=== PATIENT | male | born 1955 | race Caucasian/White ===

== ENCOUNTER 2018-05-17 20:39 | Emergency (ER) | payer BC ==
--- OUTSIDE RECORDS SUMMARY | 2018-05-17 20:46 | XMS REPORT | Continuity of Care Document ---
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 [facility] Rheumatoid Active Diagnosis 05/08/2018 [facility] arthritis of [facility] multiple sites without rheumatoid factor Cigarette Active Problem 05/08/2018 [facility] nicotine [facility] dependence, uncomplicated Other chronic Active Diagnosis 05/08/2018 [facility] pain [facility] Chronic Active Diagnosis 09/12/2016 [facility] prescription [facility] opiate use Long-term use of Active Problem 01/02/2016 [facility] other medications [facility] - High Risk Long-term use of Active Problem 01/02/2016 [facility] steroids [facility] Rheumatoid Active Problem 01/02/2015 [facility] arthritis [facility] Hypertension Active Problem 01/02/2016 [facility] Osteoarthrosis, Active Problem 01/02/2016 [facility] multiple sites [facility] Lumbago Active Problem 01/02/2016 [facility] Rheumatoid Active Problem 01/02/2016 [facility] arthritis of [facility] multiple sites without organ or system involvement with positive rheumatoid factor Need for Active Diagnosis 06/10/2014 [facility] prophylactic [facility] vaccination and inoculation, Influenza Encounter for Active Diagnosis 09/21/2015 [facility] long-term use of [facility] other high-risk medications Medications Medication Details Route Status Patient Ordering Order Source Instructions Provider Date Hydrocodone-Hal 1 tab Orally Active 10-325 MG Cain 08/04/ [facility] taminophen Orally BID to 2018 [facility] QID as needed Xeljanz XR 1 tablet Orally Active 11 MG Orally Cain 11/04/ Jourdan Once a day 2018 [facility] Hydrocodone-Hal 1 tab Orally Active 10-325 MG Cain 09/05/ [facility] taminophen Orally BID to 2017 [facility] QID as needed Hydrocodone-Hal 1 tab Orally Active 10-325 MG Fak[place] 05/09/ [facility] taminophen Orally twice a 2017 [facility] day as needed Medrol Dose Dominic as Orally Active 4mg Orally once Cain 05/07/ [facility] directed a day 2016 [facility] Folic Acid 1 tablet Orally Active 1 MG Orally Cain 09/09/ Jourdan once a day Once a day 2016 [facility] orally 90 days Hydrocodone-Hal 1 tablet Orally Active 10-325 MG Cain 04/10/ [facility] taminophen as needed Orally every 6 2015 [facility] hrs Xeljanz XR 1 tablet Orally Active 11 MG Orally Cain 03/27/ Jourdan Once a day 2016 [facility] Folic Acid 1 tablet Orally Active 1 MG Orally Cain 03/24/ Jourdan once a day Once a day 2015 [facility] orally 90 days Xeljanz XR 1 tablet Orally Active 11 MG Orally Cain 03/11/ Jourdan Once a day 2015 [facility] Actemra SQ 1 subcutaneous No 162mg/0.9 mL [place] 12/31/ [facility] injection Longer subcutaneous 2015 [facility] Active once a week Folic Acid 1 tablet Orally Active 1 MG Orally [place] 12/31/ [facility] Once a day 2015 [facility] Hydrocodone-Hal 1 tablet Orally Active 10-325 MG Cain 10/25/ [facility] taminophen as needed Orally every 6 2015 [facility] hrs Folic Acid take 1 Orally Active 1 Orally Once a [place] 10/01/ [facility] tablet by day 2015 [facility] mouth once daily Voltaren as Transdermal Active 1 % Transdermal Cain 10/01/ [facility] directed PRN 2015 [facility] Actemra SQ 1 subcutaneous Active 162mg/0.9 mL [place] 07/05/ [facility] injection subcutaneous 2016 [facility] once a week ORENCIA SQ 125mg SUBCUTANEOUSLY No 125MG Cain 06/20/ [facility] Longer SUBCUTANEOUSLY 2015 [facility] Active ONCE A WEEK Hydrocodone-Hal 1 tablet Orally Active 10-325 MG Cain 05/05/ [facility] taminophen as needed Orally every 6 2014 [facility] hrs ORENCIA SQ 125mg SUBCUTANEOUSLY Active 125MG [facility] 01/02/ [facility] SUBCUTANEOUSLY 2014 [facility] ONCE A WEEK ORENCIA SQ 125mg SUBCUTANEOUSLY Active 125MG [facility] 07/02/ [facility] SUBCUTANEOUSLY 2014 [facility] ONCE A WEEK Hydrocodone-Hal 1 tablet Orally Active 10-325 MG [facility] 06/14/ [facility] taminophen as needed Orally every 6 2014 [facility] hrs Hydrocodone-Hal 1 tablet Orally Active 10-325 MG [facility] 05/12/ [facility] taminophen as needed Orally every 6 2013 [facility] hrs Folic Acid 1 tablet Orally Active 1 MG Orally Cain 01/02/ [facility] Once a day 2013 [facility] Voltaren as Transdermal Active 1 % Transdermal Cain 01/02/ [facility] directed Three times a 2013 day ORENCIA SQ 125MG SUBCUTANEOUSLY Active 125MG Cain 01/02/ [facility] SUBCUTANEOUSLY 2013 [facility] ONCE A WEEK Hydrocodone-Hal 1 tablet Orally Active 10-325 MG Cain 08/23/ [facility] taminophen as needed Orally every 6 2013 [facility] hrs PredniSONE 1 tablet Orally Active 5 MG Orally Cain 08/23/ [facility] Once a day 2013 [facility] Voltaren as Transdermal Active 1 % Transdermal Cain [facility] directed PRN [facility] Nuvigil 1 tablet Orally Active 250 MG Orally Cain [facility] in the Once a day [facility] morning Inderal LA 1 capsule Orally Active 160 MG Orally Cain [facility]dan Once a day [facility] Calcium 1 tablet Orally Active otc Orally once Cain [facility] with meals a day [facility] Folic Acid 1 tablet Orally Active 1 MG Orally Cain [facility]dan Once a day [facility] Propranolol HCl 1 tablet Orally Active 10 MG Orally Cain [facility]dan Once a day [facility] Multivitamins 1 tablet Orally Active Orally once a Cain [facility]dan day [facility] Tricor 1 tablet Orally Active 145 MG Orally Cain [facility] Once a day [facility] Trazodone HCl 1 tablet Orally Active 150 MG Orally Cain [facility] at night [facility] Hydrocodone-Hal 1 tablet Orally Active 10-325 MG Cain [facility] taminophen as needed Orally every 6 [facility] hrs Xeljanz XR 1 tablet Orally Active 11 MG Orally Cain [facility] Once a day [facility] Xeljanz XR TAKE 1 NA Active 11 MG Cain [facility] TABLET BY [facility] MOUTH EVERY DAY Inderal LA 1 capsule Orally Active 160 MG Orally Cain [facility]dan Once a day [facility] Propranolol HCl 1 tablet Orally Active 10 MG Orally Cain [facility] Once a day [facility] Multivitamins 1 tablet Orally Active Orally once a Cain Jourdan day [facility] Voltaren as Transdermal Active 1 % Transdermal Cain [facility] directed PRN [facility] Tricor 1 tablet Orally Active 145 MG Orally Cain [facility] Once a day [facility] Trazodone HCl 1 tablet Orally Active 150 MG Orally Cain [facility] at night [facility] Nuvigil 1 tablet Orally Active 250 MG Orally Cain [facility] in the Once a day [facility] morning Calcium 1 tablet Orally Active otc Orally once Cain [facility] with meals a day [facility] Hydrocodone-Hal 1 tab Orally Active 10-325 MG Cain [facility] taminophen Orally BID to [facility] QID as needed Folic Acid TAKE 1 BY NA Active 1 MG Cain [facility] MOUTH [facility] DAILY Nexium 1 capsule Orally Active 40 MG Orally Cain [facility] prn [facility] Methotrexate 1 ml Injection Active 25 MG/ML Cain [facility] Sodium Injection Once [facility] a week ORENCIA SQ 125mg SUBCUTANEOUSLY Active 125MG Cain [facility] SUBCUTANEOUSLY [facility] ONCE A WEEK Methotrexate 1 ml SQ injection Active 25 MG/ML SQ Cain [facility] Sodium injection Once [facility] a week Xeljanz XR TAKE 1 NA Active 11 MG Cain [facility] TABLET BY [facility] MOUTH EVERY DAY Aricept 1 tablet Orally Active 23 MG Orally Cain [facility] at bedtime Once a day [facility] PredniSONE 1 tablet Orally Active 5 MG Orally Cain [facility] Once a day [facility] Voltaren as Transdermal Active 1 % Transdermal Cain [facility] directed PRN [facility] Hydrocodone-Hal 1 tablet Orally Active 10-325 MG Cain [facility] taminophen as needed Orally every 6 [facility] hrs Allergies, Adverse Reactions, Alerts Substance Category Reaction Severity Reaction Status Date Comments Source type Reported Lyrica Adverse Info Not Adverse Active [facility] Reaction Available Reaction 8 [facility] [place]rencia Adverse Info Not Adverse Active [facility] Reaction Available Reaction 8 [facility] Humira Adverse Info Not Adverse Active [facility] Reaction Available Reaction 8 [facility] Enbrel Adverse Info Not Adverse Active [facility] Reaction Available Reaction 8 [facility] Immunizations Immunization Date Given Site Status Last Updated Comments Source Actemra 07/05/2015 completed [facility] Depomedrol 06/06/2014 completed [facility] Flu Vaccine 03/15/2014 completed [facility] Depomedrol 10/04/2013 completed [facility] Toradol 10/04/2013 completed [facility] Results Order Results Value Reference Date Interpretation Comments Source Name Range Vital Signs Vital Sign Value Date Comments Source Weight 217.5 05/06/2018 [facility] Height 73 05/06/2018 [facility] Temperature Oral (F) 97.0 F 05/06/2018 [facility] Heart Rate 68 05/06/2018 [facility] Diastolic (mm Hg) 98 05/06/2018 [facility] Systolic (mm Hg) 158 05/06/2018 [facility] Weight 218.8 02/04/2018 [facility] Height 73 02/04/2018 [facility] Temperature Oral (F) 97.6 F 02/04/2018 [facility] Heart Rate 80 02/04/2018 [facility] Diastolic (mm Hg) 88 02/04/2018 [facility] Systolic (mm Hg) 140 02/04/2018 [facility] Weight 222.1 11/05/2017 [facility] Height 73 11/05/2017 [facility] Temperature Oral (F) 96.7 F 11/05/2017 [facility] Heart Rate 78 11/05/2017 [facility] Diastolic (mm Hg) 98 11/05/2017 [facility] Systolic (mm Hg) 144 11/05/2017 [facility] Weight 215.1 08/06/2017 [facility] Height 73 08/06/2017 [facility] Temperature Oral (F) 95.9 F 08/06/2017 [facility] Heart Rate 68 08/06/2017 [facility] Diastolic (mm Hg) 98 08/06/2017 [facility] Systolic (mm Hg) 140 08/06/2017 [facility] Weight 212.5 05/07/2017 [facility] Height 73 05/07/2017 [facility] Temperature Oral (F) 96.6 F 05/07/2017 [facility] Heart Rate 64 05/07/2017 [facility] Diastolic (mm Hg) 88 05/07/2017 [facility] Systolic (mm Hg) 124 05/07/2017 [facility] Weight 208 04/09/2017 [facility] Height 72 04/09/2017 [facility] Temperature Oral (F) 96.3 F 04/09/2017 [facility] Heart Rate 68 04/09/2017 [facility] Diastolic (mm Hg) 84 04/09/2017 [facility] Systolic (mm Hg) 142 04/09/2017 [facility] Weight 209.3 12/09/2016 [facility] Height 73.5 12/09/2016 [facility] Temperature Oral (F) 97.5 F 12/09/2016 [facility] Heart Rate 72 12/09/2016 [facility] Diastolic (mm Hg) 76 12/09/2016 [facility] Systolic (mm Hg) 142 12/09/2016 [facility] Weight 209 09/09/2016 [facility] Height 72.5 09/09/2016 [facility] Temperature Oral (F) 97.4 F 09/09/2016 [facility] Heart Rate 72 09/09/2016 [facility] Diastolic (mm Hg) 90 09/09/2016 [facility] Systolic (mm Hg) 140 09/09/2016 [facility] Weight 204.3 06/11/2016 [facility] Height 73 06/11/2016 [facility] Temperature Oral (F) 97.4 F 06/11/2016 [facility] Heart Rate 64 06/11/2016 [facility] Diastolic (mm Hg) 90 06/11/2016 [facility] Systolic (mm Hg) 142 06/11/2016 [facility] Weight 201 03/11/2016 [facility] Height 73 03/11/2016 [facility] Temperature Oral (F) 97.0 F 03/11/2016 [facility] Heart Rate 68 03/11/2016 [facility] Diastolic (mm Hg) 80 03/11/2016 [facility] Systolic (mm Hg) 128 03/11/2016 [facility] Weight 203 12/20/2015 [facility] Height 73 12/20/2015 [facility] Temperature Oral (F) 97.0 F 12/20/2015 [facility] Heart Rate 72 12/20/2015 [facility] Weight 206 09/26/2015 [facility] Height 73 09/26/2015 [facility] Temperature Oral (F) 97.0 F 09/26/2015 [facility] Heart Rate 70 09/26/2015 [facility] Diastolic (mm Hg) 96 09/26/2015 [facility] Systolic (mm Hg) 150 09/26/2015 [facility] Weight 206 07/05/2015 [facility] Height 72 07/05/2015 [facility] Temperature Oral (F) 97.5 F 07/05/2015 [facility] Heart Rate 64 07/05/2015 [facility] Diastolic (mm Hg) 90 07/05/2015 [facility] Systolic (mm Hg) 130 07/05/2015 [facility] Weight 202 04/05/2015 [facility] Height 72 04/05/2015 [facility] Temperature Oral (F) 96.7 F 04/05/2015 [facility] Heart Rate 64 04/05/2015 [facility] Diastolic (mm Hg) 90 04/05/2015 [facility] Systolic (mm Hg) 130 04/05/2015 [facility] Weight 200 08/15/2014 [facility] Height 74 08/15/2014 [facility] Temperature Oral (F) 97.4 F 08/15/2014 [facility] Heart Rate 72 08/15/2014 [facility] Diastolic (mm Hg) 74 08/15/2014 [facility] Systolic (mm Hg) 126 08/15/2014 [facility] Weight 204 06/06/2014 [facility] Height 72 06/06/2014 [facility] Temperature Oral (F) 97.6 F 06/06/2014 [facility] Heart Rate 72 06/06/2014 [facility] Diastolic (mm Hg) 70 06/06/2014 [facility] Systolic (mm Hg) 136 06/06/2014 [facility] Weight 203 03/15/2014 [facility] Height 72 03/15/2014 [facility] Temperature Oral (F) 97.0 F 03/15/2014 [facility] Heart Rate 76 03/15/2014 [facility] Diastolic (mm Hg) 84 03/15/2014 [facility] Systolic (mm Hg) 146 03/15/2014 [facility] Weight 204 12/21/2013 [facility] Height 72 12/21/2013 [facility] Temperature Oral (F) 97.0 F 12/21/2013 [facility] Heart Rate 80 12/21/2013 [facility] Diastolic (mm Hg) 88 12/21/2013 [facility] Systolic (mm Hg) 140 12/21/2013 [facility] Weight 210 10/04/2013 [facility] Height 72 10/04/2013 [facility] Temperature Oral (F) 96.9 F 10/04/2013 [facility] Heart Rate 80 10/04/2013 [facility] Diastolic (mm Hg) 80 10/04/2013 [facility] Systolic (mm Hg) 132 10/04/2013 [facility] Encounters Location Location Encounter Encounter Reason Attending ADM DC Status Source Details Type Number For Provider Date Date Visit Earl Mckenna. Unknown [id number] 10/04 10/04 [facility] MD [id number] /2013 [place] [id number] Earl A. Unknown [id number] 10/04 10/04 [facility] MD [id number] /2013 [place] [id number] Earl A. Unknown [id number] 10/04 10/04 [facility] MD [id number] /2013 [place] [id number] Earl A. Unknown [id number] 10/04 10/04 [facility] MD [id number] /2013 [place] [id number] Earl A. Unknown [id number] 10/04 10/04 [facility] MD [id number] /2013 [place] [id number] Earl A. Unknown [id number] 10/04 10/04 [facility] MD [id number] /2013 [place] [id number] Earl A. Unknown [id number] 10/04 10/04 [facility] MD [id number] /2013 [place] [id number] Earl A. Unknown [id number] 10/04 10/04 [facility] MD [id number] /2013 [place] [id number] Earl A. Unknown [id number] 10/04 10/04 [facility] MD [id number] /2013 [place] [id number] Earl A. Unknown [id number] 10/04 10/04 [facility] MD [id number] /2013 [place] [id number] Earl A. Unknown [id number] 10/04 10/04 [facility] MD [id number] /2013 [place] [id number] Earl A. Unknown [id number] 10/04 10/04 [facility] MD [id number] /2013 [place] [id number] Earl A. Unknown [id number] 10/04 10/04 [facility] MD [id number] /2013 [place] [id number] Earl A. Unknown [id number] 10/04 10/04 [facility] MD [id number]-[id number] /2013 [place] [id number] Earl A. Unknown [id number] 10/04 10/04 [facility] MD [id number]- /2013 [place] [id number] Earl A. Unknown [id number] 10/04 10/04 [facility] MD [id number]-[id number] /2013 [place] [id number]-[id number] [id number] Earl A. Unknown [id number] 10/04 10/04 Jourdan [facility] MD 716-435e- [place] [id number] Earl A. Unknown [id number] 10/04 10/04 Jourdan [facility] MD 5db-4dd2- [place] [id number] Earl A. Unknown [id number] 10/04 10/04 Jourdan [facility] MD 48c-42e8- [place] [id number]-[id number] Earl A. Unknown [id number] 10/04 10/04 [facility] MD [id number]-4818-[id number] /2013 [place] [id number] [id number] Earl A. Unknown [id number] 10/04 10/04 [facility]dan [facility] MD [id number]-[id number] /2013 [place] [id number] [id number] Earl A. Unknown [id number] 10/04 10/04 Jourdan Espinla MD [id number] /2013 [place] [id number] Earl A. Unknown [id number] 10/04 10/04 [facility] MD [id number] /2013 [place] [id number] Earl A. Unknown [id number] 10/04 10/04 [facility] MD [id number] /2013 [place] 4bd-32aa08 [id number] Earl A. Unknown [id number] 10/04 10/04 [facility] MD [id number]-a /2013 [place] bfb-[id number] Earl A. Unknown [id number] 10/04 10/04 [facility] MD a4d-42y3-w /2013 [place] [id number] Earl A. Unknown [id number] 10/04 10/04 [facility] MD [id number]-[id number] /2013 [place] [id number] [id number] Earl A. Unknown [id number] 10/04 10/04 [facility] MD fd9-4766-[id number] /2013 [place] [id number] Earl A. Unknown [id number] 10/04 10/04 [facility] MD 5ca-4dcc-9 /2013 [place] [id number] [id number] Ealr A. Unknown [id number] 10/04 10/04 [facility] MD cdb-46f7-8 /2013 [place] [id number]-[id number] Earl A. Refill- [id number] 10/27 10/27 MD Wendy Ba e86-7216-5 /2013 [place] [id number] [id number] Earl A. Refill- [id number] 10/27 10/27 MD Wendy Ba z1y-8p7v-l /2013 [place] [id number] Earl MckennaCristian Refill- [id number] 10/27 10/27 MD Wendy Ba j43-2112-w /2013 [facility] [id number] [id number] Earl MckennaCristian Refill- [id number] 10/27 10/27 MD Wendy Ba e24-304t-d /2013 [facility] [id number] [id number] Earl ACristian Refill- [id number]-r 10/27 10/27 MD Wendy Ba 1cd-44dc-8 /2013 [place] [id number] Earl MarcosCristian Refill- [id number] 10/27 10/27 MD Wendy Ba 5h9-5756-6 /2013 [facility] 3u0-wlgw9s [id number] Earl ACristian Refill- [id number] 10/27 10/27 MD Wendy Ba n23-11g2-m /2013 [facility] [id number]-[id number] [id number] Earl MarcosCristian Refill- [id number] 10/27 10/27 MD Wendy Ba b5z-453m-r /2013 [facility] 99e-48ce53 [id number] Earl MarcosCristian Refill- [id number] 10/27 10/27 MD Wendy Ba 59d-4783-b /2013 [place] 15d-4f3ca6 [id number] Earl MarcosCristian Refill- [id number] 10/27 10/27 MD Wendy Ba o97-3z2b-d /2013 [facility] [id number]-232e7c [id number] Earl Marrero Refill- [id number] 10/27 10/27 MD Wnedy Ba ac1-405e-9 /2013 [place] 99c-9b7feb [id number] Earl Marrero Refill- [id number] 10/27 10/27 MD Wendy Ba 7w2-7qz7-4 /2013 [place] [id number] [id number] Earl ACristian Refill- [id number] 10/27 10/27 MD Wendy Ba 361-4ed4- /2013 [place] [id number] Earl MckennaCristian Refill- [id number] 10/27 10/27 MD Wendy Ba 545-4d9f-9 /2013 [place] ebe-6219c7 b55fef Earl Marrero Refill- [id number] 10/27 10/27 MD Wendy Ba 7e5-34hg-h /2013 [place] a60-44fx2j [id number] Earl MarcosCristian Refill- [id number] 10/27 10/27 MD Wendy Ba a54-7hv3-5 /2013 [place] 839-d7ac4f [id number] Earl ACristian Refill- [id number] 10/27 10/27 MD Wendy Ba 6ff-460f-a /2013 [place] 21d-890e8d db9e5d Earl MarcosCristian Refill- [id number] 10/27 10/27 MD Wendy Ba 5de-40e6- /2013 [place] 06c-c75b3d [id number] Earl MarcosCristian Refill- [id number] 10/27 10/27 MD Wedny Ba 4ef-4066-a /2013 [place] 0a2-8y62y5 [id number] Earl Marrero Refill- [id number] 10/27 10/27 MD Wendy Ba c74-1k08-2 /2013 [place] 558-a4c0b5 [id number] Earl Marrero Refill- [id number]-7 10/27 10/27 MD Wendy Ba l20-8i37-5 /2013 [place] 294-8d1dbe [id number] Earl Marrero Refill- [id number]-[id number] 10/27 10/27 MD Wendy Ba 42f-4024-b /2013 [place] 373-74b61f f78b0c Earl Marrero Refill- 986m35kh-5 10/27 10/27 MD Wendy Ba a80-5684-8 /2013 [place] 19c-40817r [id number] Earl Marrero Refill- [id number] 10/27 10/27 MD Wendy Ba i85-7363-4 /2013 [place] 77a-8c0af2 [id number] Earl Marrero Refill- [id number]-s 10/27 10/27 MD Wendy Ba t21-4962-f /2013 [place] be6-8ou515 [id number] Earl MckennaCristian Refill- [id number]-9 10/27 10/27 MD Wendy Ba 08f-47de-8 /2013 [place] x49-35p44u [id number] Earl Marrero Refill- [id number] 10/27 10/27 MD Wendy Ba 17c-4ad0- [place] 817-0df98e [id number] Earl Marrero Refill- [id number] 10/27 10/27 MD Wendy Ba i8x-52b6-c /2013 [place] 9v5-481rx3 [id number] Earl ACristian Refill- p7i99e4h-4 10/27 10/27 MD Wendy Ba 164-4cfa- /2013 [place] m9m-i94j7h [id number] Earl ACristian Refill- [id number]-m 10/27 10/27 MD Wendy Ba af6-461a- [place] 87a-5j767j [id number] Earl MarcosCristian Refill-Sandyi 86za99ic-9 11/22 11/22 MD marcos Ba ef6-4f89- [place] [id number]-[id number] fd5d7a Earl Mckenna. Refill-Orenci 34vr188e-[id number] 11/22 11/22 MD marcos Ba 6o3-82n9-j /2013 [place] 289-4da19f [id number] Earl A. Refill-[place]ci [id number] 11/22 11/22 MD marcos Ba j9z-840f-a /2013 [place] 3e1-096hn2 [id number] Earl A. Refill-[place] [id number] 11/22 11/22 MD marcos Ba 745-444d-9 /2013 [place] 176-a0dfa9 [id number] Earl A. Refill-[place] [id number] 11/22 11/22 MD marcos Ba 86b-4583-a /2013 [place] 2bb-a4eaf6 [id number] Earl A. Refill-[place] [id number] 11/22 11/22 MD marcos Ba 77c-4134-a /2013 [place] ed2-ff3b55 [id number] Earl A. Refill-[place] 8xhl5dcq-5 11/22 11/22 MD marcos Ba 254-4857-9 /2013 [place] 3a2-1y9086 [id number] Earl A. Refill-[place] [id number] 11/22 11/22 MD marcos Ba m2q-67sq-r /2013 [place] [id number]-[id number] [id number] Earl A. Refill-[place] [id number] 11/22 11/22 MD marcos Ba 5k4-2338-6 /2013 [place] 3b5-q6a994 [id number] Earl A. Refill-[place] [id number] 11/22 11/22 MD marcos Ba w8q-0328-s /2013 [place] 353-ae73a3 [id number] Earl A. Refill-[place] [id number] 11/22 11/22 MD marcos Ba 223-44e7-9 /2013 [facility] j04-3q2x2o [id number] Earl A. Refill-[place] 5dxe06k5-0 11/22 11/22 MD marcos Ba 612-4de7-9 /2013 [place] k66-33p947 cbecb3 Earl A. Refill-[place] [id number] 11/22 11/22 MD marcos Ba e3q-7964-u /2013 [place] 42e-d3c38c [id number] Earl A. Refill-[place] [id number] 11/22 11/22 MD marcos Ba 795-466d-9 /2013 [place] [id number] Earl A. Refill-[place] [id number] 11/22 11/22 MD marcos Ba 06a-4ec4-b /2013 [place] 845-b2dddc [id number] Earl A. Refill-[place] [id number] 11/22 11/22 MD marcos Ba n8v-28a3-9 /2013 [place] 82c-9p8800 [id number] Earl A. Refill-[place] [id number] 11/22 11/22 MD marcos Ba j2z-6k8m-3 /2013 [place] karoline-45975r tk443q Earl A. Refill-[place] [id number] 11/22 11/22 MD marcos Ba 727-491d-a /2013 [place] fba-i61738 [id number] Earl A. Refill-[place] [id number] 11/22 11/22 MD marcos Ba 197-42ca-b /2013 [place] bfc-b1eaea [id number] Earl A. Refill-[place] [id number] 11/22 11/22 MD marcos Ba s35-032g-5 /2013 [place] add-d122dc [id number] Earl Mckenna. Refill-[place] [id number] 11/22 11/22 MD marcos Ba 486-4df0-a /2013 [place] [id number] 8101dd Earl Mckenna. Refill-[place] [id number] 11/22 11/22 MD marcos Ba ae1-41ac-9 /2013 [place] 11e-2525d5 [id number] Earl A. Refill-[place] [id number] 11/22 11/22 MD marcos Ba 957-44c5-b /2013 [place] 1bb-51aae8 [id number] Earl Mckenna. Refill-[place] [id number] 11/22 11/22 MD marcos Ba k44-89f5-v /2013 [place] 8i5-09106h [id number] Earl A. Refill-[place] [id number] 11/22 11/22 MD marcos Ba p3k-34l5-6 /2013 [place] v4w-g6n88t [id number] Earl A. Refill-[place] [id number] 11/22 11/22 MD marcos Ba eba-4ffb-8 /2013 [place] 873-s2o242 a8ff7e Earl A. Refill-[place] [id number] 11/22 11/22 MD marcos Ba g3b-9g9w-8 /2013 [place] w1x-fbe67c [id number] Earl A. Refill-[place] [id number] 11/22 11/22 MD marcos Ba [id number] /2013 [place] 568-w1p657 [id number] Earl A. Unknown [id number] 12/21 12/21 Jourdan [facility] MD 5q5-7yo0-i /2013 [place] [id number]-e790r1 [id number] Earl A. Unknown [id number] 12/21 12/21 Jourdan [facility] MD 676-49ef-[id number] /2013 [place] 6n9-y5l20h [id number] Earl A. Unknown [id number] 12/21 12/21 Jourdan Espinal MD ca4-42cc-b /2013 Kylie [id number] Earl A. Unknown [id number] 12/21 12/21 Jourdan Espinal MD 7ac-[id number] /2013 Kylie [id number] Earl A. Unknown [id number] 12/21 12/21 Jourdan Espinal MD 85d-418e-b /2013 Kylie [id number] [id number] Earl A. Unknown [id number] 12/21 12/21 Jourdan Espinal MD 164-4059-[id number] /2013 Kylie [id number] Earl A. Unknown [id number] 12/21 12/21 Jourdan Espinal MD 88b-47f4-9 /2013 Kylie [id number] [id number] Earl A. Unknown [id number] 12/21 12/21 Jourdan Espinal MD da3-45ae-b /2013 Kylie [id number] Earl A. Unknown [id number] 12/21 12/21 Jourdan Espinal MD [id number]-a /2013 Kylie [id number]-[id number] [id number] Earl A. Unknown [id number] 12/21 12/21 Jourdan Espinal MD 87c-4db8-8 /2013 Kylie 8g7-[id number] [id number] Earl A. Unknown [id number] 12/21 12/21 Jourdan Espinal MD i26-1j3x-f /2013 Kylie [id number]-[id number] [id number] Earl A. Unknown [id number] 12/21 12/21 Jourdan Espinal MD da5-45aa-b /2013 Kylie [id number]-z332mt [id number] Earl A. Unknown [id number] 12/21 12/21 Jourdan Espinal MD 531-497a-9 /2013 Kylie f8h-3m50wj [id number] Earl A. Unknown [id number] 12/21 12/21 Jourdan Espinal MD 28d-41cc-a /2013 Kylie 87d-5b25b3 [id number] Earl A. Unknown [id number] 12/21 12/21 Jourdan Espinal MD 4u8-6n53-2 /2013 Kylie [id number] Earl A. Unknown [id number] 12/21 12/21 Jourdan Espinal MD 8u2-0503-e /2013 Kylie [id number]-[id number] [id number] Earl A. Unknown [id number] 12/21 12/21 Jourdan Espinal MD 532-4eca-[id number] /2013 Kylie 1q7-5lqg00 [id number] Earl A. Unknown [id number] 12/21 12/21 Jourdan Espnial MD [id number]-m /2013 Kylie [id number] [id number] Earl A. Unknown [id number] 12/21 12/21 Jourdan Espinal MD de4-4942-b /2013 Kylie 2m7-p9f258 23j521 Earl A. Unknown 6251h48w-2 12/21 12/21 Jourdan Espinal MD z83-022p-6 /2013 [place] bc6-79f8c1 fd9cc1 Earl A. Unknown 5505nh97-7 12/21 12/21 Jourdan Espinal MD 8fb-48fe-a /2013 [place] 370-p5103u ae81c6 Earl A. Unknown [id number]-h 12/21 12/21 Jourdan Espinal MD m80-80v0-5 /2013 [place] 040-xy4007 203c7c Earl A. Unknown x0633jch-2 12/21 12/21 Jourdan Espinal MD t34-9670-x /2013 [place] o84-5p9090 24866h Earl A. Unknown 83so7474-7 12/21 12/21 Jourdan Espinal MD h18-303l-2 /2013 [place] m0j-91d928 cfdba9 Earl A. Unknown 97lu7iaf-9 12/21 12/21 Jourdan Espinal MD s55-97bc-g /2013 [place] cfd-ffaf3c 13cd0d Ealr A. Unknown w331b5y7-3 12/21 12/21 Jourdan Espinal MD 697-490d-b /2013 [place] v0q-zq3621 55cb35 Earl A. lab order 586u321n-6 12/22 12/22 Jourdan Espinal MD eb8-4f60-a /2013 [place] 108-x8101m 9114cb Earl A. lab order 5270z0d0-0 12/22 12/22 Jourdan Espinal MD l4s-8e93-8 /2013 [place] 493-42a4cf 36113j Earl A. lab order [id number] 12/22 12/22 Jourdan Espinal MD 3n0-26e0-9 /2013 [place] n7s-4h2re8 dbfac3 Earl A. lab order [id number]-2 12/22 12/22 Jourdan Espinal MD 72b-487a-a /2013 [place] fa0-9be8a3 50427t Earl A. lab order udg11nj3-5 12/22 12/22 Jourdan Espinal MD fe0-4f25-9 /2013 [place] t1t-7y2575 24486t Earl A. lab order mfi1i9j6-0 12/22 12/22 Jourdan Espinal MD 4c9-308t-2 /2013 [place] cbe-z0n039 093ef2 Earl A. lab order [id number] 12/22 12/22 Jourdan Espinal MD 99a-4a45-8 /2013 [place] 1db-c89955 csa526 Earl A. lab order 26w50g8h-7 12/22 12/22 Jourdan Espinal MD 363-4b58-a /2013 [place] w0s-0g1m57 1a6268 Earl A. lab order [id number] 12/22 12/22 Jourdan Espinal MD 7l0-6va3-f /2013 [place] w70-005714 e1h572 Earl A. lab order [id number]-u 12/22 12/22 Jourdan Espinal MD z5z-0w1p-q /2013 [place] cf5-4e83c4 54e1d0 Earl A. lab order 65or20j0-z 12/22 12/22 Jourdan Espinal MD 574-483a-a /2013 [place] 81d-c19ffb 902ad0 Earl A. lab order [id number]-c 12/22 12/22 Jourdan Espinal MD 134-4ed9-b /2013 [place] o81-66h611 6babf9 Earl A. lab order [id number] 12/22 12/22 Jourdan Espinal MD 828-4765-a /2013 [place] 9fe-9tv316 8e5bde Earl A. lab order 82r64v53-4 12/22 12/22 Jourdan Espinal MD b29-8x82-0 /2013 [place] 1e3-y524l9 fa9b6d Earl A. lab order 70699n0z-l 12/22 12/22 Jourdan Espinal MD edc-4614-9 /2013 [place] 0r6-vs6t17 866f6b Earl A. lab order 182j058z-8 12/22 12/22 Jourdan Espinal MD 0l1-6432-0 /2013 [place] ffe-a9bc67 350d7b Earl A. lab order [id number] 12/22 12/22 Jourdan Espinal MD 28d-427d-8 /2013 [place] 1cd-0w875m be5ee5 Earl Marrero lab order 16v73o8g-n 12/22 12/22 Jourdan Espinal MD p63-8449-q /2013 [place] 5bc-8h0141 8k4768 Earl Marrero lab order [id number]-[id number] 12/22 12/22 Jourdan Espinal MD 0ef-41c7-9 /2013 [place] o00-j75w8v jp9148 Earl A. lab order [id number] 12/22 12/22 Jourdan Espinal MD w1q-9kw1-5 /2013 [place] f99-o1om1h fef5b6 Earl A. lab order 505l0og4-1 12/22 12/22 Jourdan Espinal MD 43c-4cba- /2013 [place] k12-1k7okz fabc7d Earl A. lab order xlpg261b-5 12/22 12/22 Jourdan Espinal MD 952-4620-b /2013 [place] e91-1f9j8o 501f79 Earl A. lab order [id number]-b 12/22 12/22 Jourdan Espinal MD n72-9700-6 /2013 [place] 7ef-88b33a cebbc2 Earl A. lab order fty7bd5h-4 12/22 12/22 Jourdan Espinal MD 54d-4a54- /2013 [place] 819-238a05 fd86d7 Earl A. lab order f33g5543-6 12/22 12/22 Jourdan Espinal MD 7da-4d06- /2013 [place] bf0-224fca 8v400r Earl A. lab order rt3r963i-5 12/22 12/22 Jourdan Espinal MD 1df-41eb-a /2013 [place] f07-0l21t6 4bc43a Earl A. lab order 1801s1z0-5 12/22 12/22 Jourdan Espinal MD y07-19e0-a /2013 [place] 232-f0ef32 e641a8 Earl A. F/U wj9bz7j8-8 03/15 03/15 Jourdan Espinal MD l18-0668-l /2013 [place] 640-3995cb aa00b3 Earl A. F/U 7nx636r2-7 03/15 03/15 Jourdan Espinal MD 28c-4e4d- /2013 [place] 660-835229 99eb00 Earl A. F/U 4t52161r-2 03/15 03/15 Jourdan Espinal MD 5ed-44ee-a /2013 [place] 016-0v631j 31cbe9 Earl A. F/U 900zkc8p-7 03/15 03/15 Jourdan Espinal MD 572-47b5-b /2013 [place] f42-2d4836 36bc9d Earl A. F/U 39yq9h2v-f 03/15 03/15 Jourdan Espinal MD fba-46f9-9 /2013 [place] p48-076339 0e36fe Earl A. F/U 8a29z183-7 03/15 03/15 Jourdan Espinal MD 237-4f79-b /2013 [place] f80-b426a7 5550d9 Earl A. F/U 6w71d87q-6 03/15 03/15 Jourdan Espinal MD 294-4510-8 /2013 [place] n0o-kv0053 s0u218 Earl A. F/U 3du6754a-3 03/15 03/15 Jourdan Espinal MD 11d-45f9-b /2013 [place] 5dc-c08f23 6777b1 Earl A. F/U 36dj9430-0 03/15 03/15 Jourdan Espinal MD 166-452c-a /2013 [place] e7p-07x82x b7bd63 Earl A. F/U t9377u57-h 03/15 03/15 Jourdan Espinal MD 53b-45e9-a /2013 [place] i40-15n9ag 98z718 Earl A. F/U qh96el39-1 03/15 03/15 Jourdan Espinal MD i39-0ahl-v /2013 [place] dca-91e7f6 3c0b9a Earl A. F/U 8gk9154p-7 03/15 03/15 Jourdan Espinal MD r81-30y1-9 /2013 [place] 831-3bdc02 388205 Earl A. F/U 208o51f6-2 03/15 03/15 Jourdan Espinal MD 289-4bff-8 /2013 [place] ce1-hz3799 32877b Earl A. F/U 9d08439z-3 03/15 03/15 Jourdan Espinal MD df0-4207-9 /2013 [place] fd2-938916 80edab Earl A. F/U ht84ay6z-6 03/15 03/15 Jourdan Espinal MD k50-7109-s /2013 [place] 329-ff6f23 e3e3c2 Earl A. F/U v63ihs01-3 03/15 03/15 Jourdan Espinal MD 168-455f-b /2013 [place] 4f2-aro4tc d44c4b Earl A. F/U k3970153-6 03/15 03/15 Jourdan Espinal MD 2q7-45n8-n /2013 [place] 9a1-3yi8y1 0qm589 Earl A. F/U 789q903m-0 03/15 03/15 Jourdan Espinal MD 42a-452c-b /2013 [place] c70-4e2707 a61d99 Earl A. F/U 7s046v1l-9 03/15 03/15 Jourdan Espinal MD 5fb-4812-b /2013 [place] 813-3a00d3 010802 Earl A. F/U 57jc3ewk-6 03/15 03/15 Jourdan Espinal MD ea7-4856-b /2013 [place] 7af-3d34a7 964be2 Earl A. F/U 91m3d666-2 03/15 03/15 Jourdan Espinal MD cc7-44de-a /2013 [place] e7f-100t84 dd4ab9 Earl A. F/U 0c985928-5 03/15 03/15 Jourdan Espinal MD bd5-4949-8 /2013 [place] 58b-546c78 2946e9 Earl A. RX Request-- [id number] 04/03 04/03 Jourdan Espinal MD Orencia 867-4fc3-8 /2013 [place]-e62334 654e68 Earl Mckenna. RX Request-- [id number]-d 04/03 04/03 MD Wendy Ba l4r-1373-z /2013 [place] 2ac-40h848 232f03 Earl Mckenna. RX Request-- [id number] 04/03 04/03 MD Wendy Ba 67b-47ec- /2013 [place] 699-a1d8d4 22a24f Earl A. RX Request-- [id number] 04/03 04/03 MD Wendy Ba k71-8s98-u /2013 [place] ea8-decd3f 4gi722 Earl Mckenna. RX Request-- 02p10zp9-2 04/03 04/03 MD Wendy Ba y1p-0vt5-q /2013 [place] 2s2-50314k eeddf2 Earl A. RX Request-- 1pwd4ap1-1 04/03 04/03 MD Wendy Ba 958-4a4f-b /2013 [place] 480-7defb5 x8937j Earl Mckenna. RX Request-- iw75bdl1-0 04/03 04/03 MD Wendy Ba 905-4502- [place] ef1-905d63 bc0d0f Earl A. RX Request-- [id number]-3 04/03 04/03 MD Wendy Ba 464-49b0- /2013 [place] 27c-5f7bb1 1ec9b9 Earl A. RX Request-- [id number] 04/03 04/03 MD Wendy aB ea5-45ef-a /2013 [place] b60-m58lv1 t0639v Earl A. RX Request-- y184zed3-k 04/03 04/03 MD Wendy Ba ec0-45a9-9 /2013 [place] 6df-30s986 37cda3 Earl A. RX Request-- r26tu3f4-b 04/03 04/03 MD Wendy Ba 06a-44f5- /2013 [place] 84b-279d26 1363d1 Earl A. RX Request-- [id number] 04/03 04/03 MD Wendy Ba 7e8-68u3-y /2013 [place] 570-119bba b72ff1 Earl A. RX Request-- 525r0ip8-3 04/03 04/03 MD Wendy Ba 64c-4fb5- /2013 [place] e66-t50m9p p43786 Earl A. RX Request-- [id number] 04/03 04/03 MD Wendy Ba 1w1-1p5f-m /2013 [place] ef6-g99979 f8b4e2 Earl A. RX Request-- 25x76n59-4 04/03 04/03 MD Wendy Ba 375-4921- /2013 [place] x1p-y2762g l99600 Earl A. RX Request-- o737f35s-5 04/03 04/03 MD Wendy Ba 924-4d49- /2013 [place] 1g6-61265l 2j6248 Earl A. RX Request-- p1296ioa-6 04/03 04/03 MD Wendy Ba 3h4-0255-d /2013 [place] 8x8-q9685l fbcf01 Earl A. RX Request-- aqw98he7-e 04/03 04/03 MD Wendy Ba 249-40c6-b /2013 [place] 767-9k5064 c7966j Earl A. RX Request-- dlx6x6br-9 04/03 04/03 MD Wendy Ba h9j-4r21-l /2013 [place] v41-50o2v4 fc92e2 Earl A. RX Request-- 2s7r1v39-u 04/03 04/03 MD Wnedy Ba 178-4a80-b /2013 [place] u43-j96w26 25624i Earl Mckenna. RX Request-- [id number]-e 04/03 04/03 MD Wendy Ba cdc-4756-9 /2013 Espinal 465-6de46c d33fb1 Earl Mckenna. RX Request-- [id number]-3 04/03 04/03 MD Wendy Ba e1s-1399-w /2013 Espinal z8z-0iui73 475396 Earl Mckenna. RX Request-- [id number] 04/03 04/03 MD Wendy Ba 796-40ea- /2013 Espinal d1s-6ew742 4cx690 Earl A. RX Request-- [id number]-6 04/03 04/03 MD Wendy Ba cb5-4f5a-b /2013 Espinal 587-88cf35 f583b5 Earl Mckenna. RX Request-- 6073j6t0-n 04/03 04/03 MD Wendy Ba r3v-5237-3 Espinal 836-138da5 323b28 Earl A. Refill z9288498-q 04/12 04/12 Jourdan Espinal MD hydrocodone 4s9-7rp1-1 Espinal 04/15 ca3-860fe3 8c01bf Earl A. Refill z1m204k6-5 04/12 04/12 Jourdan Espinal MD hydrocodone cf2-4c78-a /2013 [place] 04/15 4o4-4c1l9f a450fc Earl A. Refill a3801usb-5 04/12 04/12 Jourdan Espinal MD hydrocodone k56-34l5-4 Espinal 04/15 be3-ab9caa 5pj470 Earl A. Refill 7k105fs0-1 04/12 04/12 Jourdan Espinal MD hydrocodone 329-4af9- Espinal 04/15 o9m-oh0bn8 08146v Earl A. Refill 54147d93-2 04/12 04/12 Jourdan Espinal MD hydrocodone 28e-4654-9 /2013 [place] 04/15 x1l-6wnf15 sk748u Earl A. Refill 0sk95dy8-5 04/12 04/12 Jourdan Espinal MD hydrocodone b87-51cb-a /2013 [place] 04/15 652-2by602 58da7f Earl A. Refill 8072abdd-c 04/12 04/12 Jourdan Espinal MD hydrocodone 52d-4075-9 /2013 [place] 04/15 271-3t6909 76a6f5 Earl A. Refill 12r99837-c 04/12 04/12 Jourdan Espinal MD hydrocodone cfe-43a5-a /2013 [place] 04/15 x98-b4v215 a71d79 Earl A. Refill sh7c654c-i 04/12 04/12 Jourdan Espinal MD hydrocodone ac8-4ae9- /2013 [place] 04/15 2dc-36509a 080827 Earl A. Refill 15282ql5-7 04/12 04/12 Jourdan Espinal MD hydrocodone 606-494e-8 /2013 [place] 04/15 6dd-7f72c0 09a0ba Earl A. Refill 995j98r2-j 04/12 04/12 Jourdan Espinal MD hydrocodone i2w-80vk-0 [place] 04/15 j4g-540a21 9v794y Earl A. Refill b94862aj-e 04/12 04/12 Jourdan Espinal MD hydrocodone 66b-4f26- /2013 [place] 04/15 802-3t940m 40dc66 Earl A. Refill 7nfd5d35-9 04/12 04/12 Jourdan Espinal MD hydrocodone abf-49c7-b /2013 Espinal 04/15 4b2-a74h8r dd05c7 Earl A. Refill jc329352-7 04/12 04/12 Jourdan Espinal MD hydrocodone e8s-727o-9 Espinal 04/15 657-b3b5b6 ee9d64 Earl A. Refill um4rsg79-9 04/12 04/12 Jourdan Espinal MD hydrocodone 271-4006-a /2013 [place] 04/15 2cc-f6a3ef 373827 Earl A. Refill 95qp9b6v-7 04/12 04/12 Jourdan Espinal MD hydrocodone 825-4aea-a /2013 [place] 04/15 9h9-8t718l 116aba Earl A. Refill yw870171-m 04/12 04/12 Jourdan Espinal MD hydrocodone 51a-4266-b /2013 [place] 04/15 9k4-7d1787 2fd1e7 Earl A. Refill 72867f98-k 04/12 04/12 Jourdan Espinal MD hydrocodone 693-406b-9 /2013 [place] 04/15 697-adebe8 7c89d0 Earl A. Refill 77c2n012-1 04/12 04/12 Jourdan Espinal MD hydrocodone i97-9ej8-5 /2013 [place] 04/15 818-778caf c7ffa1 Earl A. Refill 4n67d55k-2 04/12 04/12 Jourdan Espinal MD hydrocodone 806-484d-b /2013 [place] 04/15 j06-38e273 100ce3 Earl A. Refill me8h9664-9 04/12 04/12 Jourdan Espinal MD hydrocodone fc9-476a-8 /2013 [place] 04/15 98a-79d1ad ff61de Earl A. Refill 7p478p88-x 04/12 04/12 Jourdan Espinal MD hydrocodone k6y-8794-4 /2013 [place] 04/15 p26-wh3702 7fc21d Earl A. Refill jsiz391v-2 04/12 04/12 Jourdan Espinal MD hydrocodone u3i-1o28-f /2013 [place] 04/15 08f-0bcd89 22a7ea Earl A. Refill vh410xq9-y 04/12 04/12 Jourdan Espinal MD hydrocodone x66-0512-v /2013 Espinal 04/15 849-58170s f2d3e4 Earl A. Refill 009z18qm-o 05/12 05/12 Jourdan Espinal MD 509-476e-b /2013 [place] r1q-740scc 3g2658 Earl A. Refill drfg943t-3 05/12 05/12 Jourdan Espinal MD 54f-4ff7-b /2013 [place] 2k4-7901h8 235713 Earl A. Refill t5dlo2lt-9 05/12 05/12 Jourdan Espinal MD 9c3-9e18-1 /2013 [place] 86d-056db6 a9d27f Earl A. Refill mb320q15-f 05/12 05/12 Jourdan Espinal MD z79-2350-r /2013 [place] 625-cd31fd 56u815 Earl A. Refill 4k7162q9-a 05/12 05/12 Jourdan Espinal MD 537-4b8a-8 /2013 [place] u5b-9142r4 254cce Earl A. Refill z5u7606x-i 05/12 05/12 Jourdan Espinal MD 17b-4a85-a /2013 [place] 93f-d5d43b 0bb8c9 Earl A. Refill 5h19c9gi-b 05/12 05/12 Jourdan Espinal MD dc2-4841-b /2013 [place] ff9-adbfb8 5e9189 Earl A. Refill e5hjffd7-h 05/12 05/12 Jourdan Espinal MD 79a-430c-9 /2013 [place] 1b4-z245u3 12adcc Earl A. Refill 4198uhi5-s 05/12 05/12 Jourdan Espinal MD de3-4e53-a /2013 [place] e72-64988u 9535cc Earl A. Refill 485u0826-1 05/12 05/12 Jourdan Espinal MD u38-7213-l /2013 [place] 382-88ae71 Earl A. Refill mf00h8zc-6 05/12 05/12 Jourdan Espinal MD 7f5-0526-e /2013 [place] 118-8z173m d20196 Earl A. Refill 021979hy-3 05/12 05/12 Jourdan Espinal MD 4u9-18j5-6 /2013 [place] 1i5-3g4030 zm407f Earl A. Refill 519375gg-n 05/12 05/12 Jourdan Espinal MD 47e-40b6-a /2013 [place] 784-c6b40c 6a0bff Earl A. Refill 140x578z-u 05/12 05/12 Jourdan Espinal MD 950-43cf-b /2013 [place] f45-wxjr6k 47t311 Earl A. Refill 7jrn5211-3 05/12 05/12 Jourdan Espinal MD ad3-4351-8 /2013 [place] 94f-2a89c3 8t3185 Earl A. Refill 72o88y01-2 05/12 05/12 Jourdan Espinal MD 346-4a91-8 /2013 [place] 5ca-8d56a0 36t695 Earl A. Refill 395d3r07-h 05/12 05/12 Jourdan Espinal MD de1-4693-b /2013 [place] f2i-459679 f29cbc Earl A. Refill mdn06xp6-r 05/12 05/12 Jourdan Espinal MD 7n1-523d-v /2013 [place] d16-2022dm bbdb68 Earl A. Refill g5p7vx9m-0 05/12 05/12 Jourdan Espinal MD af4-42fe-8 /2013 [place] dbd-1m7311 cg3698 Earl A. Refill 85u45738-3 05/12 05/12 Jourdan Espinal MD t22-5140-w /2013 [place] c33-755cse e581c2 Earl A. Refill 0r5x5683-8 05/12 05/12 Jourdan Espinal MD df2-460a-8 /2013 [place] e25-y4ol3g b5b704 Earl Marrero Refill 2946eu05-4 05/12 05/12 Jourdan Espinal MD 90e-42c5-8 /2013 [place] 57c-493930 db1f60 Earl Mckenna. Refill 60783347-0 05/12 05/12 Jourdan Espinal MD 961-455b-a /2013 [place] 3df-28b0c5 6vg431 Earl A. 3m f/u v426nku7-l 06/06 06/06 Jourdan Espinal MD 100-4a20-9 /2014 [place] 1a7-3x1517 935a1f Earl A. 3m f/u 26185u8u-h 06/06 06/06 Jourdan Espinal MD 233-4609-8 /2014 [place] 27c-8l3505 25o636 Earl A. 3m f/u 341jguj6-9 06/06 06/06 Jourdan Espinal MD 083-46fa-9 /2014 [place] 0d3-a02122 d5z419 Earl A. 3m f/u 7o20o5vf-8 06/06 06/06 Jourdan Espinal MD 4r9-643p-6 /2014 [place] 67b-59242y 4kj183 Earl A. 3m f/u dlr445e8-9 06/06 06/06 Jourdan Espinal MD 0u9-9i6g-l /2014 [place] 702-r93461 8d7fca Earl A. 3m f/u 895953u8-5 06/06 06/06 Jourdan Espinal MD 16a-41d4-a /2014 [place] 029-19483i f442b3 Earl A. 3m f/u me6t7198-4 06/06 06/06 Jourdan Espinal MD j8h-4226-2 /2014 [place] 8ee-1y3200 7d3b81 Earl A. 3m f/u 16a378b4-5 06/06 06/06 Jourdan Espinal MD b1z-7596-s /2014 [place] af4-f63a5c e74e86 Earl A. 3m f/u f9g51h09-u 06/06 06/06 Jourdan Espinal MD 914-44e2-a /2014 [place] de5-54y902 e40da6 Earl A. 3m f/u u9363w72-u 06/06 06/06 Jourdan Espinal MD 420-496a-b /2014 [place] 0bc-452655 553f82 Earl A. 3m f/u 890dbcfe-b 06/06 06/06 Joudran Espinal MD q18-35c4-7 /2014 [place] 1o1-816dfo 6h750h Earl A. 3m f/u e938c07j-r 06/06 06/06 Jourdan Espinal MD q0w-0gy2-1 /2014 [place] r34-c0zp63 e7f2de Earl A. 3m f/u 2v4gg456-n 06/06 06/06 Jourdan Espinal MD 9r9-7v3a-s /2014 [place] 29c-aa94e6 855bda Earl A. 3m f/u 100y8174-m 06/06 06/06 Jourdan Espinal MD 0i7-6623-h /2014 [place] cf8-e4e8a1 ga1129 Earl A. 3m f/u 2616jbw8-3 06/06 06/06 Jourdan Espinal MD d1t-9m8s-8 /2014 [place] l35-5a7kbt 5c15c8 Earl A. 3m f/u q12vr784-9 06/06 06/06 Jourdan Espinal MD q48-009n-t /2014 [place] r26-6exna1 5n5880 Earl A. 3m f/u db885319-e 06/06 06/06 Jourdan Espinal MD bd3-4992-9 /2014 [place] p41-njs4wp 999bba Earl A. 3m f/u 77v5353v-f 06/06 06/06 Jourdan Espinal MD 25b-4f80-b /2014 [place] 4ba-178228 d36e87 Earl A. 3m f/u 863t3854-7 06/06 06/06 Jourdan Espinal MD 5c5-596r-1 /2014 Espinal 7h3-245827 f16f61 Earl A. MRI Bi Hands 8j5c8700-6 06/09 06/09 Jourdan Espinla MD 632-479e-a /2014 Espinal s0s-n2t570 45a13a Earl A. [employer] Hands x0e2r228-4 06/09 06/09 Jourdan Espinal MD 099-4d1e-9 /2014 [place] b3p-992113 ee5f19 Earl A. MRI [employer] Hands 28303e8e-g 06/09 06/09 Jourdan Espinal MD 5z4-478h-0 /2014 Espinal 40d-sa1445 7309b5 Earl A. [employer] Hands 89s96345-x 06/09 06/09 Jourdan Espinal MD u5h-3413-o /2014 Espinal 383-8122c4 98u248 Earl A. [employer] Hands 5m556646-2 06/09 06/09 Jourdan Espinal MD 007-4cf7-9 /2014 Espinal 32b-7b3274 b555f0 Earl A. MRI [employer] Hands 9hm3k71f-2 06/09 06/09 Jourdan Espinal MD c87-34t8-8 /2014 Espinal i7e-95d7s1 e1808b Earl A. MRI [employer] Hands 414mxim5-4 06/09 06/09 Jourdan Espinal MD 948-492c- /2014 Espinal 723-ng1069 e0cfe9 Earl A. [employer] Hands 4957062p-6 06/09 06/09 Jourdan Espinal MD 551-4023-9 /2014 Espinal baf-1660d0 9f64b1 Earl A. [employer] 3vtc3q2z-q 06/09 06/09 Jourdan Espinal MD 1k6-9at2-y /2014 [place] 72d-e5bb07 9a3bfd Earl A. MRI [employer] Hands e7784291-5 06/09 06/09 Jourdan Espinal MD de9-4ef9-a /2014 Esp[place] ea6-ace31b 0yi991 Earl A. [employer] m66m27ag-0 06/09 06/09 Jourdan Espinal MD 843-4376-9 /2014 Espinal f15-n69561 a587b6 Earl A. [employer] q0950887-o 06/09 06/09 Jourdan Espinal MD 993-4b96-8 /2014 Espinal eb2-1a6f00 6dd90d Earl A. MRI Bi Hands 604010f3-j 06/09 06/09 Jourdan Espinal MD 4ce-4eb6-b /2014 Espinal 037-301937 69f5e9 Earl A. MRI [employer] Hands 6686r49b-0 06/09 06/09 Jourdan Espinal MD 3e3-8mnk-9 /2014 Esp[place] caa-u8473e dc3b4f Earl A. MRI [employer] Hands 0c5ct2bu-m 06/09 06/09 Jourdan Espinal MD y34-906o-d /2014 Espinal 482-1e91ef 5bddf8 Earl A. MRI [employer] Hands 421y2322-6 06/09 06/09 Jourdan Espinal MD i36-60h5-e /2014 Espinal 277-5e7c16 205d92 Earl A. MRI [employer] Hands k3r3j1s6-0 06/09 06/09 Jourdan Espinal MD ecc-4315-9 /2014 [place] 2l0-l73059 55135q Earl A. MRI [employer] Hands kgx746w6-6 06/09 06/09 Jourdan Espinal MD 9cf-4697-b /2014 Espinal b9m-4070wy rz408w Earl A. MRI Bi Hands 75147h8q-j 06/09 06/09 Jourdan Espinal MD cbd-45e6-9 /2014 Espinal 7t5-k404m8 32dbdf Earl A. MRI Bi Hands 4e0166db-8 06/09 06/09 Jourdan Espinal MD 530-4a41-8 /2014 Espinal 26d-ac90fe 206150 Earl A. MRI Bi Hands 67z5r2w3-r 06/09 06/09 Jourdan Espinal MD 8l0-75nt-0 /2014 [place] c43-30r579 1cd3c9 Earl Ackermanncia 59y5w2ad-8 06/23 06/23 Jourdan Espinal MD Refill 782-4d3b-b /2014 Kylie 7s1-83g587 chk381 Earl Ackermanncia 8505edef-6 06/23 06/23 Jourdan Espinal MD Refill 270-450f-b /2014 Kylie 012-d2c3dc f9af57 Earl Mckenna. Orencia 428f20nv-0 06/23 06/23 Jourdan Espinal MD Refill 8w0-6639-t /2014 Kylie ca5-6ab8bf 203797 Earl A. Orencia 0zk83qjy-2 06/23 06/23 Jourdan Espinal MD Refill 903-4e90-9 /2014 Kylie 0ca-5f26aa 075e9f Earl Mckenna. Orencia 7q8391af-9 06/23 06/23 Jourdan Espinal MD Refill 4y1-2qqq-0 /2014 Kylie d8r-3kd65v dfe7b4 Earl Mckenna. Sandyia 8ag13600-5 06/23 06/23 Jourdan Espinal MD Refill 7t6-7c4g-g /2014 Kylie 4a5-1kn047 768f2f Earl Mckenna. Orencia y6r47239-5 06/23 06/23 Jourdan Espinal MD Refill 382-4866-8 /2014 Kylie 5b4-7s1qq9 6a27c9 Earl A. Orencia z3pv836d-2 06/23 06/23 Jourdan Espinal MD Refill 9t6-1fh7-i /2014 Kylie 21d-qg3087 965006 Earl Mckenna. Orencia 0l1593p2-5 06/23 06/23 Jourdan Espinal MD Refill 50f-4a56-8 /2014 Kylie q21-c7n3g2 a13ffd Earl [place] 08zw7z75-4 06/23 06/23 Jourdan Espinal MD Refill n0a-6g2i-5 /2014 Kylie 1k2-qjzv26 uc4962 Earl [place] t3t8e0ie-1 06/23 06/23 Jourdan Espinal MD Refill h87-32s0-9 /2014 Kylie j16-2vc99f d923c8 Earl Gates[place] 4791887u-7 06/23 06/23 Jourdan Espinal MD Refill w23-5964-7 /2014 Kylie fd7-41fde1 431a9c Earl Ackermanncia 401326i1-j 06/23 06/23 Jourdan Espinal MD Refill 85e-489e-9 /2014 Kylie 8h9-k9w5p4 a827a1 Earl Ackermanncia ooe2vrse-y 06/23 06/23 Jourdan Espinal MD Refill b1x-1lk0-h /2014 Kylie 662-0c8d70 540770 Earl Ackermanncia tn9l536u-6 06/23 06/23 Jourdan Espinal MD Refill 309-4c6f-b /2014 Kylie 6r3-dx1n99 546569 Earl Gates[place] u136a4qp-0 06/23 06/23 Jourdan Espinal MD Refill 3ba-47c7-b /2014 Kylie 441-6f2cb5 f1f50a Earl Ackermanncia 0y63v285-9 06/23 06/23 Jourdan Espinal MD Refill p5o-2205-3 /2014 Kylie o6g-5e2dvf dcaa3a Earl Ackermanncia 8do11z27-2 06/23 06/23 Jourdan Espinal MD Refill 42b-400e-b /2014 Kylie q3q-6hk1n4 37cc15 Earl Marrero Orencia 67t66093-0 06/23 06/23 Jourdan Espinal MD Refill 996-4063-a /2014 Kylie 625-115167 002c0d Earl Marrero Orencia 18jro543-2 06/23 06/23 Jourdan Espinal MD Refleonides 253-43d9-b /2014 Kylie b23-998466 z64407 Earl Marrero Refill- 728y0h3k-2 06/27 06/27 MD Wendy Ba 1f9-7j90-x /2014 Kylie 40c-1aa6e2 b1ed41 Earl Marrero Refill- 1w06uhh9-8 06/27 06/27 MD Wendy Ba 5de-4607-8 /2014 Kylie 198-2b3f7a 6ebadf Earl Marrero Refill- ff81725u-3 06/27 06/27 MD Wendy Ba 7u1-20c2-h /2014 Kylie q2q-8jt8zw 3fd1a7 Earl MckennaCristian Refill- 3a5092g2-2 06/27 06/27 MD Wendy Ba d10-8581-3 /2014 Kylie q73-2jcy6v 173482 Earl A. Refill- rqs29165-7 06/27 06/27 MD Wendy Ba 267-4fc8-a /2014 Kylie 1m7-25zbym bcb3cb Earl Mckenna. Refill- 0l8g46ei-3 06/27 06/27 MD Wendy Ba 147-45fc-9 /2014 Kylie 7n6-ufagx8 lf008n Earl MarcosCristian Refill- 8a73n73j-n 06/27 06/27 MD Wendy Ba 8w1-26pi-v /2014 Kylie 507-d131fb 93b3eb Earl MarcosCristian Refill- 69lb6o54-5 06/27 06/27 MD Wendy Ba 21b-4ccc-a /2014 Kylie b10-b22v0s 777d9e Earl Marrero Refill- xn272t1c-6 06/27 06/27 MD Wendy Ba 73e-4d2d-8 /2014 Kylie ad9-407b79 cf7e31 Earl Marrero Refill- 094001fk-u 06/27 06/27 MD Wendy Ba 9u0-9x85-q /2014 Kylie z39-8ts080 d63f3d Earl Marrero Refill- 8g7056ns-8 06/27 06/27 MD Wendy Ba 5p2-6256-u /2014 Kylie 1d5-e8755l f22ef9 Earl Marrero Refill- ou04lp52-d 06/27 06/27 MD Wendy Ba bad-4cc0-b /2014 Kylie m48-73401l d30eb8 Earl Marrero Refill- 03243v82-g 06/27 06/27 MD Wendy Ba 7d6-8606-l /2014 Kylie ec0-94b288 e337ba Earl MckennaCristian Refill- c71ki04c-y 06/27 06/27 MD Wendy Ba 276-47db- /2014 Kylie 62b-a4c2f1 350597 Earl MckennaCristian Refill- x60y78m3-8 06/27 06/27 MD Wendy Ba s4l-16tn-8 /2014 Kylie r5p-wr7w81 d15e32 Earl Mckenna. Refill- lz1g9y74-8 06/27 06/27 MD Wenyd Ba b1h-82xk-x /2014 Kylie m3d-bf3pf2 92edcc Earl Mckenna. Refill- 6p5m4ou9-1 06/27 06/27 MD Wendy Ba 541-40c9-b /2014 Kylie 2x3-8z6445 51cb4f Earl Marcos. Refill- 67ac96g8-7 06/27 06/27 MD Wendy Ba ee8-451d- Kylie 181-3r7011 52a14a Earl MarcosCristian Refill- 6t00vj1e-c 06/27 06/27 MD Wendy Ba 74a-41cc-8 /2014 Kylie 412-g5638t 893b11 Earl A. Refill- 48s567l0-q 06/27 06/27 MD Wendy Ba 700-48f4-9 /2014 Kylie 9l2-86zm39 94n214 Earl A. rx refill 65i09711-4 07/18 07/18 Jourdan Espinal MD 23d-4896-b /2014 Kylie 556-bm618m dff6a5 Earl A. rx refill 38jyl656-6 07/18 07/18 Jourdan Espinal MD 11c-4318-9 /2014 Kylie 8m7-ma0183 a17bb6 Earl A. rx refill 05m1o042-m 07/18 07/18 Jourdan Espinal MD 138-4af3-b /2014 Kylie 2ec-4555f5 09dadd Earl A. rx refill 14884998-x 07/18 07/18 Jourdan Espinal MD k65-7aow-7 /2014 Kylie fa1-d1eddf f6dee9 Earl A. rx refill 1v563n3b-m 07/18 07/18 Jourdan Espinal MD p3m-5m97-4 /2014 Kylie 5df-d41c3a 8f12f1 Earl A. rx refill d0md3227-7 07/18 07/18 Jourdan Espinal MD 02b-4445- /2014 Kylie o2h-3c1oak 37116h Aerl A. rx refill 9q104iar-j 07/18 07/18 Jourdan Espinal MD 72b-422d-a /2014 Kylie c01-ma0b6v m2k628 Earl A. rx refill 5498s29p-8 07/18 07/18 Jourdan Espinal MD d36-81w4-e /2014 Kylie 5q2-f7ki12 d22d80 Earl A. rx refill 7qc91yw3-8 07/18 07/18 Jourdan Espinal MD 9v1-1462-e /2014 Kylie r71-6276x8 495527 Earl A. rx refill 23q04i01-0 07/18 07/18 Jourdan Espinal MD y28-38iu-o /2014 Kylie 67a-f99fb1 9222ef Earl A. rx refill l48t8826-r 07/18 07/18 Jourdan Espinal MD ff7-4b57-b /2014 Espinal b42-902567 32r502 Earl A. rx refill 17i7o67a-2 07/18 07/18 Jourdan Espinal MD fa6-4257-b /2014 Kylie 760-13238f 76353k Earl A. rx refill 70620910-0 07/18 07/18 Jourdan Espinal MD ed2-4209-a /2014 Kylie 8l1-4732l4 693645 Earl A. rx refill 18l61s01-w 07/18 07/18 Jourdan Espinal MD 4s9-7598-3 /2014 Kylie 151-7z159o 5cc6a6 Earl A. rx refill 91s136y7-3 07/18 07/18 Jourdan Espinal MD 9a8-8c8u-d /2014 Kylie p6i-68l0oe bq3589 Earl A. rx refill 2uvo3g6n-2 07/18 07/18 Jourdan Espinal MD k4k-91x7-w /2014 Espinal n7y-w4b149 61ed37 Earl A. rx refill 397206n4-6 07/18 07/18 Jourdan Espinal MD t6y-6qh8-3 /2014 Kylie de0-e320d1 57w477 Earl A. 3 mo f/u lb2b38yq-1 08/15 08/15 Jourdan Espinal MD 2cb-4542-a /2014 Kylie 25c-551526 950489 Earl A. 3 mo f/u 2r510307-b 08/15 08/15 Jourdan Espinal MD bc0-41b2-8 /2014 Kylie a79-lj6hj2 b0ee67 Earl A. 3 mo f/u s0s51909-2 08/15 08/15 Jourdan Espinal MD 475-4dea-b /2014 Kylie 334-75r024 f15b1f Earl A. 3 mo f/u 1388n4kv-b 08/15 08/15 Jourdan Espinal MD af4-4a97-9 /2014 Kylie j55-79cp60 89ee97 Earl A. 3 mo f/u 04m482he-2 08/15 08/15 Jourdan Espinal MD 938-467a-a /2014 Kylie 86a-8c4e86 663079 Earl A. 3 mo f/u 8f981a53-z 08/15 08/15 Jourdan Espinal MD ce6-4025-b /2014 Kylie 036-5y655y da2cdd Earl A. 3 mo f/u c07388je-5 08/15 08/15 Jourdan Espinal MD e6w-70yk-v /2014 Kylie 8s8-683042 f97e16 Earl A. 3 mo f/u r2iratw7-f 08/15 08/15 Jourdan Espinal MD cb1-4dd2-a /2014 Kylie 408-113fdc 3p990q Earl A. 3 mo f/u 29s8r24x-5 08/15 08/15 Jourdan Espinal MD y84-2p8h-r /2014 Kylie 32f-g75390 c61a88 Earl A. 3 mo f/u 2q047x72-4 08/15 08/15 Jourdan Espinal MD daa-485f-9 /2014 Kylie 5ac-851d8f s02994 Earl A. 3 mo f/u 0f3758y6-4 08/15 08/15 Jouradn Espinal MD s88-08o4-7 /2014 Kylie baa-1h7857 384a54 Earl A. 3 mo f/u f62138k0-4 08/15 08/15 Jourdan Espinal MD 81d-4f45-b /2014 Kylie 0eb-p10346 3cef11 Earl A. 3 mo f/u 985698q4-r 08/15 08/15 Jourdan Espinal MD 28a-4a5d-a /2014 Kylie r39-q875c5 x0683m Earl A. 3 mo f/u 85t03r86-3 08/15 08/15 Jourdan Espinal MD c25-4le9-3 /2014 Kylie ccd-f040a3 f61aa1 Earl A. 3 mo f/u 421vzc5m-n 08/15 08/15 Jourdan Espinal MD 502-4a80-a /2014 Kylie d5r-sa58ve 66cff9 Earl A. 3 mo f/u 590scvx0-7 08/15 08/15 Jourdan Espinal MD 772-41f5-8 /2014 Kylie 14c-oo3801 791dcf Earl A. 3 mo f/u 0x9j4401-9 08/15 08/15 Jourdan Espinal MD 253-4990-8 /2014 Kylie 5dd-44d6a8 95ad5e Earl A. 3 mo f/u 3b3qy06n-7 08/15 08/15 Jourdan sEpinal MD 39d-42b6-a /2014 Kylie a11-k1q227 ee41b3 Earl A. MRI Bi Hands hp87m53z-y 08/30 08/30 Jourdan Espinal MD 22d-4afd-a /2014 Kylie ba1-48p040 6cd4f0 Earl A. MRI Bi Hands lj550b29-v 08/30 08/30 Jourdan Espinal MD 79e-482f-b /2014 Kylie 0fb-9bf6da c99ab5 Earl A. MRI Bi Hands 0818009g-u 08/30 08/30 Jourdan Espinal MD ca1-4993-b /2014 Kylie v82-5d7w82 553aca Earl A. MRI Bi Hands 04622151-5 08/30 08/30 Jourdan Espinal MD o6e-8d3j-s /2014 Kylie ff6-361118 c9df4d Earl A. MRI Bi Hands 0g493sg6-9 08/30 08/30 Jourdan Espinal MD be4-4c58-8 /2014 [place] 76d-68afee 0t073w Earl A. MRI Bi Hands q3lq647o-0 08/30 08/30 Jourdan Espinal MD bb1-4cc9-9 /2014 Espinal b7j-es7re4 80898m Earl A. MRI Bi Hands 26ndt6n5-u 08/30 08/30 Jourdan Espinal MD t2b-1t12-6 /2014 Espinal 824-mr1711 ea80c0 Earl A. MRI Bi Hands 4rn7t251-b 08/30 08/30 Jourdan Espinal MD z71-27mr-9 /2014 Espinal 871-813822 8542a8 Earl A. MRI Bi Hands 83263co4-t 08/30 08/30 Jourdan Espinal MD 51b-4d45-9 /2014 [place] 5p0-3661n9 185159 Earl A. MRI Bi Hands 8p5y96v8-5 08/30 08/30 Jourdan Espinal MD 41e-4b32-b /2014 [place] afe-c898fe 2478ba Earl A. MRI Bi Hands hc324q8j-7 08/30 08/30 Jourdan Espinal MD 208-479c-8 /2014 [place] 912-27909l p15851 Earl A. MRI [facility] Hands y47u9e6i-5 08/30 08/30 Jourdan Espinal MD 113-4d4a-b /2014 [place] 3z8-242507 0h9109 Earl A. MRI Bi Hands 5852699x-g 08/30 08/30 Jourdan Espinal MD z4p-9454-z /2014 [place] 183-5846d9 bx6514 Earl A. MRI Bi Hands 941ze43z-h 08/30 08/30 Jourdan Espinal MD 518-4b54-a /2014 Espinal r86-o44o5e d1df26 Earl A. MRI Bi Hands 55300s72-m 08/30 08/30 Jourdan Espinal MD 787-4586-a /2014 Kylie ccf-bcb26e ee83c1 Earl A. MRI Bi Hands 3d82gyw8-6 08/30 08/30 Jourdan Espinal MD 150-4894-9 /2014 Kylie 1ec-27a8cb iu7353 Earl A. MRI Bi Hands 69xt686s-2 08/30 08/30 Jourdan Espinal MD 2a3-1558-2 /2014 Kylie 21f-bddc65 u59941 Earl A. 1 mo f/u 657709rk-1 09/12 09/12 Jourdan Espinal MD cfd-4c06-9 /2014 Kylie 2w8-bk37b6 9e3ea0 Earl A. 1 mo f/u jyzt1506-c 09/12 09/12 Jourdan Espinal MD 3ca-4cd1-b /2014 Kylie r22-t58896 04v777 Earl A. 1 mo f/u 63u06059-x 09/12 09/12 Jourdan Espinal MD 570-4ddf-a /2014 Kylie i9m-3r8v3z fb7c3c Earl A. 1 mo f/u 0m6n7a34-5 09/12 09/12 Jourdan Espinal MD 41b-4c46- /2014 Kylie 41f-73fe27 v93837 Earl A. 1 mo f/u 77u9y786-9 09/12 09/12 Jourdan Espinal MD 1cc-45f2- /2014 Kylie 2o9-v5sqb7 87409r Earl A. 1 mo f/u 84mvlo16-o 09/12 09/12 Jourdan Espinal MD ad9-43be-9 /2014 Kylie 4be-991a0e 44e11d Earl A. 1 mo f/u 0d6f0950-o 09/12 09/12 Jourdan Espinal MD b14-3e03-7 /2014 Kylie 405-c670c9 17ffaf Earl A. 1 mo f/u 518h0q1u-o 09/12 09/12 Jourdan Espinal MD 5bc-47da-a /2014 Kylie aaa-zw3432 8636b2 Earl A. 1 mo f/u 31ic71a0-w 09/12 09/12 Jourdan Espinal MD 1db-411d-a /2014 Kylie 04c-9af6b9 dcc9ab Earl A. 1 mo f/u sa3oc717-3 09/12 09/12 Jourdan Espinal MD 534-44b7-9 /2014 Kylie 727-0a77e8 c6eace Earl A. 1 mo f/u 0114qt1t-1 09/12 09/12 Jourdan Espinal MD 399-4f73- /2014 Kylie 99a-1c1de8 7c6f76 Earl A. 1 mo f/u 39240z65-k 09/12 09/12 Jourdan Espinal MD 6d2-3869-4 /2014 Kylie 270-344695 6z6413 Earl A. 1 mo f/u mv248599-9 09/12 09/12 Jourdan Espinal MD j93-1hna-w /2014 Kylie 2c2-56qg53 37f950 Earl A. 1 mo f/u je9v8c30-4 09/12 09/12 Jourdan Espinal MD 47a-491e-9 /2014 yKlie cb9-faecfc 2a08fd Earl A. 1 mo f/u 1o90py50-p 09/12 09/12 Jourdan Espinal MD 411-46c3-b /2014 Kylie ca3-cja386 d3e2a5 Earl A. 1 mo f/u 878629b3-2 09/12 09/12 Jourdan Espinal MD 675-431b-a /2014 Kylie 99b-3ce63e 6294b7 Earl A. 1 mo f/u 17xf67b5-k 09/12 09/12 Jourdan Espinal MD 55f-4f25- /2014 Kylie ea7-ec01dd 77f66a Earl A. Refill- qbs9316o-q 09/12 09/12 Jourdan Espinal MD Oren[place] 817-429b-9 /2014 Kylie dcd-8c75fc b7b7c1 Earl MckennaCristian Refill- y169iqjk-9 09/12 09/12 MD Wendy Ba 749-4896-8 /2014 Kylie fbb-uon261 aff99a Earl Mckenna. Refill- m203y316-e 09/12 09/12 MD Wendy Ba e3z-08zl-9 /2014 Kylie 2q7-l48192 6d7e5d Earl MarcosCristian Refill- 4pbd7017-f 09/12 09/12 MD Wendy Ba r2w-0dy8-k /2014 Kylie b1h-3o9a98 tu779b Earl MarcosCristian Refill- 308j4d74-7 09/12 09/12 MD Wendy Ba 5db-42cf-a /2014 Kylie fca-9pr282 y5517n Earl MarcosCristian Refill- oejfv4v3-2 09/12 09/12 MD Wendy Ba 83f-46a8- /2014 Kylie c0t-34l536 1e9d09 Earl MarcosCristian Refill- j5852d5y-4 09/12 09/12 MD Wendy Ba afa-43f4-b /2014 Kylie e2u-8ax773 8bba9b Earl Marrero Refill- 7mtezq4n-o 09/12 09/12 MD Wendy Ba s65-54un-8 /2014 Kylie bd1-4056cb fc1d3a Earl Marrero Refill- z016r83o-7 09/12 09/12 MD Wendy Ba 2m8-9z24-7 /2014 Kylie 07d-62861v 238afa Earl ACristian Refill- 6a549h43-7 09/12 09/12 MD Wendy Ba cf7-4521- /2014 Kylie l5d-cmt347 e7dde2 Earl Marrero Refill- 2578a682-9 09/12 09/12 MD Wendy Ba i3v-231c-r /2014 Kylie d1u-9mr06p 40bc74 Earl ACristian Refill- 2u48o730-t 09/12 09/12 MD Wendy Ba fff-4c77- Kylie wai-4570e8 e83a5a Earl ACristian Refill- 8649r36c-6 09/12 09/12 MD Wendy Ba 6a3-479t-7 Espinal 93f-f651f6 4e0134 Earl MarcosCristian Refill- 7f96b182-v 09/12 09/12 MD Wendy Ba w97-9cim-7 Kylie b6r-d02ri8 8361b8 Earl MarcosCristian Refill- nxy3h31b-c 09/12 09/12 MD Wendy Ba 77d-463e- Kylie 0be-ef1ef8 29s835 Earl ACristian Refill- 857bv1g0-m 09/12 09/12 MD Wendy Ba 772-4b39- Espinal 5p2-9276ji 372384 Earl MarcosCristian Refill- 88j6135t-s 09/12 09/12 MD Wendy Ba n3y-7ao6-n /2014 Espinal 38d-6450da 4tq821 Earl MarcosCristian RX Request-- 42v1602a-g 09/14 09/14 MD Wendy Ba 4u9-0n0q-2 Kylie 02b-a040ea jm2205 Earl Marcos. RX Request-- ck5528dl-1 09/14 09/14 MD Wendy Ba 479-450b- Kylie 79e-4434ec bc64a1 Earl MarcosCristian RX Request-- 51vf4645-8 09/14 09/14 MD Wendy Ba 602-4ec0- Kylie 0bf-8177de 82960w Earl A. RX Request-- e3z1m9k2-9 09/14 09/14 MD Wendy Ba 191-4e01-b /2014 Kylie 752-47g662 5bc1b6 Earl A. RX Request-- d14c5576-r 09/14 09/14 MD Wendy Ba v86-63q4-6 /2014 Espinal 5ed-5cw072 2020ce Earl Marcos. RX Request-- tsk4g04a-8 09/14 09/14 MD Wendy Ba 560-430b-a /2014 Kylie 08a-o0923y dded25 Earl A. RX Request-- z39pn050-c 09/14 09/14 MD Wendy Ba 961-4d18-a /2014 Kylie 59f-b57a7f p6526g Earl A. RX Request-- 3k2qyvp2-2 09/14 09/14 MD Wendy Ba 9b0-930k-m /2014 Kylie 4ec-283029 1cee56 Earl A. RX Request-- y3jyqf96-0 09/14 09/14 MD Wendy Ba 452-4503- /2014 Kylie 5j0-0jyu6j 8319e4 Earl A. RX Request-- 4v47f949-7 09/14 09/14 MD Wendy Ba edf-4828-b /2014 Kylie ba4-b69f34 a6bcfb Earl A. RX Request-- dx61e406-9 09/14 09/14 MD Wendy Ba 301-42ab- /2014 Kylie 023-8be7a1 96j449 Earl A. RX Request-- 63j3r2s6-2 09/14 09/14 MD Wendy Ba 3d1-3566-0 Kylie 72d-rt2123 2e92ba Earl A. RX Request-- 0ncqk7u8-c 09/14 09/14 MD Wendy Ba 394-487e- Espinal a70-3a3t9y 643a64 Earl A. RX Request-- 9ud956cc-1 09/14 09/14 MD Wendy Ba 37c-4b86- Kylie 8cd-dbde18 a2f83c Earl A. RX Request-- 75c7ntj6-k 09/14 09/14 MD Wendy Ba x53-07r2-e /2014 Kylie l99-48cf03 sc2557 Earl A. RX Request-- 0c9l2i3o-p 09/14 09/14 MD Wendy Ba 9bd-4817- Kylie z1g-dqj432 1g9573 Earl A. RX Request-- 735b4ikg-5 09/14 09/14 MD Wendy Ba 71d-4379- Kylie baa-b50b4e 72fffa Earl A. RX Request-- 7x82202t-g 10/04 10/04 MD Wendy Ba 7e3-905e-1 Kylie 259-c589a8 f61a7e Earl A. RX Request-- d733gn48-7 10/04 10/04 MD Wendy Ba 567-4bf0- Espinal 4p3-4260p9 114da7 Earl A. RX Request-- jx8289iy-0 10/04 10/04 MD Wendy Ba t92-72f8-o /2014 Kylie u0f-38r4tb b4560e Earl A. RX Request-- 9b973uj1-m 10/04 10/04 MD Wendy Ba w80-0gfw-h /2014 Kylie 933-bc9246 737407 Earl A. RX Request-- 6jwaos5x-0 10/04 10/04 MD Wendy Ba w09-7yyi-f /2014 Kylie 155-60ee51 79t597 Earl A. RX Request-- k009q28m-t 10/04 10/04 MD Wendy Ba ed8-43d2-a /2014 Espinal 874-27ae43 f907ff Earl A. RX Request-- 489192e2-s 10/04 10/04 MD Wendy Ba 850-4d88-a /2014 Espinal 9aa-50fb95 2f2bcd Earl A. RX Request-- 2rw4rxi3-5 10/04 10/04 MD Wendy Ba 914-4648- /2014 Espinal p08-62283d c1996d Earl A. RX Request-- w42y60dy-7 10/04 10/04 MD Wendy Ba n7j-1017-o /2014 Espinal 8b3-2v506e 2ebcff Earl A. RX Request-- 2o29sx1o-4 10/04 10/04 MD Wendy Ba 723-4530-b /2014 Espinal 4ee-a5e0b2 274016 Earl A. RX Request-- 530421a0-8 10/04 10/04 MD Wendy Ba ed2-463a- Espinal 4m7-8553b1 b20a5d Earl A. RX Request-- 8fyower5-l 10/04 10/04 MD Wendy Ba 83a-4b1b- Espinal 033-u4310z 0fe48e Earl A. RX Request-- j3s3af12-2 10/04 10/04 MD Wnedy Ba 4s7-8539-1 Espinal 46d-6623c2 8jm660 Earl A. RX Request-- 9nzt9368-n 10/04 10/04 MD Wendy Ba t2m-16il-1 Espinal 608-34869d 133955 Earl A. RX Request-- 0631944q-6 10/04 10/04 MD Wendy Ba n4k-4151-4 Kylie dfd-0cd9b8 3w3090 Earl A. RX Request-- 635ceceb-d 10/04 10/04 MD Wendy Ba m39-77yp-u /2014 Kylie q07-vq4e85 8fef0b Earl A. RX Request-- nm6512g1-3 10/04 10/04 MD Wendy Ba 890-46ec-8 /2014 Kylie x97-4e9m38 c25e8c Earl A. 1 mo f/u or942ej9-0 10/10 10/10 Jourdan Espinal MD a2e-10f0-k /2014 Kylie q36-3zn3xx cca0e7 Earl A. 1 mo f/u 73p1oh48-4 10/10 10/10 Jourdan Espinal MD l92-0304-r /2014 Kylie g4h-962g3d 568c2a Earl A. 1 mo f/u 97r0x1r3-0 10/10 10/10 Jourdan Espinal MD 509-484b-b /2014 Kylie 3bb-p5006w db76d4 Earl A. 1 mo f/u 6m22510q-6 10/10 10/10 Jourdan Espinal MD 667-4c0e-8 /2014 Kylie q07-62gz3a c95b5f Earl A. 1 mo f/u 634r5ns4-e 10/10 10/10 Jourdan Espinal MD e33-9671-1 /2014 Kylie 576-02686r 66bcb6 Earl A. 1 mo f/u 7nw943k0-6 10/10 10/10 Jourdan Espinal MD fa1-418e-b /2014 Kyl[place] e15-567300 79c079 Earl A. 1 mo f/u 43nqc93w-a 10/10 10/10 Jourdan Espinal MD daf-4550-8 /2014 Kylie o76-0q7269 16fb46 Earl A. 1 mo f/u i998t089-a 10/10 10/10 Jourdan Espinal MD 794-4f90-8 /2014 [place] 008-cc0f50 fb91d1 Earl A. 1 mo f/u 81ahj62w-8 10/10 10/10 Jourdan Espinal MD 096-4b69-b /2014 Kylie 210-d79da2 bea5db Earl A. 1 mo f/u v1zg7lj9-7 10/10 10/10 Jourdan Espinal MD 259-4967-8 /2014 Kylie 062-77m418 3dm622 Earl A. 1 mo f/u 0888h27u-1 10/10 10/10 Jourdan Espinal MD y36-0pin-3 /2014 Kylie acb-865cb2 10a053 Earl A. 1 mo f/u a77c76go-b 10/10 10/10 Jourdan Espinal MD 07f-4cd2-a /2014 Kylie 521-7ec1c6 25b5af Earl A. 1 mo f/u ap2aru9s-f 10/10 10/10 Jourdan Espinal MD 040-45a3-9 /2014 Kylie 176-54j550 70ff04 Earl A. 1 mo f/u 34ys90ch-8 10/10 10/10 Jourdan Espinal MD 27d-4ac6-8 /2014 Kylie 7ba-6ed98b a9g806 Earl A. 1 mo f/u pq950002-y 10/10 10/10 Jourdan Espinal MD p02-6252-1 /2014 Kylie 0z0-v865l2 4b45c4 Earl A. 1 mo f/u 73101p6y-o 10/10 10/10 Jourdan Espinal MD 09f-4361-b /2014 Kylie 07f-85b0b7 0fc0d4 Earl A. 1 mo f/u 99y666k1-v 10/10 10/10 Jourdan Espinal MD v1a-4s16-e /2014 Kylie 403-79205o 7f3a98 Earl A. MRI h7l63q6z-i 10/12 10/12 Jourdan Espinal MD 8s8-2kn3-3 /2014 Kylie 3a5-6qhn49 a2b1df Earl A. MRI v173n798-9 10/12 10/12 Jourdan Espinal MD 210-484d- /2014 Kylie 81c-17d0f2 bad6a3 Earl A. MRI fl3t2q1k-1 10/12 10/12 Jourdan Espinal MD z3c-8660-7 /2014 Kylie cfe-825e56 4u6672 Earl A. MRI s6085xr1-p 10/12 10/12 Jourdan Espinal MD 577-4a7f- Kylie 421-ccb48f 0f5593 Earl A. MRI 84dx8636-7 10/12 10/12 Jourdan Espinal MD 779-4db3- /2014 Kylie 2bc-c4c0c2 38bca2 Earl A. MRI 48mj5593-5 10/12 10/12 Jourdan Espinal MD 701-4031- /2014 Kylie m0k-m74c27 50900c Earl A. MRI p4d2xtz9-y 10/12 10/12 Jourdan Espinal MD 5v0-1vd6-2 /2014 Kylie 60b-27596n 35f2e6 Earl A. MRI ep424w91-5 10/12 10/12 Jourdan Espinal MD k04-9w0g-4 Kylie 102-c7db4a c778ed Earl A. MRI 57u1r6cb-i 10/12 10/12 Jourdan Espinal MD ea4-499b- /2014 Kylie 4db-96650b 28f353 Earl A. MRI 4b707og2-g 10/12 10/12 Jourdan Espinal MD 768-4ea3- /2014 Kylie ce7-e7555p 3a1b24 Earl A. MRI 8rc8n585-7 10/12 10/12 Jourdan Espinal MD 6b8-3ll9-e /2014 Kylie 00a-0780fc a96e09 Earl A. MRI ct130lu9-9 10/12 10/12 Jourdan Espinal MD cfc-4425-b /2014 Kylie leobardo-h58079 262156 Earl A. MRI p4ww6hzb-5 10/12 10/12 Jourdan Espinal MD 039-4797-a /2014 Kylie j31-00x182 5ecadb Earl A. MRI mk65e0g5-q 10/12 10/12 Jourdan Espinal MD 11f-4470-b /2014 Kylie 289-m6e718 33o026 Earl A. MRI 16234u13-8 10/12 10/12 Jourdan Espinal MD ccc-47e9-b /2014 Kylie f2m-4192e9 c48df6 Earl A. MRI 3880w8a8-r 10/12 10/12 Jourdan Espinal MD 721-4e29-b /2014 Kylie i95-0f1g71 836f03 Earl A. 1 mo f/u 09v54284-1 11/03 11/03 Jourdan Espinal MD i5e-4pko-3 /2014 Kylie 940-544ed6 ddadd9 Earl A. 1 mo f/u 6s586126-3 11/03 11/03 Jourdan Espinal MD u07-94n7-e /2014 Kylie 97d-bdba4c 5f8d73 Earl A. 1 mo f/u keu8snz2-4 11/03 11/03 Jourdan Espinal MD 57e-47d0-8 /2014 Kylie b9z-y6x1z8 w2515h Earl A. 1 mo f/u t788j0d4-8 11/03 11/03 Jourdan Espinal MD 9m3-94c0-k /2014 Kylie u65-3u41d4 852e7c Earl A. 1 mo f/u rn9j24kb-1 11/03 11/03 Jourdan Espinal MD bd8-4da1-a /2014 Kylie 665-7cl498 tn042y Earl A. 1 mo f/u jq9g9596-k 11/03 11/03 Jourdan Espinal MD 29d-479b-a /2014 Kylie s2x-8f951s 1785fe Earl A. 1 mo f/u caaaeafc-2 11/03 11/03 Jourdan Espinal MD 1bd-4938-9 /2014 Kylie 80f-e224bc 57df70 Earl A. 1 mo f/u 8rq17e1z-0 11/03 11/03 Jourdan Espinal MD 340-4657-9 /2014 Kylie 8z6-7buj9x b35db3 Earl A. 1 mo f/u 043320o8-s 11/03 11/03 Jourdan Espinal MD 8fb-417d-a /2014 Kylie 43e-0128ee d6cf93 Earl A. 1 mo f/u a240u02k-5 11/03 11/03 Jourdan Espinal MD j21-6v52-6 /2014 Kylie 52c-347140 425cd5 Earl A. 1 mo f/u 8i0h6865-0 11/03 11/03 Jourdan Espinal MD 964-4d45-a /2014 Kylie 05d-e2be10 3j947o Earl A. 1 mo f/u dy706ot3-z 11/03 11/03 Jourdan Espinal MD 549-4844-b /2014 Kylie 6f5-8u0186 77863y Earl A. 1 mo f/u ri1l1471-d 11/03 11/03 Jourdan Espinal MD 334-4faf-a /2014 Kylie y55-i03o67 65z268 Earl A. 1 mo f/u 602rx069-8 12/05 12/05 Jourdan Espinal MD j54-6925-f /2014 Kylie 6ee-7bc9b3 045596 Earl A. 1 mo f/u 47807174-2 12/05 12/05 Jourdan Espinal MD 54e-4b04-8 /2014 Kylie g92-1dht49 1d65a3 Earl A. 1 mo f/u o09fbl91-6 12/05 12/05 Jourdan Espinal MD x6h-88t0-9 /2014 Kylie 632-0h909d decb6d Earl A. 1 mo f/u 53029836-2 12/05 12/05 Jourdan Espinal MD 2q3-9190-e /2014 Kylie 398-4c60e6 d7c90d Earl A. 1 mo f/u 993llr69-5 12/05 12/05 Jourdan Espinal MD 551-433a-a /2014 Kylie y77-7u277h 1af5cf Earl A. 1 mo f/u 049o1342-o 12/05 12/05 Jourdan Espinal MD 31c-4824-b /2014 Kylie t8a-6806a5 73h320 Earl A. 1 mo f/u 16571o80-0 12/05 12/05 Jourdan Espinal MD 133-4df7-a /2014 Kylie be4-4d6fd7 3l222m Earl A. 1 mo f/u om50911b-p 12/05 12/05 Jourdan Espinal MD 5w5-2v04-l /2014 Kylie p17-378i14 5w2207 Earl A. 1 mo f/u gv5b525j-7 12/05 12/05 Jourdan Espinal MD 548-4ae7-8 /2014 Kylie r4f-5895n4 259430 Earl A. 1 mo f/u ov1707j3-j 12/05 12/05 Jourdan Espinal MD u46-07v8-5 /2014 Kylie 5cb-f92aab 34931z Earl A. 1 mo f/u 9445r25d-0 12/05 12/05 Jourdan Espinal MD d63-0347-e /2014 Kylie 1n6-8u2714 5581f0 Earl A. 1 mo f/u 9n8zo779-z 12/05 12/05 Jourdan Espinal MD da3-4ae3-8 /2014 Kylie 9w8-7ye6za c90f99 Earl A. 1 mo f/u 148h444f-q 12/05 12/05 Jourdan Espinal MD y28-53o8-f /2014 Kylie 2ae-830a25 234b07 Earl MckennaCristian Refill- 7510437f-4 12/20 12/20 MD Wendy Ba 405-485f-a /2014 Kylie ac2-9355e0 dj9204 Earl Mckenna. Refill- bh1qovyo-8 12/20 12/20 MD Wendy Ba 812-40dc-9 /2014 Kylie y94-j6j9l7 1cdc7b Earl MarcosCristian Refill- yz2uq3ds-0 12/20 12/20 MD Wendy Ba 5eb-45af-9 /2014 Kylie 153-ef0b93 e0d1d0 Earl MarcosCristian Refill- nqs47907-3 12/20 12/20 MD Wendy Ba 76f-4df1-9 /2014 Kylie 8h7-204r13 af44d6 Earl Marrero Refill- 2qg360w7-9 12/20 12/20 MD Wendy Ba 149-46ee-9 /2014 Kylie ce2-ae5e92 4bcefb Earl Marrero Refill- 6161z7is-f 12/20 12/20 MD Wendy Ba ec0-468a-a /2014 Kylie 02c-s30618 3be41c Earl Marrero Refill- e863916k-2 12/20 12/20 MD Wendy Ba bfc-488f-a /2014 Kylie 4h5-671538 f8ea3c Earl Mckenna. Refill- 173n9wf6-8 12/20 12/20 MD Wendy Ba 193-42ff-b /2014 Kylie 7c7-lpn36i h8r962 Earl Mckenna. Refill- 04sd4760-8 12/20 12/20 MD Wendy Ba 018-475d-a /2014 Kylie 40a-7zl845 762eb9 Earl Marrero Refill- 5t6482sc-k 12/20 12/20 MD Wendy Ba g76-4ytd-6 /2014 Kylie ec2-1cf93f 97ce05 Earl Mckenna. Refill- qih49853-9 12/20 12/20 MD Wendy Ba bfb-4497-a /2014 Kylie h91-0k1502 92da5f Earl Mckenna. Refill- 4m9d5268-6 12/20 12/20 MD Wendy Ba 989-433e-b /2014 Kylie 9l1-ghw7ys 71y534 Earl A. Refill- 3rh29k73-8 12/20 12/20 MD Wendy Ba 453-4449-b /2014 Kylie ba2-8d729d 85d59b Earl A. Refill- k106kp9l-i 12/20 12/20 MD Wendy Ba v1u-10e2-z /2014 Kylie 00e-75f33c ffd0fe Earl A. Refill- 99u57s6w-g 12/20 12/20 MD Wendy Ba 26e-410f-8 /2014 Kylie f5h- 7447c7 Earl A. Refill- 78j46br9-1 12/20 12/20 MD Wendy Ba q1d-5w1r-u /2014 Kylie 563-8cb5a5 dfl370 Earl A. refill 49j5hh1s-8 01/01 01/01 Jourdan Espinal MD 46a-4f0f-a /2014 Kylie 6a0-e3n2l0 d3f06c Earl A. refill 5n97828z-9 01/01 01/01 Jourdan Espinal MD 0df-4c19-9 /2014 Kylie 4g3-19y352 c31df4 Earl A. refill 15de6935-6 01/01 01/01 Jourdan Espinal MD q66-845k-k /2014 Kylie 5ca-ce78f0 1r9125 Earl A. refill hay2lt80-3 01/01 01/01 Jourdan Espinal MD 798-4de3-8 /2014 Espinal 364-fb20f3 d5ea86 Earl A. refill 8t8233b4-0 01/01 01/01 Jourdan Espinal MD 1g9-0t7n-0 /2014 Espinal fda-9db1ee 36816d Earl A. refill 43d9dkw5-7 01/01 01/01 Jourdan Espinal MD e47-5uek-0 /2014 Espinal 9b0-430al4 137caf Earl A. refill 3z7kwq4v-5 01/01 01/01 Jourdan Espinal MD 26e-4638-9 /2014 Espinal 0fe-5x938o a64ad7 Earl A. refill 2a567466-7 01/01 01/01 Jourdan Espinal MD 4z2-19s1-k /2014 Espinal 367-182795 a00d66 Earl A. refill 84nqy531-p 01/01 01/01 Jourdan Espinal MD 49c-4d52-b /2014 Espinal 11f-a614ef f2b2c6 Earl A. Refill 21u386xh-0 01/01 01/01 Jourdan Espinal MD 6ef-4f06-a /2014 Espinal 00b-a30ca3 d1d4bf Earl A. Refill 800a0xq5-s 01/01 01/01 Jourdan Espinal MD 437-4e93-b /2014 Espinal 7ac-e261fe a66606 Earl A. Refill wf28382x-t 01/01 01/01 Jourdan Espinal MD e36-4960-l /2014 Espinal 500-493e1b k0434w Earl A. Refill 018244o7-9 01/01 01/01 Jourdan Espinal MD 374-47d9-9 /2014 Espinal 058-30abd3 bebe9a Earl A. Refill 64c257w2-e 01/01 01/01 Jourdan Espinal MD 6k4-5812-p /2014 Espinal 69a-386a55 799438 Earl A. Refill 81564s0m-m 01/01 01/01 Jourdan Espinal MD 69e-4e81-a /2014 Kylie bf0-910aec 4f6ba4 Earl A. Refill vu9m2v75-7 01/01 01/01 Jourdan Espinal MD y4t-50ja-2 /2014 Kylie g79-7148yk 3cba8a Earl A. Refill 9f0l46hl-0 01/01 01/01 Jourdan Espinal MD 611-42ff-8 /2014 Kylie t2m-2g73h8 a22c37 Earl A. Refill f2908q88-9 01/01 01/01 Jourdan Espinal MD 5l9-45y1-q /2014 Kylie 4bf-733184 tz729r Earl A. refill 2b85e073-t 01/01 01/01 Jourdan Espinal MD p04-3t44-j /2014 Kylie fdb-b72a1e dd8c6c Earl A. refill 55zhe00k-3 01/01 01/01 Jourdan Espinal MD 105-4b48-b /2014 Espinal fd6-1g0680 b4f71f Earl A. refill q7bba4x8-3 01/01 01/01 Jourdan Espinal MD 054-4867-9 /2014 Kylie y00-klm94l 8ej247 Earl A. refill 077m42l8-3 01/01 01/01 Jourdan Espinal MD w10-5s15-a /2014 Espinal 920-741af0 4b6ed5 Earl A. refill 5c9clx97-a 01/01 01/01 Jourdan Espinal MD j09-0441-u /2014 Kylie ca8-5376a1 72ac33 Earl A. refill 982s7qz6-9 01/01 01/01 Jourdan Espinal MD dbe-4cc8-a /2014 Kylie 13f-m1402g 3230ea Earl A. Refill 7k3kc5xo-5 01/01 01/01 Jourdan Espinal MD bd3-4f69-b /2014 Kylie 58b-87cc4b 990bb7 Earl A. Refill 89id445r-4 01/01 01/01 Jourdan Espinal MD 6ac-4b40-a /2014 Kylie 4w6-a47mhe ow4479 Earl A. Refill xgyiv38k-t 01/01 01/01 Jourdan Espinal MD v3y-5ijk-b /2014 Kylie 106-d8b1c6 0ceed6 Earl A. Refill x00230i5-2 01/01 01/01 Jourdan Espinal MD 4df-4f09-a /2014 Kylie 1eb-19372l 1b8ce7 Earl A. Refill cbz2p77d-w 01/01 01/01 Jourdan Espinal MD 408-42ac-b /2014 Kylie 7dc-r78425 4c2f5c Earl A. Refill w1b64v76-a 01/01 01/01 Jourdan Espinal MD 66f-4cbc-8 /2014 Kylie 893-1951f2 701e57 Earl A. Unknown 0a8o5a84-0 01/04 01/04 Jourdan Espinal MD 065-41e4-9 /2014 Kylie 938-a339a0 774609 Earl A. Unknown 5671y5u5-w 01/04 01/04 Jourdan Espinal MD bb7-416f-9 /2014 Kylie edf-820fd5 5950fa Earl A. Unknown yee33kh0-0 01/04 01/04 Jourdan Espinal MD 1de-4ca7-b /2014 Kylie 6fc-bk5865 6b3da7 Earl A. Unknown dh801803-e 01/04 01/04 Jourdan Espinal MD b95-0607-5 /2014 Kylie 5n9-0cxkx9 1c07e8 Earl A. Unknown 69931151-s 01/04 01/04 Jourdan Espinal MD fc9-4e35-b /2014 Kylie 3af-a44fb1 914382 Earl A. Unknown c89v188l-e 01/04 01/04 Jourdan Espinal MD 711-4822-a /2014 Kylie 47f-c3e381 bdb13a Earl A. Unknown e6205570-q 01/04 01/04 Jourdan Espinal MD 9cd-4858-9 /2014 Kylie 796-a63a06 136e04 Earl A. Unknown 03063q34-9 01/04 01/04 Jourdan Espinal MD db3-4a86-a /2014 Kylie 4s4-9vt0v4 n2619k Earl A. Unknown 68d7o76h-k 01/04 01/04 Jourdan Espinal MD 15a-4e19-a /2014 Kylie t26-2f91j8 9974a7 Earl A. Unknown x0p8162e-h 01/04 01/04 Jourdan Espinal MD d9e-67b9-v /2014 Kylie ce9-c0b81a a38bae Earl A. Unknown h0zo877q-1 01/04 01/04 Jourdan Espinal MD 903-4f23-a /2014 Kylie 2cc-34e67d w31395 Earl A. Unknown c62234pe-q 01/04 01/04 Jourdan Espinal MD q2e-7429-1 /2014 Kylie fb0-61ef50 67f5c7 Earl A. Unknown 7x0zfi9g-8 01/04 01/04 Jourdan Espinal MD i6q-0218-5 /2014 Kylie bb3-cl2388 bafb42 Earl A. Unknown 7m9if66y-8 04/05 04/05 Jourdan Espinal MD ea7-43a0-8 /2014 Kylie t14-l7859z 558b12 Earl A. Unknown 5b7z5863-5 04/05 04/05 Jourdan Espinal MD 4y4-113z-6 Kylie w0b-a5l84j bdf8fb Earl A. Unknown 4q783986-p 04/05 04/05 Jourdan Espinal MD 5u8-8653-5 /2014 Kylie 4u9-q5486w ad9c58 Earl A. Unknown 1e842n11-3 04/05 04/05 Jourdan Espinal MD 5c6-77b1-m /2014 Kylie 3y3-72a3h2 0bfebd Earl A. Unknown 62g8wie1-4 04/05 04/05 Jourdan Espinal MD 012-44ef-b /2014 Kylie ab9-6r4994 45ab06 Earl A. Unknown i3e7wcbo-3 04/05 04/05 Jourdan Espinal MD 780-4529-8 /2014 Kylie 89e-00fcdb 28y313 Earl A. Unknown 76n94n97-a 04/05 04/05 Jourdan Espinal MD 6b5-0842-3 /2014 Kylie 6da-775b7f e905bc Earl A. Unknown r196il3o-4 04/05 04/05 Jourdan Espinal MD 322-4236-b /2014 Kylie 824-9tu179 857242 Earl A. Unknown ut2ka278-6 04/05 04/05 Jourdan Espinal MD 81a-4439-b /2014 Kylie 567-824a8c 1zz901 Earl A. Unknown 254348c3-y 04/05 04/05 Jourdan Espinal MD i47-7143-0 /2014 Kylie u9u-16897p 74b9ec Earl A. Unknown 83o05f23-g 04/05 04/05 Jourdan Espinal MD c63-71p7-f /2014 Kylie 83b-5257e6 f0e46e Earl A. Unknown 674b64sm-o 04/05 04/05 Jourdan Espinal MD a25-36g4-k /2014 Kylie z5p-43495v 819972 Earl A. Unknown 43o07685-w 04/05 04/05 Jourdan Espinal MD 603-4b68-8 /2014 Kylie 5n6-9ok7ni q30890 Earl A. orebhanuia 28659xm2-o 06/20 06/20 Jourdan Espinal MD refill 50c-4a48-9 /2015 Kylie 728-0f34ad 7a3c44 Earl Mckenna. sandyia 3px1p29r-5 06/20 06/20 Jourdan Espinal MD refill 0g8-37a2-3 /2015 Kylie 27f-2faab8 a20feb Earl Mckenna. sandyia 38290c6e-2 06/20 06/20 Jourdan Espinal MD refill db7-4bf9-a /2015 Kylie ef2-45a81a f8e61c Earl Mckenna. faustinoncia 5sy799rw-t 06/20 06/20 Jourdan Espinal MD refill 931-4de6-8 /2015 Kylie 890-9bbcc5 cc3e2b Earl Mckenna. faustinoncia ah09494b-2 06/20 06/20 Jourdan Espinal MD refill 38b-46a0-b /2015 Kylie 5t7-899i90 kw257y Earl Mkcenna. faustinoncia 9433562j-1 06/20 06/20 Jourdan Espinal MD refill 993-4e3e-8 /2015 Kylie 786-e6b6d1 8e3d26 Earl Mckenna. faustinoncia 9x365yv8-6 06/20 06/20 Jourdan Espinal MD refill 7a6-9309-2 /2015 Kylie 3y2-3mf196 1be13b Earl Mckenna. faustinoncia 04132195-y 06/20 06/20 Jourdan Espinal MD refill p8z-37c1-8 /2015 Kylie 690-641fab 5b1c5e Earl Mckenna. faustinoncia 3c8m782r-r 06/20 06/20 Jourdan Espinal MD refill 055-45e4-9 /2015 Kylie 0ba-8y542c f973a0 Earl Mckenna. faustinoncia 9t6h8ff6-9 06/20 06/20 Jourdan Espinal MD refill a92-3met-2 /2015 Kylie 047-wpd049 92914x Earl Mckenna. faustinoncia wam8xq56-8 06/20 06/20 Jourdan Espinal MD refill e6r-068q-1 /2015 Kylie u81-hi6nej 6c56ae Earl A. faustinobhanuia -i 06/20 06/20 Jourdan Espinal MD refill 4dd-42b0-9 /2015 Kylie v3f-o0519o 005f27 Earl A. 3 MTH FU 4726k83m-1 07/05 07/05 Jourdan Espinal MD 6da-4992-a /2015 Kylie 7q8-8l70cl 7qd399 Earl A. 3 MTH FU 06r59k83-z 07/05 07/05 Jourdan Espinal MD n0t-9rtd-7 /2015 Kylie 496-74d2cc 5a68a0 Earl A. 3 MTH FU 617dyy4p-9 07/05 07/05 Jourdan Espinal MD 9fe-4861-9 /2015 Kylie 3g9-5jrut2 ys299k Earl A. 3 MTH FU ong00856-b 07/05 07/05 Jourdan Espinal MD 4u1-6583-8 /2015 Kylie 4j1-295un5 289a6b Earl A. 3 MTH FU dh8cr565-3 07/05 07/05 Jourdan Espinal MD 0ad-49dc-a /2015 Kylie a91-28096s [id number] Earl A. 3 MTH FU e94jpu13-0 07/05 07/05 Jourdan Espinal MD 5ab-477a-9 /2015 Kylie 5fe-9n144p f637ab Earl A. 3 MTH FU 58b97fu3-3 07/05 07/05 Jourdan Espinal MD 95f-4c5e-8 /2015 Kylie u42-86tybt e5460a Earl A. 3 MTH FU 3x53uk5m-2 07/05 07/05 Jourdan Espinal MD 8f0-0mc0-7 /2015 Kylie 8l9-1rp6x0 9533a1 Earl A. 3 MTH FU 4n8d50l0-1 07/05 07/05 Jourdan Espinal MD 799-4b64-b /2015 Kylie 0r2-99n8w6 8b42dd Earl A. 3 MTH FU 2i5369m8-h 07/05 07/05 Jourdan Espinal MD 104-490d-b /2015 Kylie 9u2-4r8m8s 4g075b Earl A. actemra [id number]-b 07/31 07/31 Jourdan Espinal MD bb6-4b13-a /2015 Kylie 98e-6a98fc 7892a0 Earl A. actemra 9h998y67-e 07/31 07/31 Jourdan Espinal MD eec-47bf-b /2015 Kylie w7y-23u148 a7fa0d Earl A. actemra f2595321-9 07/31 07/31 Jourdan Espinal MD eb7-4e64-a /2015 Kylie 4da-566026 91fffa Earl A. actemra c0b78175-5 07/31 07/31 Jourdan Espinal MD 7b1-0hqi-7 /2015 Kylie 409-6c4af4 437d14 Earl A. actemra e5uu34o5-4 07/31 07/31 Jourdan Espinal MD bfe-44fc-b /2015 Kylie 607-9375e7 bbac99 Earl A. actemra l894199r-y 07/31 07/31 Jourdan Espinal MD ea6-4d34-b /2015 Kylie 007-4b0ac0 286e02 Earl A. actemra 252d4zjk-p 07/31 07/31 Jourdan Espinal MD 1dc-4e2d-9 /2015 Kylie 2m8-13xqk2 f5ecb4 Earl A. actemra 0048mda3-k 07/31 07/31 Jourdan Espinal MD 81e-4699-8 /2015 Kylie e3i-31o371 63dc22 Earl A. actemra 2r302h8r-3 07/31 07/31 Jourdan Espinal MD g78-23e9-o /2015 Kylie ce5-1a52ff 29275a Earl A. actemra 91v72463-7 07/31 07/31 Jourdan Espinal MD bed-4d6c-a /2015 Kylie 2fa-fe1c0d 5d1c88 Earl A. actemra 04sx4v6i-o 07/31 07/31 Jourdan Espinal MD 4z5-7z10-9 /2015 Kylie bc4-e203c3 091cde Earl A. MRI/DEXA 523r022w-9 09/19 09/19 Jourdan Espinal MD ed8-4e9e-9 /2015 Kylie x97-691x7z 88875j Earl A. MRI/DEXA 91fkp9k1-1 09/19 09/19 Jourdan Espinal MD 5s0-670r-4 /2015 Kylie r69-s4320o f0c89f Earl A. MRI/DEXA 3621d30v-4 09/19 09/19 Jourdan Espinal MD 186-4eeb-9 /2015 Kylie 05f-2bf3d4 29de2c Earl A. MRI/DEXA 8iio3321-2 09/19 09/19 Jourdan Espinal MD 41d-4184-b /2015 Kylie dd4-8adfa0 f3ff7c Earl A. MRI/DEXA 6ib2t2f0-1 09/19 09/19 Jourdan Espinal MD 118-4cec-9 /2015 Kylie 429-732eff 32c0b5 Earl A. MRI/DEXA a62u31r3-o 09/19 09/19 Jourdan Espinal MD 733-49a2-a /2015 Kylie 61e-1d27c2 uzl435 Earl A. MRI/DEXA 849haj82-y 09/19 09/19 Jourdan Espinal MD g57-20bm-7 /2015 Kylie fc0-c06eca zk751x Earl A. MRI/DEXA t8j16t3l-5 09/19 09/19 Jourdan Espinal MD 611-48c2-8 /2015 Kylie aaa-fa57c2 4z427a Earl A. MRI/DEXA 3bk141y3-o 09/19 09/19 Jourdan Espinal MD i0g-2653-g /2015 Kylie 170-pkb826 971ab3 Earl A. 3 MTH FU t945g855-6 09/25 09/25 Jourdan Espinal MD fed-4d22-9 /2015 Kylie c09-9a6776 5afd07 Earl A. 3 MTH FU z2f6905a-7 09/25 09/25 Jourdan Espinal MD 6cb-4f99-9 /2015 Kylie 414-22e5c8 63bd0c Earl A. 3 MTH FU 6r804bg5-1 09/25 09/25 Jourdan Espinal MD 9e5-62l1-6 /2015 Kylie ee4-441cf0 7f5d5c Earl A. 3 MTH FU 9m7tqzsx-k 09/25 09/25 Jourdan Espinal MD s70-03n0-d /2015 Kylie 840-82f282 kb6655 Earl A. 3 MTH FU 15q3k3c5-1 09/25 09/25 Jourdan Espinal MD s82-26wr-c /2015 Kylie z3b-43na4h 1eafa6 Earl A. 3 MTH FU 03hzc36j-7 09/25 09/25 Jourdan Espinal MD fb7-4c4a-b /2015 Kylie a33-0146j2 52z324 Earl A. 3 MTH FU 9h67q698-6 09/25 09/25 Jourdan Espinla MD 30c-46d4-9 /2015 Kylie 743-0mk596 bdb2b6 Earl A. 3 MTH FU [id number] 09/25 09/25 Jourdan Espinal MD 397-4dc3-a /2015 Kylie t96-8rrp80 bca1ca Earl A. 3 MTH FU r33h79p6-2 12/19 12/19 Jourdan Espinal MD q00-2518-u /2015 Kylie 968-l27299 da2dfa Earl A. 3 MTH FU 074r6m2z-1 12/19 12/19 Jourdan Espinal MD 41e-45f8-8 /2015 Kylie [id number] 164809 Earl Marcos. 3 MTH FU 6sa37o84-n 12/19 12/19 Jourdan Espinal MD 70f-4097- Kylie 7cc-b6b5ec 91v996 Earl Marcos. Actemra rx 8880baab-e 12/31 12/31 Jourdan Espinal MD 21c-4bcb- /2015 Kylie [id number] 8afcb8 Earl Marcos. Actemra rx [id number]-w 12/31 12/31 Jourdan Espinal MD 68d-43be- /2015 Kylie 6b6-5ek35f 2d60de Earl Marcos. Actemra rx [id number] 12/31 12/31 Jourdan Espinal MD 965-499b- /2015 Kylie w9d-43872n o7h859 Earl Marcos. Actemra rx [id number] 12/31 12/31 Jourdan Espinal MD 06b-4b70-9 /2015 Kylie i2g-5b0134 e89a0f Earl Marcos. Actemra rx [id number] 12/31 12/31 Jourdan Espinal MD 05d-4377-b /2015 Kylie g4v-63yo57 3835a2 Earl Marcos. Actemra rx g9150v5z-u 12/31 12/31 Jourdan Espinal MD 4e6-33w2-q /2015 Kylie d38-570w0x 2957c3 Earl Marcos. Actemra rx nt7bv4yq-3 12/31 12/31 Jourdan Espinal MD db4-4c01-9 /2015 Kylie 92d-69b7c6 h23739 Earl Marcos. DEXA 8781467z-4 03/03 03/03 Jourdan Espinal MD 0fd-41a6- /2015 Kylie 263-4a23e9 l8t436 Earl Marrero DEXA 385y6ib3-g 03/03 03/03 Jourdan Espinal MD 11a-403e-b /2015 Kylie 129-5t737p b3f1f2 Earl A. DEXA 92563o8s-4 03/03 03/03 Jourdan Espinal MD 3r0-0gjg-7 /2015 Kylie fed-3e2be3 55f9e4 Earl A. DEXA [id number]-7 03/03 03/03 Jourdan Espinal MD 93a-4221-a /2015 Kylie 110-xln661 33361d Earl A. DEXA 8zt45y09-2 03/03 03/03 Jourdan Espinal MD da2-4203-9 /2015 Kylie h51-q8q886 696b7b Earl A. DEXA d130b2r4-m 03/03 03/03 Jourdan Espinal MD 6i3-0376-8 /2015 Kylie 6ec-3740a5 0b2ce2 Earl A. 3 [facility] FU t703h4sl-2 03/11 03/11 Jourdan Espinal MD 8ae-4cbc-9 /2015 Kylie 5q6-4g0o96 96m846 Earl A. 3 MTH FU [id number]-s 03/11 03/11 Jourdan Espinal MD 48a-4858-b /2015 Kylie bfe-190e00 dcafec Earl A. 3 [facility] FU 95r07o9m-8 03/11 03/11 Jourdan Espinal MD 4de-45d6-b /2015 Kylie [id number]-ad798d 40ce00 Earl A. 3 [facility] FU [id number] 03/11 03/11 Jourdan Espinal MD f7b-0b56-3 /2015 Kylie dec-6d07ca ha396x Earl A. 3 [facility] FU 705gksw6-9 03/11 03/11 Jourdan Espinal MD df6-402c-b /2015 Kylie 578-en2428 93v665 Earl A. xelomerz rx yj99tvz3-8 03/27 03/27 Jourdan Espinal MD [id number]-a /2015 Kylie [id number] el334a Earl A. xelomerz rx [id number] 03/27 03/27 Jourdan Espinal MD ac2-445b- Kylie 547-9c7f7b d5fe42 Earl Elida melba rx [id number] 03/27 03/27 Jourdan Espinal MD ac2-4b08- Kylie 3bc-4778fe 097ce2 Earl MarcosCristian reilly rx [id number]-7 03/27 03/27 Jourdan Espinal MD 4v6-7n34-4 Kylie eb3-o80872 6668eb Earl Mckenna. 3 [facility] FU i3ui669p-9 06/11 06/11 Jourdan Espinal MD bef-424e- Klyie k61-ghveh6 23ce01 Earl Mckenna. 3 [facility] FU [id number] 06/11 06/11 Jourdan Espinal MD 944-4be2- Kylie 72b-0u313x 4c8dfa Procedures Procedure Code Date Perfomer Comments Source
--- OUTSIDE RECORDS SUMMARY | 2018-05-17 20:47 | XMS REPORT ---
:1955 Author Organization [employer] Care Team Providers Name Role Phone Earl Espinal Provider Role Unavailable Allergies No Known Allergies Problems Problem Type Condition Code Onset Dates Condition Status Problem Pain of right hand M79.641 Active Problem Pain of left hand M79.642 Active Problem Osteopenia M85.80 Active Problem Other senior care (current) drug Z79.899 Active therapy Problem Rheumatoid arthritis of multiple M06.09 Active sites without rheumatoid factor Problem Cigarette nicotine dependence, F17.210 Active uncomplicated Medications No Known Medications Results No Known Results Summary Purpose [employer]ClinicalWorks Submission
--- OUTSIDE RECORDS SUMMARY | 2018-05-17 20:47 | XMS REPORT ---
:1955 Author Organization [employer] Care Team Providers Name Role Phone Yamini Cain Provider Role Unavailable Allergies No Known Allergies Problems Problem Type Condition Code Onset Dates Condition Status Assessment Rheumatoid arthritis of multiple M06.09 Active sites without rheumatoid factor Problem Osteopenia M85.80 Active Problem Pain of right hand M79.641 Active Problem Other chronic pain G89.29 Active Problem Cigarette nicotine dependence, F17.210 Active uncomplicated Problem Other jail (current) drug Z79.899 Active therapy Problem Pain of left hand M79.642 Active Problem Rheumatoid arthritis of multiple M06.09 Active sites without rheumatoid factor Medications Medication Code System Code Instructions Start Date End Date Status Dosage Xeljanz XR [facility] 58329061395 11 MG Orally Once Active 1 tablet a day Results No Known Results Summary Purpose eClinicalWorks Submission
--- OUTSIDE RECORDS SUMMARY | 2018-05-17 20:47 | XMS REPORT ---
:1955 Author Organization [employer] Care Team Providers Name Role Phone Yamini Cain Provider Role Unavailable Allergies, Adverse Reactions, Alerts Substance Reaction Event Type Lyrica Info Not Available Drug Allergy Orencia Info Not Available Non Drug Allergy Humira Info Not Available Non Drug Allergy Enbrel Info Not Available Non Drug Allergy Problems Problem Type Condition Code Onset Dates Condition Status Assessment Cigarette nicotine dependence, F17.210 Active uncomplicated Assessment Rheumatoid arthritis of multiple M06.09 Active sites without rheumatoid factor Assessment Other exterminator (current) drug Z79.899 Active therapy Assessment Other chronic pain G89.29 Active Problem Osteopenia M85.80 Active Problem Pain of right hand M79.641 Active Problem Other chronic pain G89.29 Active Problem Cigarette nicotine dependence, F17.210 Active uncomplicated Problem Other exterminator (current) drug Z79.899 Active therapy Problem Pain of left hand M79.642 Active Problem Rheumatoid arthritis of multiple M06.09 Active sites without rheumatoid factor Medications Medication Code Code Instructions Start End Status Dosage System Date Tricor [facility] 32972119185 145 MG Orally Active 1 tablet Once a day Nuvigil [facility] 51169210471 250 MG Orally Active 1 tablet in Once a day the morning Medrol Dose Dominic [facility] 54574264834 4mg Orally once May 07, Active as directed a day 2016 Hydrocodone-Acet [facility] 03824685644 10-325 MG Active 1 tab aminophen Orally twice a day as needed Inderal [place] ND 93624858164 160 MG Orally Active 1 capsule Once a day Folic Acid ND 90116201155 1 MG Active TAKE 1 BY MOUTH DAILY Multivitamins ND 91640379912 Orally once a Active 1 tablet day Xeljanz XR [facility] 65766198938 11 MG Orally Active 1 tablet Once a day Voltaren [facility] 82674747557 1 % Transdermal Active as directed PRN Propranolol HCl ND 09700990641 10 MG Orally Active 1 tablet Once a day Calcium ND 86969979850 otc Orally once Active 1 tablet a day with meals Trazodone HCl [facility] 89374006682 150 MG Orally Active 1 tablet at night Vital Signs Date/Time: May 07, 2017 BMI 28.03 Index Weight 212.5 lbs Height 73 in Temperature 96.6 F Cardiac Monitoring Heart Rate 64 /min Blood Pressure Diastolic 88 mm Hg Blood Pressure Systolic 124 mm Hg Results No Known Results Summary Purpose eClinicalWorks Submission
--- OUTSIDE RECORDS SUMMARY | 2018-05-17 20:47 | XMS REPORT ---
:1955 Author Organization [employer] Care Team Providers Name Role Phone CainYamini Provider Role Unavailable Allergies, Adverse Reactions, Alerts Substance Reaction Event Type Lyrica Info Not Available Drug Allergy Orencia Info Not Available Non Drug Allergy Humira Info Not Available Non Drug Allergy Enbrel Info Not Available Non Drug Allergy Problems Problem Type Condition Code Onset Dates Condition Status Assessment Rheumatoid arthritis of multiple M06.09 Active sites without rheumatoid factor Assessment Other skilled nursing (current) drug Z79.899 Active therapy Problem Osteopenia M85.80 Active Problem Pain of right hand M79.641 Active Problem Other chronic pain G89.29 Active Problem Cigarette nicotine dependence, F17.210 Active uncomplicated Problem Other skilled nursing (current) drug Z79.899 Active therapy Problem Pain of left hand M79.642 Active Problem Rheumatoid arthritis of multiple M06.09 Active sites without rheumatoid factor Medications Medication Code Code Instructions Start End Date Status Dosage System Date Inderal LA [facility] 79375052036 160 MG Orally Active 1 capsule Once a day Propranolol HCl ND 09774735350 10 MG Orally Active 1 tablet Once a day Multivitamins ND 12728355183 Orally once a Active 1 tablet day Voltaren [facility] 28165517334 1 % Transdermal Active as PRN directed Medrol Dose Dominic [facility] 53807138082 4mg Orally once May 07, Active as a day 2017 directed Xeljanz XR [facility] 96545814588 11 MG Orally November 04, Active 1 tablet Once a day 2018 Tricor ND 58178664394 145 MG Orally Active 1 tablet Once a day Trazodone HCl [facility] 35104489338 150 MG Orally Active 1 tablet at night Nuvigil [facility] 83133253961 250 MG Orally Active 1 tablet Once a day in the morning Calcium ND 42380226558 otc Orally once Active 1 tablet a day with meals Hydrocodone-Acet ND 98890502076 10-325 MG August Active 1 tab aminophen Orally BID to 2017 QID as needed Vital Signs Date/Time: August 06, 2017 BMI 28.38 Index Weight 215.1 lbs Height 73 in Temperature 95.9 F Cardiac Monitoring Heart Rate 68 /min Blood Pressure Diastolic 98 mm Hg Blood Pressure Systolic 140 mm Hg Results No Known Results Summary Purpose eClinicalWorks Submission
--- OUTSIDE RECORDS SUMMARY | 2018-05-17 20:47 | XMS REPORT ---
[...] Condition Code Onset Dates Condition Status Assessment Other skilled nursing (current) drug Z79.899 Active therapy Assessment Chronic prescription opiate use Z79.891 Active Problem Pain of right hand M79.641 Active Problem Pain of left hand M79.642 Active Problem Osteopenia M85.80 Active Problem Other skilled nursing (current) drug Z79.899 Active therapy Assessment Rheumatoid arthritis of multiple M06.09 Active sites without rheumatoid factor Problem Rheumatoid arthritis of multiple M06.09 Active sites without rheumatoid factor Problem Cigarette nicotine dependence, F17.210 Active uncomplicated Medications Medication Code Code Instructions Start End Status [place] [address]-35 otc Orally once Active 1 tablet 034 a day with meals Voltaren [facility] 48045-26 1 % Transdermal Active as directed 27-01 PRN Tricor [facility] 36989-84 145 MG Orally Active 1 tablet 23-90 [place] [address]-03 250 MG Orally Active 1 tablet in 94-30 Once [place] [address]-51 150 MG Orally at Active 1 tablet 73-01 [place] [address]-72 10-325 MG Orally Active 1 tablet as minophen 16-30 every 6 [place] [address]-63 11 MG Orally Active 1 tablet 01-30 [place] [address]-09 40 MG Orally prn Active 1 capsule 40-31 Methotrexate [facility] 84827-19 25 MG/ML Active 1 ml Sodium 50-10 [place] [address]-79 Orally once a Active 1 tablet 46-10 [place] [address]-72 10 MG Orally Active 1 tablet 82-01 Once a day Inderal [place] [facility] 01836-26 160 MG Orally Active 1 capsule 79-81 Once a day Folic Acid [facility] 65940-58 1 MG Orally Once Active 1 tablet 07-19 a day Vital Signs Date/Time: September 09, 2016 BMI 27.95 Index Weight 209 lbs Height 72.5 in Temperature 97.4 F Cardiac Monitoring Heart Rate 72 /min Blood Pressure Diastolic 90 mm Hg Blood Pressure Systolic 140 mm Hg Results No Known Results Summary Purpose eClinicalWorks Submission
--- OUTSIDE RECORDS SUMMARY | 2018-05-17 20:47 | XMS REPORT ---
:1955 Author Organization [employer]Works Care Team Providers Name Role Phone Marcelino Busch Provider Role Unavailable Allergies, Adverse Reactions, Alerts [...] Active sites without rheumatoid factor Assessment Other rat exterminator (current) drug Z79.899 Active therapy Assessment Other chronic pain G89.29 Active Problem Osteopenia M85.80 Active Problem Pain of right hand M79.641 Active Problem Other chronic pain G89.29 Active Problem Cigarette nicotine dependence, F17.210 Active uncomplicated Problem Other rat exterminator (current) drug Z79.899 Active therapy Problem Pain of left hand M79.642 Active Problem Rheumatoid arthritis of multiple M06.09 Active sites without rheumatoid factor Medications Medication Code Code Instructions Start End Status Dosage System Date Tricor [facility] 68679579659 145 MG Orally Active 1 tablet Once a day Xeljanz XR [facility] 03644292358 11 MG Orally Active 1 tablet Once a day Multivitamins ND 48595733557 Orally once a Active 1 tablet day Calcium [facility] 31441702693 otc Orally once Active 1 tablet a day with meals Hydrocodone-Acet [facility] 37378292528 10-325 MG May 09, Active 1 tab aminophen Orally twice a 2016 day as needed Nuvigil [facility] 05374895795 250 MG Orally Active 1 tablet in Once a day the morning Inderal LA [facility] 71742320475 160 MG Orally Active 1 capsule Once a day Folic Acid ND 68298528398 1 MG Active TAKE 1 BY MOUTH DAILY Trazodone HCl ND 77664835786 150 MG Orally Active 1 tablet at night Propranolol HCl ND 86576272363 10 MG Orally Active 1 tablet Once a day Voltaren [facility] 67506754475 1 % Transdermal Active as directed PRN Vital Signs Date/Time: Apr 09, 2017 BMI 28.21 Index Weight 208 lbs Height 72 in Temperature 96.3 F Cardiac Monitoring Heart Rate 68 /min Blood Pressure Diastolic 84 mm Hg Blood Pressure Systolic 142 mm Hg Results Name Result Date Reference Range Unit Abnormality Flag COMPREHENSIVE METABOLIC PANEL W/EGFR ----CALCIUM 9.5 61411513 8.6-10.3 mg/dL N ----CARBON DIOXIDE 26 73680076 20-31 mmol/L N ----ALT 14 65353689 9-46 U/L N ----CREATININE 1.00 76234885 0.70-1.25 mg/dL N ----AST 23 78986238 10-35 U/L N ----eGFR NON-AFR. 81 79714074 > OR=60 mL/min/1. N BELGIAN 73m2 ----ALKALINE 43 75263569 40-115 U/L N PHOSPHATASE ----eGFR 94 41847771 > OR=60 mL/min/1. N BELGIAN 73m2 ----BILIRUBIN, TOTAL 0.3 83090758 0.2-1.2 mg/dL N ----BUN/CREATININE NOT APPLICABLE 85850174 6-22 (calc) RATIO ----ALBUMIN/GLOBULIN 1.4 26992407 1.0-2.5 (calc) N RATIO ----SODIUM 141 13716006 135-146 mmol/L N ----GLOBULIN 3.1 60350705 1.9-3.7 g/dL N (calc) ----POTASSIUM 4.8 23434024 3.5-5.3 mmol/L N ----GLUCOSE 105 28254695 65-99 mg/dL H ----CHLORIDE 106 88578421 98-110 mmol/L N ----ALBUMIN 4.3 56651370 3.6-5.1 g/dL N ----UREA NITROGEN 21 90853502 7-25 mg/dL N (BUN) ----PROTEIN, TOTAL 7.4 91348573 6.1-8.1 g/dL N SED RATE BY MODIFIED WESTERGREN ----SED RATE BY 2 39995262 < OR=20 mm/h N MODIFIED WESTERGREN C-REACTIVE PROTEIN ----C-REACTIVE 5.2 49954605 <8.0 mg/L N PROTEIN CBC (INCLUDES DIFF/PLT) ----MCHC 33.2 85091578 32.0-36.0 g/dL N ----MCH 29.4 16813700 27.0-33.0 pg N ----PLATELET COUNT 229 94019010 140-400 Thousand/ N uL ----RDW 13.6 20751503 11.0-15.0 % N ----BASOPHILS 0.5 50132251 % N ----ABSOLUTE 4102 88313279 1161-0041 cells/uL N NEUTROPHILS ----ABSOLUTE 1554 23656568 850-3900 cells/uL N LYMPHOCYTES ----MPV 10.9 96778846 7.5-12.5 fL N ----ABSOLUTE 33 36697479 0-200 cells/uL N BASOPHILS ----HEMATOCRIT 42.2 81609648 38.5-50.0 % N ----NEUTROPHILS 63.1 32471211 % N ----MCV 88.5 85703765 80.0-100.0 fL N ----RED BLOOD CELL 4.77 80570169 4.20-5.80 Million/u N COUNT L ----ABSOLUTE 689 59090841 200-950 cells/uL N MONOCYTES ----ABSOLUTE 124 30771048 15-500 cells/uL N EOSINOPHILS ----HEMOGLOBIN 14.0 80825536 13.2-17.1 g/dL N ----EOSINOPHILS 1.9 61811032 % N ----WHITE BLOOD CELL 6.5 05318097 3.8-10.8 Thousand/ N COUNT uL ----LYMPHOCYTES 23.9 84565785 % N ----MONOCYTES 10.6 71845263 % N PAIN MGMT, TRAMADOL, QN,W/medMATCH,U ----medMATCH CONSISTENT 20170409 Desmethyltram ----Tramadol NEGATIVE 14478992 <100 ng/mL ----Prescribed Drug 1 Hydrocodone 20170409 ----Desmethyltramadol NEGATIVE 54564151 <100 ng/mL ----medMATCH Tramadol CONSISTENT 74869284 PAIN MGMT,TRICYCLIC ANTI DEPRESS,QN,W/medMATCH ,U ----medMATCH CONSISTENT 20170409 Nortriptyline ----Nortriptyline NEGATIVE 67229445 <100 ng/mL ----medMATCH CONSISTENT 20170409 Amitriptyline ----Amitriptyline NEGATIVE 24717832 <100 ng/mL ----Prescribed Drug 1 Hydrocodone 20170409 PAIN MANAGEMENT PROFILE 1 W/CONF, W/DL, URINE ----medMATCH Opiates INCONSISTENT 20170409 ----Oxycodone NEGATIVE 57476165 <100 ng/mL ----medMATCH Cocaine CONSISTENT 60854318 Metab ----Methadone NEGATIVE 83740487 <100 ng/mL Metabolite ----medMATCH CONSISTENT 20170409 Methadone Metab ----Opiates NEGATIVE 88818093 <100 ng/mL ----Prescribed Drug 1 Hydrocodone 20170409 ----Creatinine 68.0 93939115 > or=20.0 mg/dL ----pH 6.19 55173168 4.5 - 9.0 ----Oxidant NEGATIVE 28174834 <200 mcg/mL ----medMATCH CONSISTENT 20170409 Phencyclidine ----Amphetamines NEGATIVE 13447186 <500 ng/mL ----Cocaine NEGATIVE 29032814 <150 ng/mL Metabolite ----Phencyclidine NEGATIVE 71775503 <25 ng/mL ----medMATCH CONSISTENT 20170409 Amphetamines ----medMATCH CONSISTENT 20170409 Marijuana Metab ----Barbiturates NEGATIVE 24110763 <300 ng/mL ----Marijuana NEGATIVE 25558566 <20 ng/mL Metabolite ----medMATCH CONSISTENT 20170409 Barbiturates ----medMATCH CONSISTENT 20170409 Benzodiazepines ----Benzodiazepines NEGATIVE 00154821 <100 ng/mL ----medMATCH CONSISTENT 20170409 Oxycodone PAIN MGMT, GABAPENTIN, QN,W/medMATCH,U ----Prescribed Drug 1 Hydrocodone 20170409 ----Gabapentin NEGATIVE 47722550 <1000 ng/mL ----medMATCH CONSISTENT 20170409 Gabapentin ZOLPIDEM, QUANTITATIVE, URINE ----ZOLPIDEM NEGATIVE 23192904 <5 ng/mL ----ZOLPIDEM NEGATIVE 06230572 <5 ng/mL METABOLITE PAIN MGMT, FENTANYL, QN,W/medMATCH,U ----medMATCH CONSISTENT 20170409 Norfentanyl ----Norfentanyl NEGATIVE 58620539 <0.5 ng/mL ----medMATCH Fentanyl CONSISTENT 20170409 ----Fentanyl NEGATIVE 05610878 <0.5 ng/mL ----Prescribed Drug 1 Hydrocodone 20170409 PAIN MGMT, PREGABALIN, QN,W/medMATCH,U ----medMATCH CONSISTENT 20170409 Pregabalin ----Pregabalin NEGATIVE 13802624 <1000 ng/mL ----Prescribed Drug 1 Hydrocodone 20170409 PAIN MGMT, CARISOPRODOL METAB,QN,W/medMATCH,U ----medMATCH CONSISTENT 20170409 Meprobamate ----Meprobamate NEGATIVE 87804867 <1000 ng/mL ----Prescribed Drug 1 Hydrocodone 20170409 Summary Purpose eClinicalWorks Submission
--- OUTSIDE RECORDS SUMMARY | 2018-05-17 20:47 | XMS REPORT ---
[...] Code Onset Dates Condition Status Assessment Other moth exterminator (current) drug Z79.899 Active therapy Assessment Osteopenia M85.80 Active Problem Pain of right hand M79.641 Active Problem Pain of left hand M79.642 Active Problem Osteopenia M85.80 Active Problem Other moth exterminator (current) drug Z79.899 Active therapy Assessment Rheumatoid arthritis of multiple M06.09 Active sites without rheumatoid factor Problem Rheumatoid arthritis of multiple M06.09 Active sites without rheumatoid factor Problem Cigarette nicotine dependence, F17.210 Active uncomplicated Medications Medication Code Code Instructions Start End Status Dosage System Date Date Voltaren [facility] 80909-73 1 % Transdermal Active as directed - PRN Nuvigil [facility] 49018-63 250 MG Orally Active 1 tablet in 94-30 Once a day the morning Inderal LA [facility] 67965-84 160 MG Orally Active 1 capsule 79-81 Once a day Calcium [facility] 12296-33 otc Orally once Active 1 tablet 034 a day with meals Folic Acid [facility] 99297-72 1 MG Orally Once Active 1 tablet 07-19 a day Propranolol HCl [facility] 25302-34 10 MG Orally Active 1 tablet 82-01 [place] [address]-46 Orally once a Active 1 tablet 46-10 [place] [address]-04 145 MG Orally Active 1 tablet 23-90 Once a day Trazodone HCl [facility] 85976-56 150 MG Orally at Active 1 tablet 73-01 [place] [address]-83 10-325 MG Orally Active 1 tablet as minophen 16-30 every 6 hrs needed Xeljanz XR [facility] 14617-23 11 MG Orally Active 1 tablet 01-30 Once a day Vital Signs Date/Time: December 09, 2016 BMI 27.24 Index Weight 209.3 lbs Height 73.5 in Temperature 97.5 F Cardiac Monitoring Heart Rate 72 /min Blood Pressure Diastolic 76 mm Hg Blood Pressure Systolic 142 mm Hg Results No Known Results Summary Purpose eClinicalWorks Submission
--- OUTSIDE RECORDS SUMMARY | 2018-05-17 20:47 | XMS REPORT ---
:1955 Author Organization eClinicalWorks Care Team Providers Name Role Phone Earl Espinal Provider Role Unavailable Allergies No Known Allergies Problems Problem Type Condition Code Onset Dates Condition Status Problem Pain of right hand M79.641 Active Problem Pain of left hand M79.642 Active Problem Osteopenia M85.80 Active Problem Other long term care pharmacist (current) drug Z79.899 Active therapy Problem Rheumatoid arthritis of multiple M06.09 Active sites without rheumatoid factor Problem Cigarette nicotine dependence, F17.210 Active uncomplicated Medications No Known Medications Results No Known Results Summary Purpose eClinicalWorks Submission
--- OUTSIDE RECORDS SUMMARY | 2018-05-17 20:48 | XMS REPORT ---
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) drug Z79.899 Active therapy Problem Osteopenia M85.80 Active Problem Pain of right hand M79.641 Active Problem Other chronic pain G89.29 Active Problem Cigarette nicotine dependence, F17.210 Active uncomplicated Problem Other prison (current) drug Z79.899 Active therapy Problem Pain of left hand M79.642 Active Problem Rheumatoid arthritis of multiple M06.09 Active sites without rheumatoid factor Medications Medication Code Code Instructions Start End Status Dosage System Date Date Calcium [facility] 25789418616 otc Orally once Active 1 tablet a day with meals Medrol Dose Dominic [facility] 53995199439 4mg Orally once May 07, Active as directed a day 2016 Trazodone HCl [facility] 11417473001 150 MG Orally Active 1 tablet at night Multivitamins ND 50472104197 Orally once a Active 1 tablet day Inderal LA [facility] 19997935896 160 MG Orally Active 1 capsule Once a day Voltaren [facility] 30796392293 1 % Transdermal Active as directed PRN Nuvigil [facility] 82590198145 250 MG Orally Active 1 tablet in Once a day the morning Tricor ND 59443835122 145 MG Orally Active 1 tablet Once a day Xeljanz XR [facility] 76801601326 11 MG Active TAKE 1 TABLET BY MOUTH EVERY DAY Hydrocodone-Acet ND 58742612726 10-325 MG Active 1 tab aminophen Orally BID to QID as needed Propranolol HCl ND 42090506237 10 MG Orally Active 1 tablet Once a day Vital Signs Date/Time: Feb 04, 2018 BMI 28.86 Index Weight 218.8 lbs Height 73 in Temperature 97.6 F Cardiac Monitoring Heart Rate 80 /min Blood Pressure Diastolic 88 mm Hg Blood Pressure Systolic 140 mm Hg Results Name Result Date Reference Range Unit Abnormality Flag 9179 COMPREHENSIVE METABOLIC PANEL ----CALCIUM 9.5 61965033 8.5-10.5 MG/DL ----CARBON DIOXIDE 26 [id number] 19-31 MEQ/L ----ALT 8 17290204 5-50 U/L ----CREATININE 1.06 45381395 0.80-1.40 MG/DL ----AST 12 79841972 9-50 U/L ---- eGFR 87 06873147 >60 ML/MIN/1.73 AMER. ----ALKALINE 33 20180204 40-123 U/L L PHOSPHATASE ---- eGFR 75 59214653 >60 ML/MIN/1.73 NON- AMER. ----BILIRUBIN, 0.2 20180204 <=1.2 MG/DL TOTAL ----CALC BUN/CREAT 21 41422273 6-28 RATIO ----CALC A/G RATIO 1.4 62463180 1.0-2.6 RATIO ----SODIUM 140 17495084 133-146 MEQ/L ----CALC GLOBULIN 2.9 48601026 1.9-3.7 G/DL ----POTASSIUM 4.9 23670396 3.5-5.4 MEQ/L ----GLUCOSE 109 99499660 70-99 MG/DL H ----CHLORIDE 103 09843752 95-107 MEQ/L ----ALBUMIN 4.0 06812757 3.5-5.2 G/DL ----BUN 22 20180204 8-23 MG/DL ----PROTEIN, TOTAL 6.9 66602060 6.1-8.3 G/DL 4530 COCCIDIOIDES IMMITIS AB BY ID ----COCCIDIOIDES None Detected [id number] None Detected IMMITIS AB BY ID [id number] QUANTIFERON TB GOLD ---- NAYELI-NIL >10.00 08795014 >=0.5 IU/ML ----QUANTIFERON TB NEGATIVE [id number] NEGATIVE GOLD ----INTERFERON [id number] GAMMA RESULTS -------- ---- NIL 0.12 60338837 <=8.0 IU/ML ---- TB-NIL 0.11 41852764 <0.35 IU/ML 4568 HISTOPLASMA SPP. AB BY ID ----HISTOPLASMA None Detected [id number] None Detected SPP. AB BY ID [id number] ACUTE HEPATITIS PROFILE ----INTERPRETATION (NOTE) [id number] HEPATITIS B: ----INTERPRETATION (NOTE) [id number] HEPATITIS A: ----HEPATITIS C NON-REACTIVE [id number] NON-REACTIVE ANTIBODY ----HEPATITIS B NON-REACTIVE [id number] NON-REACTIVE SURF AG ----INTERPRETATION (NOTE) [id number] HEPATITIS C: ----HEPATITIS B NON-REACTIVE [id number] NON-REACTIVE CORE IgM ----HEPATITIS A IgM NON-REACTIVE [id number] NON-REACTIVE 1000 CBC W/AUTO DIFF ----WBC 6.2 22568299 4.0-11.0 K/UL ----RBC 4.56 19308636 4.10-5.70 M/UL ----HEMOGLOBIN 13.5 30629426 13.0-17.0 G/DL ----RDW 13.3 46970563 11.0-15.0 % ----NEUTROPHILS 60.2 29203342 40.0-74.0 % ----HEMATOCRIT 39.7 16272657 37.0-49.0 % ----MCV 87.1 95919495 80.0-100.0 fL ----MCH 29.6 96740344 27.0-34.0 PG ----MCHC 34.0 97964021 32.0-35.5 G/DL ----LYMPHOCYTES 27.9 60357868 19.0-48.0 % ----MONOCYTES 9.5 67624629 4.0-13.0 % ----EOSINOPHILS 1.8 14500710 0.0-7.0 % ----BASOPHILS 0.6 43786247 0.0-2.0 % ----PLATELET COUNT 233 94718963 130-400 K/UL 5083 HIGH SENSITIVITY CRP ----HIGH 50.5 40798547 SEE BELOW MG/L H SENSITIVITY CRP 1055 SEDIMENTATION RATE ----SEDIMENTATION 15 [id number] 0-15 MM/HOUR RATE Summary Purpose eClinicalWorks Submission
--- OUTSIDE RECORDS SUMMARY | 2018-05-17 20:48 | XMS REPORT ---
:1955 Author Organization eClinicalWorks Care Team Providers Name Role Phone Earl Espinal Provider Role Unavailable Encounters Encounter Location Date lab order Earl Espinal MD December 22, 2013 Unknown Earl Espinal MD December 21, 2013 RX Request-- Wendy Espinal MD Apr 03, 2014 Refill hydrocodone 04/15 Earl Espinal MD Apr 12, 2014 Unknown Earl Espinal MD October 04, 2013 Refill- Wendy Espinal MD October 27, 2013 Refill-Wendy Espinal MD November 22, 2013 Problems Problem Type Condition ICD-9 Code Onset Dates Condition Status Problem Long-term (current) use of other V58.69 Active medications - High Risk Problem Long-term (current) use of V58.65 Active steroids Problem Rheumatoid arthritis 714.0 Active Problem Hypertension 997.91 Active Assessment Rheumatoid arthritis 714.0 Active Medications Medication Code System Code Instructions Start End Date Status Dosage Date Hydrocodone-Hal [facility] 57829-52 10-325 MG Orally May 12, Active 1 tablet taminophen 16-30 every 6 hrs 2013 as needed Social History Social History Element Qualifiers Date Reported Illicit Drugs . none Mar 15, 2014 Tobacco Use: . Are you a:: current smoker Mar 15, 2014 Caffeine: yes. 1-5 Mar 15, 2014 Exercise: yes. walk Mar 15, 2014 Alcohol: no. Mar 15, 2014 Summary Purpose eClinicalWorks Submission
--- OUTSIDE RECORDS SUMMARY | 2018-05-17 20:48 | XMS REPORT ---
:1955 Author Organization [facility] Care Team Providers Name Role Phone Earl [...] 2013 Refill-Wendy Espinal MD November 22, 2013 MRI Bi Hands Earl Espinal MD Jun 09, 2014 1 mo f/u Earl Espinal MD October 10, 2014 RX Request-- Wendy Espinal MD October 04, 2014 Refill Earl Espinal MD May 12, 2014 F/U Earl Espinal MD Mar 15, 2014 rx refill Earl Espinal MD Jul 18, 2014 MRI Bi Hands Earl Espinal MD August 30, 2014 Refleonides- Wendy Espinal MD September 12, 2014 1 mo f/u Earl Espinal MD September 12, 2014 MRI Earl Espinal MD October 12, 2014 3m f/u Earl Espinal MD Jun 06, 2014 Refill- Wendy Espinal MD December 20, 2014 3 mo f/u Earl Espinal MD August 15, 2014 Wendy Espinal MD Jun 23, 2014 Refill- Wendy Espinal MD Jun 27, 2014 RX Request-- Wendy Espinal MD September 14, 2014 Problems Problem Type Condition ICD-9 Code Onset Dates Condition Status Problem Osteoarthrosis, multiple 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 none December 05, 2014 Alcohol Screening: . Points: 0 December 05, 2014 Tobacco Use: . Are you a:: current smoker , How often do December 05, 2014 you smoke cigarettes?: every day, How many cigarettes a day do you smoke?: 11-20, How soon after you wake up do you smoke your first cigarette?: 6-30 min, Are you interested in quitting?: Not ready to quit Caffeine: yes. 1-5 December 05, 2014 Exercise: yes. walk December 05, 2014 Alcohol: no. December 05, 2014 Summary Purpose eClinicalWorks Submission
--- OUTSIDE RECORDS SUMMARY | 2018-05-17 20:48 | XMS REPORT ---
:1955 Author Organization eClinicalWorks Care Team Providers Name Role Phone Dionna Cainnna Provider Role Unavailable Allergies, Adverse Reactions, Alerts Substance Reaction Event Type Lyrica Info Not Available Drug Allergy Humira Info Not Available Non Drug Allergy Enbrel Info Not Available Non Drug Allergy Encounters Encounter Location Date lab order Earl Espinal MD December 22, 2013 Unknown Earl Espinal MD December 21, 2013 Unknown Earl Espinal MD October 04, 2013 Refill- Wendy Espinal MD October 27, 2013 Refill-Wendy Espinal MD November 22, 2013 Problems Problem Type Condition ICD-9 Code Onset Dates Condition Status Problem Long-term (current) use of other V58.69 Active medications - High Risk Problem Long-term (current) use of V58.65 Active steroids Problem Rheumatoid arthritis 714.0 Active Assessment Long-term (current) use of other V58.69 Active medications - High Risk Assessment Long-term (current) use of V58.65 Active steroids Problem Hypertension 997.91 Active Assessment Rheumatoid arthritis 714.0 Active Medications Medication Code System Code Instructions Start End Status Dosage Date Date ORENCIA SQ Unknown 0 125MG Active 125MG SUBCUTANEOUSLY ONCE A WEEK Nexium [facility] 88561-4 40 MG Orally once Active 1 capsule 040-31 a day PredniSONE [facility] 24118-3 5 MG Orally Once July Active 1 tablet 390-21 a day 2013 Multivitamins [facility] 61479-9 Orally once a Active 1 tablet 046-10 day Voltaren [facility] 22342-3 1 % Transdermal Jan 02, Active as directed 215-05 Three times a day 2013 Calcium [facility] 32146-1 otc Orally once a Active 1 tablet 5034 day with meals Trazodone HCl [facility] 62951-6 150 MG Orally at Active 1 tablet 473-01 night Methotrexate [facility] 44087-2 25 MG/ML SQ Active 1 ml Sodium 173-00 injection Once a week Tricor [facility] 42869-3 145 MG Orally Active 1 tablet 123-90 Once a day Hydrocodone-Aceta [facility] 37192-9 10-325 MG Orally July Active 1 tablet as minophen 367-01 every 6 hrs 2013 needed Inderal LA [facility] 32146-2 160 MG Orally Active 1 capsule 479-81 Once a day Aricept [facility] 84625-0 23 MG Orally Once Active 1 tablet at 247-30 a day bedtime Folic Acid [facility] 60534-6 1 MG Orally Once Active 1 tablet 507-19 a day Social History Social History Element Qualifiers Date Reported Illicit Drugs . none December 21, 2013 Tobacco Use: . Are you a:: current smoker December 21, 2013 Caffeine: yes. 1-5 December 21, 2013 Exercise: yes. walk December 21, 2013 Alcohol: no. December 21, 2013 Vital Signs Date/Time: December 21, 2013 Weight 204 lbs Height 72 in Temperature 97.0 F Cardiac Monitoring Heart Rate 80 /min Blood Pressure Diastolic 88 mm Hg Blood Pressure Systolic 140 mm Hg Summary Purpose eClinicalWorks Submission
--- OUTSIDE RECORDS SUMMARY | 2018-05-17 20:48 | XMS REPORT ---
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) drug Z79.899 Active therapy Assessment Rheumatoid arthritis of multiple M06.09 Active sites without rheumatoid factor Assessment Other chronic pain G89.29 Active Problem Osteopenia M85.80 Active Problem Pain of right hand M79.641 Active Problem Other chronic pain G89.29 Active Problem Cigarette nicotine dependence, F17.210 Active uncomplicated Problem Other senior living (current) drug Z79.899 Active therapy Problem Pain of left hand M79.642 Active Problem Rheumatoid arthritis of multiple M06.09 Active sites without rheumatoid factor Medications Medication Code Code Instructions Start End Date Status Dosage System Date Medrol Dose Dominic [facility] 59584531080 4mg Orally once May 07, Active as a day 2016 directed Propranolol HCl [facility] 13774108273 10 MG Orally Active 1 tablet Once a day Multivitamins ND 78698142555 Orally once a Active 1 tablet day Trazodone HCl [facility] 96706671610 150 MG Orally Active 1 tablet at night Voltaren [facility] 46264360696 1 % Transdermal Active as PRN directed Nuvigil [facility] 92006767413 250 MG Orally Active 1 tablet Once a day in the morning Tricor ND 33776274667 145 MG Orally Active 1 tablet Once a day Xeljanz XR [facility] 24846032083 11 MG Active TAKE 1 TABLET BY MOUTH EVERY DAY Hydrocodone-Acet ND 09162954908 10-325 MG July Active 1 tab aminophen Orally BID to 2018 QID as needed Calcium ND 67913965996 otc Orally once Active 1 tablet a day with meals Inderal LA ND 62138321111 160 MG Orally Active 1 capsule Once a day Vital Signs Date/Time: May 06, 2018 BMI 28.69 Index Weight 217.5 lbs Height 73 in Temperature 97.0 F Cardiac Monitoring Heart Rate 68 /min Blood Pressure Diastolic 98 mm Hg Blood Pressure Systolic 158 mm Hg Results No Known Results Summary Purpose eClinicalWorks Submission
--- OUTSIDE RECORDS SUMMARY | 2018-05-17 20:48 | XMS REPORT ---
:1955 Author Organization eClinicalWorks Care Team Providers Name Role Phone Dionna Cainnna Provider Role Unavailable Allergies, Adverse Reactions, Alerts Substance Reaction Event Type Lyrica Info Not Available Drug Allergy Humira Info Not Available Non Drug Allergy Enbrel Info Not Available Non Drug Allergy Encounters Encounter Location Date Unknown Earl Espinal MD October 04, 2013 Refill- O[place] Earl Espinal MD October 27, 2013 Problems Problem Type Condition ICD-9 Code [...] Instructions Start End Status Dosage Date Date Methotrexate [facility] 56507-2 25 MG/ML SQ Active 1 ml Sodium 173-00 injection Once a week Multivitamins [facility] 59405-3 Orally once a Active 1 tablet 046-10 day Hydrocodone-Aceta [facility] 09052-2 10-325 MG Orally JulyJan 02, Active 1 tablet as minophen 367-01 every 6 hrs 2013 needed Folic Acid [facility] 88398-9 1 MG Orally Once Jan 02, Active 1 tablet 507-19 a day 2013 Tricor [facility] 38618-7 145 MG Orally Active 1 tablet 123-90 Once a day Trazodone HCl [facility] 46628-1 150 MG Orally at Active 1 tablet 473-01 night Calcium [facility] 66739-3 otc Orally once a Active 1 tablet 5034 day with meals PredniSONE [facility] 07707-2 5 MG Orally Once JulyJan 02, Active 1 tablet 390-21 a day 2013 Voltaren [facility] 40748-8 1 % Transdermal Jan 02, Active as directed 215-05 Three times a day 2013 ORENCIA SQ Unknown 0 125MG Jan 02, Active 125MG SUBCUTANEOUSLY 2013 ONCE A WEEK Nexium [facility] 91283-5 40 MG Orally once Active 1 capsule 040-31 a day Inderal LA [facility] 23689-3 160 MG Orally Active 1 capsule 339-81 Once a day Social History Social History Element Qualifiers Date Reported Illicit Drugs . none October 04, 2013 Tobacco Use: . Are you a:: current smoker October 04, 2013 Caffeine: yes. 1-5 October 04, 2013 Exercise: yes. walk October 04, 2013 Alcohol: no. October 04, 2013 Vital Signs Date/Time: October 04, 2013 Weight 210 lbs Height 72 in Temperature 96.9 F Cardiac Monitoring Heart Rate 80 /min Blood Pressure Diastolic 80 mm Hg Blood Pressure Systolic 132 mm Hg Immunizations Vaccine Administration Date Depomedrol October 04, 2013 Toradol October 04, 2013 Summary Purpose eClinicalWorks Submission
--- OUTSIDE RECORDS SUMMARY | 2018-05-17 20:48 | XMS REPORT ---
[...] Active sites without rheumatoid factor Assessment Other [facility] (current) drug Z79.899 Active therapy Problem Osteopenia M85.80 Active Problem Pain of right hand M79.641 Active Problem Other chronic pain G89.29 Active Problem Cigarette nicotine dependence, F17.210 Active uncomplicated Problem Other intermediate designer (current) drug Z79.899 Active therapy Problem Pain of left hand M79.642 Active Problem Rheumatoid arthritis of multiple M06.09 Active sites without rheumatoid factor Medications Medication Code Code Instructions Start End Status Dosage System Date Date Multivitamins ND 39590332757 Orally once a Active 1 tablet day Tricor ND 57184404486 145 MG Orally Active 1 tablet Once a day Inderal LA ND 66155150568 160 MG Orally Active 1 capsule Once a day Calcium ND 94679055266 otc Orally once Active 1 tablet a day with meals Nuvigil [facility] 82331603545 250 MG Orally Active 1 tablet in Once a day the morning Voltaren [facility] 46562621828 1 % Transdermal Active as directed PRN Xeljanz XR ND 38811220159 11 MG Orally Active 1 tablet Once a day Hydrocodone-Acet ND 93965761812 10-325 MG Active 1 tab aminophen Orally BID to QID as needed Medrol Dose Dominic ND 69246215034 4mg Orally once May 07, Active as directed a day 2016 Trazodone HCl ND 66146784831 150 MG Orally Active 1 tablet at night Propranolol HCl ND 98199311324 10 MG Orally Active 1 tablet Once a day Vital Signs Date/Time: November 05, 2017 BMI 29.30 Index Weight 222.1 lbs Height 73 in Temperature 96.7 F Cardiac Monitoring Heart Rate 78 /min Blood Pressure Diastolic 98 mm Hg Blood Pressure Systolic 144 mm Hg Results Name Result Date Reference Range Unit Abnormality Flag COMPREHENSIVE METABOLIC PANEL W/EGFR ----CALCIUM 9.4 20171105 8.6-10.3 mg/dL N ----CARBON DIOXIDE 28 20171105 20-31 mmol/L N ----ALT 11 20171105 9-46 U/L N ----CREATININE 1.08 20171105 0.70-1.25 mg/dL N ----AST 16 20171105 10-35 U/L N ----eGFR NON-AFR. 74 78112250 > OR=60 mL/min/1.7 N KOSOVAN 3m2 ----ALKALINE 31 20171105 40-115 U/L L PHOSPHATASE ----eGFR 85 14277505 > OR=60 mL/min/1.7 N KOSOVAN 3m2 ----BILIRUBIN, 0.4 20171105 0.2-1.2 mg/dL N TOTAL ----BUN/CREATININE NOT APPLICABLE 20171105 6-22 (calc) RATIO ----ALBUMIN/GLOBULI 1.5 01243467 1.0-2.5 (calc) N N RATIO ----SODIUM 140 20171105 135-146 mmol/L N ----GLOBULIN 2.7 57911882 1.9-3.7 g/dL N (calc) ----POTASSIUM 4.7 72843823 3.5-5.3 mmol/L N ----GLUCOSE 112 20171105 65-139 mg/dL N ----CHLORIDE 107 20171105 98-110 mmol/L N ----ALBUMIN 4.0 40350325 3.6-5.1 g/dL N ----UREA NITROGEN 23 20171105 7-25 mg/dL N (BUN) ----PROTEIN, TOTAL 6.7 60314196 6.1-8.1 g/dL N SED RATE BY MODIFIED WESTERGREN ----SED RATE BY 1 [id number] < OR=20 mm/h N MODIFIED WESTERGREN C-REACTIVE PROTEIN ----C-REACTIVE 1.5 20171105 <8.0 mg/L N PROTEIN CBC (INCLUDES DIFF/PLT) ----MCHC 34.1 27564046 32.0-36.0 g/dL N ----MCH 30.0 39821406 27.0-33.0 pg N ----PLATELET COUNT 184 77092747 140-400 Thousand/u N L ----RDW 13.7 60699060 11.0-15.0 % N ----BASOPHILS 0.5 18173969 % N ----ABSOLUTE 3371 44169076 2662-1639 cells/uL N NEUTROPHILS ----ABSOLUTE 1529 39557895 850-3900 cells/uL N LYMPHOCYTES ----MPV 11.6 83289664 7.5-12.5 fL N ----ABSOLUTE 28 70316741 0-200 cells/uL N BASOPHILS ----HEMATOCRIT 41.0 96646576 38.5-50.0 % N ----NEUTROPHILS 60.2 10210883 % N ----MCV 87.8 07956478 80.0-100.0 fL N ----RED BLOOD CELL 4.67 08705280 4.20-5.80 Million/uL N COUNT ----ABSOLUTE 521 96709892 200-950 cells/uL N MONOCYTES ----ABSOLUTE 151 27536346 15-500 cells/uL N EOSINOPHILS ----HEMOGLOBIN 14.0 71249682 13.2-17.1 g/dL N ----EOSINOPHILS 2.7 00328418 % N ----WHITE BLOOD 5.6 92945032 3.8-10.8 Thousand/u N CELL COUNT L ----LYMPHOCYTES 27.3 13861528 % N ----MONOCYTES 9.3 67830230 % N Summary Purpose eClinicalWorks Submission
--- OUTSIDE RECORDS SUMMARY | 2018-05-17 20:48 | XMS REPORT ---
:1955 Author Organization eClinicalWorks Care Team Providers Name Role Phone CainDionna finknna Provider Role Unavailable Encounters Encounter Location Date Unknown Earl Espinal MD October 04, 2013 Refill- Tyronncia Earl Espinal MD October 27, 2013 Problems [...] Dosage ORENCIA SQ Unknown 0 125MG SUBCUTANEOUSLY Active 125MG ONCE A WEEK Social History Social History Element Qualifiers Date Reported Illicit Drugs . none October 04, 2013 Tobacco Use: . Are you a:: current smoker October 04, 2013 Caffeine: yes. 1-5 October 04, 2013 Exercise: yes. walk October 04, 2013 Alcohol: no. October 04, 2013 Summary Purpose eClinicalWorks Submission
--- OUTSIDE RECORDS SUMMARY | 2018-05-17 20:48 | XMS REPORT ---
:1955 Author Organization eClinicalWorks Care Team Providers Name Role Phone Earl Espinal Provider Role Unavailable Encounters Encounter Location Date lab order Earl Espinal MD December 22, 2013 Unknown Earl Espinal MD October 04, [...] 997.91 Active Assessment Rheumatoid arthritis 714.0 Active Social History Social History Element Qualifiers Date Reported Illicit Drugs . none December 21, 2013 Tobacco Use: . Are you a:: current smoker December 21, 2013 Caffeine: yes. 1-5 December 21, 2013 Exercise: yes. walk December 21, 2013 Alcohol: no. December 21, 2013 Summary Purpose eClinicalWorks Submission
--- OUTSIDE RECORDS SUMMARY | 2018-05-17 20:48 | XMS REPORT ---
:1955 Author Organization eClinicalWorks Care Team Providers Name Role Phone Earl Espinal Provider Role Unavailable Encounters Encounter Location Date Unknown Earl Espinal MD October 04, 2013 Refill- Tyronncia Earl Espinal MD October 27, 2013 Refill-Tyronncia Earl Espinal MD November 22, 2013 Problems Problem [...]
--- OUTSIDE RECORDS SUMMARY | 2018-05-17 20:48 | XMS REPORT ---
:1955 Author Organization [facility] Team Providers Name Role Phone Earl Espinal Provider Role Unavailable Encounters Encounter Location Date MRI Bi Hands Earl Espinal MD Jun 09, 2014 rx refill Earl Espinal MD Jul 18, 2014 MRI Bi Hands Earl Espinal MD August 30, 2014 Refill- Wendy Espinal MD September 12, 2014 1 mo f/u Earl Espinal MD September 12, 2014 3m f/u Earl sEpinal MD Jun 06, 2014 3 mo f/u Earl Espinal MD August 15, 2014 Orencanshul Espinal MD Jun 23, 2014 Refill- Wendy Espinal MD Jun 27, 2014 RX Request-- Wendy Espinal MD September 14, 2014 lab order Earl Espinal MD December 22, 2013 Unknown Earl Espinal MD December 21, 2013 RX Request-- Wendy Espinal MD Apr 03, 2014 Refill hydrocodone 04/15 Earl Espinal MD Apr 12, 2014 Unknown Earl Espinal MD October 04, 2013 Refill- Wendy Espinal MD October 27, 2013 AndrewillElba Espinal MD November 22, 2013 1 mo f/u Earl Espinal MD October 10, 2014 RX Request-- Wendy Espinal MD October 04, 2014 Refill Earl Espinal MD May 12, 2014 F/U Earl Espinal MD Mar 15, 2014 MRI Earl Espinal MD October 12, 2014 RefillChristine Espinal MD December 20, 2014 refill Earl Espinal MD Jan 01, 2015 Refill Earl Espinal MD Jan 01, 2015 Problems Problem Type Condition ICD-9 Code Onset [...]
--- OUTSIDE RECORDS SUMMARY | 2018-05-17 20:48 | XMS REPORT ---
:1955 [facility] Team Providers Name Role Phone Earl Espinal Provider Role Unavailable Encounters Encounter Location Date MRI Bi Hands Earl Espinal MD Jun 09, 2014 rx refill Earl Espinal MD Jul 18, 2014 MRI Bi Hands Earl Espinal MD August 30, 2014 Refill- Wendy Espinal MD September 12, 2014 1 mo f/u Earl Espinal MD September 12, 2014 3m f/u Earl Espinal MD Jun 06, 2014 3 mo f/u [...] Long-term (current) use of V58.65 Active steroids Social History Social History Element Qualifiers Date [...]
--- OUTSIDE RECORDS SUMMARY | 2018-05-17 20:48 | XMS REPORT ---
:1955 [facility] Providers Name Role Phone Earl Espinal Provider Role Unavailable Encounters Encounter Location Date MRI Bi Hands Earl Espinal MD Jun 09, 2014 eli Espinal MD Jun 20, 2015 rx refill Earl Espinal MD Jul 18, 2014 MRI Bi Hands Earl Espinal MD August 30, 2014 Refill- Eli Espinal MD September 12, 2014 1 mo f/u Earl Espinal MD September 12, 2014 3m f/u Earl Espinal MD Jun 06, 2014 3 mo f/u Earl Espinal MD August 15, 2014 Eli Espinal MD Jun 23, 2014 Refill- Eli Espinal MD Jun 27, 2014 RX Request-- Eli Espinal MD September 14, 2014 lab order Earl Espinal MD December 22, 2013 Unknown Earl Espinal MD December 21, 2013 RX Request-- Eli Espinal MD Apr 03, 2014 Refill hydrocodone 04/15 Earl Espinal MD Apr 12, 2014 Unknown Earl Espinal MD October 04, 2013 Refill- Eli Espinal MD October 27, 2013 Refill-Eli Espinal MD November 22, 2013 1 mo f/u Earl Espinal MD October 10, 2014 RX Request-- Eli Espinal MD October 04, 2014 Andrewill Earl Espinal MD May 12, 2014 F/Deven Espinal MD Mar 15, 2014 Unknown Earl Espinal MD Jan 04, 2015 1 mo f/u Earl Espinal MD December 05, 2014 1 mo f/u Earl Espinal MD November 03, 2014 Unknown Earl Espinal MD Apr 05, 2015 MRI Earl Espinal MD October 12, 2014 Refill- Orencia Earl Espinal MD December 20, 2014 refill Earl Espinal MD Jan 01, 2015 Refill Earl Espinal MD Jan 01, 2015 Problems Problem Type Condition ICD-9 Code Onset Dates Condition Status Problem Rheumatoid arthritis of multiple 714.0 Active sites without organ or system involvement with positive rheumatoid factor Problem 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 none Jul 05, 2015 Alcohol Screening: . Points: 0 Jul 05, 2015 Tobacco Use: . Are you a:: current smoker , How often do Jul 05, 2015 you smoke cigarettes?: every day, How many cigarettes a day do you smoke?: 11-20, How soon after you wake up do you smoke your first cigarette?: 6-30 min, Are you interested in quitting?: Not ready to quit Caffeine: yes. 1-5 Jul 05, 2015 Exercise: yes. walk Jul 05, 2015 Alcohol: no. Jul 05, 2015 Summary Purpose eClinicalWorks Submission
--- OUTSIDE RECORDS SUMMARY | 2018-05-17 20:49 | XMS REPORT ---
:1955 [facility] Providers Name Role Phone Yamini [...] Hands Earl Espinal MD Jun 09, 2014 Refill Earl Espinal MD May 12, 2014 F/U Earl Espinal MD Mar 15, 2014 3m f/u Earl Espinal MD Jun 06, 2014 Wendy Espinal MD Jun 23, 2014 Refill- Wendy Espinal MD Jun 27, 2014 Problems Problem Type Condition ICD-9 Code [...] Instructions Start End Status Dosage Date Date Trazodone HCl MEDISPAN 89284-3 150 MG Orally at Active 1 tablet 473-01 night Calcium MEDISPAN 69998-9 otc Orally once a Active 1 tablet 5034 day with meals PredniSONE MEDISPAN 21791-7 5 MG Orally Once Active 1 tablet 390-21 a day Nexium MEDISPAN 76261-4 40 MG Orally once Active 1 capsule 040-31 a day Folic Acid MEDISPAN 09088-3 1 MG Orally Once Active 1 tablet 507-19 a day Voltaren MEDISPAN 11001-4 1 % Transdermal Active as directed 215-05 Three times a day Inderal LA MEDISPAN 57119-4 160 MG Orally Active 1 capsule 479-81 Once a day Tricor MEDISPAN 25433-3 145 MG Orally Active 1 tablet 123-90 Once a day Methotrexate MEDISPAN 88246-5 25 MG/ML SQ Active 1 ml Sodium 173-00 injection Once a week Multivitamins MEDISPAN 97764-4 Orally once a Active 1 tablet 046-10 day ORENCIA SQ Unknown 0 125MG Active 125mg SUBCUTANEOUSLY ONCE A WEEK Hydrocodone-Aceta MEDISPAN 41413-6 10-325 MG Orally Active 1 tablet as minophen 367-01 every 6 hrs needed Social History Social History Element Qualifiers Date Reported Illicit Drugs . none Jun 06, 2014 Tobacco Use: . Are you a:: current smoker Jun 06, 2014 Caffeine: yes. 1-5 Jun 06, 2014 Exercise: yes. walk Jun 06, 2014 Alcohol: no. Jun 06, 2014 Vital Signs Date/Time: Jun 06, 2014 Weight 204 lbs Height 72 in Temperature 97.6 F Cardiac Monitoring Heart Rate 72 /min Blood Pressure Diastolic 70 mm Hg Blood Pressure Systolic 136 mm Hg Immunizations Vaccine Administration Date Depomedrol Jun 06, 2014 Summary Purpose eClinicalWorks Submission
--- OUTSIDE RECORDS SUMMARY | 2018-05-17 20:49 | XMS REPORT ---
:1955 [facility] Providers Name Role Phone CainDionna finknna Provider Role Unavailable Allergies, Adverse Reactions, Alerts Substance Reaction Event Type Lyrica Info Not Available Drug Allergy Humira Info Not Available Non Drug Allergy Enbrel Info Not Available Non Drug Allergy Encounters Encounter Location Date MRI Bi Hands Earl Espinal MD Jun 09, 2014 rx refill Earl Espinal MD Jul 18, 2014 MRI Bi Hands Earl Espinal MD August 30, 2014 Refill- Wendy Espinal MD September 12, 2014 1 mo f/u Earl Espinal MD September 12, 2014 3m f/u Earl Espinal MD Jun 06, 2014 3 mo f/u Earl Espinal MD August 15, 2014 Tyronncanshul Espinal MD Jun 23, 2014 Refill- Wendy [...] 2013 Refill-Wendy Espinal MD November 22, 2013 1 mo f/u Earl Espinal MD October 10, 2014 RX Request-- Wendy Espinal MD October 04, 2014 Refill Earl Espinal MD May 12, 2014 F/U Earl Espinal MD Mar 15, 2014 Unknown Earl [...] Condition ICD-9 Code Onset Dates Condition Status Assessment Rheumatoid arthritis of multiple M06.09 Active sites without rheumatoid factor Assessment 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 Problem Lumbago 724.2 Active Problem Osteoarthrosis, multiple sites 715.09 Active Problem 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 Problem Hypertension 997.91 Active Problem Rheumatoid arthritis of multiple 714.0 Active sites without organ or system involvement with positive rheumatoid factor Problem Long-term (current) use of other V58.69 Active medications - High Risk Problem Long-term (current) use of V58.65 Active steroids Medications Medication Code System Code Instructions Start End Status Dosage Date Date Folic Acid [facility] 47385156443 1 Orally Once May Active take 1 a day 03, tablet by 2016 mouth once daily Methotrexate [facility] [address]-38 25 MG/ML SQ Active 1 ml Sodium injection Once a week Trazodone HCl [facility] [address]-46 150 MG Orally Active 1 tablet at night Calcium [facility] [address]65 otc Orally Active 1 tablet once a day with meals [facility] [address]-75 10-325 MG Dec Active 1 tablet aminophen Orally every 6 05, as needed hrs 2014 Nuvigil [facility] [address]-13 250 MG Orally Active 1 tablet Once a day in the morning Multivitamins [facility] [address]-51 Orally once a Active 1 tablet day Nexium [facility] [address]-77 40 MG Orally Active 1 capsule prn Inderal LA [facility] [address]-73 160 MG Orally Active 1 capsule Once a day Tricor [facility] [address]-51 145 MG Orally Active 1 tablet Once a day Voltaren [facility] [address]-89 1 % May Active as Transdermal 03, directed PRN 2016 Social History Social History Element Qualifiers Date Reported Illicit Drugs . none Apr 09, 2015 Alcohol Screening: . Points: 0 Apr 09, 2015 Tobacco Use: . Are you a:: current smoker , How often do Apr 09, 2015 you smoke cigarettes?: every day, How many cigarettes a day do you smoke?: 11-20, How soon after you wake up do you smoke your first cigarette?: 6-30 min, Are you interested in quitting?: Not ready to quit Caffeine: yes. 1-5 Apr 09, 2015 Exercise: yes. walk Apr 09, 2015 Alcohol: no. Apr 09, 2015 Vital Signs Date/Time: Apr 05, 2015 Weight 202 lbs Height 72 in Temperature 96.7 F Cardiac Monitoring Heart Rate 64 /min Blood Pressure Diastolic 90 mm Hg Blood Pressure Systolic 130 mm Hg Results CBC (INCLUDES DIFF/PLT) ABSOLUTE NEUTROPHILS(-8930-7254 cells/uL) 5457 MPV(-7.5-11.5 fL) 9.7 EOSINOPHILS(- %) 1.2 HEMOGLOBIN(-13.2-17.1 g/dL) 13.8 MONOCYTES(- %) 7.1 HEMATOCRIT(-38.5-50.0 %) 42.0 LYMPHOCYTES(- %) 19.4 MCV(-80.0-100.0 fL) 96.2 NEUTROPHILS(- %) 71.8 MCH(-27.0-33.0 pg) 31.7 ABSOLUTE BASOPHILS(-0-200 cells/uL) 38 MCHC(-32.0-36.0 g/dL) 32.9 BASOPHILS(- %) 0.5 ABSOLUTE EOSINOPHILS(-15-500 cells/uL) 91 RDW(-11.0-15.0 %) 14.7 WHITE BLOOD CELL COUNT(-3.8-10.8 Thousand/uL) 7.6 PLATELET COUNT(-140-400 Thousand/uL) 198 ABSOLUTE MONOCYTES(-200-950 cells/uL) 540 RED BLOOD CELL COUNT(-4.20-5.80 Million/uL) 4.36 ABSOLUTE LYMPHOCYTES(-850-3900 cells/uL) 1474 COMPREHENSIVE METABOLIC PANEL W/EGFR GLOBULIN(-1.9-3.7 g/dL (calc)) 2.7 eGFR (-> OR=60 mL/min/1.73m2) 84 eGFR NON-AFR. BRUNEIAN(-> OR=60 mL/min/1.73m2) 72 ALBUMIN(-3.6-5.1 g/dL) 4.1 SODIUM(-135-146 mmol/L) 138 PROTEIN, TOTAL(-6.1-8.1 g/dL) 6.8 BUN/CREATININE RATIO(-6-22 (calc)) NOT APPLICABLE CALCIUM(-8.6-10.3 mg/dL) 9.6 AST(-10-35 U/L) 17 GLUCOSE(-65-99 mg/dL) 114 ALKALINE PHOSPHATASE(-40-115 U/L) 36 BILIRUBIN, TOTAL(-0.2-1.2 mg/dL) 0.4 CREATININE(-0.70-1.33 mg/dL) 1.11 ALBUMIN/GLOBULIN RATIO(-1.0-2.5 (calc)) 1.5 UREA NITROGEN (BUN)(-7-25 mg/dL) 20 CARBON DIOXIDE(-19-30 mmol/L) 27 ALT(-9-46 U/L) 13 POTASSIUM(-3.5-5.3 mmol/L) 4.7 CHLORIDE(-98-110 mmol/L) 106 C-REACTIVE PROTEIN C-REACTIVE PROTEIN(-<0.80 mg/dL) 0.15 RHEUMATOID FACTOR RHEUMATOID FACTOR(-<14 IU/mL) 34 SED RATE BY MODIFIED WESTERGREN SED RATE BY MODIFIED WESTERGREN(-< OR=20 mm/h) 2 Summary Purpose eClinicalWorks Submission
--- OUTSIDE RECORDS SUMMARY | 2018-05-17 20:49 | XMS REPORT ---
[...] 2013 Refill-Wendy Espinal MD November 22, 2013 Refill Earl Espinal MD May 12, 2014 F/U Earl Espinal MD Mar 15, 2014 Problems Problem Type Condition ICD-9 Code Onset Dates Condition Status Assessment Long-term (current) use of other V58.69 Active medications - High Risk Assessment Long-term (current) use of V58.65 Active steroids Assessment Rheumatoid arthritis 714.0 Active Assessment Need for prophylactic V04.81 Active vaccination and inoculation, Influenza Social History Social History Element Qualifiers Date Reported Illicit Drugs . none Jun 06, 2014 Tobacco Use: . Are you a:: current smoker Jun 06, 2014 Caffeine: yes. 1-5 Jun 06, 2014 Exercise: yes. walk Jun 06, 2014 Alcohol: no. Jun 06, 2014 Vital Signs Date/Time: Mar 15, 2014 Weight 203 lbs Height 72 in Temperature 97.0 F Cardiac Monitoring Heart Rate 76 /min Blood Pressure Diastolic 84 mm Hg Blood Pressure Systolic 146 mm Hg Immunizations Vaccine Administration Date Flu Vaccine Mar 15, 2014 Summary Purpose eClinicalWorks Submission
--- OUTSIDE RECORDS SUMMARY | 2018-05-17 20:49 | XMS REPORT ---
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) drug Z79.899 Active therapy Problem Lumbago 724.2 Active Problem Cigarette nicotine dependence, F17.210 Active uncomplicated Problem Long-term (current) use of V58.65 Active steroids Problem Hypertension 997.91 Active Problem Osteoarthrosis, multiple sites 715.09 Active Problem Long-term (current) use of other V58.69 Active medications - High Risk Medications Medication Code System Code Instructions Start End Status Dosage Date Date Actemra SQ MEDISPAN 0782815844 162mg/0.9 mL Jul 05, Active 1 injection subcutaneous 2016 every other week Social History Social History Element Qualifiers Date [...]
--- OUTSIDE RECORDS SUMMARY | 2018-05-17 20:49 | XMS REPORT ---
[...] arthritis 714.0 Active Problem Hypertension 997.91 Active Social History Social History Element Qualifiers Date Reported Illicit Drugs . none Jun 06, 2014 Tobacco Use: . Are you a:: current smoker Jun 06, 2014 Caffeine: yes. 1-5 Jun 06, 2014 Exercise: yes. walk Jun 06, 2014 Alcohol: no. Jun 06, 2014 Summary Purpose eClinicalWorks Submission
--- OUTSIDE RECORDS SUMMARY | 2018-05-17 20:49 | XMS REPORT ---
[...] Unknown Earl Espinal MD October 04, 2013 Orencia Andrewill Earl Espinal MD Jun 23, 2014 Refill- Wendy Espinal MD October 27, 2013 Refill- Wendy Espinal MD Jun 27, 2014 Refill-Wendy Espinal MD November 22, 2013 MRI [...] ORENCIA SQ Unknown 0 125MG SUBCUTANEOUSLY Active 125mg ONCE A WEEK Social History Social History Element Qualifiers Date Reported Illicit Drugs . none Jun 06, 2014 Tobacco Use: . Are you a:: current smoker Jun 06, 2014 Caffeine: yes. 1-5 Jun 06, 2014 Exercise: yes. walk Jun 06, 2014 Alcohol: no. Jun 06, 2014 Summary Purpose eClinicalWorks Submission
--- OUTSIDE RECORDS SUMMARY | 2018-05-17 20:49 | XMS REPORT ---
:1955 Author Organization eClinicalWorks Care Team Providers Name Role Phone Earl Espinal Provider Role Unavailable Encounters Encounter Location Date lab order Earl Espinal MD December 22, 2013 Unknown Earl Espinal MD December 21, 2013 RX Request-- Wendy Espinal MD Apr 03, 2014 Unknown Earl Espinal MD October 04, [...] Dosage ORENCIA SQ Unknown 0 125MG SUBCUTANEOUSLY Jul 02, Active 125mg ONCE A WEEK 2014 Social History Social History Element Qualifiers Date Reported Illicit Drugs . none Mar 15, 2014 Tobacco Use: . Are you a:: current smoker Mar 15, 2014 Caffeine: yes. 1-5 Mar 15, 2014 Exercise: yes. walk Mar 15, 2014 Alcohol: no. Mar 15, 2014 Summary Purpose eClinicalWorks Submission
--- OUTSIDE RECORDS SUMMARY | 2018-05-17 20:49 | XMS REPORT ---
:[address] Team Providers Name Role Phone Yamini Cain Provider Role Unavailable Allergies, Adverse Reactions, Alerts Substance Reaction Event Type Lyrica Info Not Available Drug Allergy Humira Info Not Available Non Drug Allergy Enbrel Info Not Available Non Drug Allergy Encounters Encounter Location Date MRI Bi Hands Earl Espinal MD Jun 09, 2014 3 MTH FU Earl Espinal MD Jul 05, 2015 actemra Earl Espinal MD August 01, 2015 eli Espinal MD Jun 20, 2015 rx [...] Request-- Eli Espinal MD October 04, 2014 Refill Earl [...] ICD-9 Code Onset Dates Condition Status Assessment Cigarette nicotine dependence, F17.210 Active uncomplicated Problem Rheumatoid arthritis of multiple 714.0 Active sites without organ or system involvement with positive rheumatoid factor Assessment Rheumatoid arthritis of multiple M06.09 Active sites without rheumatoid factor Assessment Encounter for long-term Z79.899 Active (current) use of other high-risk medications Problem 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 Problem Lumbago 724.2 Active Problem Cigarette nicotine dependence, F17.210 Active uncomplicated Problem Long-term (current) use of V58.65 Active steroids Problem Hypertension 997.91 Active Problem Osteoarthrosis, multiple sites 715.09 Active Problem Long-term (current) use of other V58.69 Active medications - High Risk Medications Medication Code Code Instructions Start End Status Dosage System Date Date Inderal LA [facility] [address]-6 160 MG Orally Active 1 capsule 1 Once a day Voltaren [facility] [address]-9 1 % Transdermal September Active as 1 PRN 03, directed 2015 Nuvigil [facility] [address]-4 250 MG Orally Active 1 tablet 0 Once a day in the morning ORENCIA SQ Unknown 0 125MG Jun 20Jul Inactive 125mg SUBCUTANEOUSLY 2015 04, ONCE A WEEK 2015 Calcium [facility] 48[address] otc Orally once Active 1 tablet a day with meals Hydrocodone-Hal [facility] [address]-1 10-325 MG Orally Active 1 tablet taminophen 0 every 6 hrs as needed Methotrexate [facility] [address]-5 25 MG/ML SQ Active 1 ml Sodium 0 injection Once a week Tricor [facility] [address]-9 145 MG Orally Active 1 tablet 0 Once a day Nexium [facility] [address]-4 40 MG Orally prn Active 1 capsule 1 Trazodone HCl [facility] [address]-1 150 MG Orally at Active 1 tablet 1 night Folic Acid [facility] [address]-2 1 MG Orally Once Aug Active 1 tablet 9 a day 2015 Actemra SQ [facility] 2869758219 162mg/0.9 mL Jul 05 1 subcutaneous 2016 injection every other week Multivitamins [facility] [address]-9 Orally once a Active 1 tablet 0 day Social History Social History Element Qualifiers [...] 05, 2015 Alcohol: no. Jul 05, 2015 Vital Signs Date/Time: Jul 05, 2015 Weight 206 lbs Height 72 in Temperature 97.5 F Cardiac Monitoring Heart Rate 64 /min Blood Pressure Diastolic 90 mm Hg Blood Pressure Systolic 130 mm Hg Immunizations Vaccine Administration Date ActemJul 05, 2015 Summary Purpose eClinicalWorks Submission
--- OUTSIDE RECORDS SUMMARY | 2018-05-17 20:49 | XMS REPORT ---
:1955 [facility] Team Providers Name Role Phone [...] f/u Earl Espinal MD August 15, 2014 Kodyia Jeremías Espinal MD Jun 23, 2014 Refill- Wendy Espinal MD Jun 27, 2014 RX Request-- Wendy Espinal MD September 14, 2014 Problems Problem Type Condition ICD-9 Code Onset Dates Condition Status Problem Rheumatoid arthritis 714.0 Active Problem Long-term (current) use of other V58.69 Active medications - High Risk Problem Osteoarthrosis, multiple sites 715.09 Active Problem Long-term (current) use of V58.65 Active steroids Problem Hypertension 997.91 Active Medications Medication Code System Code Instructions Start Date End Date Status Dosage ORENCIA SQ Unknown 0 125MG SUBCUTANEOUSLY Jan 02, Active 125mg ONCE A WEEK 2014 Social History Social History Element Qualifiers Date Reported Illicit Drugs . none September 12, 2014 Alcohol Screening: . Points: 0 September 12, 2014 Tobacco Use: . Are you a:: current smoker , How often do September 12, 2014 you smoke cigarettes?: every day, How many cigarettes a day do you smoke?: 11-20, How soon after you wake up do you smoke your first cigarette?: 6-30 min, Are you interested in quitting?: Not ready to quit Caffeine: yes. 1-5 September 12, 2014 Exercise: yes. walk September 12, 2014 Alcohol: no. September 12, 2014 Summary Purpose eClinicalWorks Submission
--- OUTSIDE RECORDS SUMMARY | 2018-05-17 20:49 | XMS REPORT ---
:1955 [facility] Providers Name Role Phone Yamini [...] Espinal MD Mar 15, 2014 3m f/u Eral Espinal MD Jun 06, 2014 3 mo f/u Earl Espinal MD August 15, 2014 Orebhanuia Jeremías Espinal MD Jun 23, 2014 Refill- Wendy Espinal MD Jun 27, 2014 Problems Problem Type Condition ICD-9 Code Onset Dates Condition Status Assessment Long-term (current) use of other V58.69 Active medications - High Risk Problem Rheumatoid arthritis 714.0 Active Problem Long-term (current) use of other V58.69 Active medications - High Risk Problem Osteoarthrosis, multiple sites 715.09 Active Assessment Rheumatoid arthritis 714.0 Active Assessment Osteoarthrosis, multiple sites 715.09 Active Problem Long-term (current) use of V58.65 Active steroids Problem Hypertension 997.91 Active Medications Medication Code System Code Instructions Start End Status Dosage Date Date Folic Acid MEDISPAN 54078-4 1 MG Orally Once Active 1 tablet 507-19 a day Trazodone HCl MEDISPAN 78988-9 150 MG Orally at Active 1 tablet 473-01 night Tricor MEDISPAN 14189-2 145 MG Orally Active 1 tablet 123-90 Once a day Multivitamins MEDISPAN 08659-2 Orally once a Active 1 tablet 046-10 day Hydrocodone-Aceta MEDISPAN 11408-1 10-325 MG Orally Active 1 tablet as minophen 116-30 every 6 hrs needed Inderal LA MEDISPAN 21995-4 160 MG Orally Active 1 capsule 479-81 Once a day Calcium MEDISPAN 07883-4 otc Orally once a Active 1 tablet 5034 day with meals Nexium MEDISPAN 69072-3 40 MG Orally once Active 1 capsule 040-31 a day Methotrexate MEDISPAN 89479-0 25 MG/ML SQ Active 1 ml Sodium 173-00 injection Once a week PredniSONE MEDISPAN 31252-6 5 MG Orally Once Active 1 tablet 390-21 a day ORENCIA SQ Unknown 0 125MG Active 125mg SUBCUTANEOUSLY ONCE A WEEK Voltaren MEDISPAN 51903-7 1 % Transdermal Active as directed 215-05 PRN Social History Social History Element Qualifiers Date Reported Illicit Drugs . none August 15, 2014 Alcohol Screening: . Points: 0 August 15, 2014 Tobacco Use: . Are you a:: current smoker , How often do August 15, 2014 you smoke cigarettes?: every day, How many cigarettes a day do you smoke?: 11-20, How soon after you wake up do you smoke your first cigarette?: 6-30 min, Are you interested in quitting?: Not ready to quit Caffeine: yes. 1-5 August 15, 2014 Exercise: yes. walk August 15, 2014 Alcohol: no. August 15, 2014 Vital Signs Date/Time: August 15, 2014 Weight 200 lbs Height 74 in Temperature 97.4 F Cardiac Monitoring Heart Rate 72 /min Blood Pressure Diastolic 74 mm Hg Blood Pressure Systolic 126 mm Hg Summary Purpose eClinicalWorks Submission
--- OUTSIDE RECORDS SUMMARY | 2018-05-17 20:49 | XMS REPORT ---
[...] Refill Earl Espinal MD May 12, 2014 Problems Problem Type Condition ICD-9 Code Onset Dates Condition Status Problem Long-term (current) use of other V58.69 Active medications - High Risk Problem Long-term (current) use of V58.65 Active steroids Problem Rheumatoid arthritis 714.0 Active Problem Hypertension 997.91 Active Assessment Rheumatoid arthritis 714.0 Active Medications Medication Code System Code Instructions Start End Date Status Dosage Date Hydrocodone-Hal [facility] 33269-67 10-325 MG Orally Jun 14, Active 1 tablet taminophen 67-01 every 6 hrs 2014 as needed Social History Social History Element Qualifiers Date Reported Illicit Drugs . none Mar 15, 2014 Tobacco Use: . Are you a:: current smoker Mar 15, 2014 Caffeine: yes. 1-5 Mar 15, 2014 Exercise: yes. walk Mar 15, 2014 Alcohol: no. Mar 15, 2014 Summary Purpose [facility]
--- OUTSIDE RECORDS SUMMARY | 2018-05-17 20:50 | XMS REPORT ---
:1955 Author [facility] Team Providers Name Role Phone Yamini Cain Provider Role Unavailable Allergies, Adverse Reactions, Alerts Substance Reaction Event Type Lyrica Info Not Available Drug Allergy Orencia Info Not Available Non Drug Allergy Humira Info Not Available Non Drug Allergy Enbrel Info Not Available Non Drug Allergy Encounters Encounter Location Date MRI Bi Hands Earl Espinal MD Jun 09, 2014 3 MTH CECELIA Espinal MD Jul 05, 2015 actalfredo Espinal MD August 01, 2015 eli Espinal MD Jun 20, 2015 Actemra rx Earl Espinal MD Jan 01, 2016 rx refill Earl Espinal MD Jul 18, 2014 DEXA Earl Espinal MD Mar 03, 2016 MRI Bi Hands Earl Espinal MD August 30, 2014 MRI/DEXA Earl Espinal MD September 20, 2015 Refill- Eli Espinal MD September 12, 2014 3 MTH CECELIA Espinal MD September 26, 2015 1 mo f/u Earl Espinal MD September 12, 2014 3m f/u Earl Espinal MD Jun 06, 2014 3 mo f/u Earl Espinal MD August 15, 2014 3 MTH CECELIA Espinal MD Mar 11, 2016 Eli Espinal MD Jun 23, 2014 Refill- [...] Earl Espinal MD October 12, 2014 Refill- Eli Espinal MD December 20, 2014 refill Earl Espinal MD Jan 01, 2015 Refill Earl Espinal MD Jan 01, 2015 Problems Problem Type Condition ICD-9 Code Onset Dates Condition Status Problem Pain of left hand M79.642 Active Problem Rheumatoid arthritis of multiple M06.09 Active sites without rheumatoid factor Problem Pain of right hand M79.641 Active Assessment Rheumatoid arthritis of multiple M06.09 Active sites without rheumatoid factor Assessment Other retirement (current) drug Z79.899 Active therapy Problem Cigarette nicotine dependence, F17.210 Active uncomplicated Problem Other block and case maker (current) drug Z79.899 Active therapy Medications Medication Code Code Instructions Start End Status Dosage System Date Date Actemra SQ [facility] 3824720369 162mg/0.9 mL Dec 31Mar Inactive 1 injection subcutaneous 2016 04, once a week 2015 Nuvigil [facility] [address]-3 250 MG Orally Active 1 tablet in 0 Once a day the morning Calcium [facility] 88[address]32 otc Orally Active 1 tablet once a day with meals Voltaren [facility] [address]-4 1 % Active as directed 1 Transdermal PRN Propranolol HCl [facility] [address]-0 10 MG Orally Active 1 tablet 1 Once a day Nexium [facility] [address]-2 40 MG Orally Active 1 capsule 1 prn Tricor [facility] [address]-0 145 MG Orally Active 1 tablet 0 Once a day Xeljanz XR [facility] [address]-9 11 MG Orally Mar 11, Active 1 tablet 0 Once a day 2015 Methotrexate [facility] [address]-9 25 MG/ML Active 1 ml Sodium 0 Injection Once a week Trazodone HCl [facility] [address]-8 150 MG Orally Active 1 tablet 1 at night Multivitamins [facility] [address]-0 Orally once a Active 1 tablet 0 day Folic Acid [facility] [address]-3 1 MG Orally Active 1 tablet 9 Once a day once a day orally 90 days Hydrocodone-Acet [facility] [address]-6 10-325 MG Nov Active 1 tablet as aminophen 0 Orally every 6 10, needed hrs 2015 Inderal [place] [facility] [address]-2 160 MG Orally Active 1 capsule 1 Once a day Social History Social History Element Qualifiers Date Reported Illicit Drugs . none Mar 11, 2016 Alcohol Screening: . Points: 0 Mar 11, 2016 Tobacco Use: . Are you a:: current smoker , How often do Mar 11, 2016 you smoke cigarettes?: every day, How many cigarettes a day do you smoke?: 11-20, How soon after you wake up do you smoke your first cigarette?: 6-30 min, Are you interested in quitting?: Not ready to quit Caffeine: yes. 1-5 Mar 11, 2016 Exercise: yes. walk Mar 11, 2016 Alcohol: no. Mar 11, 2016 Vital Signs Date/Time: Mar 11, 2016 Weight 201 lbs Height 73 in Temperature 97.0 F Cardiac Monitoring Heart Rate 68 /min Blood Pressure Diastolic 80 mm Hg Blood Pressure Systolic 128 mm Hg Results CBC (INCLUDES DIFF/PLT) ABSOLUTE BASOPHILS(-0-200 cells/uL) 35 ABSOLUTE EOSINOPHILS(-15-500 cells/uL) 168 LYMPHOCYTES(- %) 27.9 NEUTROPHILS(- %) 63.6 PLATELET COUNT(-140-400 Thousand/uL) 156 EOSINOPHILS(- %) 2.9 RDW(-11.0-15.0 %) 14.7 MONOCYTES(- %) 5.0 MCHC(-32.0-36.0 g/dL) 33.5 MCH(-27.0-33.0 pg) 32.0 MCV(-80.0-100.0 fL) 95.8 ABSOLUTE NEUTROPHILS(-3810-5571 cells/uL) 3689 MPV(-7.5-11.5 fL) 9.1 ABSOLUTE MONOCYTES(-200-950 cells/uL) 290 ABSOLUTE LYMPHOCYTES(-850-3900 cells/uL) 1618 BASOPHILS(- %) 0.6 WHITE BLOOD CELL COUNT(-3.8-10.8 Thousand/uL) 5.8 RED BLOOD CELL COUNT(-4.20-5.80 Million/uL) 4.30 HEMOGLOBIN(-13.2-17.1 g/dL) 13.8 HEMATOCRIT(-38.5-50.0 %) 41.2 Summary Purpose eClinicalWorks Submission
--- OUTSIDE RECORDS SUMMARY | 2018-05-17 20:50 | XMS REPORT ---
:1955 [facility] Care Team Providers Name Role Phone Earl Espinal Provider Role Unavailable Encounters Encounter Location Date MRI Bi Hands Earl Espinal MD Jun 09, 2014 3 MTH FU Earl Espinal MD Jul 05, 2015 actemra Earl Espinal MD August 01, 2015 orencia henry Espinal MD Jun 20, 2015 Actemra rx Earl Espinal MD Jan 01, 2016 rx refill Earl Espinal MD Jul 18, 2014 DEXA Earl Espinal MD Mar 03, 2016 MRI Bi Hands Earl Espinal MD August 30, 2014 MRI/DEXA Earl Espinal MD September 20, 2015 Refill- Wendy Espinal MD September 12, 2014 3 MTH FU Earl Espinal MD September 26, 2015 1 mo f/u Earl Espinal MD September 12, 2014 3m f/u Earl Espinal MD Jun 06, 2014 3 mo f/u Earl Espinal MD August 15, 2014 3 MTH FU Earl Espinal MD Mar 11, 2016 Orekathy Espinal MD Jun 23, 2014 xeljanz rx Earl Espinal MD Mar 27, 2016 Refill- Wendy Espinal MD Jun 27, 2014 [...] Earl Espinal MD October 12, 2014 Refill- Wendy Espinal MD December 20, 2014 refill Earl Espinal MD Jan 01, 2015 Refill Earl Espinal MD Jan 01, 2015 Problems Problem Type Condition ICD-9 Code Onset Dates Condition Status Problem Pain of left hand M79.642 Active Problem Rheumatoid arthritis of multiple M06.09 Active sites without rheumatoid factor Problem Pain of right hand M79.641 Active Problem Cigarette nicotine dependence, F17.210 Active uncomplicated Problem Other penitentiary (current) drug Z79.899 Active therapy Medications Medication Code System Code Instructions Start Date End Date Status D[facility] [address] 11 MG Orally Once Mar 27, Active 1 tablet -30 a day 2015 Social History Social History Element Qualifiers Date [...] 11, 2016 Alcohol: no. Mar 11, 2016 Summary Purpose eClinicalWorks Submission
--- OUTSIDE RECORDS SUMMARY | 2018-05-17 20:50 | XMS REPORT ---
:1955 [facility] Team Providers Name Role [...] f/u Earl Espinal MD September 12, 2014 3 MTH CECELIA Espinal MD December 20, 2015 3m f/u Earl Espinal MD Jun 06, 2014 3 mo f/u Earl Espinal MD August 15, 2014 3 MTH CECELIA Espinal MD Mar 11, 2016 Eli Espinal MD Jun 23, 2014 xeljanz rx Earl Espinal MD Mar 27, 2016 Refill- Eli Espinal MD Jun 27, 2014 RX Request-- Eli Espinal MD September 14, 2014 lab order Earl Epsinal MD December 22, 2013 Unknown Earl Espinal [...] Refill Earl Espinal MD May 12, 2014 F/Deven [...] ICD-9 Code Onset Dates Condition Status Problem Cigarette nicotine dependence, F17.210 Active uncomplicated Problem Other jail (current) drug Z79.899 Active therapy Problem Rheumatoid arthritis of multiple M06.09 Active sites without rheumatoid factor Assessment Cigarette nicotine dependence, F17.210 Active uncomplicated Assessment Rheumatoid arthritis of multiple M06.09 Active sites without rheumatoid factor Assessment Other jail (current) drug Z79.899 Active therapy Medications Medication Code System Code Instructions Start End Status Dosage Date Date Folic Acid [facility] [address]-66 1 MG Orally Active 1 tablet Once a day once a day orally 90 days Nuvigil [facility] [address]-26 250 MG Orally Active 1 tablet in Once a day the morning Trazodone HCl [facility] [address]-90 150 MG Orally Active 1 tablet at night Calcium [facility] [address] otc Orally Active 1 tablet once a day with meals Nexium [facility] [address]-03 40 MG Orally Active 1 capsule prn Voltaren [facility] [address]-70 1 % Active as directed Transdermal PRN Actemra SQ [facility] 9394709457 162mg/0.9 mL Jul 05Mar Active 1 injection subcutaneous 2015 19, once a week 2015 Multivitamins [facility] [address]-21 Orally once a Active 1 tablet day Hydrocodone-Acet [facility] [address]-14 10-325 MG Active 1 tablet as aminophen Orally every 6 needed hrs Inderal LA [facility] [address]-06 160 MG Orally Active 1 capsule Once a day Tricor [facility] [address]-55 145 MG Orally Active 1 tablet Once a day Methotrexate [facility] [address]-84 25 MG/ML SQ Active 1 ml Sodium injection Once a week Social History Social History Element Qualifiers [...] no. Mar 11, 2016 Vital Signs Date/Time: December 20, 2015 Weight 203 lbs Height 73 in Temperature 97.0 F Cardiac Monitoring Heart Rate 72 /min Summary Purpose eClinicalWorks Submission
--- OUTSIDE RECORDS SUMMARY | 2018-05-17 20:50 | XMS REPORT ---
:1955 [facility] Team Providers Name Role Phone Earl Espinal Provider Role Unavailable Encounters Encounter Location Date MRI Bi Hands Earl Espinal MD Jun 09, 2014 3 MTH FU Earl Espinal MD Jul 05, 2015 actemra Earl Espinal MD August 01, 2015 orencia henry Espinal MD Jun 20, 2015 rx refill [...] involvement with positive rheumatoid factor Problem Other snf (current) drug Z79.899 Active therapy Problem Lumbago 724.2 Active Problem Cigarette nicotine dependence, F17.210 Active uncomplicated Problem Long-term (current) use of V58.65 Active steroids Problem Hypertension 997.91 Active Problem Osteoarthrosis, multiple sites 715.09 Active Problem Long-term (current) use of other V58.69 Active medications - High Risk Social History Social History Element Qualifiers Date [...]
--- OUTSIDE RECORDS SUMMARY | 2018-05-17 20:50 | XMS REPORT ---
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 Z79.899 Active therapy Assessment Chronic prescription opiate use Z79.891 Active Problem Pain of right hand M79.641 Active Problem Pain of left hand M79.642 Active Problem Osteopenia M85.80 Active Problem Other fpc (current) drug Z79.899 Active therapy Assessment Rheumatoid arthritis of multiple M06.09 Active sites without rheumatoid factor Problem Rheumatoid arthritis of multiple M06.09 Active sites without rheumatoid factor Problem Cigarette nicotine dependence, F17.210 Active uncomplicated Medications Medication Code System Code Instructions Start End Date Status Dosage Date Trazodone HCl [facility] 49016-3 150 MG Orally Active 1 tablet 473-01 at night Xeljanz XR [facility] 24894-5 11 MG Orally Mar 27, Active 1 tablet 501-30 Once a day 2015 Methotrexate [facility] 69608-9 25 MG/ML Active 1 ml Sodium 350-10 Injection Once a week Voltaren [facility] 98062-8 1 % Transdermal Active as directed 427-01 PRN Multivitamins [facility] 29797-1 Orally once a Active 1 tablet 046-10 day Tricor [facility] 49640-3 145 MG Orally Active 1 tablet 123-90 Once a day Nexium [facility] 77988-1 40 MG Orally Active 1 capsule 040-31 prn Folic Acid [facility] 64943-5 1 MG Orally Nadiya Active 1 tablet 507-19 Once a day 2016 once a day orally 90 days Propranolol HCl [facility] 59810-8 10 MG Orally Active 1 tablet 182-01 Once a day Hydrocodone-Aceta [facility] 16399-4 10-325 MG Active 1 tablet as minophen 116-30 Orally every 6 needed hrs Nuvigil [facility] 35533-2 250 MG Orally Active 1 tablet in 394-30 Once a day the morning Calcium [facility] 40196-2 otc Orally once Active 1 tablet 5034 a day with meals Inderal [place] [facility] 35954-1 160 MG Orally Active 1 capsule 479-81 Once a day Social History Social History Element Qualifiers Date Reported Illicit Drugs . none Jun 11, 2016 Alcohol Screening: . Points: 0 Jun 11, 2016 Tobacco Use: . Are you a:: current smoker , How often do Jun 11, 2016 you smoke cigarettes?: every day, How many cigarettes a day do you smoke?: 11-20, How soon after you wake up do you smoke your first cigarette?: 6-30 min, Are you interested in quitting?: Not ready to quit Caffeine: yes. 1-5 Jun 11, 2016 Exercise: yes. walk Jun 11, 2016 Alcohol: no. Jun 11, 2016 Vital Signs Date/Time: Jun 11, 2016 Weight 204.3 lbs Height 73 in Temperature 97.4 F Cardiac Monitoring Heart Rate 64 /min Blood Pressure Diastolic 90 mm Hg Blood Pressure Systolic 142 mm Hg Summary Purpose eClinicalWorks Submission
--- OUTSIDE RECORDS SUMMARY | 2018-05-17 20:50 | XMS REPORT ---
:[address] [facility] Team Providers Name Role Phone Cain Yamini Provider Role Unavailable Encounters Encounter Location Date [...] Earl Espinal MD October 12, 2014 Refill- Orekathy Espinal MD December 20, 2014 refill Earl Espinal MD Jan 01, 2015 Refill Earl Espinal MD Jan 01, 2015 Problems Problem Type Condition ICD-9 Code Onset Dates Condition Status Problem Hypertension 997.91 Active Problem Rheumatoid arthritis of multiple 714.0 Active sites without organ or system involvement with positive rheumatoid factor Problem Cigarette nicotine dependence, F17.210 Active uncomplicated Problem Other termite helper (current) drug Z79.899 Active therapy Problem Rheumatoid arthritis of multiple M06.09 Active sites without rheumatoid factor Problem Long-term (current) use of other V58.69 Active medications - High Risk Problem Long-term (current) use of V58.65 Active steroids Problem Lumbago 724.2 Active Problem Osteoarthrosis, multiple sites 715.09 Active Medications Medication Code System Code Instructions Start End Status Dosage Date Date Actemra SQ [facility] 1143739751 162mg/0.9 mL Dec 31, Active 1 injection subcutaneous 2016 once a week Social History Social History Element Qualifiers Date Reported Illicit Drugs . none December 20, 2015 Alcohol Screening: . Points: 0 December 20, 2015 Tobacco Use: . Are you a:: current smoker , How often do December 20, 2015 you smoke cigarettes?: every day, How many cigarettes a day do you smoke?: 11-20, How soon after you wake up do you smoke your first cigarette?: 6-30 min, Are you interested in quitting?: Not ready to quit Caffeine: yes. 1-5 December 20, 2015 Exercise: yes. walk December 20, 2015 Alcohol: no. December 20, 2015 Summary Purpose eClinicalWorks Submission
--- OUTSIDE RECORDS SUMMARY | 2018-05-17 20:50 | XMS REPORT ---
:[address] [facility] [...] f/u Earl Espinal MD August 15, 2014 Eil Espinal MD Jun 23, 2014 Refill- Eli [...] ICD-9 Code Onset Dates Condition Status Assessment Other penitentiary (current) drug Z79.899 Active therapy Problem Rheumatoid arthritis of multiple 714.0 Active sites without organ or system involvement with positive rheumatoid factor Assessment Rheumatoid arthritis of multiple M06.09 Active sites without rheumatoid factor Problem Other manager terminal (current) drug Z79.899 Active therapy Problem Lumbago 724.2 Active Problem Cigarette nicotine dependence, F17.210 Active uncomplicated Problem Long-term (current) use of V58.65 Active steroids Problem Hypertension 997.91 Active Problem Osteoarthrosis, multiple sites 715.09 Active Problem Long-term (current) use of other V58.69 Active medications - High Risk Medications Medication Code System Code Instructions Start End Status Dosage Date Date [facility] [address]-35 10-325 MG September Active 1 tablet as aminophen Orally every 6 27, needed hrs 2015 Methotrexate [facility] [address]-65 25 MG/ML SQ Active 1 ml Sodium injection Once a week [facility]ricor [facility] [address]-02 145 MG Orally Active 1 tablet Once a day [facility] [address]-69 40 MG Orally Active 1 capsule prn Inderal LA [facility] [address]-12 160 MG Orally Active 1 capsule Once a day Folic Acid [facility] [address]-87 1 MG Orally Oct Active 1 tablet Once a day 24, once a day 2015 orally 90 days Multivitamins [facility] [address]-58 Orally once a Active 1 tablet day Nuvigil [facility] [address]-84 250 MG Orally Active 1 tablet in Once a day the morning Voltaren [facility] [address]-99 1 % Active as directed Transdermal PRN Actemra SQ [facility] 0814237839 162mg/0.9 mL Jul 05, Active 1 injection subcutaneous 2015 every other week Calcium [facility] [address] otc Orally Active 1 tablet once a day with meals Trazodone HCl [facility] [address]-14 150 MG Orally Active 1 tablet at night Social History Social History Element Qualifiers Date Reported Illicit Drugs . none September 26, 2015 Alcohol Screening: . Points: 0 September 26, 2015 Tobacco Use: . Are you a:: current smoker , How often do September 26, 2015 you smoke cigarettes?: every day, How many cigarettes a day do you smoke?: 11-20, How soon after you wake up do you smoke your first cigarette?: 6-30 min, Are you interested in quitting?: Not ready to quit Caffeine: yes. 1-5 September 26, 2015 Exercise: yes. walk September 26, 2015 Alcohol: no. September 26, 2015 Vital Signs Date/Time: September 26, 2015 Weight 206 lbs Height 73 in Temperature 97.0 F Cardiac Monitoring Heart Rate 70 /min Blood Pressure Diastolic 96 mm Hg Blood Pressure Systolic 150 mm Hg Summary Purpose eClinicalWorks Submission
--- OUTSIDE RECORDS SUMMARY | 2018-05-17 20:50 | XMS REPORT ---
:1955 Author [facility] Team Providers Name Role Phone Earl Espinal Provider Role Unavailable Encounters Encounter Location Date MRI Bi Hands Earl Espinal MD Jun 09, 2014 3 MTH FU Earl Espinal MD Jul 05, 2015 actemra Earl Espinal MD August 01, 2015 orencanshul Espinal MD Jun 20, 2015 Actemra rx Earl Espinal MD Jan 01, 2016 rx robertill Earl Espinal MD Jul 18, 2014 DEXA Earl Espinal MD Mar 03, 2016 MRI Bi Hands Earl Espinal MD August 30, 2014 MRI/SUSANA Earl Espinal MD September 20, 2015 Refill- [...] nicotine dependence, F17.210 Active uncomplicated Problem Other termination clerk (current) drug Z79.899 Active therapy Problem Rheumatoid arthritis of multiple M06.09 Active sites without rheumatoid factor Social History Social History Element Qualifiers Date [...]
--- OUTSIDE RECORDS SUMMARY | 2018-05-17 20:50 | XMS REPORT ---
:1955 Author [facility] Team Providers Name [...] Refill Earl Espinal MD May 12, 2014 3 MTH FU [...] Status Assessment Osteopenia M85.80 Active Assessment Other termite technician (current) drug Z79.899 Active therapy Assessment Chronic prescription opiate use Z79.891 Active Problem Pain of right hand M79.641 Active Problem Pain of left hand M79.642 Active Problem Osteopenia M85.80 Active Problem Other [facility] (current) drug Z79.899 Active therapy Assessment Rheumatoid arthritis of multiple M06.09 Active sites without rheumatoid factor Problem Rheumatoid arthritis of multiple M06.09 Active sites without rheumatoid factor Problem Cigarette nicotine dependence, F17.210 Active uncomplicated Medications Medication Code System Code Instructions Start End Date Status Dosage Date Trazodone HCl [facility] 15808-2 150 MG Orally Active 1 tablet 473-01 at night Xeljanz XR [facility] 59531-8 11 MG Orally Mar 27, Active 1 tablet 501-30 Once a day 2015 Methotrexate [facility] 65915-9 25 MG/ML Active 1 ml Sodium 350-10 Injection Once a week Voltaren [facility] 95999-0 1 % Transdermal Active as directed 427-01 PRN Multivitamins [facility] 15311-5 Orally once a Active 1 tablet 046-10 day Tricor [facility] 10363-9 145 MG Orally Active 1 tablet 123-90 Once a day Nexium [facility] 42549-9 40 MG Orally Active 1 capsule 040-31 prn Folic Acid [facility] 56322-6 1 MG Orally Nadiya Active 1 tablet 507-19 Once a day 2016 once a day orally 90 days Propranolol HCl [facility] 82822-3 10 MG Orally Active 1 tablet 182-01 Once a day Hydrocodone-Aceta [facility] 33767-4 10-325 MG Active 1 tablet as minophen 116-30 Orally every 6 needed hrs Nuvigil [facility] 41825-7 250 MG Orally Active 1 tablet in 394-30 Once a day the morning Calcium [facility] 99977-9 otc Orally once Active 1 tablet 5034 a day with meals Inderal [place] [facility] 88395-3 160 MG Orally Active 1 capsule 479-81 [...]
[2018-05-17 21:35] LABS: Absolute Lymphocytes (CBC) 1.5 K/uL (0.7-4.9); Absolute Monocytes 0.8 K/uL (0.1-1.3); Basophils % 0.6 % (0-1.3); Eosinophils % 2.4 % (0-4.4); Hematocrit 39.1 % (39.6-49.0); Lymphocytes % 19.6 % (15.3-44.8); MPV 8.8 fL (7.6-11.3); RBC Red Blood Cell Count 4.33 M/uL (4.33-5.43)
[2018-05-17] MEDS ORDERED: MORPHINE 4 MG/ML SYR ONE (21:40)
[2018-05-17] MEDS ORDERED: ONDANSETRON 4 MG/2 ML VIAL ONE (21:40)
[2018-05-17 22:09] LABS: C-Reactive Protein 24.4 mg/L (<3.00); Potassium 3.7 mmol/L (3.5-5.1)
[2018-05-17] MEDS ORDERED: LIDOCAINE 2% MPF 5 ML VIAL ONE (22:14)
[2018-05-17] MEDS ORDERED: HYDROCODONE/APAP 10/325 TAB ONE (23:49)
[2018-05-18 00:09] LABS: Appearance TURBID (CLEAR); Body Fluid Source SYNOVIAL; Body Fluid WBC 4292 /mm^3; Color of fluid Yellow (COLORLESS)
--- NOTE | 2018-05-18 00:29 | ER ---
Nurse's Notes [facility] Name: Antonio Arredondo Age: 63 yrs Sex: Male : 1955 Arrival Date: 05/17/2018 Time: 20:52 Bed 25 Private MD: Clarisa Lao C Diagnosis: Inflammatory arthritis of right knee;Effusion, right knee Presentation: 05/17 20:53 Presenting complaint: Patient states: Pain and swelling to right knee that began lp1 yesterday; hot to touch; states having chills yesterday; unable to bear weight. Transition of care: patient was not received from another setting of care. Onset of symptoms was May 16, 2018. Risk Assessment: Do you want to hurt yourself or someone else? Patient reports no desire to harm self or others. Initial Sepsis Screen: Does the patient meet any 2 criteria? No. Patient's initial sepsis screen is negative. Does the patient have a suspected source of infection? No. Patient's initial sepsis screen is negative. Care prior to arrival: None. 20:53 Method Of Arrival: Wheelchair lp1 20:53 Acuity: EDGARDO 3 lp1 Triage Assessment: 21:19 General: Appears uncomfortable, Behavior is calm, cooperative. Pain: Complains of pain ls4 in right leg Pain currently is 8 out of 10 on a pain scale. Quality of pain is described as burning, aching, Pain began 1 day ago. Neuro: No deficits noted. Cardiovascular: Capillary refill < 3 seconds Patient's skin is warm and dry. Respiratory: Airway is patent Respiratory effort is even, unlabored, Respiratory pattern is regular. GI: Abdomen is non-distended. Musculoskeletal: Swelling present in lateral aspect of right knee, posterior aspect of right knee, medial aspect of right knee and right knee Reports pain in right leg since YESTERDAY . Historical: - Allergies: 20:55 No Known Allergies; lp1 - Home Meds: 20:55 Unable to obtain [Active]; lp1 - PMHx: 20:55 Rheumatoid Arthritis; Hyperlipidemia; lp1 - PSHx: 20:55 knee replacement; neck surgery; carpel tunnel repair; lp1 - Immunization history:: Adult Immunizations up to date. - Social history:: Smoking status: Patient uses tobacco products, smokes one pack cigarettes per day. - Ebola Screening: : No symptoms or risks identified at this time. Screenin:22 Abuse screen: Denies threats or abuse. Denies injuries from another. Nutritional ls4 screening: No deficits noted. Tuberculosis screening: No symptoms or risk factors identified. Fall Risk None identified. Assessment: 21:22 General: SEE TRIAGE ASSESSMENT . ls4 23:46 Pain: Complains of pain in medial aspect of right knee. Neuro: Level of Consciousness la1 is awake, alert, obeys commands, Oriented to person, place, time, situation. Cardiovascular: Capillary refill < 3 seconds Patient's skin is warm and dry. Respiratory: Airway is patent Respiratory effort is even, unlabored, Respiratory pattern is regular, symmetrical, Breath sounds are clear bilaterally. GI: No signs and/or symptoms were reported involving the gastrointestinal system. : No signs and/or symptoms were reported regarding the genitourinary system. Musculoskeletal: Circulation, motion, and sensation intact. Capillary refill < 3 seconds, Swelling present in right knee. Vital Signs: 20:54 BP 144 / 85; Pulse 74; Resp 18; Temp 98.5(O); Pulse Ox 96% on R/A; Weight 99.79 kg; lp1 Height 6 ft. 1 in. (185.42 cm); Pain 8/10; 23:43 BP 129 / 74; Pulse 66; Resp 16; Pulse Ox 100% on R/A; la1 20:54 Body Mass Index 29.03 (99.79 kg, 185.42 cm) lp1 ED Course: 20:52 Patient arrived in ED. ds1 20:53 Clarisa Lao MD is Private Physician. ds1 20:54 Triage completed. lp1 20:55 Arm band placed on right wrist. lp1 20:58 Maddison [facility]C [facility]. kb 20:58 Pascual Ulloa MD is Attending Physician. kb 21:13 Promise Mcdonough, ASHTYN is Primary Nurse. ls4 21:24 No provider procedures requiring assistance completed. ls4 21:29 Inserted saline lock: 20 gauge in left antecubital area, using aseptic technique. Blood jb5 collected. 21:30 Lactate Sent. jb5 21:30 Blood Culture Adult (2) Sent. jb5 21:30 Sed Rate Sent. jb5 21:30 CRP Sent. jb5 21:30 Basic Metabolic Panel Sent. jb5 21:31 CBC with Diff Sent. jb5 22:03 Knee Right 3 View XRAY In Process Unspecified. EDMS 23:46 Call light in reach. la1 05/18 00:41 IV discontinued, intact, bleeding controlled, No redness/swelling at site. Pressure la1 dressing applied. Administered Medications: 05/17 21:36 Drug: Zofran 4 mg Route: IVP; Site: left antecubital; ls4 22:25 Follow up: Response: No adverse reaction la1 23:47 Follow up: Response: No adverse reaction la1 21:37 Drug: morphine 4 mg Route: IVP; Site: left antecubital; ls4 22:24 Follow up: Response: No adverse reaction; Pain is decreased la1 23:47 Follow up: Response: No adverse reaction; Pain is decreased la1 22:24 Drug: Lidocaine (1 %) 1 vials Volume: 5 ml; Route: Infiltration; la1 23:42 Drug: [place] 10 mg-325 mg 1 tabs Route: PO; la1 23:47 Follow up: Response: No adverse reaction; Pain is decreased la1 Outcome: 05/18 00:29 Discharge ordered by . celio 00:41 Discharged to home ambulatory. la1 00:41 Condition: stable 00:41 Discharge instructions given to patient, Instructed on discharge instructions, follow up and referral plans. medication usage, Demonstrated understanding of instructions, follow-up care, medications, Prescriptions given X 2. 00:42 Patient left the ED. la1 Signatures: Dispatcher [employer] EDMI Maddison Roche, SECURITIES COUNSELOR-C SECURITIES COUNSELOR-[place] ds1 Rosa Harper, RN RN lp1 Bryan Gregorio RN RN la1 Loli Aburto jb5 Promise Mcdonough, RN RN ls4
--- NOTE | 2018-05-18 00:29 | EDPHYS ---
Physician Documentation [facility] Name: Antonio Arredondo Age: 63 yrs Sex: Male : 1955 Arrival Date: 05/17/2018 Time: 20:52 Bed 25 Private MD: Clarisa Lao C ED Physician Pascual Ulloa HPI: 05/17 21:53 This 63 yrs old Male presents to ER via Wheelchair with complaints of Knee kb Pain. 21:54 The patient presents with decreased range of motion, pain, swelling. The complaints kb affect the right knee. Context: The problem was sustained at home, resulted from an unknown cause, the patient can partially bear weight, must have assistance. Onset: The symptoms/episode began/occurred yesterday. Modifying factors: The symptoms are alleviated by nothing. the symptoms are aggravated by movement, weight bearing, bending knee. Associated signs and symptoms: Pertinent positives: fever, swelling, Pertinent negatives calf tenderness, nausea, numbness, rash, tingling, vomiting, warmth, weakness. Treatment prior to arrival includes: no previous treatment. Severity of symptoms: At their worst the symptoms were moderate, severe, in the emergency department the symptoms are unchanged. The patient has not experienced similar symptoms in the past. The patient has not recently seen a physician. Pt reports he took a nap yesterday and when he woke up he had knee pain and swelling. Denies injury or trauma. Pt unable to bear full weight, needs assist to ambulate due to pain. No redness noted. . Historical: - Allergies: 20:55 No Known Allergies; lp1 - Home Meds: 20:55 Unable to obtain [Active]; lp1 - PMHx: 20:55 Rheumatoid Arthritis; Hyperlipidemia; lp1 - PSHx: 20:55 knee replacement; neck surgery; carpel tunnel repair; lp1 - Immunization history:: Adult Immunizations up to date. - Social history:: Smoking status: Patient uses tobacco products, smokes one pack cigarettes per day. - Ebola Screening: : No symptoms or risks identified at this time. ROS: 21:53 Cardiovascular: Negative for chest pain, palpitations, and edema, Respiratory: Negative kb for shortness of breath, cough, wheezing, and pleuritic chest pain, Abdomen/GI: Negative for abdominal pain, nausea, vomiting, diarrhea, and constipation, Back: Negative for injury and pain, Skin: Negative for injury, rash, and discoloration, Neuro: Negative for headache, weakness, numbness, tingling, and seizure. 21:53 Constitutional: Positive for chills, Negative for body aches, fatigue, fever, malaise, poor PO intake, weight loss. 21:53 MS/extremity: Positive for decreased range of motion, pain, swelling, of the right knee. Exam: 21:52 Constitutional: This is a well developed, well nourished patient who is awake, alert, kb and in no acute distress. Head/Face: Normocephalic, atraumatic. ENT: Nares patent. No nasal discharge, no septal abnormalities noted. Tympanic membranes are normal and external auditory canals are clear. Oropharynx with no redness, swelling, or masses, exudates, or evidence of obstruction, uvula midline. Mucous membranes moist. Neck: Trachea midline, no thyromegaly or masses palpated, and no cervical lymphadenopathy. Supple, full range of motion without nuchal rigidity, or vertebral point tenderness. No Meningismus. Chest/axilla: Normal chest wall appearance and motion. Nontender with no deformity. No lesions are appreciated. Cardiovascular: Regular rate and rhythm with a normal S1 and S2. No gallops, murmurs, or rubs. Normal PMI, no JVD. No pulse deficits. Respiratory: Lungs have equal breath sounds bilaterally, clear to auscultation and percussion. No rales, rhonchi or wheezes noted. No increased work of breathing, no retractions or nasal flaring. Abdomen/GI: Soft, non-tender, with normal bowel sounds. No distension or tympany. No guarding or rebound. No evidence of tenderness throughout. Skin: Warm, dry with normal turgor. Normal color with no rashes, no lesions, and no evidence of cellulitis. Neuro: Awake and alert, GCS 15, oriented to person, place, time, and situation. Cranial nerves II-XII grossly intact. Motor strength 5/5 in all extremities. Sensory grossly intact. Cerebellar exam normal. Normal gait. 21:52 Musculoskeletal/extremity: Extremities: grossly normal except: noted in the right knee: decreased ROM, pain, swelling, ROM: intact in all extremities, Circulation is intact in all extremities. Sensation intact. Weight bearing: can bear weight with assistance only. Vital Signs: 20:54 BP 144 / 85; Pulse 74; Resp 18; Temp 98.5(O); Pulse Ox 96% on R/A; Weight 99.79 kg; lp1 Height 6 ft. 1 in. (185.42 cm); Pain 8/10; 23:43 BP 129 / 74; Pulse 66; Resp 16; Pulse Ox 100% on R/A; la1 20:54 Body Mass Index 29.03 (99.79 kg, 185.42 cm) lp1 Procedures: 22:24 Joint Treatment: Aspiration of right knee using 22g spinal needle. Removed 83 ml's of rn clear fluid, yellow fluid, Specimen sent to lab. Dressed with band aid, Patient tolerated well. MDM: 20:58 Patient medically screened. kb 21:52 Data reviewed: vital signs, nurses notes. Data interpreted: Pulse oximetry: on room air kb is 96 %. Interpretation: normal. 05/18 00:27 Counseling: I had a detailed discussion with the patient and/or guardian regarding: the kb historical points, exam findings, and any diagnostic results supporting the discharge/admit diagnosis, lab results, radiology results, the need for outpatient follow up, a family practitioner, to return to the emergency department if symptoms worsen or persist or if there are any questions or concerns that arise at home. 05/17 21:06 Order name: CBC with Diff; Complete Time: 22:23 kb 05/17 21:06 Order name: Basic Metabolic Panel; Complete Time: 22:23 kb 05/17 21:06 Order name: CRP; Complete Time: 22:23 kb 05/17 21:06 Order name: Sed Rate; Complete Time: 22:23 kb 05/17 21:06 Order name: Blood Culture Adult (2) kb 05/17 21:06 Order name: Lactate; Complete Time: 21:52 kb 05/17 21:16 Order name: Knee Right 3 View XRAY kb 05/17 22:04 Order name: Fluid Crystals; Complete Time: 23:34 kb 05/17 22:04 Order name: Fluid Cell Count,Body; Complete Time: 00:11 kb 05/17 22:07 Order name: Body Fluid Culture kb 05/17 21:06 Order name: IV Start; Complete Time: 21:30 kb Administered Medications: 05/17 21:36 Drug: Zofran 4 mg Route: IVP; Site: left antecubital; ls4 22:25 Follow up: Response: No adverse reaction la1 23:47 Follow up: Response: No adverse reaction la1 21:37 Drug: morphine 4 mg Route: IVP; Site: left antecubital; ls4 22:24 Follow up: Response: No adverse reaction; Pain is decreased la1 23:47 Follow up: Response: No adverse reaction; Pain is decreased la1 22:24 Drug: Lidocaine (1 %) 1 vials Volume: 5 ml; Route: Infiltration; la1 23:42 Drug: [place] 10 mg-325 mg 1 tabs Route: PO; la1 23:47 Follow up: Response: No adverse reaction; Pain is decreased la1 Disposition: 05/18 01:29 Co-signature as Attending Physician, Pascual Ulloa MD. rn Disposition: 05/18/18 00:29 Discharged to Home. Impression: Inflammatory arthritis of right knee, Effusion, right knee. - Condition is Stable. - Discharge Instructions: Knee Effusion, [id number], Arthritis, [id number]-Hoqd. - Prescriptions for Tylenol- Codeine #3 300-30 mg Oral Tablet - take 1 tablet by ORAL route every 4 hours As needed; 15 tablet. Medrol (Dominic) 4 mg Oral Tablets, Dose Pack - take 1 tablet by ORAL route as directed - follow package instructions; 1 packet. - Medication Reconciliation Form, Thank You Letter, Antibiotic Education, Prescription Opioid Use form. - Follow up: Emergency Department; When: As needed; Reason: Worsening of condition. Follow up: Private Physician; When: 2 - 3 days; Reason: Recheck today's complaints, Continuance of care, Re-evaluation by your physician. Signatures: Dispatcher [employer] Maddison Lyles, BINITROTOLUENE OPERATOR-C BINITROTOLUENE OPERATOR-Ckb Pascual Ulloa MD MD rn Pena, Laura, RN RN lp1 Bryan Gregorio RN RN la1 Promise Mcdonough RN RN ls4 Corrections: (The following items were deleted from the chart) 00:42 00:29 05/18/2018 00:29 Discharged to Home. Impression: Inflammatory arthritis of right la1 knee; Effusion, right knee. Condition is Stable. Forms are Medication Reconciliation Form, Thank You Letter, Antibiotic Education, Prescription Opioid Use. Follow up: Emergency Department; When: As needed; Reason: Worsening of condition. Follow up: Private Physician; When: 2 - 3 days; Reason: Recheck today's complaints, Continuance of care, Re-evaluation by your physician. kb
--- NOTE | 2018-05-18 08:36 | RAD REPORT ---
EXAM DESCRIPTION: RAD - Knee Right 3 View - 05/17/2018 10:03 pm CLINICAL HISTORY: Pain;Swelling Right knee pain and swelling COMPARISON: No comparisons FINDINGS: A small moderate suprapatellar joint effusion is present. Chondrocalcinosis of the menisci is seen. Prominent osteophyte inferior patella. No fracture or dislocation. No aggressive marrow pat tern.
== END 2018-05-18 00:42 | disposition home or self-care (01) ==
LOC: ER 20:39
PROC: 0S9C3ZX Drainage of Right Knee Joint, Percutaneous Approach, Diagnostic (ICD-10-PCS; principal; 2018-05-18)
DX: M13.861 Other specified arthritis, right knee (principal); M25.461 Effusion, right knee; E78.5 Hyperlipidemia, unspecified; F17.210 Nicotine dependence, cigarettes, uncomplicated
CPT/HCPCS: 36415; 80048; 83605; 85025; 85652; 86140; 87040; 87070; 89050; 89060; 96374; 96375; 99284; J2405

== ENCOUNTER 2024-01-20 11:11 | Inpatient (IN) | payer OTHER, MEDICARE ==
[2024-01-20 13:32] VITALS: BMI 27.1
--- NOTE | 2024-01-20 14:32 | RAD REPORT ---
EXAM DESCRIPTION: RAD - Chest Pa And Lat (2 Views) - 01/20/2024 2:20 pm CLINICAL HISTORY: chest pain Chest pain. COMPARISON: Chest Pa And Lat (2 Views) dated 07/29/2018; CHEST PA AND LAT 2 VIEW dated 08/24/2015; JOHNNY ST PA AND LAT 2 VIEW dated 09/06/2014; CHEST PA AND LAT 2 VIEW dated 10/10/2013 FINDINGS: The lungs are clear. The heart is significantly enlarged. No displaced fractures. Cervical hardware plate. IMPRESSION: Prominent cardiomegaly.
[2024-01-20 14:51] LABS: Absolute Monocytes 0.7 K/uL (0.1-1.3); Absolute Neutrophil 5.2 K/uL (1.8-8.0); Basophils % 0.2 % (0-1.3); Eosinophils % 0.5 % (0-4.4); Hematocrit 29.3 % (39.6-49.0); Hemoglobin 9.9 g/dL (13.6-17.9); Lymphocytes % 14.6 % (15.3-44.8); MCHC 33.8 g/dL (32.0-36.0); MCV 91.9 fL (80-100); MPV 7.4 fL (7.6-11.3); Monocytes % 10.2 % (3.3-12.3); Neutrophils % 74.5 % (41.7-73.7); Platelets 264 thou/uL (152-406); RBC Red Blood Cell Count 3.19 M/uL (4.33-5.43); Red Cell Distribution Width 15.2 % (12.1-15.2)
[2024-01-20 15:06] LABS: Albumin/Globulin Ratio 0.8 (1.1-1.8); Anion Gap 11.4 mEq/L (5.0-15.0); Bilirubin Total 0.4 mg/dL (0.2-1.0); Globulin 3.9 g/dL (2.3-3.5); Magnesium 2.2 mg/dL (1.6-2.4); Potassium 4.4 mEq/L (3.5-5.1); Protein, Total 6.9 g/dL (6.4-8.2); Troponin High Sensitivity 45.2 pg/mL (<58.9)
[2024-01-20] MEDS: ENOXAPARIN 100 MG/ML SYR SQ SCH (16:13)
[2024-01-20] MEDS: ASPIRIN EC 81 MG TAB PO ONE ×2 (16:13→16:15)
--- NOTE | 2024-01-20 17:19 | P.CNS ---
Date of Consult: 01/20/24 Chief Complaint: Chest pain, SOB History of Present Illness: Patient with PMH of HTN, Tobacco use presented with worsening SOB for the last month, got worse over last week, with palpitations and chest pain, pressure in nature, mid chest, radiate to the back of his shoulder, denies syncope, also report bilateral lower extremity swelling. Allergies No Known Drug Allergies Allergy (Unverified 12/23/14 08:24) Unknown - Past Medical/Surgical History Diabetic: No -: htn -: renal issues -: arthritis -: bilateral knee replacement -: jaw surgery x 25 -: back surgery -: 3 metal plates in neck -: lung surgery - Social History Smoking Status: Current every day smoker Alcohol use: No CD- Drugs: No Caffeine use: Yes Place of Residence: Home Review of Systems 10-point ROS is otherwise unremarkable Physical Examination Temp Pulse Resp BP Pulse Ox 99 F 120 H 18 129/79 93 01/20/24 16:00 01/20/24 16:00 01/20/24 16:00 01/20/24 16:00 01/20/24 16:00 General: Alert, In no apparent distress HEENT: Atraumatic, PERRLA, Mucous membr. moist/pink, EOMI, Sclerae nonicteric Neck: Supple, 2+ carotid pulse no bruit, No LAD, Without JVD or thyroid abnormality Respiratory: Diminished, Dull, Crackles/rales, Rhonchi/gurgles Cardiovascular: Regular rate/rhythm, Normal S1 S2, Edema Gastrointestinal: Normal bowel sounds, No tenderness Musculoskeletal: No tenderness Integumentary: No rashes Neurological: Normal gait, Normal speech, Normal tone, Normal affect Lymphatics: No axilla or inguinal lymphadenopathy Laboratory Data (last 24 hrs) 01/20/24 01/20/24 14:30 14:30 WBC 6.90 Hgb 9.9 L Hct 29.3 L Plt Count 264 Sodium 135 L Potassium 4.4 BUN 26 H Creatinine 1.41 H Glucose 124 H Magnesium 2.2 Total Bilirubin 0.4 AST 33 ALT 47 Alkaline Phosphatase 55 - Problems (1) Unstable angina Current Visit: Yes Status: Acute Plan: get cardiac enzymes ASA 325 mg po x1 then start ASA 81 mg daily Lipitor 40 mg daily NPO after midnight for coronary angiogram in am get Echo (2) Bilateral lower extremity edema Current Visit: Yes Status: Acute Plan: Lasix 40 mg IV BID Monitor input and output and electrolytes get echo (3) HTN (hypertension) Current Visit: Yes Status: Acute Plan: continue Coreg 25 mg po BID
[2024-01-20] MEDS ORDERED: carvediloL 25 MG TAB PO SCH (19:29)
[2024-01-20] MEDS ORDERED: ALPRAZOLAM 0.25 MG TABLET PO PRN (20:57)
[2024-01-20] MEDS: DIGOXIN 0.25 MG/ML AMP IV SCH (21:00)
[2024-01-20] MEDS: TRAZODONE 150 MG TAB PO SCH (21:00)
[2024-01-20] MEDS: ALBUTEROL 2.5 MG/3 ML NEB SOL NEB SCH (21:00)
[2024-01-20] MEDS ORDERED: AMIODARONE IN DEXTROSE,ISO-OSM 360 MG/200 ML BAG IV ONE (21:26)
[2024-01-20 21:31] LABS: Anion Gap 11.3 mEq/L (5.0-15.0); Magnesium 2.2 mg/dL (1.6-2.4); Potassium 4.3 mEq/L (3.5-5.1); Troponin High Sensitivity 36.3 pg/mL (<58.9)
[2024-01-20] MEDS: AMIODARONE HCL 150 MG in D5W 100 ML IV STA (21:55)
[2024-01-20] MEDS: AMIODARONE IN DEXTROSE,ISO-OSM 360 MG/200 ML BAG IV SCH (22:07)
[2024-01-20] MEDS: ROSUVASTATIN 10 MG TAB PO SCH (22:36)
[2024-01-21] MEDS: AMIODARONE IN DEXTROSE,ISO-OSM 360 MG/200 ML BAG IV SCH (04:27)
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
[2024-01-21 08:34] VITALS: BP 131/65; TEMP 98.1
[2024-01-21] MEDS: FUROSEMIDE 40 MG/4 ML VIAL IV SCH (09:00)
[2024-01-21] MEDS: ASPIRIN EC 81 MG TAB PO SCH (09:00)
[2024-01-21 10:21] LABS: Sqamous Epithelial None Seen /HPF (None Seen); Urine Bacteria None Seen /HPF (<20); Urine Bilirubin NEGATIVE (Negative); Urine Blood Trace (Negative); Urine Clarity Clear (Clear); Urine Color Light-Yellow (Yellow); Urine Culture Reflex Order NOT NEEDED; Urine Glucose NEGATIVE (Negative); Urine Ketones 1+ (Negative); Urine Microscopic Reflex YN ORDER UMIC; Urine Mucus Slight /HPF (None Seen); Urine Nitrite NEGATIVE (Negative); Urine Protein TRACE (Negative); Urine RBC <5 /HPF (None Seen); Urine Urobilinogen Normal (Normal); Urine WBC <5 /HPF (<5); Urine pH 5.5 (5.0-7.0)
[2024-01-21 10:49] LABS: SARS-CoV-2 Antigen CONTROL BLUE LINE VIS/BG OK; SARS-CoV-2 Antigen Rapid Res Negative (Negative)
--- NOTE | 2024-01-21 12:47 | P.PN ---
Subjective Date of Service: 01/21/24 Chief Complaint: Chest pain, SOB Subjective: No new changes (still complain of shortness of breath.) Review of Systems 10-point ROS is otherwise unremarkable Physical Examination - Vital Signs Temperature: 98.1 F Blood Pressure: 131/65 Pulse: 97 Respirations: 19 Pulse Ox (%): 98 - Physical Exam General: Alert, In no apparent distress HEENT: Atraumatic, PERRLA, EOMI Neck: Supple, JVD not distended Respiratory: Diminished, Crackles/rales, Rhonchi/gurgles Cardiovascular: Regular rate/rhythm, Normal S1 S2, Edema (+1 to bilateral lower extremities) Gastrointestinal: Normal bowel sounds, No tenderness Musculoskeletal: No tenderness Integumentary: No rashes Neurological: Normal speech, Normal tone, Normal affect Lymphatics: No axilla or inguinal lymphadenopathy - Studies Laboratory Data (last 24 hrs) 01/21/24 01/20/24 01/20/24 06:43 21:07 14:30 WBC Hgb Hct Plt Count Sodium 137 135 L Potassium 4.3 4.4 BUN 27 H 26 H Creatinine 1.38 H 1.41 H Glucose 130 H 124 H Magnesium 2.2 2.2 Total Bilirubin 0.4 AST 33 ALT 47 Alkaline Phosphatase 55 Triglycerides 61 Cholesterol 72 HDL Cholesterol 37 L Cholesterol/HDL Ratio 1.95 01/20/24 14:30 WBC 6.90 Hgb 9.9 L Hct 29.3 L Plt Count 264 Sodium Potassium BUN Creatinine Glucose Magnesium Total Bilirubin AST ALT Alkaline Phosphatase Triglycerides Cholesterol HDL Cholesterol Cholesterol/HDL Ratio Medications List Reviewed: Yes Assessment And Plan - Current Problems (Diagnosis) (1) Unstable angina Current Visit: Yes Status: Acute Plan: cardiac enzymes are negative x3, plan was for coronary angiogram but patient still can not lay flat, echo shows large pericardial effusion with early signs of tamponade. ASA 325 mg po x1 then start ASA 81 mg daily Lipitor 40 mg daily (2) Bilateral lower extremity edema Current Visit: Yes Status: Acute Plan: Lasix 40 mg IV BID Monitor input and output and electrolytes (3) HTN (hypertension) Current Visit: Yes Status: Acute Plan: medications on hold due to soft BP. (4) Atrial fibrillation Current Visit: Yes Status: Acute Plan: patient went into RVR overnight, responded well to amiodarone bolus and drip, now in sinus rhythm continue drip continue lovenox (5) Cardiac tamponade Current Visit: Yes Status: Acute Plan: Echo shows very large effusion with early signs of tamponade, hemodynaimcally stable but this effusion will need to be drained, we do not have CT surgery back up here so would recommend transfer to medical center where CT surgery back up is available.
[2024-01-21] MEDS: ACETAMINOPHEN 500 MG TAB PO PRN (12:50)
--- NOTE | 2024-01-21 13:46 | ECHO ---
HEIGHT: 6 ft 1 in WEIGHT: 206 lb 0 oz DATE OF STUDY: 01/21/[address]: Akash Lao MD 2-DIMENSIONAL: YES M.MODE: YES DOPPLER: YES COLOR FLOW: YES TDS: PORTABLE: YES DEFINITY: BUBBLE STUDY: DIAGNOSIS: UNSTABLE ANGINA CARDIAC HISTORY: CATHERIZATION: SURGERY: PROSTHETIC VALVE: PACEMAKER: MEASUREMENTS (cm) DIASTOLIC (NORMALS) SYSTOLIC (NORMALS) IVSd 1.2 (0.6-1.2) LA Diam 3.8 (1.9-4.0) LVEF 60-65% LVIDd 3.6 (3.5-5.7) LVIDs 2.7 (2.0-3.5) %FS 25% LVPWd 1.3 (0.6-1.2) Ao Diam 3.9 (2.0-3.7) 2 DIMENSIONAL ASSESSMENT: RIGHT ATRIUM: NORMAL LEFT ATRIUM: NORMAL RIGHT VENTRICLE: NORMAL LEFT VENTRICLE: NORMAL TRICUSPID VALVE: MILD TRICUSPID REGURGITATION MITRAL VALVE: NORMAL PULMONIC VALVE: NORMAL AORTIC VALVE: NORMAL PERICARDIAL EFFUSION: LARGE EFFUSION AORTIC ROOT: NORMAL LEFT VENTRICULAR WALL MOTION: NORMAL DOPPLER/COLOR FLOW: GRADE I DIASTOLIC DYSFUNCTION COMMENTS: 1. LARGE CIRCUMFRENTIAL PERICARDIAL EFFUSION WITH EARLY SIGNS OF TAMPONADE. INFERIOR VENA CAVA DILATED. RESPIRATORY VARIATION CAN BE SEEN THROUGH MITRAL AND TRICUSPID VALVE. 2. NORMAL SYSTOLIC FUNCTION, EJECTION FRACTION 60-65%, NORMAL WALL MOTION 3. GRADE I DIASTOLIC DYSFUNCTION 4. ELEVATED FILLING PRESSURE (RIGHT ATRIAL PRESSURE GREATER THAN 20 mmHg) TECHNOLOGIST: [facility] [[email or web address]]
[2024-01-21 14:12] VITALS: O2SAT 93
[2024-01-21] MEDS: AMIODARONE HCL 900 MG in Dextrose 5%-Water 482 ML IV SCH (14:40)
--- NOTE | 2024-01-22 13:34 | EKG ---
Test Date: 2024-01-20 Test Time: 17:57:48 Special Education Director: LUCY MEASUREMENT RESULTS: Intervals: Rate: 121 MA: QRSD: 96 QT: 304 QTc: 431 [place]: P: MA: QRS: 59 T: -12 INTERPRETIVE STATEMENTS: Atrial fibrillation with rapid ventricular response Incomplete right bundle branch block Nonspecific ST and T wave abnormality, probably digitalis effect Abnormal ECG Compared to ECG 12/08/2022 12:41:29 ST (T wave) deviation now present Sinus bradycardia no longer present Electronically Signed On 01-22-24 13:28:59 CDT by Jb Zavaleta
--- NOTE | 2024-01-22 22:57 | DS ---
Date of Discharge: 01/21/2024 Disposition: The patient was transferred via ground ambulance to [facility] in [facility]. Physical Examination: HEENT: Unremarkable. Lungs: Clear to auscultation. Heart: Sounds normal. Abdomen: Soft. Bowel sounds normal. No guarding, rigidity, tenderness, distention. Extremities: No leg edema. Hospital Course: This is a 68-year-old very pleasant male patient, who came into office with complai nts of shortness of breath and after he was evaluated at office, he was admitted to the hospital. Pl ease see dictated H and P for more information. After the patient was evaluated at office, he was ad mitted to the hospital once all arrangements completed and initial blood work we did was unremarkable except creatinine was 1.4. After the patient was admitted to the hospital on director of religious life, we noted that he went into atrial fibrillation with rapid ventricular rate late yesterday evening and hi s systolic blood pressure was around [address] Zavaleta started him on IV amiodarone dr leo and since the patient was admitted to the hospital with diagnosis of unstable angina, he already h ad received 1 dose of aspirin 81 mg daily upon admission, and we started him on Lovenox 80 mg subcuta neous injection every 12 hours, so far for this hospital stay, he has received 2 doses of Lovenox. T his morning, repeat blood work had shown creatinine 1.3, otherwise chemistry was unremarkable. His t roponin was normal. BNP was around 900 range. Echocardiogram was ordered upon admission, but it was done today and plan was to have the patient go to cardiac confection[facility] laboratory manager, but cardiac cath was not done as Dr. Zavaleta looked at his echocardiogram before cardiac cath soon after it was done today and he info rmed me that the patient has very large pericardial effusion with early signs of cardiac tamponade an d with that, he suggested for us to transfer him to [place] for higher level of care. Immediately, manuela benavidez started to make arrangements for him to go to [place] and I did communicate with hospitalist and [facility] and all the details were discussed. Also informed record pressman about the patient's history of rheumatoid arthritis and recent respiratory illness where [facility] had [facility] with cough, congestion, and shortness of breath type of feeling and took antibi otic about 3 weeks ago or so, so we really do not know the underlying etiology for this pericardial e ffusion, but those 2 important history, we will need to keep that in back of our mind to see whether this is due to some type of connective tissue disease or due to recent infection. After all arrangem ents completed, the patient was transferred via ground ambulance in stable condition. Final Diagnoses: 1.Large pericardial effusion with cardiac tamponade. 2.Hypertension. 3.Hyperlipidemia. Labs reviewed. Total time spent 60 minutes including visiting the patient today at the hospital, communication with our record pressman regarding echocardiogram finding, and further management and communication with [facility] and record pressman as well as hospitalist to make arrangements for transfer process. CANDIE/MODL Voice ID: [id number] Report ID: [id number]
== END 2024-01-21 15:22 | disposition short-term general hospital (02) | DRG 311 ==
LOC: 2ND 12:56
PROVIDERS: ADMIT Internal Medicine; ATTEND Internal Medicine
DX: I20.0 Unstable angina (principal); I31.4 Cardiac tamponade; I31.39 Other pericardial effusion (noninflammatory); I48.91 Unspecified atrial fibrillation; I10 Essential (primary) hypertension; M06.9 Rheumatoid arthritis, unspecified; J30.9 Allergic rhinitis, unspecified; K21.9 Gastro-esophageal reflux disease without esophagitis; N40.0 Benign prostatic hyperplasia without lower urinary tract symptoms; E11.9 Type 2 diabetes mellitus without complications; K57.90 Diverticulosis of intestine, part unspecified, without perforation or abscess without bleeding; F17.200 Nicotine dependence, unspecified, uncomplicated; R60.0 Localized edema; Z11.52 Encounter for screening for COVID-19; Z79.02 Long term (current) use of antithrombotics/antiplatelets; Z79.899 Other long term (current) drug therapy; Z96.653 Presence of artificial knee joint, bilateral
CPT/HCPCS: 36415; 71046; 80048; 80053; 80061; 81001; 83735; 83880; 84484; 85025; 87811; 93005; 93306; 94640; J0282; J1650; J7060; J7613

== ENCOUNTER 2024-10-24 21:04 | Emergency (ER) | payer OTHER, MEDICARE ==
--- OUTSIDE RECORDS SUMMARY | 2024-10-24 21:15 | XMS REPORT | Clinical Summary ---
Author Name Unknown Organization [facility] Address [address] [place] [address] Care Team Providers Care Manager Of Selection And Assessment Name Role Phone Akash Lao MD Unavailable [phone] Clarisa Valle RN Unavailable [phone] Cliff Sullivan MD Dustin Primary Care Provid er Amy Oliva MD Primary Care Provider [phone] Noreen Rubio RN Unavailable [phone] Solo Souza MD Unavailable Jordy Winston DO Unavailable Abe Yost MD Unavailable [phone] Edward Wick MD Unavailable Jose R Flores MD Unavailable [phone] Richie Bedolla MD Unavailable [phone] Ary Koenig APRN Unavailable [phone] Allergies Active Allergy Reactions Criticality Noted Date Comments Abatacept Other (See Comments) 11/05/2021 Patient does not recall having allergy to this drug Adalimumab Other (See Comments) 09/07/2024 Patient does not recall having allergy to this drug Etanercept Other (See Comments) 11/05/2021 Other Reaction(s): Unknown Patient does not recall having allergy to this drug Medications * This document contains information received from the source organization and may not represent a complete record from that organization. ALPRAZolam (XANAX) 0.25 mg tablet Take 1 tablet (0.25 mg) by mouth as needed. Active metoprolol tartrate (LOPRESSOR) 50 mg tablet Take 1 tablet (50 mg) by mouth twice daily. 01/29/20 24 2024 Active rosuvastatin (CRESTOR) 10 mg tablet Take 1 tablet (10 mg) by mouth at bedtime. 01/20/20 Active traZODone (DESYREL) 150 mg tablet Take 1 tablet (150 mg) by mouth at bedtime. 01/20/20 Active mirtazapine (Remeron) 15 mg tabletIndicati ons:Appetite problem Take 1 tablet (15 mg) by mouth at bedtime. 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 The patient will need the disabled parking placard for this length of time: Permanent disability. 1 each 02/29/20 Active Advair HFA 115-21 mcg/actuation inhaler Inhale 2 puffs by mouth twice daily. 03/08/20 Active naloxone (Narcan) 4 mg/actuation nasal sprayIndicatio ns:Neoplasm related pain (acute) (chronic) Use 1 dose into one nostril as needed for opioid overdose. Do not prime or test the inhaler prior to adminstration. Give another dose into the other nostril after 2 to 3 minutes if the patient does not respond or responds and then relapses into respiratory depression. 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 30 g 09/13/19 25 Active HYDROmorphone (Dilaudid) 2 mg tabletIndicati ons:Cancer associated pain Take 1 tablet (2 mg) by mouth every 4 (four) hours as needed for moderate pain or severe pain. 90 tablet 09/24/19 25 Active enoxaparin (LOVENOX) 100 mg/1 mL prefilled syringeIndicat ions:Paroxysma l atrial fibrillation,C erebral infarction due to thrombosis of right middle cerebral artery Inject 0.9 mL (90 mg) under the skin every 12 (twelve) hours. 90 each 5 10:42 AM CDT 10/09/19 25 Active losartan (COZAAR) 50 mg tabletIndicati ons:Hypertensi on Take 1 tablet (50 mg) by mouth daily. 90 tablet 5 10:42 AM CDT 10/09/19 25 Active fentaNYL (DURAGESIC) patch 25 mcg/hrIndicati ons:Cancer associated pain Place 1 patch (25 mcg) on the skin every 72 hours. Remove old patch(es) before replacing new patch(es). 10 patch 10/22/19 25 Active fentaNYL (DURAGESIC) 12 mcg/hr transdermal patchIndicatio ns:Cancer associated pain Place 1 patch (12 mcg) on the skin every 72 hours. Remove old patch(es) before replacing new patch(es). Please use 12mcg and 25mcg patches together to make it up to 37.5mcg 10 patch 10/22/19 25 Active apixaban (ELIQUIS) 5 mg tablet Take 1 tablet (5 mg) by mouth every 12 (twelve) hours. 01/29/20 24 2024 Discontinued(S top Taking at Discharge) aspirin 81 mg EC tablet Take 1 tablet (81 mg) by mouth daily. 2023 Discontinued(T herapy completed) olmesartan (BENICAR) 40 mg tablet Take 1 tablet (40 mg) by mouth daily. 01/20/20 24 2024 Discontinued(D iscontinued by another clinician) Spiriva with HandiHaler 18 mcg inhalation capsule Inhale 1 capsule (18 mcg) by mouth daily. 2023 Discontinued(O ther/Not Applicable) tiotropium (SPIRIVA) 18 mcg inhalation capsule Inhale 1 capsule (18 mcg) by mouth daily. 2023 Discontinued(O ther/Not Applicable) HYDROcodone-ac etaminophen (NORCO) 10 mg-325 mg per tabletIndicati ons:Neoplasm related pain (acute) (chronic) Take 1 tablet by mouth every 6 (six) hours as needed for moderate pain or severe pain. 120 tablet 02/16/20 24 2023 Discontinued(R eorder) HYDROcodone-ac etaminophen (NORCO) 10 mg-325 mg per tabletIndicati ons:Neoplasm related pain (acute) (chronic) Take 1 tablet by mouth every 4 (four) hours as needed for moderate pain or severe pain. 02/26/20 24 2023 Discontinued(R eorder) fentaNYL (DURAGESIC) patch 25 mcg/hrIndicati ons:Neoplasm related pain (acute) (chronic) Place 1 patch (25 mcg) on the skin every 72 hours. Remove old patch(es) before replacing new patch(es). 10 patch 02/26/20 24 2023 Discontinued senna (SENOKOT) 8.6 mg tabletIndicati ons:Constipati on, not otherwise specified Take 1-4 tablets by mouth 2 (two) times a day as needed for constipation (adjust to soft daily bowel movements while on pain medication). 120 tablet 2 02/26/20 24 2024 Discontinued(S top Taking at Discharge) polyethylene glycol (Miralax) 17 g packetIndicati ons:Constipati on, not otherwise specified Take 17 g by mouth 2 (two) times a day as needed (adjust to soft daily bowel movements while on pain medications.). 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 Take for 3 days on Days 2, 3, and 4 of chemotherapy cycle. 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 30 tablet 3 02/29/20 24 2024 Discontinued(S top Taking at Discharge) fentaNYL (DURAGESIC) 12 mcg/hr transdermal patchIndicatio ns:Neoplasm related pain (acute) (chronic) Place 1 patch (12 mcg) on the skin every 72 hours. Remove old patch(es) before replacing new patch(es). 10 patch 03/09/20 24 2023 Discontinued HYDROcodone-ac etaminophen (NORCO) 10 mg-325 mg per tabletIndicati ons:Neoplasm related pain (acute) (chronic) Take 1 tablet by mouth every 4 (four) hours as needed for moderate pain or severe pain. 48 tablet 03/17/202023 Discontinued diclofenac sodium (Voltaren Arthritis Pain) 1 % gelIndications :Generalized pain Apply 2 g topically to affected area(s) 3 (three) times a day as needed (pain). 100 g 03/24/202024 Discontinued fentaNYL (DURAGESIC) patch 25 mcg/hrIndicati ons:Neoplasm related pain (acute) (chronic) Place 1 patch (25 mcg) on the skin every 72 hours. Remove old patch(es) before replacing new patch(es). 10 patch 03/24/202023 Discontinued(R eorder) fentaNYL (DURAGESIC) 12 mcg/hr transdermal patchIndicatio ns:Neoplasm related pain (acute) (chronic) Place 1 patch (12 mcg) on the skin every 72 hours. Remove old patch(es) before replacing new patch(es). 03/24/202023 Discontinued HYDROmorphone (Dilaudid) 2 mg tabletIndicati ons:Neoplasm related pain (acute) (chronic) Take 1 tablet (2 mg) by mouth every 4 (four) hours as needed for moderate pain or severe pain. 90 tablet 03/24/202023 Discontinued(R eorder) fentaNYL (DURAGESIC) 12 mcg/hr transdermal patchIndicatio ns:Neoplasm related pain (acute) (chronic) Place 1 patch (12 mcg) on the skin every 72 hours. Remove old patch(es) before replacing new patch(es). Please use 12mcg and 25mcg patches together to make it up to 37.5mcg 5 patch 03/24/202023 Discontinued(R eorder) HYDROmorphone (Dilaudid) 2 mg tabletIndicati ons:Neoplasm related pain (acute) (chronic) Take 1 tablet (2 mg) by mouth every 4 (four) hours as needed for moderate pain or severe pain. 22 tablet 03/30/20 24 2023 Discontinued(R eorder) HYDROmorphone (Dilaudid) 2 mg tabletIndicati ons:Neoplasm related pain (acute) (chronic) Take 1 tablet (2 mg) by mouth every 4 (four) hours as needed for moderate pain or severe pain. 48 tablet 05/01/20 24 2023 Discontinued(R eorder) fentaNYL (DURAGESIC) 12 mcg/hr transdermal patchIndicatio ns:Neoplasm related pain (acute) (chronic) Place 1 patch (12 mcg) on the skin every 72 hours. Remove old patch(es) before replacing new patch(es). Please use 12mcg and 25mcg patches together to make it up to 37.5mcg 5 patch 05/01/20 24 2024 Discontinued(R eorder) fentaNYL (DURAGESIC) patch 25 mcg/hrIndicati ons:Neoplasm related pain (acute) (chronic) Place 1 patch (25 mcg) on the skin every 72 hours. Remove old patch(es) before replacing new patch(es). 10 patch 05/01/20 24 2024 Discontinued(R eorder) furosemide (LASIX) 20 mg tabletIndicati ons:Edema of lower extremity Take 1 tablet po daily x 2 days, then take 1 tablet po qd prn swelling of lower extremities. 5 tablet 05/02/20 24 2024 Discontinued(R eorder) HYDROmorphone (Dilaudid) 2 mg tabletIndicati ons:Neoplasm related pain (acute) (chronic) Take 1 tablet (2 mg) by mouth every 4 (four) hours as needed for moderate pain or severe pain. 120 tablet 05/16/20 24 2024 Discontinued(R eorder) furosemide (LASIX) 20 mg tabletIndicati ons:Edema of lower extremity Take 1 tablet po daily x 5 days and hold if the BP is lower than 100/60 mmHg for Shortness of breath and swelling of lower extremities. 5 tablet 06/03/19 25 2024 Discontinued(R eorder) furosemide (LASIX) 20 mg tabletIndicati ons:Edema of lower extremity Take 1 tablet po daily x 5 days and hold if the BP is lower than 100/60 mmHg for Shortness of breath and swelling of lower extremities. 5 tablet 06/07/19 25 2024 Discontinued(R eorder) HYDROmorphone (Dilaudid) 2 mg tabletIndicati ons:Neoplasm related pain (acute) (chronic) Take 1 tablet (2 mg) by mouth every 4 (four) hours as needed for moderate pain or severe pain. 120 tablet 06/16/19 25 2024 Discontinued(R eorder) furosemide (LASIX) 20 mg tabletIndicati ons:Edema of lower extremity Take 1 tablet po daily and hold if the BP is lower than 100/60 mmHg for Shortness of breath and swelling of lower extremities. 30 tablet 2 06/16/19 25 2024 Discontinued(R eorder) furosemide (LASIX) 20 mg tabletIndicati ons:Edema of lower extremity Take 1 tablet po daily and hold if the BP is lower than 100/60 mmHg for Shortness of breath and swelling of lower extremities. 30 tablet 2 06/27/19 25 2024 Discontinued(R eorder) clindamycin (Cleocin T) 1% lotionIndicati ons:Acute pustular skin eruption Apply topically to affected area(s) ON affected infected skin areas twice daily. 60 mL 5 10:12 AM TECHNICAL STAFF ENGINEER 06/27/19 25 2024 Discontinued furosemide (LASIX) 20 mg tabletIndicati ons:Edema of lower extremity Take 1 tablet by mouth daily and hold if the Blood Pressure is lower than 100/60 mmHg (for shortness of breath and swelling of lower extremities). 30 tablet 2 5 10:12 AM TECHNICAL STAFF ENGINEER 06/27/19 25 2024 Discontinued HYDROcodone-ac etaminophen (NORCO) 10 mg-325 mg per tablet 1 tab 08/24/19 14 2024 Discontinued(O ther/Not Applicable) predniSONE (DELTASONE) 5 mg tablet Take 1 tablet (5 mg) by mouth as needed. 08/24/19 14 2024 Discontinued(S top Taking at Discharge) fentaNYL (DURAGESIC) 12 mcg/hr transdermal patchIndicatio ns:Neoplasm related pain (acute) (chronic) Place 1 patch (12 mcg) on the skin every 72 hours. Remove old patch(es) before replacing new patch(es). Please use 12mcg and 25mcg patches together to make it up to 37.5mcg 10 patch 07/04/19 25 2024 Discontinued(R eorder) fentaNYL (DURAGESIC) patch 25 mcg/hrIndicati ons:Neoplasm related pain (acute) (chronic) Place 1 patch (25 mcg) on the skin every 72 hours. Remove old patch(es) before replacing new patch(es). 10 patch 07/04/19 25 2024 Discontinued(R eorder) HYDROmorphone (Dilaudid) 2 mg tabletIndicati ons:Neoplasm related pain (acute) (chronic) Take 1 tablet (2 mg) by mouth every 4 (four) hours as needed for moderate pain or severe pain. 120 tablet 07/04/19 25 2024 Discontinued(R eorder) furosemide (LASIX) 20 mg tabletIndicati ons:Edema of lower extremity TAKE 1 TABLET BY MOUTH DAILY AND HOLD IF THE BLOOD PRESSURE IS LOWER THAN 100/60MMHG FOR SHORTNESS OF BREATH AND SWELLING OF LOWER EXTREMITIES 30 tablet 2 07/21/19 25 2024 Discontinued fentaNYL (DURAGESIC) patch 25 mcg/hrIndicati ons:Neoplasm related pain (acute) (chronic) Place 1 patch (25 mcg) on the skin every 72 hours. Remove old patch(es) before replacing new patch(es). 5 patch 08/06/19 25 2024 Discontinued(R eorder) fentaNYL (DURAGESIC) 12 mcg/hr transdermal patchIndicatio ns:Neoplasm related pain (acute) (chronic) Place 1 patch (12 mcg) on the skin every 72 hours. Remove old patch(es) before replacing new patch(es). Please use 12mcg and 25mcg patches together to make it up to 37.5mcg 5 patch 08/06/19 25 2024 Discontinued(T herapy completed) HYDROmorphone (Dilaudid) 2 mg tabletIndicati ons:Neoplasm related pain (acute) (chronic) Take 1 tablet (2 mg) by mouth every 4 (four) hours as needed for moderate pain or severe pain. 30 tablet 08/06/19 25 2024 Discontinued(R eorder) fentaNYL (DURAGESIC) patch 25 mcg/hrIndicati ons:Neoplasm related pain (acute) (chronic) Place 1 patch (25 mcg) on the skin every 72 hours. Remove old patch(es) before replacing new patch(es). 10 patch 08/16/19 25 2024 Discontinued fentaNYL (DURAGESIC) 12 mcg/hr transdermal patchIndicatio ns:Neoplasm related pain (acute) (chronic) Place 1 patch (12 mcg) on the skin every 72 hours. Remove old patch(es) before replacing new patch(es). Please use 12mcg and 25mcg patches together to make it up to 37.5mcg 10 patch 08/16/19 25 2024 Discontinued HYDROmorphone (Dilaudid) 2 mg tabletIndicati ons:Neoplasm related pain (acute) (chronic) Take 1 tablet (2 mg) by mouth every 4 (four) hours as needed for moderate pain or severe pain. 150 tablet 08/16/19 25 2024 Discontinued(R eorder) HYDROmorphone (Dilaudid) 2 mg tabletIndicati ons:Neoplasm related pain (acute) (chronic) Take 1 tablet (2 mg) by mouth every 4 (four) hours as needed for moderate pain or severe pain. 25 tablet 09/17/19 25 2024 Discontinued dexAMETHasone (DECADRON) 4 mg tabletIndicati ons:Secondary malignant neoplasm of brain Take one tablet (4mg) by mouth twice a day for 2 days, take one tablet (4mg) by mouth once a day in the morning for 2 days, take half a tablet (2mg) by mouth once a day in the morning for 2 days, and then stop. 10 tablet 09/22/19 25 2024 Discontinued(S top Taking at Discharge) pantoprazole (Protonix) 40 mg EC tabletIndicati ons:Secondary malignant neoplasm of brain Take 1 tablet (40 mg) by mouth every morning before breakfast. While on steroids 30 tablet 09/22/19 25 2024 Discontinued(S top Taking at Discharge) fentaNYL (DURAGESIC) patch 25 mcg/hrIndicati ons:Cancer associated pain Place 1 patch (25 mcg) on the skin every 72 hours. Remove old patch(es) before replacing new patch(es). 10 patch 09/24/19 25 2024 Discontinued fentaNYL (DURAGESIC) 12 mcg/hr transdermal patchIndicatio ns:Cancer associated pain Place 1 patch (12 mcg) on the skin every 72 hours. Remove old patch(es) before replacing new patch(es). Please use 12mcg and 25mcg patches together to make it up to 37.5mcg 10 patch 09/24/19 25 2024 Discontinued Active Problems Problem Noted Date Diagnosed Date Hypertension 10/11/2024 Malnutrition of moderate degree 10/06/2024 Cerebral infarction due to u nspecified occlusion or stenosis of right middle cerebral artery 10/05/2024 Paroxysmal atrial fibrillation 10/05/2024 Cerebral infarction due to t hrombosis of right middle cerebral artery 10/04/2024 Weakness of left upper limb 10/03/2024 Slurred speech 10/03/2024 Metastatic malignant neoplasm to brain Squamous cell carcinoma of bronchus in right upp er lobe 02/11/2024 Chronic obstructive pulmonary disease 02/11/2024 Atrial fibrillation with rapid ventricular respo nse 01/29/2024 Pericardial effusion 01/21/2024 Spondylolisthesis 03/25/2023 Encounters * This document contains information received from the source organization and may not represent a complete record from that organization. 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) 10/12/2024 Telephone [facility] [address] [facility], 9th [place] [address] Noreen Rubio, RN Nurse Navigation 10/06/2024 Travel 10/05/2024 1:30 PM CDT Telemedicine [facility] - Rheumatology [address] [facility], 6th [place] [address] Solo Souza MD Seropositive rheumatoid arthritis; Other adverse effects, not elsewhere classified, subsequent encounter; Effects of immunotherapy 10/05/2024 Telephone Cardiopulmonary Center [address] [facility], 6th Floor [address] [place] [id number], [place] 10/05/2024 Telephone [facility] - Rheumatology [address] [facility], 6th [place] [address] Elpidio Adam RN 10/04/2024 Orders Only [facility] - Neuro Oncology [address] [place] [address], 7th [place] [address] Adrian Worley MD 10/03/2024 1:00 PM CDT Follow-Up [facility] - Medical Oncology [address] [place] [address], 9th [place] [address] Amy Oliva MD 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) 10/03/2024 12:16 PM CDT - 10/11/2024 11:31 AM CDT Hospital Encounter [facility] [address] [place], [place] [id number] Janneth Elise MD Shie, Jessica, MD Balachandran Pillai, Ashwathy, MD Weakness of left upper limb (Primary Dx); Slurred speech; Paroxysmal atrial fibrillation; Cerebral infarction due to thrombosis of right middle cerebral artery; Hypertension Discharge Disposition: Rehab Facility 10/03/2024 11:35 AM CDT - 10/03/2024 12:15 PM CDT Hospital Encounter [facility] [address] [place] [id number] Amy Oliva MD 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 Discharge Disposition: Home 10/03/2024 Travel 10/03/2024 Orders Only [facility] Oncology [address] [place] [address], 9th Floor [address] [place] [id number] Glory Mayes, PharmD 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) 10/03/2024 Orders Only [facility] - [facility] Main Bldg, 9th [place] [address] Keysha Lou APRN 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) 09/26/2024 Orders Only [facility] - Medical Oncology [address] [facility] Main Bldg, 9th [place] [address] Keysha Lou APRN 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) 09/22/2024 9:30 AM CDT - 09/22/2024 11:59 PM CDT Hospital Encounter [facility] [address] [place], [place] [address]dg, 1st [place] [address] Bela Boss, Adalberto Valle, RN 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; Secondary malignant neoplasm of brain Discharge Disposition: Home 09/22/2024 Documentation [facility] Alka Melendrez Grupo 09/22/2024 Orders Only [facility] [address] [place] [address] Main dg, 1st [place] [address] Kallie Ornelas APRN Secondary malignant neoplasm of brain (Primary Dx) 09/21/2024 2:00 PM CDT Ancillary Procedure [facility] [address] [place] [address] Radiation Oncology Center Take Elevator G to [place] [address] Bela Boss, Anil Macias MD PhD Manuel Peralta MD 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; Secondary malignant neoplasm of brain 09/21/2024 7:38 AM CDT - 09/21/2024 11:59 PM CDT Hospital Encounter [facility] [address] [place] [address] Main dg, 1st [place] [address] Amy Oliva MD 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; Secondary malignant neoplasm of brain Discharge Disposition: Home 09/21/2024 Documentation [facility] [address] [place] [address] Anil Mayes MD PhD 09/21/2024 Refill [facility] [address]ldg, 1st [place] [address] Kallie Ornelas, SNUFF GRINDER AND SCREENER Secondary malignant neoplasm of brain 09/21/2024 Orders Only [facility] [address]ld[address], 1st [place] [address] Kallie Ornelas, SNUFF GRINDER AND SCREENER Secondary malignant neoplasm of brain (Primary Dx) 09/21/2024 Documentation [facility] Main [place] [address] Anil Mayes MD PhD 09/21/2024 Documentation [facility] [address] [place], [place] [address] Main [place]ld[place] [address] Anil Mayes MD PhD 09/21/2024 Documentation [facility] [address] [place] [address] Blvd Main [place] [address] Anil Mayes MD PhD 09/21/2024 Orders Only [facility] Main [facility], 1st [place] [address] Bela Boss, SNUFF GRINDER AND SCREENER 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); Secondary malignant neoplasm of brain 09/21/2024 Travel 09/20/2024 1:15 PM CDT Ancillary Procedure [facility] [address] [place] [address] Bela Boss, SNUFF GRINDER AND SCREENER 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; Metastatic malignant neoplasm to brain 09/20/2024 9:50 AM CDT - 09/20/2024 11:59 PM CDT Hospital Encounter [facility] [address]ld[address], 1st [place] [address] Bela Boss, Shadi Prado, RN 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; Secondary malignant neoplasm of brain Discharge Disposition: Home 09/20/2024 8:56 AM CDT - 09/20/2024 9:49 AM CDT Hospital Encounter [facility] [address] [place] [address] Bela Boss, SNUFF GRINDER AND SCREENER 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; Secondary malignant neoplasm of brain Discharge Disposition: Home 09/20/2024 Telephone [facility] [address]ldg, 1st [place] [address] Bela Boss, SNUFF GRINDER AND SCREENER 09/20/2024 Orders Only [facility] [address]ldg, 1st [place] [address] Bela Boss, SNUFF GRINDER AND SCREENER 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); Secondary malignant neoplasm of brain 09/19/2024 Telephone [facility] [address]ld[address], 1st [place] [address] Bela Boss, SNUFF GRINDER AND SCREENER 09/16/2024 Orders Only [facility] [address]ld[address], 1st [place] [address] Neeta Iglesias 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); Secondary malignant neoplasm of brain; Exam of participant in clinical trial 09/15/2024 Orders Only Neuroradiology [address] [place] [address] Maritza Bobby PA 09/15/2024 Orders Only [facility] [address] Bldg, 1st [place] [address] Neeta Iglesias 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; Metastatic malignant neoplasm to brain 09/12/2024 1:15 PM CDT Office Visit [facility] [address] [place] [address], 1st [place] [address] Keysha Lou, Nini Gamble MD Secondary malignant neoplasm of brain (Primary Dx) 09/12/2024 1:15 PM CDT Office Visit [facility] [address] [place] [address], 1st [place] [address] Keysha Lou, Cristian Dennis MD 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); Metastatic malignant neoplasm to brain; Rash 09/12/2024 8:45 AM CDT Ancillary Procedure Radiology Outpatient Center [address] [place] [address] Ary Koenig, EVANGELISTA 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; Secondary malignant neoplasm of brain 09/12/2024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 [facility] Oxygen FLOW Rate/ FiO2 0 % 10/08/2024 5:05 AM CDT [facility] O2 Therapy Room air 10/08/2024 5:05 AM CDT [facility] Blood Peripheral blood specimen / Unknown Venipuncture / Unknown 10/08/2024 4:57 AM CDT 10/08/2024 5:03 AM CDT us Kandy Coffey MD LAB BLOOD ORDERABLES Final Resul t [facility] Unless otherwise noted, all lab tests performed by: Division of Pathology and Laboratory Medicine [address] [place] [id number] * (ABNORMAL) Basic Metabolic Panel- Calcium Ionized (10/08/2024 12:31 AM CDT) Only the most recent of5 resultswithin the time period is included. eGFR 94 >=60 mL/min/1.7 3 sq. m 10/08/2024 1:37 AM CDT [facility] Comment: The eGFRcr is calculated with the 2020 CKD-EPI creatinine equation using creatinine, patient's age, and sex for adults 18 years of age and older. Other factors, especially muscle mass, may affect accuracy and need to be considered. According to the Kidney Disease: Improving Global Outcomes (KDIGO) CKD Work Group 2012 Clinical Practice Guideline, chronic kidney disease (CKD) is defined as the abnormalities of kidney structure or function, present for more than 3 months, with implications for health. CKD should be classified by cause, GFR category, and albuminuria category. KDIGO guidelines provide the following GFR categories. Stage / Description / GFR mL/min/1.73 m2: G1* / Normal or high / >= 90 G2* / Mildly decreased / 60-89 G3a / Mildly to moderately decreased / 45-59 G3b / Moderately to severely decreased / 30-44 G4 / Severely decreased / 15-29 G5 / Kidney failure / <15 *In the absence of evidence of kidney damage, neither G1 nor G2 fulfill criteria for CKD. Sodium Level 138 136 - 145 mmol/L 10/08/2024 1:37 AM [facility] Potassium Level 4.3 3.4 - 4.5 mmol/L 10/08/2024 1:37 AM [facility] Chloride 107 98 - 107 mmol/L 10/08/2024 1:37 AM [facility] CO2 18(L) 22 - 29 mmol/L 10/08/2024 1:37 AM [facility] Anion Gap 13 4 - 14 mmol/L 10/08/2024 1:37 AM T [facility] Creatinine 0.86 0.67 - 1.17 mg/dL 10/08/2024 1:37 AM [facility] BUN 30(H) 6 - 23 mg/dL 10/08/2024 1:37 AM [facility] Glucose Level 111(H) 70 - 99 mg/dL 10/08/2024 1:37 AM [facility] Comment: Effective 12/26/15, the glucose reference intervals have been updated based on [place] Diabetes Association guidelines (Standards of Medical Care in Diabetes 2016. Diabetes Care 2016; 39: S13-S22). Fasting blood glucose: Normal: 70-99 mg/dL Impaired fasting glucose (increased risk for diabetes or pre-diabetes): 100-125 mg/dL Diabetes mellitus: >/=126 mg/dL Random blood glucose: Normal: 70-199 mg/dL Note: Random glucose >100 mg/dL is associated with increased risk for diabetes. Blood Peripheral blood specimen / Unknown Venipuncture / Unknown 10/08/2024 12:31 AM CDT 10/08/2024 12:39 AM CDT us Kandy Coffey MD LAB BLOOD ORDERABLES Final Resul t [facility] Unless otherwise noted, all lab tests performed by: Division of Pathology and Laboratory Medicine [address] [place] [id number] * (ABNORMAL) .CBC (10/08/2024 12:31 AM CDT) Only the most recent of18 resultswithin the time period is included. White Blood Cell 9.5 4.1 - 10.5 K/uL 10/08/2024 2:06 AM CDT [facility] Red Blood Cell 4.18(L) 4.30 - 6.04 M/uL 10/08/2024 2:06 AM CDT [facility] Hemoglobin 11.0(L) 13.3 - 17.4 g/dL 10/08/2024 2:06 AM CDT [facility] Hematocrit 36.6(L) 39.5 - 51.8 % 10/08/2024 2:06 AM CDT [facility] Mean Cell Volume 88 82 - 99 fL 10/08/2024 2:06 AM CDT [facility] Mean Cell Hemoglobin 26.3(L) 26.6 - 33.2 pg 10/08/2024 2:06 AM CDT [facility] Mean Cell Hemoglobin Concentration 30.1(L) 31.1 - 35.2 g/dL 10/08/2024 2:06 AM CDT [facility] RDW-SD 47.9 37.5 - 49.7 fL 10/08/2024 2:06 AM CDT [facility] Red Cell Diameter Width 15.1 11.6 - 15.5 % 10/08/2024 2:06 AM CDT [facility] Platelet 126(L) 160 - 397 K/uL 10/08/2024 2:06 AM T [facility] Mean Platelet Volume 10.9 9.1 - 12.6 fL 10/08/2024 2:06 AM T [facility] INRBC 0.0 0.0 - 0.1 /100 WBC 10/08/2024 2:06 AM T [facility] Comment: The INRBC (instrument NRBC) value reflects the enumeration of nucleated red blood cells contained in a 200uL sample of whole blood analyzed by the instrument. This value may differ from the NRBC value reported in a manual differential, which is based on a 100 cell differential. Neutrophil % 80.7(H) 43.2 - 72.7 % 10/08/2024 2:06 AM T [facility] Lymphocyte % 9.7(L) 16.8 - 46.2 % 10/08/2024 2:06 AM T [facility] Monocyte % 9.2 5.1 - 12.5 % 10/08/2024 2:06 AM T [facility] Eosinophil % 0.1(L) 0.4 - 6.3 % 10/08/2024 2:06 AM [facility] Basophil % 0.0(L) 0.2 - 1.4 % 10/08/2024 2:06 AM [facility] IGRE % 0.3 0.1 - 1.5 % 10/08/2024 2:06 AM [facility] Comment:The IGRE% includes M etamyelocytes, Myelocytes and Promyelocytes. Neutrophil Abs 7.69(H) 1.95 - 7.25 K/uL 10/08/2024 2:06 AM T [facility] Lymphocyte Abs 0.93(L) 1.01 - 3.24 K/uL 10/08/2024 2:06 AM [facility] Monocyte Abs 0.88(H) 0.24 - 0.85 K/uL 10/08/2024 2:06 AM T [facility] Eosinophil Abs 0.01(L) 0.02 - 0.50 K/uL 10/08/2024 2:06 AM CDT [facility] Basophil Abs 0.00(L) 0.02 - 0.09 K/uL 10/08/2024 2:06 AM CDT [facility] IG Abs 0.03 0.01 - 0.12 K/uL 10/08/2024 2:06 AM CDT [facility] Blood Peripheral blood specimen / Unknown Venipuncture / Unknown 10/08/2024 12:31 AM CDT 10/08/2024 12:39 AM CDT us Kandy Coffey MD LAB BLOOD ORDERABLES Final Resul t Performing Organization Address City/[facility] de Phone Number [facility] Unless otherwise noted, all lab tests performed by: Division of Pathology and Laboratory Medicine [address] [place] [phone] * (ABNORMAL) Phosphorus Level (10/08/2024 12:31 AM CDT) Only the most recent of15 resultswithin the time period is included. Phosphorus Level 2.1(L) 2.5 - 4.5 mg/dL 10/08/2024 1:36 AM CDT [facility] Blood Peripheral blood specimen / Unknown Venipuncture / Unknown 10/08/2024 12:31 AM CDT 10/08/2024 12:39 AM CDT us Kandy Coffey MD LAB BLOOD ORDERABLES Final Resul t Performing Organization Address City/[facility] de Phone Number [facility] Unless otherwise noted, all lab tests performed by: Division of Pathology and Laboratory Medicine [address] [place] [id number] * Magnesium Level (10/08/2024 12:31 AM CDT) Only the most recent of15 resultswithin the time period is included. Magnesium Level 2.1 1.6 - 2.6 mg/dL 10/08/2024 1:36 AM CDT [facility] Blood Peripheral blood specimen / Unknown Venipuncture / Unknown 10/08/2024 12:31 AM CDT 10/08/2024 12:39 AM CDT us Kandy Coffey MD LAB BLOOD ORDERABLES Final Resul t [facility] Unless otherwise noted, all lab tests performed by: Division of Pathology and Laboratory Medicine [facility] [place] [address] * Transesophageal Echocardiogram (VINOD) (10/06/2024 12:36 PM CDT) 10/06/2024 11:1 1 AM CDT Narrative ISCV - 10/06/2024 5:19 PM CDT Transesophageal Echo Report Interpretation Summary A 2D transesophageal echocardiogram with Doppler and color flow Doppler was performed. 3D imaging was performed. Post processing was done on an independent workstation using [employer] and were used to determine the conclusions below. No cardiac source of emboli noted. The patient was sedated for this procedure using intravenous fentanyl and midazolam medication; the doses are documented in the patients chart. The transducer was passed into the esophagus without difficulty. There were no complications noted. The study was technically adequate. Normal left ventricular size and systolic function. LV ejection fraction by qualitative method is estimated at 55-60%. The right ventricle is normal in size and function. There is no pericardial effusion. *No left atrial mass or thrombus visualized. *LA appendage is normal in size with normal peak emptying velocity. No thrombus visualized. *No spontaneous echo contrast. *IVONNE at 0 degree: ostium = 2.2 cm, depth = 2.1 cm *IVONNE at 45 degree: ostium = 1.9 cm, depth = 1.3 cm *IVONNE at 90 degree: ostium = 1.5 cm, depth = 2.1 cm *IVONNE at 135 degre: ostium = 2.5 cm, depth = 2.4 cm *Injection of agitated saline documented with no evidence of an interatrial shunt (rest and abdominal pressure). *Aortic atheroma was noted. It was measured to be mild (<1mm). Left Ventricle: Normal left ventricular size and systolic function. LV ejection fraction by qualitative method is estimated at 55-60%. I WMSI = 1.00 % Normal = 100 Segments Size X - Cannot 2 - 1-2 small Interpret 1 - Normal Hypokinetic 3 - Akinetic 4 - Dyskinetic3- 5 moderate 5 - Aneurysmal 6-14 large 15-16 diffuse Right Ventricle: The right ventricle is normal in size and function. Atria: Injection of agitated saline documented with no evidence of an interatrial shunt. There is no Doppler evidence for an atrial septal defect. The left atrial size is normal. No left atrial mass or thrombus visualized. LA appendage is normal in size with normal peak emptying velocity. Interrogation was done in multiple angles with no thrombus visualized. No spontaneous echo contrast. Right atrial size is normal. Mitral Valve: The mitral valve is normal. There is mild mitral regurgitation. Tricuspid Valve: The tricuspid valve is normal. There is trace tricuspid regurgitation. Aortic Valve: The aortic valve is trileaflet. Mild aortic valve calcification. The aortic valve opens well. No aortic regurgitation is present. Pulmonic Valve: The pulmonic valve leaflets are thin and pliable; valve motion is normal. Mild pulmonic valvular regurgitation. Vessels: The aortic root is normal size. Aortic atheroma was noted. It was measured to be mild (<1mm). Pericardium: There is no pericardial effusion. MMode/2D Measurements Ao root diam: 3.4 cm Prox ascAo Diam_phl: 3.8 cm Procedure Note Veronica Spence MD - 10/06/2024 Transesophageal Echo Report Interpretation Summary A 2D transesophageal echocardiogram with Doppler and color flow Dopplerwas performed. 3D imaging was performed. Post processing was done on anindep[employer]quafadas workstation using [employer] and were used to determine theconclusions below. No cardiac source of emboli noted. The patient wassedated for this procedure using intravenous fentanyl and midazolammedication; the doses are documented in the patients chart. The transducerwas passed into the esophagus without difficulty. There were nocomplications noted. The study was technically adequate. Normal left ventricular size and systolic function. LV ejection fraction by qualitative method is estimated at 55-60%. The right ventricle is normal in size and function. There is no pericardial effusion. *No left atrial mass or thrombus visualized. *LA appendage is normal in size with normal peak emptying velocity. Nothrombus visualized. *No spontaneous echo contrast. *IVONNE at 0 degree: ostium = 2.2 cm, depth = 2.1 cm *IVONNE at 45 degree: ostium = 1.9 cm, depth = 1.3 cm *IVONNE at 90 degree: ostium = 1.5 cm, depth = 2.1 cm *IVONNE at 135 degre: ostium = 2.5 cm, depth = 2.4 cm *Injection of agitated saline documented with no evidence of aninteratrial shunt (rest and abdominal pressure). *Aortic atheroma was noted. It was measured to be mild (<1mm). Left Ventricle: Normal left ventricular size and systolic function. LV ejection fractionby qualitative method is estimated at 55-60%. I WMSI = 1.00 % Normal = 100 Segments Size X - Cannot 2 - 1-2small Interpret 1 - Normal Hypokinetic 3 - Akinetic 4 - Dyskinetic3-5moderate 5 - Aneurysmal6-14 large 15-16 diffuse Right Ventricle: The right ventricle is normal in size and function. Atria: Injection of agitated saline documented with no evidence of an interatrialshunt. There is no Doppler evidence for an atrial septal defect. The leftatrial size is normal. No left atrial mass or thrombus visualized. LAappendage is normal in size with normal peak emptying velocity.Interrogation was done in multiple angles with no thrombus visualized. Nospontaneous echo contrast. Right atrial size is normal. Mitral Valve: The mitral valve is normal. There is mild mitral regurgitation. Tricuspid Valve: The tricuspid valve is normal. There is trace tricuspid regurgitation. Aortic Valve: The aortic valve is trileaflet. Mild aortic valve calcification. Theaortic valve opens well. No aortic regurgitation is present. Pulmonic Valve: The pulmonic valve leaflets are thin and pliable; valve motion is normal.Mild pulmonic valvular regurgitation. Vessels: The aortic root is normal size. Aortic atheroma was noted. It was measuredto be mild (<1mm). Pericardium: There is no pericardial effusion. MMode/2D Measurements Ao root diam: 3.4 cmProx ascAoDiam_phl: 3.8 cm Sarah Dowling PA-C CV ECHO ORDERABLES Final Result ISCV * FL Modified Barium Swallow w Speech (10/05/2024 10:27 AM CDT) Anatomical Region Laterality Modality Neck Radio Fluoroscop y 10/05/2024 10:3 3 AM CDT Impressions 10/05/2024 1:10 PM CDT 1. Silent laryngeal penetration with thin liquids, improved with strategies. No aspiration seen with thin liquids or solids. 2. Mild pharyngeal residue with cracker. Please refer to the separately dictated speech pathology report for the complete assessment of the swallow function and recommendations. I personally reviewed these image(s) along with the resident's/fellow's interpretations, certify that if a procedure was performed I was physically present, and agree with the final report. 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 Recent admission for stroke 10/03/2024. Indication: Evaluation of swallow function; status post swallow therapy; and dysphagia Comparison: No prior modified barium swallow Technique: A modified barium swallow was performed with speech pathology. The patient was given barium mixed with a variety of consistencies including thin liquids, pudding, and cracker to swallow by mouth under videofluoroscopy. Findings: There was no nasopharyngeal reflux. There was silent laryngeal penetration seen with thin liquids which was improved with throat clear. There was mild pharyngeal residue with cracker. Pharyngeal contraction was symmetric. Evidence of cervical hardware and bilateral temporomandibular joint arthroplasties. Procedure Note Dianna Vasquez MD - 10/05/2024 FULL RESULT: Examination: FL MODIFIED BARIUM SWALLOW W SPEECH, 10/05/2024 10:27 AM Clinical History: Squamous cell carcinoma of the lung that metastasized tothe brain treated with systemic therapy and status post gamma knife09/21/2024. Recent admission for stroke 10/03/2024. Indication: Evaluation of swallow function; status post swallow therapy;and dysphagia Comparison: No prior modified barium swallow Technique: A modified barium swallow was performed with speech pathology.The patient was given barium mixed with a variety of consistenciesincluding thin liquids, pudding, and cracker to swallow by mouth undervideofluoroscopy. Findings: There was no nasopharyngeal reflux. There was silent laryngealpenetration seen with thin liquids which was improved with throat clear.There was mild pharyngeal residue with cracker. Pharyngeal contraction wassymmetric. Evidence of cervical hardware and bilateral temporomandibularjoint arthroplasties. IMPRESSION: 1. Silent laryngeal penetration with thin liquids, improved withstrategies. No aspiration seen with thin liquids or solids. 2. Mild pharyngeal residue with cracker. Please refer to the separately dictated speech pathology report for thecomplete assessment of the swallow function and recommendations. I personally reviewed these image(s) along with the resident's/fellow'sinterpretations, certify that if a procedure was performed I wasphysically present, and agree with the final report. us Farzaneh Greenfield MD IMG FLUOROSCOPY ORDERABLES Final Result * MRI Brain with and without Contrast (10/04/2024 5:19 PM CDT) Only the most recent of2 resultswithin the time period is included. Anatomical Region Laterality Modality Head Magnetic Resonan ce 10/04/2024 5:23 PM CDT Impressions 10/04/2024 5:41 PM CDT Focal acute infarct involving the right operculum in a right middle cerebral artery territory distribution. There is no superimposed hemorrhage. No other areas of acute ischemia. Other findings are stable including the known peripheral enhancing left occipital lobe metastasis. RESULT NOTIFICATION: Findings were discussed with and acknowledged by dimensional integration engineer physician taking care of this patient within 10 minutes of identifying the critical finding at 5:40 PM on 10/04/2024. ACTIONABLE ITEMS/RECOMMENDATIONS*: None. *An Actionable Finding is a finding that may be unrelated to the original reason for imaging but potentially actionable, meaning further investigation may be necessary. The Actionable Findings Vigilance Unit (AFVU) assists medical providers with responding to additional radiologic findings that are unexpected and potentially actionable. Narrative 10/04/2024 5:41 PM CDT FULL RESULT: Examination: MRI BRAIN W WO CONTRAST on 10/04/2024 5:19 PM. CLINICAL HISTORY: Lung cancer with history of brain metastasis INDICATION: slurred speech COMPARISON: MRI brain, 09/20/2024 TECHNIQUE: MRI brain without and with IV contrast was performed. FINDINGS: There is an focal area of diffusion restriction involving the right operculum (series 350, image 16 and series 11, image 257) compatible with right MCA territory acute infarct. There is no associated susceptibility to suggest superimposed hemorrhage. No other areas of acute ischemic change. Again noted are scattered T2/FLAIR hyperintensities within the cerebral white matter bilaterally which are likely compliance representative of chronic microangiopathic changes. There is no significant change in the known peripheral enhancing left occipital lobe metastasis. The remainder the findings are not significantly changed since the recent comparison exam. Procedure Note Manuel Corrigan MD - 10/04/2024 FULL RESULT: Examination: MRI BRAIN W WO CONTRAST on 10/04/2024 5:19 PM. CLINICAL HISTORY: Lung cancer with history of brain metastasis INDICATION: slurred speech COMPARISON: MRI brain, 09/20/2024 TECHNIQUE: MRI brain without and with IV contrast was performed. FINDINGS: There is an focal area of diffusion restriction involving the rightoperculum (series 350, image 16 and series 11, image 257) compatible withright MCA territory acute infarct. There is no associated susceptibilityto suggest superimposed hemorrhage. No other areas of acute ischemic change. Again noted are scatteredT2/FLAIR hyperintensities within the cerebral white matter bilaterallywhich are likely compliance representative of chronic microangiopathic changes. There is no significant change in the known peripheral enhancing leftoccipital lobe metastasis. The remainder the findings are notsignificantly changed since the recent comparison exam. IMPRESSION: Focal acute infarct involving the right operculum in a right middlecerebral artery territory distribution. There is no superimposedhemorrhage. No other areas of acute ischemia. Other findings are stable including the known peripheral enhancing leftoccipital lobe metastasis. RESULT NOTIFICATION: Findings were discussed with and acknowledged by dimensional integration engineer physician takingcare of this patient within 10 minutes of identifying the critical findingat 5:40 PM on 10/04/2024. ACTIONABLE ITEMS/RECOMMENDATIONS*: None. *An Actionable Finding is a finding that may be unrelated to the originalreason for imaging but potentially actionable, meaning furtherinvestigation may be necessary. The Actionable Findings Vigilance Unit(AFVU) assists medical providers with responding to additional radiologicfindings that are unexpected and potentially actionable. us Janneth Elise MD [facility] ORDER[place]LES Final Result * Echocardiogram 2D Complete (10/04/2024 9:46 AM CDT) 10/04/2024 9:24 AM CDT Narrative [facility] - 10/04/2024 3:33 PM CDT Echocardiographic Report Interpretation Summary A complete two-dimensional transthoracic echocardiogram was performed (2D, M- mode, Spectral and color Doppler). Micro-Bubbles injection performed because of poor endocardial resolution. Compared to prior study, there is no significant change. Normal left ventricular size and systolic function. LV ejection fraction (LVEF) is in the range of 58% (calculated by method of discs). The right ventricle is normal in size and function. The left atrium is borderline dilated. Injection of agitated saline showed no evidence of an interatrial shunt. Right ventricular systolic pressure is normal. Mild aortic valve calcification. There is no pericardial effusion. Left Ventricle: Normal left ventricular size and systolic function. Relative width thickness measures suggest concentric changes. LV ejection fraction (LVEF) is in the range of 58% (calculated by method of discs). The left ventricular wall motion is normal. I WMSI = 1.00 % Normal = 100 Strain -22.4 Segments Size X - Cannot 2 - 1-2 small Interpret 1 - Normal Hypokinetic 3 - Akinetic 4 - Dyskinetic3- 5 moderate 5 - Aneurysmal 6-14 large 15-16 diffuse Cardiac Mechanics/Speckle Tracking Imaging: Strain Imaging was performed; GLPS avg = -22.4%. Normal global longitudinal peak systolic value. Diastology: Normal diastolic function. Right Ventricle: The right ventricle is normal in size and function. Normal RV systolic function using TAPSE criteria. Atria: The left atrium is borderline dilated. Right atrial size is normal. A prominent eustachian valve is noted. Injection of agitated saline showed no evidence of an interatrial shunt. Mitral Valve: Mild mitral annular calcification. Mild thickening changes are noted. There is mild mitral regurgitation. Tricuspid Valve: The tricuspid valve is not well visualized, but is grossly normal. There is mild tricuspid regurgitation. Right ventricular systolic pressure is normal. Aortic Valve: The aortic valve is trileaflet. Mild aortic valve calcification. Pulmonic Valve: The pulmonic valve is not well visualized. Mild pulmonic valvular regurgitation. Great Vessels: Aortic sinuses of Valsalva are borderline dilated. The inferior vena cava demonstrates normal size and normal respiratory variation. Pericardium/Pleural: There is no pericardial effusion. MMode/2D Measurements IVSd: 1.6 cm LVIDd: 4.6 cm LVIDs: 4.0 cm LVPWd: 1.4 cm FS: 13.2 % Ao root diam: 4.2 cm Ao root area: 13.7 cm2 LA dimension: 4.3 cm LVOT diam: 2.5 cm EDV(MOD-A4C): 173.4 ml ESV(MOD-A4C): 69.3 ml LVOT area: 4.8 cm2 EF(MOD-A4C): 60.1 % EDV(MOD-A2C): 130.4 ml ESV(MOD-A2C): 51.8 ml EDV(MOD-bp): 149.1 ml EF(MOD-A2C): 60.3 % ESV(MOD-bp): 62.3 ml EF(MOD-bp): 58.2 % LAV(MOD-A2C): 66.2 ml LAV(MOD-A4C): 67.0 ml EDV (MOD-bp) Index: 70.7 ml/m2 LAV(MOD-bp): 71.9 ml LAV(MOD-bp) Indexed: 34.0 ml/m2 ESV (MOD-bp) Index: 29.5 ml/m2 RWT: 0.59 cm TAPSE (>1.6): 2.0 cm Doppler Measurements MV E max aneesh: 89.9 cm/sec MV V2 max: 108.7 cm/sec MV A max aneesh: 75.5 cm/sec MV max P.7 mmHg MV E/A: 1.2 MV V2 mean: 62.3 cm/sec MV mean P.8 mmHg MV V2 VTI: 27.2 cm MVA(VTI): 3.0 cm2 Ao V2 max: 213.5 cm/sec LV V1 max P.0 mmHg Ao max P.2 mmHg LV V1 mean P.2 mmHg Ao V2 mean: 140.4 cm/sec LV V1 max: 86.2 cm/sec Ao mean P.0 mmHg LV V1 mean: 51.1 cm/sec Ao V2 VTI: 40.9 cm LV V1 VTI: 16.7 cm GRACY(I,D): 2.0 cm2 GRACY(V,D): 2.0 cm2 SV(LVOT): 80.5 ml Med Peak E' Aneesh: 8.9 cm/sec Lat Peak E' Aneesh: 12.4 cm/sec TR max aneesh: 223.2 cm/sec TR max P.9 mmHg RVSP(TR): 22.9 mmHg RAP systole: 3.0 mmHg RV S Vel_phl: 12.4 cm/sec GRACY Index (I,D): 0.93 GRACY Index (V,D): 0.92 Dimensionless Index: 0.40 E/e' (avg): 8.4 E/e' (lat): 7.3 E/e' (sept): 10.1 Procedure Note Vianca Sotomayor MD - 10/04/2024 Echocardiographic Report Interpretation Summary A complete two-dimensional transthoracic echocardiogram was performed (2D,M- mode, Spectral and color Doppler). Micro-Bubbles injection performedbecause of poor endocardial resolution. Compared to prior study, there isno significant change. Normal left ventricular size and systolic function. LV ejection fraction (LVEF) is in the range of 58% (calculated by methodof discs). The right ventricle is normal in size and function. The left atrium is borderline dilated. Injection of agitated saline showed no evidence of an interatrial shunt. Right ventricular systolic pressure is normal. Mild aortic valve calcification. There is no pericardial effusion. Left Ventricle: Normal left ventricular size and systolic function. Relative widththickness measures suggest concentric changes. LV ejection fraction (LVEF)is in the range of 58% (calculated by method of discs). The leftventricular wall motion is normal. I WMSI = 1.00 % Normal = 100 Strain -22.4 Segments Size X - Cannot 2 - 1-2small Interpret 1 - Normal Hypokinetic 3 - Akinetic 4 - Dyskinetic3-5moderate 5 - Aneurysmal6-14 large 15-16 diffuse Cardiac Mechanics/Speckle Tracking Imaging: Strain Imaging was performed; GLPS avg = -22.4%. Normal globallongitudinal peak systolic value. Diastology: Normal diastolic function. Right Ventricle: The right ventricle is normal in size and function. Normal RV systolicfunction using TAPSE criteria. Atria: The left atrium is borderline dilated. Right atrial size is normal. Aprominent eustachian valve is noted. Injection of agitated saline showedno evidence of an interatrial shunt. Mitral Valve: Mild mitral annular calcification. Mild thickening changes are noted.There is mild mitral regurgitation. Tricuspid Valve: The tricuspid valve is not well visualized, but is grossly normal. Thereis mild tricuspid regurgitation. Right ventricular systolic pressure isnormal. Aortic Valve: The aortic valve is trileaflet. Mild aortic valve calcification. Pulmonic Valve: The pulmonic valve is not well visualized. Mild pulmonic valvularregurgitation. Great Vessels: Aortic sinuses of Valsalva are borderline dilated. The inferior vena cavademonstrates normal size and normal respiratory variation. Pericardium/Pleural: There is no pericardial effusion. MMode/2D Measurements IVSd: 1.6 cmLVIDd: 4.6 cm LVIDs: 4.0 cm LVPWd: 1.4 cm FS: 13.2 %Ao root diam: 4.2 cm Ao root area: 13.7 cm2 LA dimension: 4.3 cm LVOT diam: 2.5 cmEDV(MOD-A4C): 173.4 ml ESV(MOD-A4C): 69.3 ml LVOT area: 4.8 cm2EF(MOD-A4C): 60.1 % EDV(MOD-A2C): 130.4 ml ESV(MOD-A2C): 51.8 mlEDV(MOD-bp): 149.1 ml EF(MOD-A2C): 60.3 %ESV(MOD-bp): 62.3 ml EF(MOD-bp): 58.2 % LAV(MOD-A2C): 66.2 ml LAV(MOD-A4C): 67.0 mlEDV (MOD-bp) Index: 70.7 ml/m2 LAV(MOD-bp): 71.9 ml LAV(MOD-bp) Indexed: 34.0 ml/m2 ESV (MOD-bp) Index: 29.5 ml/m2RWT: 0.59 cm TAPSE (>1.6): 2.0 cm Doppler Measurements MV E max aneesh: 89.9 cm/secMV V2 max: 108.7 cm/sec MV A max aneesh: 75.5 cm/secMV max P.7 mmHg MV E/A: 1.2MV V2 mean: 62.3 cm/sec MV mean P.8 mmHg MV V2 VTI: 27.2 cm MVA(VTI): 3.0 cm2 Ao V2 max: 213.5 cm/secLV V1 max P.0 mmHg Ao max P.2 mmHgLV V1 mean P.2 mmHg Ao V2 mean: 140.4 cm/secLV V1 max: 86.2 cm/sec Ao mean P.0 mmHgLV V1 mean: 51.1 cm/sec Ao V2 VTI: 40.9 cmLV V1 VTI: 16.7 cm GRACY(I,D): 2.0 cm2 GRACY(V,D): 2.0 cm2 SV(LVOT): 80.5 mlMed Peak E' Aneesh: 8.9 cm/sec Lat Peak E' Aneesh: 12.4 cm/secTR max aneesh: 223.2 cm/sec TR max P.9 mmHg RVSP(TR): 22.9 mmHg RAP systole: 3.0 mmHgRV S Vel_phl: 12.4 cm/sec GRACY Index (I,D): 0.93AVA Index (V,D): 0.92 Dimensionless Index: 0.40E/e' (avg): 8.4 E/e' (lat): 7.3E/e' (sept): 10.1 us Janneth Elise MD CV ECHO ORDERABLES Final Result [facility] * CTA Head and Neck with and without Contrast (10/03/2024 1:57 PM CDT) Anatomical Region Laterality Modality Neck, Head, Vascular Computed To mography 10/03/2024 2:27 PM CDT Impressions 10/03/2024 2:46 PM CDT There is extensive atherosclerotic disease present in both near aortic arch in the bilateral carotid bifurcations, also intracranially. However please see the internal carotid arteries carotid bifurcations and intracranial vasculature to be widely patent with no evidence of hemodynamically significant stenosis or occlusion. No evidence of aneurysm disease. Please refer to the previous MR of 09/20/2024 and 09/12/2024 for full discussion of parenchymal brain metastasis. Narrative 10/03/2024 2:46 PM CDT FULL RESULT: Examination: CTA HEAD NECK W WO CONTRAST on 10/03/2024 1:57 PM. CLINICAL HISTORY: Weakness of left upper limb Slurred speech INDICATION: weakness COMPARISON: Noncontrast CT head done earlier the same day. Gamma knife study of 09/20/2024. TECHNIQUE: Noncontrast brain CT was obtained. CT Angiogram of the brain and neck was performed with IV contrast as per standard departmental protocol. Post-processed coronal, sagittal and 3D- reformatted images were also obtained. Metallic artifact related to a spinal fixation and also to extensive metallic reconstruction of the mandible and facial structures causes artifact over multiple other images, obscuring the vessels. FINDINGS: CERVICAL CTA: Aortic arch: There is no significant great vessel origin stenosis. Atherosclerotic plaque is visible at the aortic arch and also at the orifices of the great vessels without obstruction. Carotid arteries: Common carotid and internal carotid arteries are normal in caliber without evidence of dissection or aneurysm. Carotid bifurcations show extensive atherosclerotic calcifications, but there is no evidence of significant stenosis by NASCET criteria. The worst area of involvement within the proximal margin of the right-sided internal carotid artery can be seen on image number 208 of series 2 with residual lumen measures about 7 mm. External carotid arteries are normal. Vertebral arteries: The right-sided vertebral artery is dominant. The left is small. Vertebral arteries have a normal course and caliber in the neck. Neck soft tissues and upper chest: There is extensive malignant lymphadenopathy of the bilateral pulmonary russ and central mediastinum. See image 4 series 2. We also see prevascular lymphadenopathy in image number 26 and lymphadenopathy at the thoracic contents on image number 48. Also on image number 71. There is a right-sided subclavicular lymph node in the anterior scalene position on image number 122. There is a anterior plate and screws fixing the C5 vertebra only down to T1 with an apparently rigid fixation. Immediately superior to the rigid segment, there is a grade 1 anterolisthesis of the C4 on the C5 vertebra as can be seen on sagittal image number 103 of series 602. There is early focal narrowing of the spinal canal at this level due to the anterolisthesis but with CSF reserve still present. Clinical correlation recommended. INTRACRANIAL CTA: Anterior circulation: The bilateral intracranial internal carotid arteries are unremarkable. The bilateral anterior cerebral (CANDIE) and middle cerebral (MCA) arteries are unremarkable. The right-sided A1 is smaller than the left. I appears normal. We do see some evidence of atherosclerotic irregularity of the middle cerebral artery on the right, see for example coronal reformation 54 of series 609, but there is no meaningful stenosis or occlusion of the vessel. Posterior circulation: The intradural portions (V4 segment) of the vertebral arteries are unremarkable. The basilar artery is normal. Bilateral posterior cerebral arteries (PHOTO EQUIPMENT TECHNICIAN) are small or absent. Brain: The visualized brain parenchyma is unremarkable. The known metastatic lesions demonstrated on the previous MRI study are difficult to appreciate on the CTA. Bilateral intraocular lenses are in place. Procedure Note Angel Hartley MD - 10/03/2024 FULL RESULT: Examination: CTA HEAD NECK W WO CONTRAST on 10/03/2024 1:57 PM. CLINICAL HISTORY: Weakness of left upper limb Slurred speech INDICATION: weakness COMPARISON: Noncontrast CT head done earlier the same day. Gamma knifestudy of 09/20/2024. TECHNIQUE: Noncontrast brain CT was obtained. CT Angiogram of the brainand neck was performed with IV contrast as per standard departmentalprotocol. Post-processed coronal, sagittal and 3D- reformatted images werealso obtained. Metallic artifact related to a spinal fixation and also to extensivemetallic reconstruction of the mandible and facial structures causesartifact over multiple other images, obscuring the vessels. FINDINGS: CERVICAL CTA: Aortic arch: There is no significant great vessel origin stenosis. Atheroscleroticplaque is visible at the aortic arch and also at the orifices of the greatvessels without obstruction. Carotid arteries: Common carotid and internal carotid arteries are normal in caliber withoutevidence of dissection or aneurysm. Carotid bifurcations show extensive atherosclerotic calcifications, butthere is no evidence of significant stenosis by NASCET criteria. The worstarea of involvement within the proximal margin of the right-sided internalcarotid artery can be seen on image number 208 of series 2 with residuallumen measures about 7 mm. External carotid arteries are normal. Vertebral arteries: The right-sided vertebral artery is dominant. The left is small. Vertebralarteries have a normal course and caliber in the neck. Neck soft tissues and upper chest: There is extensive malignant lymphadenopathy of the bilateral pulmonaryhila and central mediastinum. See image 4 series 2. We also seeprevascular lymphadenopathy in image number 26 and lymphadenopathy at thethoracic contents on image number 48. Also on image number 71. There is aright-sided subclavicular lymph node in the anterior scalene position onimage number 122. There is a anterior plate and screws fixing the C5 vertebra only down toT1 with an apparently rigid fixation. Immediately superior to the rigidsegment, there is a grade 1 anterolisthesis of the C4 on the C5 vertebraas can be seen on sagittal image number 103 of series 602. There is earlyfocal narrowing of the spinal canal at this level due to theanterolisthesis but with CSF reserve still present. Clinical correlationrecommended. INTRACRANIAL CTA: Anterior circulation: The bilateral intracranial internal carotid arteries are unremarkable. The bilateral anterior cerebral (CANDIE) and middle cerebral (MCA) arteriesare unremarkable. The right-sided A1 is smaller than the left. I appearsnormal. We do see some evidence of atherosclerotic irregularity of themiddle cerebral artery on the right, see for example coronal [id number] of series 609, but there is no meaningful stenosis or occlusion of thevessel. Posterior circulation: The intradural portions (V4 segment) of the vertebral arteries areunremarkable. The basilar artery is normal. Bilateral posterior cerebral arteries (PHOTO EQUIPMENT TECHNICIAN) are small or absent. Brain: The visualized brain parenchyma is unremarkable. The known metastaticlesions demonstrated on the previous MRI study are difficult to appreciateon the CTA. Bilateral intraocular lenses are in place. IMPRESSION: There is extensive atherosclerotic disease present in both near aorticarch in the bilateral carotid bifurcations, also intracranially. Howeverplease see the internal carotid arteries carotid bifurcations andintracranial vasculature to be widely patent with no evidence ofhemodynamically significant stenosis or occlusion. No evidence of aneurysm disease. Please refer to the previous MR of 09/20/2024 and 09/12/2024 for fulldiscussion of parenchymal brain metastasis. us Janneth Elise MD IMG CT ORDERABLES Final Result * CT Head without Contrast (10/03/2024 12:18 PM CDT) Anatomical Region Laterality Modality Head Computed Tomogra phy 10/03/2024 12:1 9 PM CDT Impressions 10/03/2024 12:50 PM CDT There are worsening edematous changes in the left-sided occipital lobe the site of the known metastatic lesion, status post recent chemotherapy. No evidence of hemorrhagic conversion. The left-sided motor strip lesion seen on the previous study of 09/20/2024 is occult on noncontrast CT, we see no evidence of hemorrhagic conversion or edema. If symptoms persist, consideration might be given to an MRI of the brain with contrast. Narrative 10/03/2024 12:50 PM CDT FULL RESULT: Examination: CT HEAD WO CONTRAST on 10/03/2024 12:18 PM. CLINICAL HISTORY: 30 minutes of R sided weakness and slurred speech. INDICATION: Stroke, new onset COMPARISON: 08/28/2024. TECHNIQUE: CT head without IV contrast was performed. FINDINGS: Intracranial: There is focal edematous changes and left-sided occipital lobe seen on image number 27 series 3 which corresponds to the known left-sided occipital metastatic lesion. The amount of edema appears increased compared to the prior study and also seems increased compared to the recent MR of 09/20/2024. The previously noted focus of suspected metastasis in the left-sided motor strip cannot be detected on CT, its approximately location is image 44 series 3. Notably absent is any large amount of edema, mass effect or hemorrhagic conversion. There is no mass effect or midline shift. The ventricles and extra-axial spaces are appropriate for age. Bone: There are no suspicious lytic or sclerotic calvarial and skull base lesions. Extensive metallic artifact is associated with the bilateral mandibular rami consistent with internal fixation and orthopedic hardware replacing the bilateral temporal mandibular joints. This causes metallic spray artifact over portions of the anatomy. Incidental note is made of an unfused anterior as well as posterior arch of the C1 vertebra, see image 10 series 5. Extensive surgical changes to the bilateral maxillary bones can also be seen consistent with previous facial fracture repair. Extracranial: The orbits are unremarkable. Bilateral intraocular lenses are in place. The visualized paranasal sinuses are predominantly clear. The mastoid air cells show left greater than right opacification in the left- sided middle ear cavity is also opacified, no clear evidence of nasopharyngeal mass, clinical correlation advised. Procedure Note Angel Hartley MD - 10/03/2024 FULL RESULT: Examination: CT HEAD WO CONTRAST on 10/03/2024 12:18 PM. CLINICAL HISTORY: 30 minutes of R sided weakness and slurred speech. INDICATION: Stroke, new onset COMPARISON: 08/28/2024. TECHNIQUE: CT head without IV contrast was performed. FINDINGS: Intracranial: There is focal edematous changes and left-sided occipital lobe seen onimage number 27 series 3 which corresponds to the known left-sidedoccipital metastatic lesion. The amount of edema appears increasedcompared to the prior study and also seems increased compared to therecent MR of 09/20/2024. The previously noted focus of suspected metastasis in the left-sided motorstrip cannot be detected on CT, its approximately location is image 44series 3. Notably absent is any large amount of edema, mass effect orhemorrhagic conversion. There is no mass effect or midline shift. The ventricles and extra-axial spaces are appropriate for age. Bone: There are no suspicious lytic or sclerotic calvarial and skull baselesions. Extensive metallic artifact is associated with the bilateralmandibular rami consistent with internal fixation and orthopedic hardwarereplacing the bilateral temporal mandibular joints. This causes metallicspray artifact over portions of the anatomy. Incidental note is made of anunfused anterior as well as posterior arch of the C1 vertebra, see image10 series 5. Extensive surgical changes to the bilateral maxillary bonescan also be seen consistent with previous facial fracture repair. Extracranial: The orbits are unremarkable. Bilateral intraocular lenses are in place. The visualized paranasal sinuses are predominantly clear. The mastoid air cells show left greater than right opacification in theleft- sided middle ear cavity is also opacified, no clear evidence ofnasopharyngeal mass, clinical correlation advised. IMPRESSION: There are worsening edematous changes in the left-sided occipital lobe thesite of the known metastatic lesion, status post recent chemotherapy. Noevidence of hemorrhagic conversion. The left-sided motor strip lesion seen on the previous study of 09/20/2024is occult on noncontrast CT, we see no evidence of hemorrhagic conversionor edema. If symptoms persist, consideration might be given to an MRI ofthe brain with contrast. us Feliberto Marte MD IMG CT ORDERABLES Final Resu lt * (ABNORMAL) POC Glucose Screen - Fingerstick (10/03/2024 12:05 PM CDT) Pathologist [facility] Glucose Screen 112(H) 70 - 99 mg/dL 10/03/2024 12:07 PM CDT [facility] POC Sample Type Capillary 10/03/2024 12:07 PM CDT [facility] Blood 10/03/2024 12:0 5 PM CDT 10/03/2024 12:07 PM CDT Narrative [facility] - 10/03/2024 12:07 PM CDT Capillary blood samples, e.g. obtained by fingerstick, may have inaccurate results in patients with decreased peripheral blood flow. Method description: All results are measured using Electrochemistry test methodology. The glucose in the sample mixes with the reagents on the test strip. The reaction produces an electric current. The amount of current produced is proportional to the glucose concentration in the blood. All POC Glucose screen test results, including critical values, must be interpreted and evaluated in the context of the patients' clinical findings. It is recommended to confirm any questionable test results by core lab methodology. us Poct Unknown Provider POCT ORDERABLES - DEVICE F inal Result [facility] Unless otherwise noted, all lab tests performed by: Division of Pathology and Laboratory Medicine [address] [place] [id number] * Fractionated Bilirubin (10/03/2024 11:39 AM CDT) Pathologist [facility] Bilirubin Direct 10/04/19 12:21 PM CDT [facility] Comment: Direct and indirect bilirubin will not be reported when Total bilirubin result is <0.3 mg/dL Indocyanine Green (ICG) may cause falsely elevated bilirubin results. Total and direct bilirubin must not be measured from samples containing indocyanine green. Bilirubin Indirect 2024 12:21 PM CDT [facility] Comment:Direct and indirect bilirubin will not be reported when Total bilirubin result is <0.3 mg/dL Bilirubin Total <0.3 0.0 - 1.2 mg/dL 10/03/2024 12:21 PM CDT [facility] Comment: Direct and indirect bilirubin will not be reported when Total bilirubin result is <0.3 mg/dL Indocyanine Green (ICG) may cause falsely elevated bilirubin results. Total and direct bilirubin must not be measured from samples containing indocyanine green. False elevation of total bilirubin can be seen in patients with IgG concentrations above 28 g/L. Indocyanine Green (ICG) may cause falsely elevated bilirubin results. Total and direct bilirubin must not be measured from samples containing indocyanine green. False elevation of total bilirubin can be seen in patients with IgG concentrations above 28 g/L. Blood Peripheral blood specimen / Unknown Venipuncture / Unknown 10/03/2024 11:39 AM CDT 10/03/2024 11:43 AM CDT us Amy Oliva MD LAB BLOOD ORDERABLES Final Resul t [facility] Unless otherwise noted, all lab tests performed by: Division of Pathology and Laboratory Medicine [address] [place] [id number] * (ABNORMAL) Comprehensive Metabolic Panel (10/03/2024 11:39 AM CDT) Only the most recent of14 resultswithin the time period is included. Bilirubin Total <0.3 0.0 - 1.2 mg/dL 10/03/2024 12:21 PM CDT [facility] Comment: Direct and indirect bilirubin will not be reported when Total bilirubin result is <0.3 mg/dL Indocyanine Green (ICG) may cause falsely elevated bilirubin results. Total and direct bilirubin must not be measured from samples containing indocyanine green. False elevation of total bilirubin can be seen in patients with IgG concentrations above 28 g/L. eGFR 73 >=60 mL/min/1. 73 sq. m 10/03/2024 12:21 PM CDT [facility] Comment: The eGFRcr is calculated with the 2020 CKD-EPI creatinine equation using creatinine, patient's age, and sex for adults 18 years of age and older. Other factors, especially muscle mass, may affect accuracy and need to be considered. According to the Kidney Disease: Improving Global Outcomes (KDIGO) CKD Work Group 2012 Clinical Practice Guideline, chronic kidney disease (CKD) is defined as the abnormalities of kidney structure or function, present for more than 3 months, with implications for health. CKD should be classified by cause, GFR category, and albuminuria category. KDIGO guidelines provide the following GFR categories. Stage / Description / GFR mL/min/1.73 m2: G1* / Normal or high / >= 90 G2* / Mildly decreased / 60-89 G3a / Mildly to moderately decreased / 45-59 G3b / Moderately to severely decreased / 30-44 G4 / Severely decreased / 15-29 G5 / Kidney failure / <15 *In the absence of evidence of kidney damage, neither G1 nor G2 fulfill criteria for CKD. Tot Protein 7.2 6.4 - 8.3 gm/dL 10/03/2024 12:21 PM CDT [facility] Calcium Level Total 9.6 8.2 - 10.2 mg/dL 10/03/2024 12:21 PM CDT [facility] Alkaline Phosphatase 56 40 - 129 U/L 10/03/2024 12:21 PM CDT [facility] Albumin Level 3.7 3.5 - 5.2 gm/dL 10/03/2024 12:21 PM CDT [facility] AST 18 <=40 U/L 10/03/2024 12:21 PM CDT [facility] ALT 10 <=41 U/L 10/03/2024 12:21 PM CDT [facility] Sodium Level 139 136 - 145 mmol/L 10/03/2024 12:21 PM CDT [facility] Potassium Level 4.4 3.4 - 4.5 mmol/L 10/03/2024 12:21 PM CDT [facility] Chloride 106 98 - 107 mmol/L 10/03/2024 12:21 PM CDT [facility] CO2 24 22 - 29 mmol/L 10/03/2024 12:21 PM CDT [facility] Anion Gap 9 4 - 14 mmol/L 10/03/2024 12:21 PM CDT [facility] Creatinine 1.10 0.67 - 1.17 mg/dL 10/03/2024 12:21 PM CDT [facility] BUN 25(H) 6 - 23 mg/dL 10/03/2024 12:21 PM CDT [facility] Glucose Level 107(H) 70 - 99 mg/dL 10/03/2024 12:21 PM CDT [facility] Comment: Effective 12/26/15, the glucose reference intervals have been updated based on [place] Diabetes Association guidelines (Standards of Medical Care in Diabetes 2016. Diabetes Care 2016; 39: S13-S22). Fasting blood glucose: Normal: 70-99 mg/dL Impaired fasting glucose (increased risk for diabetes or pre-diabetes): 100-125 mg/dL Diabetes mellitus: >/=126 mg/dL Random blood glucose: Normal: 70-199 mg/dL Note: Random glucose >100 mg/dL is associated with increased risk for diabetes. Blood Peripheral blood specimen / Unknown Venipuncture / Unknown 10/03/2024 11:39 AM CDT 10/03/2024 11:43 AM CDT us Amy Oliva MD LAB BLOOD ORDERABLES Final Resul t [facility] Unless otherwise noted, all lab tests performed by: Division of Pathology and Laboratory Medicine [address] [place] [id number] * TSH (10/03/2024 11:39 AM CDT) Only the most recent of8 resultswithin the time period is included. [facility] Thyroid Stimulating Hormone 0.81 0.27 - 4.20 mcIU/mL 10/03/2024 7:27 PM CDT [facility] Blood Peripheral blood specimen / Unknown Venipuncture / Unknown 10/03/2024 11:39 AM CDT 10/03/2024 11:43 AM CDT us Kandy Coffey MD LAB BLOOD ORDERABLES Final Resul t [facility] Unless otherwise noted, all lab tests performed by: Division of Pathology and Laboratory Medicine [address] [place] [id number] * (ABNORMAL) Hemoglobin A1c (10/03/2024 11:39 AM CDT) Hemoglobin A1c 6.1(H) 4.3 - 5.6 % 10/03/2024 5:04 PM CDT [facility] Blood Peripheral blood specimen / Unknown Venipuncture / Unknown 10/03/2024 11:39 AM CDT 10/03/2024 11:43 AM CDT Narrative [facility] - 10/03/2024 5:04 PM CDT HbA1c values >=6.5% are diagnostic of diabetes mellitus. Diagnosis should be confirmed by repeat testing. Therapeutic Action suggested: >8.0% HbA1c; Goal of therapy: <7.0% HbA1c Adrian Ferrara MD LAB BLOOD ORDERABLES F inal Result [facility] Unless otherwise noted, all lab tests performed by: Division of Pathology and Laboratory Medicine [address] [place] [id number] * (ABNORMAL) Lipid Panel (10/03/2024 11:39 AM CDT) Pathologist [facility] Cholesterol Total 144 <200 mg/dL 10/03/2024 4:27 PM CDT [facility] Comment: ATP III Classification of Total Cholesterol - Primary Target of Therapy (in mg/dL): <200 Desirable 200-239 Borderline high >=240 High Triglyceride 179(H) <150 mg/dL 10/03/2024 4:27 PM CDT [facility] Comment: ATP III Classification of Serum Triglycerides Primary Target of Therapy (in mg/dL): <150 Normal 150-199 Borderline high 200-499 High >=500 Very high Non-fasting triglycerides >200 mg/dL may be followed up with a fasting Lipid Panel. Calculated LDL-C may be falsely decreased when non-fasting triglycerides >200 mg/dL. HDL Cholesterol 44 >=40 mg/dL 10/03/2024 4:27 PM CDT [facility] LDL Cholesterol 64 <=100 mg/dL 10/03/2024 4:27 PM CDT [facility] Comment: ATP III Classification of LDL Cholesterol Primary Target of Therapy (in mg/dL): <100 Optimal 100-129 Near optimal/above optimal 130-159 Borderline high 160-189 High >=190 Very high LDL-C is calculated using the Friedewald equation. Very Low Density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 implementation of a standardized nomenclature developed by the Human Genome Variation Society (HGVS, http://www.hgvs.org /varnomen/). A decision-support/[employer] application programming interface ([place] 7.1.2) was used in the annotation of genomic observations in this report. Test performance specifications: The tumor cellularity in the sample submitted is assessed by a combination of direct morphologic assessment and/or immunophenotypic evaluation as part of the pathology workup. For this assay, sensitivity of detection is related in part to depth of coverage, tumor cellularity, and allelic frequency for the mutation. Although the NGS platform is capable of achieving a much higher analytical sensitivity, for clinical purposes, at around 50 ng input DNA and a minimum of 20% tumor cellularity, we determined the effective lower limit of detection (LoD) for SNVs and INDELs of 5% mutation allelic frequency (one mutant allele in the background of nineteen wild type alleles), 5 fusion breakpoint molecules for Fusion detection, and a threshold of 4 copy number for gene amplifications with an overall panel analytical sensitivity for SNVs 99.2%, INDELs 92.3%, CNVs 97.3%, Fusions 89.1% and MSI 100% while maintaining analytical specificity near 100%. Notable limitations of the test: · [employer] requires a normal non-tumor sample for appropriate interpretation of somatic mutations. · Silent mutations (mutations that do not result in an amino acid change) are not reported. · A minimum of 20% tumor cellularity is required in the sample for mutation analysis. Clinical tumor specimens below 20% tumor cellularity are not optimal for MSI and TMB interpretation and thus Not Reportable . · The primary purpose of this panel is to detect somatic mutations in genes involved in oncogenesis of this patient s tumor. The test or the results thereof should not be used to detect germline variants for hereditary cancer syndromes. If a hereditary cancer syndrome is suspected, separate testing of a germline sample should be performed using an appropriate assay. · Variants detected below Limits of Detection (LoD) not deemed to be confirmable by independent, orthogonal methods and/or in significant discordance with the tumor cellularity in the tested sample may be excluded as the clinical significance and reliability of such low-level mutation calls is not clear. · Variant allelic frequency (VAF) is included for reported sequence variants and reflects the percentage of mutant reads compared to all reads present at the variant position. This number reflects a complex mixture of factors including tumor cellularity, potential CNVs and loss of heterozygosity, and potential subclonality. In addition, strand or allelic bias can significantly impact the measurement of specific variants in any sequencing platform. The clinical utility or meaning of this number in general is not considered established. Linearity of measurement should not be assumed. · Copy number assessment by next generation sequencing can be affected by tumor cellularity, amplitude of gene amplification, enrichment of tumor during pre-analytical phase, library preparation methods and analysis algorithms. With 40% tumor content or higher, this test has a specificity of 0.96 and a sensitivity of at least 0.9 for detection of homozygous loss of CDKN2A/CDKN2B and MTAP. False negative results can be obtained in cases with low tumor percentage, low amplicon coverage and/or borderline copy number alterations. The reporting of copy number losses is restricted to CDKN2A/CDKN2B and MTAP. Other genes are not evaluated for copy number loss. This assay cannot reliably identify heterozygous gene losses. Correlation with traditional methods of copy number assessment such as fluorescent in situ hybridization (FISH) is recommended as applicable. · False negative fusion results can occur in cases with low fusion DNA molecules, low tumor cellularity, fusions occurring in highly repetitive intronic sequence contexts or fusions where the genomic breakpoint does not span within targeted introns covered by the panel (See Appendix Table 2). The assay requires a minimum of 20% tumor sample cellularity to reduce the potential for false negative results. Correlation with traditional methods of fusion detection such as fluorescent in situ hybridization (FISH) is recommended as applicable. · Tumor mutational burden (TMB) is determined by measuring the number of somatic mutations occurring in sequenced genes and specified as a rate (mutations per megabase [mut/Mb]). TMB is calculated for all samples and includes the sum of all somatic synonymous and non-synonymous variants present in the sample at a VAF near LoD and above the noise-level of the assay (after filtering). The number of mutations per megabase may be reported as a nominal number rounded to the closest integer. TMB in cases with low sequence quality cannot be established and may be reported as Not Reportable . · The microsatellite instability high (MSI-H) and microsatellite stable (ANGIE) reported by [facility] is based on the analysis of 40+ informative microsatellite loci. The total number of sites evaluated is dependent on coverage metrics over candidate MSI regions in the paired tumor and normal samples. Microsatellite instability is reported as Undetermined if the sample does not meet the required thresholds to make a MSI-H or ANGIE call. The thresholds for designating these calls were established by analytical concordance to comparator assays (PCR, IHC and NGS) using a wide selection of tumor tissue types including colorectal and endometrial cancers. Confirmatory testing of microsatellite instability (MSI-PCR, MLH1 promoter methylation) and DNA mismatch repair gene assessment (MMR deficiency) is recommended as applicable for complete evaluation. · Correlation with clinicopathologic features and prevalent clinical practice guidelines is recommended for complete evaluation and integration of genomic findings in patient care decisions. Sequencing coverage of the genes: The following table describes the extent and adequacy of coverage for ordered genes only. Covered genes/exons/codons are defined as those having total coverage depth of greater than or equal to 100 GDW-fkymg-izzsnxdjn , collapsed reads (minimum 100x coverage). Mutations in ordered genes outside the optimally covered regions listed below may be detected with diminished sensitivity and cannot be ruled out. Coverage information for non-ordered genes for this sample is complex and lengthy, but may be requested from the laboratory if required for clinical care or correlative purposes. Gene Exons (codons) tested ABL1 (NM_005157) 1-11 (1-1131) ABL2 (NM_005158) 1-12 (1-1168) ABRAXAS1 (NM_139076) 1-9 (1-410) ACVR1 (NM_001111067) 3-6 (1-215), 8-11 (264-510) ACVR1B (NM_004302) 1-9 (1-506) ACVR2A (NM_001616) 1-2 (1-88), 8 (321-359), 9 (363-398) ADGRA2 (NM_032777) 1-19 (1-1339) AJUBA (NM_032876) 1-8 (1-539) AKT1 (NM_005163) 2-14 (1-481) AKT2 (NM_001626) 2-14 (1-482) AKT3 (NM_005465) 2 (1-16), 4-5 (58-143), 8 (210-232), 10-14 (281-480) AKTIP (NM_022476) 2-10 (1-293) ALK (NM_004304) 1-16 (1-922), 17-29 (939-1621) AWON02P (NM_001139) 1-15 (1-702) AMER1 (NM_152424) 2 (1-1136) ANKRD11 (NM_013275) 3-8 (1-298), 9 (5498-8673), 9 (298-2350), 9 (8087-5377), 10-13 (9994-4689) APC (NM_000038) 3-7 (46-243), 9-16 (279-1850), 16 (0957-4539), 16 (8313-1760), 16 (6887-2213) AR (NM_000044) 1 (1-456), 1-2 (461-579), 3-8 (590-921) ARAF (NM_001654) 2-16 (1-607) ARFRP1 (NM_001267547) 2-8 (1-202) ARID1A (NM_006015) 1-20 (1-2286) ARID1B (NM_001346813) 1 (1-207), 1-20 (243-2290) ARID2 (NM_152641) 1-11 (1-500), 14-18 (572-1716), 21 (1696-5106) ARID5B (NM_032199) 1-2 (1-92), 3 (123), 3 (137-140), 4-5 (168-282), 8-10 (368-1189) ASCC3 (NM_006828) 2 (1-23), 3-4 (31-267), 6 (326-362), 8-10 (424-579), 12 (635-693), 14 (719-757), 18-19 (942-1025), 21-22 (6102-5174), 25-27 (3694-1993), 28 (1472), 31 (8752-8111), 40-42 (5191-8313) ASPM (NM_018136) 1 (1-99), 4-12 (641-1056), 26-27 (1121-7304) ASXL1 (NM_015338) 1-13 (11542) ASXL2 (NM_018263) 1-13 (11436) RICKIE (NM_000051) 2-11 (1598), 13-22 (633-1095), 23 (6336-7594), 24-34 (3952-1887), 37-45 (9135-3233), 46 (4588-1877), 47-58 (2688-0399), 60-63 (5594-8421) ATR (NM_001184) 1-17 (1-1150), 18 (2882-6722), 18 (7174-7394), 19-42 (9282-8156), 43 (2318-4650), 44 (7687-7651), 45-47 (5876-2911) ATRX (NM_000489) 1-3 (1-63), 6-7 (124-198), 10-12 (6691-3707), 15-17 (4917-8046), 18 (8664-6640), 19-20 (1443-6268), 20 (0803-4648), 22 (8751-2522), 23 (5895-0597), 26-27 (3705-9935), 29 (4014-0681), 30 (4523-2419), 35 (3035-6580) AURKA (NM_003600) 2-9 (1-404) AURKB (NM_004217) 2-9 (1-345) AURKC (NM_003160) 2-7 (1-276) AXIN1 (NM_003502) 2-11 (1863) AXIN2 (NM_004655) 2-11 (844) ANJALI (NM_001699) 1-19 (1886) B2M (NM_004048) 1-2 (1-116) BAP1 (NM_004656) 1-17 (1-730) BARD1 (NM_000465) 1 (1-53), 2 (56), 2 (58-69), 5 (439-465), 7-11 (523-778) BBC3 (NM_014417) 2 (63-92), 2 (1-49), 2 (51-52), 3-4 (92-194) BCL10 (NM_003921) 1-3 (1-234) BCL11A (NM_022893) 1-4 (1-836) BCL2 (NM_000633) 2-3 (1-240) BCL2L1 (NM_138578) 2-3 (1-234) IBM7X90 (NM_138621) 2-4 (1-199) BCL2L2 (NM_004050) 3-4 (1-194) BCL6 (NM_001706) 3-10 (1-707) BCOR (NM_017745) 2-15 (1-1722) BCORL1 (NM_021946) 1-12 (1-1712) BCR (NM_004327) 1-23 (1-1272) BIRC2 (NM_001166) 2-5 (1-375) BIRC3 (NM_001165) 2 (21), 2-4 (23-344), 6-9 (361-605) BLM (NM_000057) 2-22 (1-1418) BMPR1A (NM_004329) 3-13 (1-533) BRAF (NM_004333) 1 (1-25), 1-2 (28-80), 3 (111-151), 6-10 (238-430), 11-12 (439-504), 17 (673-698), 18 (728-767) BRCA1 (NM_007294) 2-9 (1-224), 10 (6642-5855), 10 (7379-8064), 10 (1047), 10 (7461-2569), 10 (902-939), 10 (885-897), 10 (815-819), 10 (224-726), 10 (734-810), 11-23 (0300-4727) BRCA2 (NM_000059) 2-10 (1-587), 10 (612-617), 11 (637-1016), 11 (5257-8588), 11 (5354-0433), 14-17 (0628-1436), 18 (6762-5962), 19-21 (6564-2533), 22 (3423-8119), 23-26 (7077-0111), 27 (0926-0787) BRD4 (NM_058243) 2-13 (1-774), 13-14 (783-919), 14-20 (2651-7074) BRIP1 (NM_032043) 2-8 (1-380), 10 (459-481), 11 (495-541), 12-20 (543-1250) BTG1 (NM_001731) 1-2 (1-172) BTG2 (NM_006763) 1-2 (1-159) BTK (NM_000061) 2-4 (1-103), 6-19 (131-660) BUB1 (NM_004336) 1-13 (1-499), 16 (576-618), 17-18 (626-735), 19 (745-775), 20-24 (783-1021), 25 (1919-4504) CALR (NM_004343) 1-9 (1-418) CARD11 (NM_032415) 2-25 (1-1155) CASP8 (NM_001228) 3-10 (1-497) CBFB (NM_022845) 1-6 (1-188) CBL (NM_005188) 1-16 (1-907) CCN6 (NM_198239) 1-3 (1-197), 4 (202-259), 5 (262-355) CCNA2 (NM_001237) 1-8 (1-433) CCND1 (NM_053056) 1-5 (1-296) CCND2 (NM_001759) 1-5 (1-290) CCND3 (NM_001760) 1-5 (1-293) CCNE1 (NM_001238) 2-12 (1-411) CD274 (NM_014143) 3 (18-132), 4 (160-188), 4-7 (190-291) CD276 (NM_001024736) 2-10 (1-535) CD74 (NM_001025159) 1-9 (1-297) CD79A (NM_001783) 1-3 (1-166), 4 (169-179), 5 (190-227) CD79B (NM_000626) 1-6 (1-230) CD8A (NM_001768) 1-6 (1-236) CDC20 (NM_001255) 2-11 (1-500) CDC27 (NM_001256) 1-5 (1-156), 6-19 (159-825) CDC6 (NM_001254) 2-12 (1-561) CDC73 (NM_024529) 1-6 (1-171), 7 (173-229), 8-11 (244-344), 14-15 (385-473) CDH1 (NM_004360) 1-16 (1-883) CDK12 (NM_016507) 1-14 (1-1491) CDK2 (NM_001798) 1-7 (1-299) CDK4 (NM_000075) 2-8 (1-304) CDK6 (NM_001259) 2-5 (1-216), 7-8 (233-327) CDK8 (NM_001260) 1-4 (1-152), 6-8 (172-287), 9-10 (290-344), 13 (424-465) CDKN1A (NM_000389) 2-3 (1-165) CDKN1B (NM_004064) 1-2 (1-199) CDKN2A (NM_000077) 1-3 (1-157) CDKN2B (NM_004936) 1-2 (1-139) CDKN2C (NM_001262) 2-3 (1-169) CEBPA (NM_004364) 1 (1-359) CENPA (NM_001809) 1-4 (1-141) CENPE (NM_001813) 1-2 (1-50), 3 (52-80), 9-12 (232-361), 14-15 (415-493), 17-20 (550-711), 25 (1061), 25 (9569-5801), 25 (3762-0237), 26-29 (1642-6303), 30-35 (3438-2782), 36 (7225-0885), 36 (1883), 36 (1874), 36 (8750-9445), 40 (1849-2578), 41 (9411-8021), 42 (6351-5999), 43 (1582-5485), 44-46 (0012-7219) CHAF1A (NM_005483) 1-15 (1-957) CHEK1 (NM_001274) 2-7 (1-240), 8 (253-257), 8 (259-260), 9-13 (455-477) CHEK2 (NM_007194) 2-6 (1-259), 7-15 (265-544) CIC (NM_015125) 1-20 (1-1600) COL2A1 (NM_033150) 1-53 (1-1419) COP1 (NM_022457) 1 (1-136), 2 (143-153), 3 (156-189), 6 (255-277), 9-10 (323-381), 13-20 (833-532) CREBBP (NM_004380) 1-31 (1-1941), 31 (0376-3818) CRKL (NM_005207) 1-3 (1-304) CRLF2 (NM_022148) 1-8 (1-263) CSF1R (NM_005211) 2-22 (1-973) CSF3R (NM_156039) 3-17 (1-864) CTCF (NM_006565) 3-12 (1-728) CTLA4 (NM_005214) 1-4 (1-224) CTNNA1 (NM_001903) 2-7 (1-354), 9-18 (382-907) CTNNB1 (NM_001904) 4-6 (93-312), 8-10 (361-561), 14-15 (693-782) CUL3 (NM_003590) 1 (1-22), 2-13 (24-614), 15 (691-717), 16 (726-769) CUL4A (NM_001008895) 1-20 (1-760) CUL4B (NM_001079872) 1-3 (1-259), 9-11 (419-546), 14 (622-640), 15-20 (644-896) CUX1 (NM_181552) 1-24 (1-1506) CXCR4 (NM_003467) 1-2 (1-353) CYLD (NM_015247) 4 (1-168), 5 (173-261), 6-7 (270-308), 10-15 (380-053), 17 (458-262), 18-20 (782-957) AVJ6P03 (NM_000769) 1 (1-54), 2-4 (57-214), 6-7 (274-383), 9 (431-491) DAXX (NM_001350) 2-8 (1-741) USJQR9N (NM_001033855) 1-14 (1-693) AFYA3T3 (NM_020640) 1-7 (1-260) DDB1 (NM_001923) 1-27 (1-1141) DDR1 (NM_013993) 3-19 (1-914) DDR2 (NM_006182) 3 (1-25), 4-18 (28-856) DDX3X (NM_001356) 1-2 (1-35), 3-4 (37-95), 5-6 (97-179), 6 (181), 7-17 (188-663) DICER1 (NM_030621) 4-11 (1-503), 12 (516-566), 13-26 (587-1788), 27 (4036-5869), 28 (1855) DIS3 (NM_014953) 1-4 (1-218), 7-10 (330-501), 11 (519-522), 14 (586-628), 16-17 (843-439), 18 (035-421) DLL3 (NM_203486) 1-9 (1-588) DNA2 (NM_001080449) 1-21 (1-1061) DNAJB1 (NM_006145) 1-3 (1-341) DNMT1 (NM_001130823) 1-4 (1-149), 6-41 (165-1633) DNMT3A (NM_022552) 2-23 (1-913) DNMT3B (NM_006892) 2-23 (1854) DOT1L (NM_032482) 1-28 (11538) E2F3 (NM_001949) 1-7 (1-466) EED (NM_003797) 1-2 (1-88), 3-7 (90-242), 8 (250-278), 9 (287-322), 10 (347-349), 10 (354-356), 12 (411-440) EGFL7 (NM_016215) 4-11 (1-274) EGFR (NM_005228) 1-28 (11211) EIF1AX (NM_001412) 1-6 (1-143) EIF4A2 (NM_001967) 1-7 (1-257), 8-9 (264-331), 10 (336-353), 11 (360-408) EIF4E (NM_001968) 1-6 (1-180), 7 (195-203) ELF3 (NM_004433) 2-9 (1-372) ELOC (NM_005648) 2-4 (1-113) EMSY (NM_001300943) 2-3 (1-57), 6-9 (141-456), 10 (470-496), 12-13 (563-666), 14 (443-718), 16-20 (269-1259) ENO1 (NM_001428) 2-12 (1-435) EP300 (NM_001429) 1-31 (1-2415) EPCAM (NM_002354) 1-9 (1-315) EPHA2 (NM_004431) 1-17 (1-977) EPHA3 (NM_005233) 1 (1-30), 3 (52-206), 3 (209-258), 4-6 (272-475), 7 (478-532), 8 (536-561), 12-17 (692-984) EPHA5 (NM_001281766) 1 (1-61), 3 (83-304), 5 (356-468), 6 (471-509), 7 (538-539), 7 (541-542), 14 (816-865) EPHA7 (NM_004440) 1 (1-33), 2 (35-48), 4-5 (278-442), 13-16 (725-961) EPHB1 (NM_004441) 1-16 (1-985) ERBB2 (NM_004448) 1-27 (1-1256) ERBB3 (NM_001982) 1-28 (1-1343) ERBB4 (NM_005235) 1-3 (1-141), 6-7 (208-295), 10-13 (375-541), 16 (624-649), 18 (694-734), 20 (768-829), 21 (844-873), 22 (882-907), 26-28 (2786-9010) ERCC1 (NM_202001) 1-8 (1-324) ERCC2 (NM_000400) 1-23 (1-761) ERCC3 (NM_000122) 1-15 (1-783) ERCC4 (NM_005236) 1-11 (1-917) ERCC5 (NM_000123) 1-15 (1-1187) ERCC6 (NM_000124) 2-5 (1-466), 7-21 (509-1494) ERG (NM_004449) 3-11 (1-463) ERRFI1 (NM_018948) 2-4 (1-463) ESR1 (NM_000125) 1 (1-151), 3-4 (215-366), 6 (429), 6 (431-443), 7-8 (457-596) ETV1 (NM_004956) 3-4 (1-45), 7-9 (79-268), 13-14 (371-478) ETV4 (NM_001986) 2-13 (1-485) ETV5 (NM_004454) 2-13 (1-511) ETV6 (NM_001987) 1-8 (1-453) EWSR1 (NM_013986) 1 (1-5), 3-18 (17-662) EXO1 (NM_130398) 4-8 (1-248), 9-11 (253-423), 12-16 (436-847) EZH2 (NM_004456) 4-7 (83-243), 8 (250-300), 9 (313-325), 10-20 (334-752) FADD (NM_003824) 1-2 (1-209) FANCA (NM_000135) 1-43 (1-1456) FANCC (NM_000136) 2-5 (1-152), 6 (159-167), 7-15 (174-559) FANCD2 (NM_033084) 2-43 (1-1472) FANCE (NM_021922) 1-10 (1-537) FANCF (NM_022725) 1 (1-375) FANCG (NM_004629) 1-14 (1-623) FANCI (NM_018193) 2 (1-28), 3 (37-48), 4-6 (53-168), 8 (195-214), 9-19 (224-630), 20 (633-656), 21-24 (355-875), 25 (883-903), 26 (907), 26-37 (909-1269) FANCL (NM_018062) 1 (1-32), 3-5 (52-125), 7-8 (158-231) FANCM (NM_020937) 1-12 (1-713), 13-23 (721-2049) FAS (NM_000043) 1-2 (1-66), 4-8 (112-226), 9 (235-327) FAT1 (NM_005245) 2-27 (1-4589) FBXW7 (NM_033632) 5 (257-259), 5 (261-272), 6 (288-329), 11 (569-615), 12 (619-708) FGF10 (NM_004465) 1 (1-109), 3 (144-209) FGF14 (NM_175929) 1 (1-70), 5 (224), 5 (226-227) FGF19 (NM_005117) 1-3 (1-217) FGF23 (NM_020638) 1-3 (1-252) FGF3 (NM_005247) 1-3 (1-240) FGF4 (NM_002007) 1-3 (1-207) FGF5 (NM_004464) 1 (1-119), 3 (168-252) FGF6 (NM_020996) 1-3 (1-209) FGF9 (NM_002010) 1-3 (1-209) FGFR1 (NM_015850) 2-18 (1-821) FGFR2 (NM_000141) 2-18 (1-822) FGFR3 (NM_000142) 2-18 (1-807) FGFR4 (NM_022963) 1-16 (1-763) FH (NM_000143) 1-2 (1-89), 3 (102-103), 4 (159-176), 5-7 (186-370), 10 (464-511) FLCN (NM_144997) 4-14 (1-580) FLT1 (NM_002019) 1-6 (1-271), 10 (442-469), 11-16 (991-705), 17-18 (381-863), 18-30 (861-7479) FLT3 (NM_004119) 1-6 (1-248), 7 (269-284), 7 (292-293), 8 (301-340), 9-24 (348-994) FLT4 (NM_002020) 1-30 (1-1299) FOXA1 (NM_004496) 1-2 (1-473) FOXL2 (NM_023067) 1 (1-377) FOXO1 (NM_002015) 1 (1-98), 1-2 (127-656) FOXP1 (NM_032682) 6-11 (1-290), 15-21 (383-678) FRS2 (NM_006654) 6-10 (1-509) FTO (NM_001080432) 1-4 (1-299), 5 (304-323), 6-9 (326-506) FUBP1 (NM_003902) 1-2 (1-71), 4-12 (84-343), 15-17 (449-569), 18 (575-583), 19-20 (594-645) FYN (NM_002037) 4-14 (1-538) GABRA6 (NM_000811) 1-3 (1-75), 6 (187-220), 7-9 (225-451) ERXS41B (NM_001924) 1-4 (1-166) GATA1 (NM_002049) 2-6 (1-414) GATA2 (NM_032638) 2-6 (1-481) GATA3 (NM_001002295) 2-6 (1-445) GATA4 (NM_002052) 2-7 (1-443) GATA6 (NM_005257) 2 (1-250), 2 (259), 2-7 (261-596) GEN1 (NM_001130009) 2-6 (1-237), 11-14 (366-874), 14 (883-909) GID4 (NM_024052) 1-6 (1-301) GLI1 (NM_005269) 2-12 (1-1107) GNA11 (NM_002067) 1-7 (1-360) GNA13 (NM_006572) 1-4 (1-378) GNAQ (NM_002072) 1-4 (1-202), 6-7 (246-360) GNAS (NM_000516) 1-13 (1-395) GPS2 (NM_004489) 2-11 (1-328) GRIN2A (NM_001134407) 2-13 (1-1465) GRM3 (NM_000840) 2-4 (1-797) GSK3B (NM_001146156) 1-4 (1-159), 5 (162-196), 7 (264), 7 (246-262), 9-11 (304-421) H1-2 (NM_005319) 1 (1-214) H2AX (NM_002105) 1 (1-144) H2BC5 (NM_138720) 1 (1-126) H3-3A (NM_002107) 2-4 (1-130) H3-3B (NM_005324) 2-4 (1-137) H3-4 (NM_003493) 1 (1-137) H3-5 (NM_001013699) 1 (1-136) H3C1 (NM_003529) 1 (1-136) H3C10 (NM_003536) 1 (1-136) H3C11 (NM_003533) 1 (1-137) H3C12 (NM_003535) 1 (1-137) H3C13 (NM_001123375) 1 (1-137) H3C2 (NM_003537) 1 (1-137) H3C3 (NM_003531) 1 (1-136) H3C4 (NM_003530) 2 (1-137) H3C6 (NM_003532) 1 (1-137) H3C7 (NM_021018) 1 (1-137) H3C8 (NM_003534) 1 (1-137) HDAC2 (NM_001527) 1 (1-18), 3-12 (56-460), 14 (479-489) HDAC9 (NM_178425) 1-3 (1-139), 9-12 (346-637), 14-18 (682-822), 22 (935-979), 24 (3461-4453) HELQ (NM_133636) 1-18 (1-1102) HERC2 (NM_004667) 2 (1-19), 3-27 (25-1383), 27 (6803-9065), 28-29 (8378-3090), 30-31 (0206-1824), 32-36 (1472-7362), 37-44 (7787-9569), 45 (0195-5003), 46-51 (7161-8871), 53-93 (6158-6183) HFM1 (NM_001017975) 2-3 (1-62), 5-9 (165-381), 18 (702-721), 19-30 (736-1131), 32 (3993-1038), 33 (1134-9395), 34 (8883-6394), 36 (9951-4362) HGF (NM_000601) 1-3 (1-123), 7-10 (249-424), 12-13 (469-514) HLA-A (NM_002116) 1-8 (1-366) HNF1A (NM_000545) 1-10 (1-632) HOXB13 (NM_006361) 1-2 (1-285) HRAS (NM_005343) 2-5 (1-190) HSD3B1 (NM_000862) 2-4 (1-374) GFW65JD4 (NM_001017963) 1-12 (1-855) YRO91QR4 (NM_007355) 2-12 (1-725) ICOSLG (NM_015259) 1-7 (1-303) ID3 (NM_002167) 1-2 (1-120) IDH1 (NM_005896) 3 (1-36), 4-10 (41-415) IDH2 (NM_002168) 1-11 (1-453) IFNGR1 (NM_000416) 1-2 (1-67), 3 (99-113), 4 (127-181), 5-7 (183-490) IGF1 (NM_000618) 1-4 (1-154) IGF1R (NM_000875) 1-21 (1-1368) IGF2 (NM_000612) 2-4 (1-181) IKBKE (NM_014002) 3-22 (1-717) IKZF1 (NM_006060) 2-8 (1-520) IL10 (NM_000572) 1-5 (1-179) IL7R (NM_002185) 1 (1-28), 3-8 (75-460) INHA (NM_002191) 1-2 (1-367) INHBA (NM_002192) 2-3 (1-427) INO80 (NM_017553) 2-36 (1-1557) INPP4A (NM_001134225) 3-25 (1-973) INPP4B (NM_001101669) 6 (46-85), 8-11 (125-230), 13-14 (279-358), 19-20 (574-673), 22-24 (712-829), 25 (833-877) INSR (NM_000208) 1-22 (10-1383) IRF2 (NM_002199) 2-9 (1-350) IRF4 (NM_002460) 2-9 (1-452) IRS1 (NM_005544) 1 (1-1243) IRS2 (NM_003749) 1 (1-369), 1-2 (411-1339) JAK1 (NM_002227) 2-24 (1-1123) JAK2 (NM_004972) 3 (1-76), 6 (157-205), 9-10 (353-440), 11 (443-505), 17-20 (711-921), 21 (923-962), 22 (965-1004) JAK3 (NM_000215) 2-24 (1-1125) TRISHA (NM_002228) 1 (1-332) KAT6A (NM_006766) 2-7 (1-452), 8-17 (455-2005) KDM5A (NM_001042603) 1-15 (1-717), 16-27 (728-1622) KDM5C (NM_004187) 1-26 (1-1561) KDM6A (NM_021140) 1-2 (10-75), 4-5 (112-148), 7-10 (189-292), 14-17 (444-901), 20-22 (980-1095), 23 (7637-6782), 24 (8833-4195), 25 (6142-2741), 26 (1295-4068) KDR (NM_002253) 1 (1-23), 2 (32-34), 3 (54-120), 4 (141-156), 5-14 (164-706), 16-27 (756-1221), 29 (6224-6117), 30 (8385-6775) KEAP1 (NM_012289) 2-6 (1-625) DEON (NM_000420) 1-19 (1-733) KIT (NM_000222) 1-4 (1-252), 5 (270-297), 6-13 (309-664), 18-21 (829-977) KLF4 (NM_004235) 1-5 (1-480) KLHL6 (NM_130446) 1-7 (1-622) KMT2A (NM_005933) 1 (1-46), 1 (48-49), 1 (51-144), 2-36 (146-3970) KMT2B (NM_014727) 1-3 (26-419), 3 (436-620), 3-28 (637-2224), 28-37 (4570-1761) KMT2C (NM_170606) 1 (1-54), 2-6 (59-283), 7-11 (292-541), 12 (554-566), 13 (579-605), 14-23 (607-1238), 25-26 (2973-3119), 27 (2119-3854), 29-32 (4227-6040), 33 (0568-7181), 34-37 (2218-7109), 38-41 (1535-4659), 42-59 (5368-1650) KMT2D (NM_003482) 1-41 (1-4613), 42-54 (6300-5424) KNSTRN (NM_033286) 1-9 (1-317) KRAS (NM_004985) 2-3 (1-89), 5 (152-183) LATS1 (NM_004690) 2-8 (11125) LATS2 (NM_014572) 2-8 (1-1089) LCK (NM_005356) 2-13 (510) LIG4 (NM_002312) 2 (317-874), 2 (812-813), 2 (829-839) LMO1 (NM_002315) 1-4 (1-157) LRP1B (NM_018557) 1 (1-28), 5 (155-198), 13 (680-716), 17 (882-924), 19-20 (963-1046), 24 (1962-9458), 24 (0061-1476), 24 (1284), 28 (2054-3401), 29 (4393-8705), 31 (9005-3852), 32 (7173-6335), 43 (5279-2288), 46 (6203-8323), 47 (8030-7001), 50 (7802-1192), 52-53 (4208-1099), 56 (8345-4290), 57 (6593-2629), 59 (1368-6158), 63-69 (5356-6472), 76-77 (2264-8991), 80 (5122-3814), 82-83 (0340-8167) TIMOTHY (NM_002350) 2-13 (1513) MAD2L2 (NM_006341) 2-9 (1212) MAGOH (NM_002370) 1-5 (1-147) MALT1 (NM_173844) 1-2 (1-126), 4-5 (167-276), 6 (281-298), 8-16 (318-814) MAP2K1 (NM_002755) 1-11 (1-394) MAP2K2 (NM_030662) 1-11 (1-401) MAP2K4 (NM_003010) 1 (5-39), 3 (73-131), 6-9 (212-347) MAP2K7 (NM_145185) 1-11 (1-420) MAP3K1 (NM_005921) 1 (1-161), 3-6 (212-434), 10 (563-655), 13-19 (727-1463) FYG7O88 (NM_004721) 2-14 (1-967) ELE5W85 (NM_003954) 2-17 (1-947) MAP3K4 (NM_005922) 1 (1-51), 3 (143-187), 3 (195-206), 4-17 (570-1188), 17-27 (8087-0824) MAPK1 (NM_002745) 1-8 (1-361) MAPK3 (NM_002746) 1-8 (12-380) MAPK8 (NM_139049) 4-5 (1-84), 7 (118-144), 8 (155-206), 9 (211-221), 10-14 (240-428) MAX (NM_002382) 1-5 (1-161) MCL1 (NM_021960) 1-3 (1-351) MDC1 (NM_014641) 2-15 (1-2090) MDM2 (NM_002392) 1-11 (1-498) MDM4 (NM_002393) 2-9 (1-273), 10-11 (275-491) MED12 (NM_005120) 1-17 (1-791), 18-45 (808-2178) MEF2B (NM_001145785) 2-9 (1-369) MEN1 (NM_130799) 2-10 (1-611) MERTK (NM_006343) 1-19 (1-1000) MET (NM_001127500) 2 (1-400), 4-10 (465-806), 15 (6698-1961), 17 (1314-8350), 18-21 (6590-6635) MGA (NM_001164273) 2-18 (1-2380), 20-24 (3052-6818) MGMT (NM_002412) 2-5 (1-208) MITF (NM_000248) 1-3 (1-115), 5-9 (153-420) MLH1 (NM_000249) 1-19 (1-757) MLH3 (NM_001040108) 2 (570-1094), 2 (567), 2 (434-541), 2 (1-344), 2 (356-384), 3-13 (5437-2348) MPL (NM_005373) 1-12 (1-636) MRE11 (NM_005590) 2 (1-7), 3-5 (15-134), 6-7 (138-220), 11-12 (367-442), 14-19 (501-681) MSH2 (NM_000251) 1-16 (1-935) MSH3 (NM_002439) 1-2 (1-120), 3 (135-181), 4-13 (194-632), 14 (634-692), 15 (732-737), 16-18 (012-848), 20-24 (886-1138) MSH6 (NM_000179) 1-3 (1-209), 4 (220-512), 4 (514-599), 4 (604-605), 4-9 (608-1334) MST1 (NM_020998) 1-18 (1-726) MST1R (NM_002447) 1-20 (1-1401) MTAP (NM_002451) 1 (1-11), 3-8 (41-284) MTOR (NM_004958) 2-58 (1-2550) MUTYH (NM_012222) 1-16 (1-547) MXD4 (NM_006454) 1-6 (1-210) MYB (NM_005375) 2 (11-45), 3-15 (48-641) MYC (NM_002467) 1-3 (1-455) MYCL (NM_005376) 1-2 (1-237) MYCN (NM_005378) 2-3 (1-465) MYD88 (NM_002468) 1-5 (1-297) MYOD1 (NM_002478) 1-3 (1-321) NBN (NM_002485) 1-2 (1-57), 3 (73-101), 4-9 (107-375), 11 (482-530), 11-16 (536-755) NCOA3 (NM_181659) 3-22 (1-1421) NCOR1 (NM_006311) 2-4 (1-145), 5 (161-193), 6 (207-244), 10 (304-361), 12-23 (392-1059), 25 (3410-1894), 26-27 (3478-1627), 28 (5130-2016), 29-46 (9438-6245) NEGR1 (NM_173808) 1-3 (1-179), 5 (223-263) NF1 (NM_001042492) 1-4 (1-160), 6 (208-210), 6 (212), 8-11 (244-420), 13-14 (465-547), 17-21 (616-950), 22 (980), 26-31 (5890-3640), 32 (3256-7031), 33-42 (2649-3283), 43 (7470-3166), 47-48 (4404-6545), 49 (4264-9011), 49 (2414), 50 (7557-0760), 51-58 (9581-9057) NF2 (NM_000268) 1-16 (1-596) NFE2L2 (NM_006164) 1-2 (1-104), 3 (108-130), 5 (259-606) NFKBIA (NM_020529) 1-6 (1-318) NHEJ1 (NM_024782) 2-8 (1-300) NKX2-1 (NM_003317) 1-2 (1-372) NKX3-1 (NM_006167) 1-2 (1-235) NOTCH1 (NM_017617) 1-34 (1-2556) NOTCH2 (NM_024408) 1 (1-25), 3-4 (52-251), 6-34 (292-2472) NOTCH3 (NM_000435) 1-33 () NOTCH4 (NM_004557) 1-30 (-2003) NPM1 (NM_002520) 1 (1-20), 2-11 (23-295) NRAS (NM_002524) 2-5 (1-190) NSD1 (NM_022455) 2-23 (12697) NSD3 (NM_023034) 2-24 (11438) NT5C2 (NM_001351169) 3-19 (1-562) NTRK1 (NM_002529) 1-17 (1-797) NTRK2 (NM_006180) 4 (1-71), 5-8 (85-195), 9 (198-228), 10 (258-276), 11-15 (285-482), 16 (497-539), 17-21 (545-839) NTRK3 (NM_002530) 3-19 (1-826) NUP93 (NM_014669) 2-22 (1-820) NUTM1 (NM_001284292) 1-8 (1-1161) PAK1 (NM_002576) 2-4 (1-147), 6-7 (160-258), 8-9 (262-295), 11-15 (333-546) PAK3 (NM_002578) 5 (1-59), 7 (93-144), 12-14 (277-370), 16 (404-468), 17-18 (470-545) PAK5 (NM_177990) 3-5 (1-494), 7-10 (539-720) PALB2 (NM_024675) 1-13 (1-1187) PARP1 (NM_001618) 1-23 (1-1015) PARP2 (NM_001042618) 1-11 (1-367), 12 (372-402) PARP3 (NM_001370240) 2-11 (1-534) PARP4 (NM_006437) 2-33 (1-1660) PARPBP (NM_017915) 4 (130-165), 5 (201), 5 (203-222), 7 (274-335), 8 (339-386), 9 (395-421) PAX5 (NM_016734) 1-10 (1-392) PAXX (NM_183241) 1-7 (1-205) PBRM1 (NM_018313) 2-16 (1-642), 17 (841-842), 17 (837-838), 17 (642-823), 17 (830-832), 18-20 (856-1016), 21-30 (9833-4454) PCNA (NM_182649) 1-6 (1-262) PDCD1 (NM_005018) 1-5 (1-289) VNXR8TC9 (NM_025239) 2-5 (1-256), 7 (273-274) PDGFB (NM_002608) 1-6 (1-242) PDGFRA (NM_006206) 2-4 (1-205), 5-23 (210-1090) PDGFRB (NM_002609) 2-23 (1-1107) PDK1 (NM_002610) 1-11 (1-437) PER1 (NM_002616) 2-19 (1-880), 19-23 (900-1291) PGD (NM_002631) 1-13 (1-484) PGR (NM_000926) 1-3 (1-636), 4 (650-732) PHF6 (NM_032458) 2-5 (1-140), 6 (144-189), 7 (203-229), 8-9 (244-323) PHOX2B (NM_003924) 1-3 (1-315) AQI8T9J (NM_002646) 3-34 (1-1635) SBV5C6X (NM_001288772) 3-4 (227-307), 5 (317-335), 7-9 (380-465), 11 (477-542), 14 (627-665), 15 (679-681), 15 (683-695), 16 (709-772), 20 (896-931), 24 (1066), 24 (8749-2483), 27-28 (7522-1704), 32 (6728-8369) PIK3C3 (NM_002647) 1 (1-23), 2 (27-75), 3 (89-134), 6 (207-238), 10 (335-387), 11-12 (391-472), 14-15 (495-569), 17-21 (614-755), 22 (768-799), 24 (842-883) PIK3CA (NM_006218) 2-9 (1-513), 10 (527-550), 11-15 (555-765), 16 (767-804), 18-21 (832-1069) PIK3CB (NM_006219) 3-24 (1-1071) PIK3CD (NM_005026) 3-24 (1-1045) PIK3CG (NM_002649) 2 (1-665), 3 (674-679), 4 (702-756), 5-11 (763-1086) PIK3R1 (NM_181523) 2-5 (1-212), 6-7 (216-306), 12-16 (476-725) PIK3R2 (NM_005027) 2-16 (1-729) PIK3R3 (NM_003629) 1-10 (1-462) PIM1 (NM_002648) 1-6 (1-314) PLCG1 (NM_002660) 1-32 (1-1292) PLCG2 (NM_002661) 2-33 (1-1266) PLK2 (NM_006622) 1-4 (1-209), 5 (214-238), 6-8 (242-384), 9-13 (388-622), 14 (625-684) PMAIP1 (NM_021127) 1-2 (1-55) PML (NM_033238) 1 (1-38), 2-9 (44-883) PMS1 (NM_000534) 2-4 (1-140), 6-10 (195-781), 11 (798-811), 12-13 (825-933) PMS2 (NM_000535) 1-14 (1-815) PNKP (NM_007254) 2-17 (1-522) PNRC1 (NM_006813) 1-2 (1-328) POLA1 (NM_001330360) 1-2 (1-56), 3 (60), 3 (62-81), 5-13 (116-464), 16-19 (563-680), 20 (702), 20 (704-711), 24-26 (856-983), 27-29 (989-1099), 32 (2776-8160), 35-37 (8043-5097) POLD1 (NM_002691) 2-27 (1-1108) POLE (NM_006231) 1-49 (1-2286) POLQ (NM_199420) 1-19 (1), 20 (8115-6532), 21-30 (6665-6686) PPARG (NM_015869) 2-3 (28-160), 5-7 (207-506) PPM1D (NM_003620) 1-6 (1-606) TKV4T5E (NM_014225) 1-15 (1-590) SWY4Q6S (NM_002717) 1 (1-3), 2 (11-17), 4 (61-116), 6-7 (154-268), 8 (280-317), 10 (355-448) PPP4R4 (NM_058237) 1-2 (1-64), 4 (119-123), 4 (125-126), 4 (129-130), 5-8 (148-285), 13-14 (449-537), 16-22 (573-793), 24-25 (817-867), 25 (869-874) PPP6C (NM_002721) 1-7 (1-306) PRC1 (NM_003981) 1-15 (1-621) PRDM1 (NM_001198) 1-7 (1-826) PREX2 (NM_024870) 1-3 (1-112), 6-7 (182-280), 9-11 (315-447), 14-29 (498-1199), 30 (0989-5743), 31-34 (3936-1073), 35 (2492-6707), 36-40 (4867-3283) PRG4 (NM_005807) 2-5 (1-146), 6-7 (157-477), 7 (480-617), 7-10 (653-1265), 11 (4943-5476), 12 (3628-5885), 13 (2351-4236) MADVP2Z (NM_212472) 2-7 (1-236), 9-11 (257-382) PRKCI (NM_002740) 1-18 (1-597) PRKDC (NM_006904) 1-87 (1-4128) PRKN (NM_004562) 1-12 (1-466) PTCH1 (NM_000264) 1-23 (1-1448) PTEN (NM_000314) 1 (1-27), 5-7 (85-267), 8-9 (285-404) PTK2 (NM_001352701) 3-5 (1-150), 6-7 (153-188), 8-36 (198-1097) PTPN11 (NM_002834) 1-15 (1-594) PTPRB (NM_001109754) 1-34 (1-2216) PTPRD (NM_002839) 12 (1-22), 21 (321-515), 22 (529-547), 23 (560-608), 24 (627-703), 25-28 (710-1019), 29-30 (0844-3044), 34 (1315), 36 (6249-9899), 44 (6326-0684) PTPRS (NM_002850) 2-38 (1-1949) PTPRT (NM_133170) 1-8 (1-484), 10-12 (521-043), 14-32 (056-1461) QKI (NM_006775) 1 (1-48), 3-8 (96-342) RAB35 (NM_006861) 1-6 (1-202) RAC1 (NM_006908) 1-6 (1-193) RAD21 (NM_006265) 2 (13-35), 5-6 (125-230), 7 (233-272), 8-12 (280-539), 13-14 (541-632) RAD50 (NM_005732) 1-5 (1-252), 6 (258-295), 7 (299-351), 8-10 (354-545), 11 (556-595), 12 (599), 12-19 (601-1012), 20 (2949-4656), 21-25 (4226-5039) RAD51 (NM_002875) 2-10 (1-340) ZAA20HB9 (NM_006479) 1-6 (1-186), 7 (193-227), 9 (311), 9 (314-315) RAD51B (NM_133509) 2-5 (1-151), 6 (162-180), 7-10 (201-346) RAD51C (NM_002876) 1-2 (1-136) RAD51D (NM_133629) 1-7 (1-217) RAD52 (NM_134424) 2-12 (1-419) RAD54L (NM_003579) 1-18 (1-748) RAF1 (NM_002880) 2-17 (1-649) CHE (NM_000964) 2-9 (1-463) RASA1 (NM_002890) 1 (1-180), 5-6 (300-350), 14-18 (594-829), 19 (844-855), 20 (868-897), 24-25 (976-1048) RB1 (NM_000321) 1-2 (1-88), 4 (127-167), 8 (240-287), 10-14 (314-463), 16 (474-500), 19-20 (605-702), 22-23 (743-830), 25 (846-884), 26 (890-903), 27 (905-929) RBM10 (NM_005676) 2-24 (1-931) RECQL4 (NM_004260) 1-22 (1-1209) REL (NM_002908) 1-8 (1-308), 10-11 (340-620) RET (NM_020975) 1-20 (1-1115) REV3L (NM_001372078) 1 (1-47), 4 (167-169), 4 (157), 4 (159-163), 5-12 (189-533), 13 (2634-9020), 13 (1327), 13 (1322), 13 (9269-5386), 13 (1454-0905), 13 (0541-3026), 13 (0382-9207), 13 (1042), 13 (1038), 13 (533-970), 13 (7149-0899), 14 (4202-4249), 16-32 (9994-1119) RFC1 (NM_002913) 1-25 (1-1148) RFC2 (NM_181471) 1-11 (1-355) RFC3 (NM_002915) 1 (1-29), 5-7 (131-270) RFC4 (NM_181573) 2-11 (1-364) RFC5 (NM_007370) 1-11 (1-341) RHEB (NM_005614) 1-8 (1-185) RHOA (NM_001664) 2-5 (1-194) RICTOR (NM_152756) 1-4 (1-87), 6 (131-152), 8-15 (195-433), 21-25 (628-833), 34 (8951-9318), 35-38 (0395-4712) RIF1 (NM_018151) 2-22 (1-867), 23-30 (870-1504), 30 (4255-1144), 30 (7664-1206), 30 (1888), 30-33 (1643-1481), 35-36 (1025-4036) RIT1 (NM_006912) 2-6 (1-220) RMI2 (NM_152308) 1-2 (1-148) RNF43 (NM_017763) 2-10 (1-784) ROS1 (NM_002944) 1-3 (1-76), 4 (86-89), 4 (81-83), 5-8 (97-286), 12-16 (421-832), 17-19 (836-991), 20 (995-1040), 22 (8948-2839), 23-27 (4850-6953), 32-33 (7744-1332), 35-36 (9683-1540), 42-43 (3596-2378) RPA1 (NM_002945) 1-17 (1-617) RPA2 (NM_002946) 1-9 (1-271) RPA3 (NM_002947) 5-8 (1-122) RPA4 (NM_013347) 1 (1-262) WFM3NW2 (NM_003942) 1-17 (1-773) XOQ5CX2 (NM_003161) 1-15 (1-526) QSO0SC7 (NM_003952) 1-15 (1-483) RPTOR (NM_020761) 1-34 (1-1336) RSPO1 (NM_001242908) 3-7 (1-264) RSPO2 (NM_178565) 2-3 (1-95), 4 (113-132), 5-6 (143-244) RUNX1 (NM_001754) 2-4 (1-117), 6-9 (170-481) YLUG1F6 (NM_175635) 2-9 (1-405), 10-11 (413-568) RYBP (NM_012234) 1-4 (1-219) SDHA (NM_004168) 1-15 (1-665) SDHAF2 (NM_017841) 1-4 (1-167) SDHB (NM_003000) 1-8 (1-281) SDHC (NM_003001) 1-6 (1-170) SDHD (NM_003002) 1-4 (1-160) SESN1 (NM_014454) 1 (1-93), 2 (95-114), 6-10 (325-552) SETBP1 (NM_015559) 2-6 (1-1597) SETD2 (NM_014159) 1-2 (1-29), 3 (1463), 3 (1461), 3 (5122-4722), 3 (5862-3879), 3 (708-709), 3 (667-706), 3 (663), 3 (653), 3 (650), 3 (30-571), 3 (573-574), 4-21 (1428-6899) SF3B1 (NM_012433) 1-13 (1-602), 14 (604-648), 14 (650-653), 21-25 (6413-7191) SGK1 (NM_005627) 1-12 (1-432) SH2B3 (NM_005475) 2-8 (1-576) SH2D1A (NM_002351) 1-2 (1-67) SHLD1 (NM_152504) 2-3 (1-206) SHLD2 (NM_001330112) 3 (1-291), 3-4 (346-542), 5 (545-610), 7-10 (655-905) SHPRH (NM_001042683) 9-14 (644-1038), 22 (1441-1036), 23-25 (4191-5152), 28 (5014-5684), 28 (9144-6781), 29-30 (9866-2388) SHQ1 (NM_018130) 1-5 (1-200), 6 (204-230), 8 (300), 8 (302-307), 9-11 (313-578) USZ99V1 (NM_006424) 2-13 (1-691) SLIT2 (NM_004787) 1 (1-60), 2 (65-84), 8 (204-259), 10-17 (305-561), 18-20 (563-715), 25-26 (830-909), 30-33 (7140-3929), 35-37 (8905-7400) SLX4 (NM_032444) 2-15 (1-1835) SMAD2 (NM_005901) 2-3 (1-109), 6-8 (219-333), 11 (427-468) SMAD3 (NM_005902) 1-9 (1-426) SMAD4 (NM_005359) 2-4 (1-152), 5-12 (158-553) SMARCA2 (NM_003070) 2-4 (1-264), 5 (290-349), 7-18 (392-923), 20-23 (962-1094), 24-27 (8836-9646), 29-34 (1769-8442) SMARCA4 (NM_003072) 2-35 (1-1648) SMARCAD1 (NM_020159) 2-4 (1-179), 6 (202-235), 8-9 (270-427), 11-23 (494-1007) SMARCB1 (NM_003073) 1-9 (1-386) SMARCD1 (NM_003076) 1-13 (1-516) SMC1A (NM_006306) 1-25 (1-1234) SMC3 (NM_005445) 1-21 (1-809), 22 (820-836), 23 (859-860), 23 (863-866), 24 (920-934), 25 (982-1031), 26-29 (0969-8300) SMC5 (NM_015110) 1-3 (1-127), 4 (132-175), 5-7 (182-327), 8 (329-351), 9 (353-429), 11-12 (489-558), 13 (569-594), 14-16 (603-758), 17-25 (762-1102) SMC6 (NM_001142286) 3-16 (1-577), 18-19 (616698), 20-24 (715-931), 25-28 (935-1092) SMO (NM_005631) 1-12 (1-788) SNCAIP (NM_005460) 2-5 (1-394), 7-11 (433-920) SOCS1 (NM_003745) 2 (1-212) SOS1 (NM_005633) 1-2 (1-71), 3 (97), 4-5 (116-240), 6-9 (249-401), 14-17 (723-926), 18-20 (931-1116), 22-23 (7646-0652) SOX10 (NM_006941) 2-4 (1-467) SOX17 (NM_022454) 1-2 (1-415) SOX2 (NM_003106) 1 (1-318) SOX9 (NM_000346) 1-3 (1-510) SPEN (NM_015001) 1-15 (1-3665) SPOP (NM_003563) 3-11 (1-375) SRC (NM_005417) 4-14 (1-537) SRSF2 (NM_003016) 1-2 (1-222) SSBP1 (NM_003143) 2-7 (1-149) STAG2 (NM_006603) 2-6 (1-154), 8-10 (223-339), 11-15 (343-512), 16 (530-545), 17-20 (547-699), 21-23 (716-786), 24 (806-830), 25-29 (845-1093), 30-32 (7491-2774) STAT3 (NM_139276) 2-24 (1-771) STAT4 (NM_003151) 4-5 (92-155), 7-21 (182-682), 24 (741-749) STAT5A (NM_003152) 3-20 (1-795) STAT5B (NM_012448) 2-19 (1-788) STK11 (NM_000455) 1-9 (1-434) STK19 (NM_004197) 1-7 (1-350) STK40 (NM_001282547) 2-11 (1-436) SUFU (NM_016169) 1 (1-9), 1-12 (18-485) SUZ12 (NM_015355) 1-16 (1-740) SYK (NM_003177) 2-14 (1-636) TBC1D4 (NM_014832) 1-3 (1-390), 6-10 (470-678), 11 (692-695), 11 (699-711), 12-13 (733-795), 15-17 (865-1052), 19 (5593-3381), 21 (0144-8457) TBX3 (NM_005996) 1-7 (1-724) TCF3 (NM_003200) 2-19 (1-655) TCF7L2 (NM_030756) 1-14 (1-597) MAYNOR (NM_000459) 1-5 (1-250), 6 (254-301), 8-9 (344-443), 11-12 (055-637), 14-15 (719-469), 17-21 (896-1067) TENT5C (NM_017709) 2 (1-392) TERC (NR_001566) 1 (1-151) TERT (NM_198253) 1-16 (1-1133) TET1 (NM_030625) 2-12 (1-2137) TET2 (NM_001127208) 3-6 (1-1268), 8-9 (6820-4723), 11 (8470-6638) TFE3 (NM_006521) 1-10 (1-576) TGFB1 (NM_000660) 1-7 (1-391) TGFBR1 (NM_004612) 1 (1-26), 2-9 (33-504) TGFBR2 (NM_003242) 1-2 (1-88), 3-7 (91-568) KAJZ286 (NM_017849) 2-4 (1-239) TMPRSS2 (NM_005656) 2-14 (1-493) TNF (NM_000594) 1-4 (1-234) TNFAIP3 (NM_006290) 2-9 (1-791) MZUYJG46 (NM_003820) 1-8 (1-284) TOP1 (NM_003286) 1-2 (1-20), 4-5 (52-112), 8-10 (172-284), 11-21 (291-766) TOP2A (NM_001067) 1-35 (1-1532) TOP3A (NM_004618) 1-19 (1-1002) TOPBP1 (NM_007027) 2-25 (1-1391), 27 (6927-1047), 28 (0642-5763) TP53 (NM_000546) 2-11 (1-394) ZX00UJ0 (NM_001141980) 1-10 (1-394), 11 (400-454), 12 (464-906), 15-16 (5870-2497), 18-24 (8089-8245), 25-28 (0120-3422) TP53I3 (NM_004881) 1-5 (1-333) TP63 (NM_003722) 1-14 (1-681) TRAF2 (NM_021138) 2-11 (1-502) TRAF7 (NM_032271) 2-21 (1-671) RCIYUO89 (NM_024941) 1-4 (1-100), 5 (109-132), 6-7 (143-182), 9-10 (189-299), 12-13 (333-418) TSC1 (NM_000368) 3-5 (1-121), 6 (131-157), 7-23 (170-1165) TSC2 (NM_000548) 2-42 (1-1808) TSHR (NM_000369) 1 (1-57), 4-10 (106-765) TTK (NM_003318) 2 (1-47), 11 (370-419), 13-14 (465-538), 18 (914-710), 19 (735-741) TYRO3 (NM_006293) 1-19 (1-891) U2AF1 (NM_006758) 1-8 (1-241) VEGFA (NM_003376) 1-8 (1-396) VHL (NM_000551) 1-3 (1-214) VTCN1 (NM_024626) 1-5 (1-283) WRN (NM_000553) 2-6 (1-218), 8-11 (242-477), 12 (488-513), 17-19 (643-758), 20 (764-811), 24-33 (942-1328), 35 (9661-9589) WT1 (NM_[id number]) 1-10 (1-523) XIAP (NM_[id number]) 2-6 (1-434), 7 (455-460), 7 (462-483) XPO1 (NM_003400) 2-12 (1-415), 13 (424-445), 14-25 (462-1072) XRCC2 (NM_[id number]) 1-3 (1-281) XRCC3 (NM_005432) 4-10 (1-347) XRCC4 (NM_[id number]) 2 (1-47), 4 (115-154), 5 (166-207) XRCC5 (NM_[id number]) 1-2 (1-45), 3 (48-107), 5 (138-147), 6-9 (164-350), 11-12 (372-444), 13-21 (448-733) XRCC6 (NM_[id number]) 2-13 (1-610) YAP1 (NM_[id number]) 1-3 (1-230), 5-9 (268-505) YES1 (NM_[id number]) 2-12 (1-544) ZFHX3 (NM_[id number]) 2-10 (1-3704) WHP261 (NM_[id number]) 1-4 (1-1049) FKK464 (NM_[id number]) 1-2 (1-591) ZRSR2 (NM_005089) 1-4 (1-104), 6-11 (134-483) E. APPENDIX References: 1.https://www.acces sdata.fda.gov/drugs atfda_docs/label//171635k584bfw.pd f, 2.https://aacrjourn als.org/cancerres/a rticle/82/12_Supple ment/CT022/546779, 3.https://pubmed.nc bi.nlm.nih.gov/3183 5844, 4.https://pubmed.nc bi.nlm.nih.gov/2000 9240, 5.https://pubmed.nc bi.nlm.nih.gov/9707 426, 6.https://pubmed.nc bi.nlm.nih.gov/9114 050, 7.https://pubmed.nc bi.nlm.nih.gov/1250 9279, 8.https://pubmed.nc bi.nlm.nih.gov/8080 050, 9.https://pubmed.nc bi.nlm.nih.gov/1518 6775, 10.https://pubmed.n cbi.nlm.nih.gov/185 65933, 11.https://pubmed.n cbi.nlm.nih.gov/296 37040, 12.https://pubmed.[facility].nih.gov/164 53190, 13.https://pubmed.[facility].nih.gov/125 96688, 14.https://pubmed.[facility].nih.gov/127 68154, 15.https://pubmed. [employer].nih.gov/306 39589, 16.https://pubmed.n [employer].nih.gov/335 54615, 17.https://pubmed.[facility].nih.gov/310 72793, 18.https://pubmed.[facility].nih.gov/155 55690, 19.https://pubmed.[facility].nih.gov/171 66149, 20.https://pubmed.[facility].nih.gov/155 45963, 21.https://pubmed.n [employer].nih.gov/257 05371, 22.https://pubmed.[facility].nih.gov/177 29358, 23.https://pubmed.[facility].nih.gov/163 16994, 24.https://pubmed.n [employer].nih.gov/255 60016, 25.https://pubmed.[facility].nih.gov/117 04199, 26.https://pubmed.n [employer].nih.gov/285 87163, 27.https://pubmed.n [employer].nih.gov/114 09870, 28.https://pubmed.[facility].nih.gov/273 02229, 29.https://pubmed.n [employer].nih.gov/257 44446, 30.https://pubmed.n [employer].nih.gov/292 17616, 31.https://pubmed.[facility].nih.gov/158 05096, 32.https://pubmed.n [employer].nih.gov/160 16293, 33.https://pubmed.n [employer].nih.gov/226 18719, 34.https://pubmed. [employer].nih.gov/320 72477, 35.https://pubmed.n [employer].nih.gov/119 60839, 36.https://pubmed. [employer].nih.gov/222 66275, 37.https://pubmed. [employer].nih.gov/171 43062, 38.https://pubmed. [employer].nih.gov/301 91366, 39.https://pubmed. [employer].nih.gov/225 34774, 40.https://pubmed. [employer].nih.gov/309 76458, 41.https://pubmed. [employer].nih.gov/168 20934, 42.https://pubmed. [employer].nih.gov/780 9597, 43.https://pubmed. [employer].nih.gov/278 45190, 44.https://pubmed. [employer].nih.gov/174 86694, 45.https://pubmed. [employer].nih.gov/318 01048, 46.https://pubmed.n [employer].nih.gov/113 88495, 47.https://pubmed.n [employer].nih.gov/291 13543, 48.https://pubmed.n [employer].nih.gov/215 99259, 49.https://pubmed.n [employer].nih.gov/249 23368, 50.https://pubmed.n [employer].nih.gov/147 52688, 51.https://pubmed.n [employer].nih.gov/238 34050, 52.https://pubmed.n [employer].nih.gov/268 48183, 53.https://pubmed.n [employer].nih.gov/270 97148, 54.https://pubmed.n [employer].nih.gov/244 95532, 55.https://pubmed.n [employer].nih.gov/100 21266, 56.https://pubmed. [employer].nih.gov/272 00859, 57.https://pubmed.n [employer].nih.gov/209 54377, 58.https://pubmed. [employer].nih.gov/240 32735, 59.https://pubmed. [employer].nih.gov/194 65287, 60.https://pubmed. [employer].nih.gov/976 6574, 61.https://pubmed. [employer].nih.gov/173 70671, 62.https://pubmed. [employer].nih.gov/191 29703, 63.https://pubmed. [employer].nih.gov/169 86122, 64.https://pubmed. [employer].nih.gov/110 93177, 65.https://pubmed. [employer].nih.gov/887 5926, 66.https://pubmed.n [employer].nih.gov/235 32433, 67.https://pubmed.n [employer].nih.gov/147 15467, 68.https://pubmed. [employer].nih.gov/306 85910, 69.https://pubmed.n [employer].nih.gov/827 6238, 70.https://pubmed.n [employer].nih.gov/195 03647, 71.https://pubmed.n [employer].nih.gov/106 46820, 72.https://pubmed.n [employer].nih.gov/205 72327, 73.https://pubmed.n [employer].nih.gov/158 21611, 74.https://pubmed.n [employer].nih.gov/151 74239, 75.https://pubmed.n [employer].nih.gov/119 74398, 76.https://pubmed.n [employer].nih.gov/158 53435, 77.https://pubmed.n [employer].nih.gov/295 80016, 78.https://pubmed.n cbi.nlm.nih.gov/110 19311, 79.https://pubmed.n [employer]nlm.nih.gov/300 37952, 80.https://pubmed.n [employer]nlm.nih.gov/173 77143, 81.https://pubmed.n [employer]nlm.nih.gov/225 31545, 82.https://pubmed.n [employer]nlm.nih.gov/115 85874, 83.https://pubmed.n [employer]nlm.nih.gov/221 76354, 84.https://pubmed.n [employer]nlm.nih.gov/236 27634, 85.https://pubmed.n [employer]nlm.nih.gov/255 29236, 86.https://pubmed.n [employer]nlm.nih.gov/327 05128, 87.https://pubmed.n [employer]nlm.nih.gov/303 38516, 88.https://pubmed.n [employer]nlm.nih.gov/279 87379, 89.https://pubmed.n [employer]nlm.nih.gov/296 03594, 90.https://pubmed.n [employer]nlm.nih.gov/252 04077, 91.http://[employer]/index.php /[id number]/Anti bodies/Opdivo-Alone -mn-Spvnqkkb-vfgn-Y eausn-Vzmef-Qnbsuhe zoni-Lohonpue-mwu-S hfreauk-Hgxmf-nh-Re dnncaev-Vjksb-Vwzr- Ldgu-Pcjeew-Cnpowii l-rnoz-Zpab-Tumor-M ekewadm-Dfvoaa-hv-E xploratory.html, 92.http://ascopubs. org/doi/abs/10.1200 /JCO.2017.35.15_sup pl.u21447, 93.https://aacrjour nals.org/cancerres/ article/82/12_Suppl ement/CT022/264222/ Lxkoacbs-WB231-Wbmu hKvfg-696-V-randomi zed-open Table 1: Covered genes of interest for SNVs, INDELs and CNVs ABL1 BRCA1 CTNNA1 ETV4 GNA13 IRF2 MGMT PAXX PTPN11 SDHC MAYNOR ABL2 BRCA2 CTNNB1 ETV5 GNAQ IRF4 MITF PBRM1 PTPRB SDHD TENT5C ABRAXAS1 BRD4 CUL3 ETV6 GNAS IRS1 MLH1 PCNA PTPRD SESN1 TERC* ACVR1 BRIP1 CUL4A EWSR1 GPS2 IRS2 MLH3 PDCD1 PTPRS SETBP1 TERT^ ACVR1B BTG1* CUL4B EXO1 GRIN2A JAK1 MPL GGCZ8RL3 PTPRT SETD2 TET1 ACVR2A BTG2* CUX1 EZH2 GRM3 JAK2 MRE11 PDGFB QKI SF3B1 TET2 ADGRA2 BTK CXCR4 FADD GSK3B JAK3 MSH2 PDGFRA RAB35 SGK1 TFE3 AJUBA BUB1 CYLD FANCA H1-2* TRISHA MSH3 PDGFRB RAC1 SH2B3 TGFB1 AKT1 CALR NYN1A65 FANCC H2AX* KAT6A MSH6 PDK1 RAD21 SH2D1A TGFBR1 AKT2 CARD11 DAXX FANCD2 H2BC5* KDM5A MST1 PER1 RAD50 SHLD1 TGFBR2 AKT3 CASP8 NCAHI0J FANCE H3-3A* KDM5C MST1R PGD RAD51 SHLD2 EJET276 AKTIP CBFB UHAD2R2 FANCF H3-3B* KDM6A MTAP PGR DQK16MB1 SHPRH TMPRSS2 ALK CBL DDB1 FANCG H3-4* KDR MTOR PHF6 RAD51B SHQ1 TNF DJGP33K CCN6 DDR1 FANCI H3-5* KEAP1 MUTYH PHOX2B RAD51C OCX26W6 TNFAIP3 AMER1 CCNA2 DDR2 FANCL H3C1* DEON MXD4 FYH4Y1O RAD51D SLIT2 GANVIE34 ANKRD11 CCND1 DDX3X FANCM H3C10* KIT MYB WTA3X5H RAD52 SLX4 TOP1 APC CCND2 DICER1 FAS H3C11* KLF4 MYC PIK3C3 RAD54L SMAD2 TOP2A AR CCND3 DIS3 FAT1 H3C12* KLHL6 MYCL PIK3CA RAF1 SMAD3 TOP3A ARAF CCNE1 DLL3 FBXW7 H3C13* KMT2A MYCN PIK3CB CHE SMAD4 TOPBP1 ARFRP1 CD274 DNA2 FGF10 H3C2* KMT2B MYD88 PIK3CD RASA1 SMARCA2 TP53 ARID1A CD276 DNAJB1 FGF14 H3C3* KMT2C MYOD1 PIK3CG RB1 SMARCA4 QU47HM7 ARID1B CD74 DNMT1 FGF19 H3C4* KMT2D NBN PIK3R1 RBM10 SMARCAD1 TP53I3 ARID2 CD79A DNMT3A FGF23 H3C6* KNSTRN NCOA3 PIK3R2 RECQL4 SMARCB1 TP63 ARID5B CD79B DNMT3B FGF3 H3C7* KRAS NCOR1 PIK3R3 REL SMARCD1 TRAF2 ASCC3 CD8A DOT1L FGF4 H3C8* LATS1 NEGR1 PIM1 RET SMC1A TRAF7 ASPM CDC20 E2F3 FGF5 HDAC2 LATS2 NF1 PLCG1 REV3L SMC3 YITEBP06 ASXL1 CDC27 EED FGF6 HDAC9 LCK NF2 PLCG2 RFC1 SMC5 TSC1 ASXL2 CDC6 EGFL7 FGF9 HELQ LIG4 NFE2L2 PLK2 RFC2 SMC6 TSC2 RICKIE CDC73 EGFR FGFR1 HERC2 LMO1 NFKBIA PMAIP1* RFC3 SMO TSHR ATR CDH1 EIF1AX FGFR2 HFM1 LRP1B NHEJ1 PML RFC4 SNCAIP TTK ATRX CDK12 EIF4A2 FGFR3 HGF TIMOTHY NKX2-1 PMS1 RFC5 SOCS1 TYRO3 AURKA CDK2 EIF4E FGFR4 HLA-A MAD2L2 NKX3-1 PMS2 RHEB SOS1 U2AF1 AURKB CDK4 ELF3 FH HNF1A MAGOH NOTCH1 PNKP RHOA SOX10 VEGFA AURKC CDK6 ELOC FLCN HOXB13 MALT1 NOTCH2 PNRC1 RICTOR SOX17 VHL AXIN1 CDK8 EMSY FLT1 HRAS MAP2K1 NOTCH3 POLA1 RIF1 SOX2 VTCN1 AXIN2 CDKN1A ENO1 FLT3 HSD3B1 MAP2K2 NOTCH4 POLD1 RIT1 SOX9 WRN ANJALI CDKN1B EP300 FLT4 MDN06MT6 MAP2K4 NPM1 POLE RMI1 SPEN WT1 B2M CDKN2A EPCAM FOXA1 [id number] MAP2K7 NRAS POLQ RMI2* SPOP XIAP BAP1 CDKN2B EPHA2 FOXL2 ICOSLG MAP3K1 NSD1 PPARG RNF43 SRC XPO1 BARD1 CDKN2C* EPHA3 FOXO1 ID3* VDX4H98 NSD3 PPM1D ROS1 SRSF2 XRCC2 BBC3 CEBPA EPHA5 FOXP1 IDH1 XUK0U59 NT5C2 JMK9I4G RPA1 SSBP1 XRCC3 BCL10 CENPA EPHA7 FRS2 IDH2 MAP3K4 NTRK1 KPF5G5A RPA2 STAG2 XRCC4 BCL11A CENPE EPHB1 FTO IFNGR1 MAPK1 NTRK2 DYU8M5P RPA3* STAT3 XRCC5 BCL2 CHAF1A ERBB2 FUBP1 IGF1 MAPK3 NTRK3 PPP4R4 RPA4 STAT4 XRCC6 BCL2L1 CHEK1 ERBB3 FYN IGF1R MAPK8 NUP93 PPP6C SRM1ZT1 STAT5A YAP1 MDV5T60 CHEK2 ERBB4 GABRA6 IGF2 MAX NUTM1 PRC1 XFR7XC0 STAT5B YES1 BCL2L2* CIC ERCC1 KARL88H IKBKE MCL1 PAK1 PRDM1 QLI7KX5 STK11 ZFHX3 BCL6 COL2A1 ERCC2 GATA1 IKZF1 MDC1 PAK3 PREX2 RPTOR STK19 SSO560 BCOR COP1 ERCC3 GATA2 IL10 MDM2 PAK5 PRG4 RSPO1 STK40 HNC213 BCORL1 CREBBP ERCC4 GATA3 IL7R MDM4 PALB2 RLJMZ7B RSPO2 SUFU ZRSR2 BCR CRKL ERCC5 GATA4 INHA MED12 PARP1 PRKCI RUNX1 SUZ12 BIRC2 CRLF2 ERCC6 GATA6 INHBA MEF2B PARP2 PRKDC QIUH6O2 SYK BIRC3 CSF1R ERG GEN1 INO80 MEN1 PARP3 PRKN RYBP TBC1D4 BLM CSF3R ERRFI1 GID4 INPP4A MERTK PARP4 PTCH1 SDHA TBX3 BMPR1A CTCF ESR1 GLI1 INPP4B MET PARPBP PTEN SDHAF2 TCF3 BRAF CTLA4 ETV1 GNA11 INSR MGA PAX5 PTK2 SDHB TCF7L2 *Gene not included for CNV reporting, ^ Includes promoter region, ncRNA Gene Table 2. Genes with select intronic regions for the detection of DNA-based gene rearrangements ALK introns: 18-19 BRCA2 introns: 2 ETV4 introns: 5-6 EZR introns: 9-11 KIT introns: 16 MYB introns: 14 NTRK2 introns: 12 CHE introns: 2 SDC4 introns: 2 BCR introns: 7-10 CD74 introns: 6-8 ETV5 introns: 6-7 FGFR1 introns: 1,5,17 KMT2A introns: 6-11 MYC introns: 1 NUTM1 introns: 1 RET introns: 7-11 SML37E8 introns: 4 BRAF introns: 7-10 EGFR introns: 7,15,24-27 ETV6 introns: 5-6 FGFR2 introns: 1,17 MET* introns 13,14 NOTCH2 introns: 26 PDGFRA introns: 7,9,11 ROS1 introns: 31-35 TMPRSS2 introns: 1-3 BRCA1 introns: 2,7-8,12,16,19-20 EML4 introns: 6,13 EWSR1 introns: 7-13 FGFR3 introns: 17 MSH2 introns: 5 NTRK1 introns: 8-10 RAF1 introns: 4-8 RSPO2 introns: 1 *Targeted for MET exon 14 skipping assessment DISCLAIMER: This test was developed and its performance characteristics determined by the Molecular Diagnostic Laboratory (MDL) at the [facility]. It has not been cleared by the U.S. Food and Drug Administration. However, such approval is not required for clinical implementation, and the test results on the ordered genes have been shown to be clinically useful. This laboratory is CAP accredited and CLIA certified to perform high complexity molecular testing for clinical purposes. 09/16/2024 4:40 PM CDT [facility] Pathologist Signature . Test performed on 09/16/2024 09/16/2024 4:40 PM CDT [facility] Microsatellite Instability (MSI) by NGS MSI-Stable 09/16/2024 4:40 PM CDT [facility] Tumor Mutational [place] (TMB) 13 mut/Mb 09/16/2024 4:40 PM CDT [facility] Tissue Non-blood Collection / Unknown 09/06/2024 12:21 PM CDT 09/06/2024 12:21 PM CDT Narrative This result has genomic variants that were not included in this document. us Keysha Lou APRN [facility] MOLECULAR BIOMARKER S Final Result [facility] [address] [address], MOLECULAR DIAGNOSTICS [facility] Molecular Diagnostics Laboratory [address] [place] [address] * Solid Tumor Genomic Assay Fusions 2018 Interpretation and Report (09/06/2024 12:21 PM CDT) Source Material [id number] 2:41 PM CDT [facility] Tumor Block A1 09/23/2024 2:41 PM CDT [facility] Interpretation The Tumor RNA obtained is inadequate for analysis using the Solid Tumor Genomic Assay Fusions 2018 (STGA Fusions 2018). RNA extraction attempted twice. Test cancelled. No results. 09/23/2024 2:41 PM CDT [facility] Pathologist Signature . Test performed on 09/23/2024 09/23/2024 2:41 PM CDT [facility] Tissue Non-blood Collection / Unknown 09/06/2024 12:21 PM CDT 09/06/2024 12:21 PM CDT us Keysha Lou [employer]ER [employer] S[employer]ENER [facility] BIOMARKER S Final Result [facility] DIAGNOST[facility] Molecular Diagnostics Laboratory [address] [place] [address] [facility] [address] [place] [address], [place] * Urinalysis with Microscopic (09/06/2024 11:00 AM CDT) Urine Appearance Clear Clear 09/07/19 11:27 AM CDT [facility] Comment:This result was prev iously suppressed from the chart. Urine Color Straw Colorless, Straw, Yellow, Dark Yellow, Straw-Yellow 09/06/2024 11:27 AM CDT [facility] Comment:This result was prev iously suppressed from the chart. Urine Specific [place] 1.023 1.003 - 1.035 09/06/2024 11:27 AM CDT [facility] Comment:This result was prev iously suppressed from the chart. Urine pH 6.0 5.0 - 8.0 09/06/2024 11:27 AM CDT [facility] Comment:This result was prev iously suppressed from the chart. Urine Glucose Negative Negative mg/dL 09/06/2024 11:27 AM CDT [facility] Comment:This result was prev iously suppressed from the chart. Urine Ketones Negative Negative mg/dL 09/06/2024 11:27 AM CDT [facility] Comment:This result was prev iously suppressed from the chart. Urine Blood Negative Negative 09/06/2024 11:27 AM CDT [facility] Comment:This result was prev iously suppressed from the chart. Urine Protein Negative Negative mg/dL 09/06/2024 11:27 AM CDT [facility] Comment:This result was prev iously suppressed from the chart. Urine Bilirubin Negative Negative 11:27 AM CDT [facility] Urine Urobilinogen Negative Negative 09/06/2024 11:27 AM CDT [facility] Urine Nitrite Negative Negative 09/06/2024 11:27 AM CDT [facility] Comment:This result was prev iously suppressed from the chart. Urine Leukocyte Esterase Negative Negative 09/06/2024 11:27 AM CDT [facility] Comment:This result was prev iously suppressed from the chart. Urine WBC 1 <=2 /HPF 09/06/2024 11:27 AM CDT [facility] Urine RBC 1 <=2 /HPF 09/06/2024 11:27 AM CDT [facility] Urine Mucous Trace Not Seen, Trace /HPF 09/06/2024 11:27 AM CDT [facility] Comment:This result was prev iously suppressed from the chart. Urine Bacteria Not Seen Not Seen /HPF 09/06/2024 11:27 AM CDT [facility] Comment:This result was prev iously suppressed from the chart. Urine Squamous Epithelial Cells Not Seen Not Seen, OCC, Rare /HPF 09/06/2024 11:27 AM CDT [facility] Comment:This result was prev iously suppressed from the chart. Urine Hyaline Casts 1 <=2 /LPF 09/06/2024 11:27 AM CDT [facility] Urine Voided urine specimen / Unknown Non-blood Collection / Unknown 09/06/2024 11:00 AM CDT 09/06/2024 11:07 AM CDT Narrative [facility] - 09/06/2024 11:27 AM CDT Some reporting parameters within the Urinalysis test have changed due to the implementation of new instrumentation in the Main [place], allowing greater sensitivity of measurement. Urinalysis results reported by the [facility] using existing instrumentation, as well as Urinalysis testing performed manually or by back-up methodology at the main mason, will remain relatively unchanged. New reporting parameters and units will now be reported for all campuses. Keysha Lou SNUFF GRINDER [employer] SCREENER URINE ORDERABLES Final Res ult Performing Organization Address City/[facility]/ZIP Co de Phone Number [facility] Unless otherwise noted, all lab tests performed by: Division of Pathology and Laboratory Medicine [address] [place] [id number] * Urine Culture (09/06/2024 11:00 AM CDT) Urine Culture Normal site jaxon present. Generally of low significance. Correlate with clinical data and culture history. 09/08/2024 7:54 AM CDT [facility] Urine Voided urine specimen / Unknown Non-blood Collection / Unknown 09/06/2024 11:00 AM CDT 09/06/2024 11:07 AM CDT us Keysha Lou SNUFF GR[employer]ER [employer] SCREENER MICROBIOLOGY - GENERAL ORD ERABLES Final Result Performing Organization Address [facility] Co de Phone Number [facility] Unless otherwise noted, all lab tests performed by: Division of Pathology and Laboratory Medicine [address] [place] [id number] * US Renal (09/06/2024 10:27 AM CDT) Anatomical Region Laterality Modality Abdomen Ultrasound 09/06/2024 10:2 9 AM CDT Impressions 09/06/2024 11:14 AM CDT 1. No hydronephrosis. 2. Renal echogenicity is normal to mildly increased bilaterally. No atrophy or cortical thinning. 3. Small bilateral simple renal cysts (some proteinaceous or hemorrhagic on prior CT). ACTIONABLE ITEMS/RECOMMENDATIONS*: None. *An Actionable Finding is a finding that may be unrelated to the original reason for imaging but potentially actionable, meaning further investigation may be necessary. The Actionable Findings Vigilance Unit (AFVU) assists medical providers with responding to additional radiologic findings that are unexpected and potentially actionable. I personally reviewed these image(s) along with the resident's/fellow's interpretations, certify that if a procedure was performed I was physically present, and agree with the final report. Narrative 09/06/2024 11:14 AM CDT Examination: US RENAL on 09/06/2024 10:27 AM. 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 Indication: Increased Creatinine Level. Comparison: PET/CT dated 08/26/[address] from 06/07/2024. TECHNIQUE: Dedicated sonographic evaluation of the bilateral kidneys was obtained. FINDINGS: Left Kidney: The left kidney measures 11.1 cm in length. Few small cysts demonstrate posterior acoustic enhancement and measure up to 1.4 x 1.2 x 1.7 cm in the lower pole. Some of these cysts appeared proteinaceous or hemorrhagic on prior CT. No hydronephrosis, suspicious mass, or shadowing nephrolithiasis. There is preservation of corticomedullary differentiation. No cortical thinning. Renal echogenicity is normal to mildly increased. Right Kidney: The right kidney measures 11.5 cm in length. Few small hypoechoic cysts demonstrate posterior acoustic enhancement and measure up to 1.6 x 1.5 x 1.3 cm in the upper pole. The cyst in the upper pole appeared proteinaceous or hemorrhagic on prior CT. No hydronephrosis, suspicious mass, or nephrolithiasis. Punctate parenchymal calcification is seen within the right lower renal pole. There is preservation of corticomedullary differentiation. No cortical thinning. Renal echogenicity is normal to mildly increased. Bladder: Urinary bladder is predominantly decompressed. Procedure Note Max Del Real MD - 09/06/2024 Examination: US RENAL on 09/06/2024 10:27 AM. Clinical History: Squamous cell carcinoma of bronchus in right upperlobe Renal function tests outside reference range. Indication: Increased Creatinine Level. Comparison: PET/CT dated 08/26/[address] from 06/07/2024. TECHNIQUE: Dedicated sonographic evaluation of the bilateral kidneys wasobtained. FINDINGS: Left Kidney: The left kidney measures 11.1 cm in length. Few small cystsdemonstrate posterior acoustic enhancement and measure up to 1.4 x 1.2 x1.7 cm in the lower pole. Some of these cysts appeared proteinaceous orhemorrhagic on prior CT. No hydronephrosis, suspicious mass, or shadowingnephrolithiasis. There is preservation of corticomedullarydifferentiation. No cortical thinning. Renal echogenicity is normal tomildly increased. Right Kidney: The right kidney measures 11.5 cm in length. Few smallhypoechoic cysts demonstrate posterior acoustic enhancement and measure upto 1.6 x 1.5 x 1.3 cm in the upper pole. The cyst in the upper poleappeared proteinaceous or hemorrhagic on prior CT. No hydronephrosis,suspicious mass, or nephrolithiasis. Punctate parenchymal calcification isseen within the right lower renal pole. There is preservation ofcorticomedullary differentiation. No cortical thinning. Renal echogenicityis normal to mildly increased. Bladder: Urinary bladder is predominantly decompressed. IMPRESSION: 1. No hydronephrosis. 2. Renal echogenicity is normal to mildly increased bilaterally. Noatrophy or cortical thinning. 3. Small bilateral simple renal cysts (some proteinaceous or hemorrhagicon prior CT). ACTIONABLE ITEMS/RECOMMENDATIONS*: None. *An Actionable Finding is a finding that may be unrelated to the originalreason for imaging but potentially actionable, meaning furtherinvestigation may be necessary. The Actionable Findings Vigilance Unit(AFVU) assists medical providers with responding to additional radiologicfindings that are unexpected and potentially actionable. I personally reviewed these image(s) along with the resident's/fellow'sinterpretations, certify that if a procedure was performed I wasphysically present, and agree with the final report. us Keysha Lou APRN IMG US ORDERABLES Final Re sult * US Fine Needle Aspiration (09/06/2024 9:50 AM CDT) Anatomical Region Laterality Modality Ultrasound 09/06/2024 9:04 AM CDT Impressions 09/06/2024 10:16 AM CDT 1. Right inferior/supraclavicular adenopathy and multifocal adenopathy in the left supraclavicular and mid - inferior posterior neck. This corresponds adenopathy seen on PET/CT. 2. Ultrasound and fine-needle aspiration was performed of a 1.1 cm left mid posterior neck node. Preliminary cytology demonstrates metastatic carcinoma. Final cytology result is pending. ACTIONABLE ITEMS/RECOMMENDATIONS*: None. *An Actionable Finding is a finding that may be unrelated to the original reason for imaging but potentially actionable, meaning further investigation may be necessary. The Actionable Findings Vigilance Unit (AFVU) assists medical providers with responding to additional radiologic findings that are unexpected and potentially actionable. Narrative 09/06/2024 10:16 AM CDT FULL RESULT: Examination: US HEAD NECK SOFT TISSUE, US FINE NEEDLE ASPIRATION on 09/06/2024 9:50 AM. 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 TECHNIQUE: Grayscale and color Doppler ultrasound of the neck was performed. FINDINGS: Right Lateral Neck: Right supraclavicular adenopathy is seen measuring 1.9 x 1.1 x 0.9 cm and 1.1 x 1.3 0.8 cm corresponding to FDG avidity on PET/CT Left Lateral Neck: Multifocal left neck adenopathy is seen corresponding to FDG avid nodes seen on PET/CT. This includes: * Multifocal left supra clavicular adenopathy measuring 1.3 x 1 x 0.9 cm and 1 x 0.8 x 0.6 cm and 1 x 1 x 0.5 cm. * Left posterior mid neck adenopathy measuring 1.4 x 1.1 x 0.9 cm. This was chosen for biopsy. * Multifocal left inferior posterior neck adenopathy measuring 0.9 x 0.9 x 0.7 cm, 1 x 1.1 x 0.6 cm and 2.9 x 0.8 x 0.7 cm. Submental to Cricoid: No adenopathy. PROCEDURE: Site: Left posterior mid neck node measuring 1.4 x 1.1 x 0.9 cm Provider performing procedure: Irma Winston Procedure veterinary assistant: None Procedure details: The procedure(s) and associated risks, benefits, and alternatives were discussed with the patient, who agreed to proceed and signed an informed consent form. A safety timeout was done to verify the patient's identity, review any allergies, and confirm the side and site of the procedure. The skin site was prepped aseptically. Medication: local anesthesia with Lidocaine 1% Fine needle aspiration of the left posterior mid neck node was performed using a 20-gauge needle. Number passes made: 2 separate passes were Estimated blood loss: Minimal Specimens removed: Yes Immediate Complications: None Post-procedure Diagnosis: Unchanged Disposition: The post-biopsy instructions were reviewed with the patient. The patient was discharged from Neurointerventional Ultrasound in good condition. Procedure Note Irma Winston MD - 09/06/2024 FULL RESULT: Examination: US HEAD NECK SOFT TISSUE, US FINE NEEDLE ASPIRATION on09/06/2024 9:50 AM. CLINICAL HISTORY: Squamous cell carcinoma of bronchus in right upperlobe INDICATION: Abnormal Lymph Node COMPARISON: PET/CT 08/26/2024. TECHNIQUE: Grayscale and color Doppler ultrasound of the neck wasperformed. FINDINGS: Right Lateral Neck: Right supraclavicular adenopathy is seen measuring 1.9 x 1.1 x 0.9 cm and1.1 x 1.3 0.8 cm corresponding to FDG avidity on PET/CT Left Lateral Neck: Multifocal left neck adenopathy is seen corresponding to FDG avid nodesseen on PET/CT. This includes: * Multifocal left supra clavicular adenopathy measuring 1.3 x 1 x 0.9 cmand 1 x 0.8 x 0.6 cm and 1 x 1 x 0.5 cm. * Left posterior mid neck adenopathy measuring 1.4 x 1.1 x 0.9 cm. Thiswas chosen for biopsy. * Multifocal left inferior posterior neck adenopathy measuring 0.9 x 0.9x 0.7 cm, 1 x 1.1 x 0.6 cm and 2.9 x 0.8 x 0.7 cm. Submental to Cricoid: No adenopathy. PROCEDURE: Site: Left posterior mid neck node measuring 1.4 x 1.1 x 0.9 cm Provider performing procedure: Irma Winston Procedure veterinary assistant: None Procedure details: The procedure(s) and associated risks, benefits, and alternatives werediscussed with the patient, who agreed to proceed and signed an informedconsent form. A safety timeout was done to verify the patient's identity, review anyallergies, and confirm the side and site of the procedure. The skin site was prepped aseptically. Medication: local anesthesia withLidocaine 1% Fine needle aspiration of the left posterior mid neck node was performedusing a 20-gauge needle. Number passes made: 2 separate passes were Estimated blood loss: Minimal Specimens removed: Yes Immediate Complications: None Post-procedure Diagnosis: Unchanged Disposition: The post-biopsy instructions were reviewed with the patient.The patient was [facility]. IMPRESSION: 1. Right inferior/supraclavicular adenopathy and multifocal adenopathy inthe left supraclavicular and mid - inferior posterior neck. Thiscorresponds adenopathy seen on PET/CT. 2. Ultrasound and fine-needle aspiration was performed of a 1.1 cm leftmid posterior neck node. Preliminary cytology demonstrates metastaticcarcinoma. Final cytology result is pending. ACTIONABLE ITEMS/RECOMMENDATIONS*: None. *An Actionable Finding is a finding that may be unrelated to the originalreason for imaging but potentially actionable, meaning furtherinvestigation may be necessary. The Actionable Findings Vigilance Unit(AFVU) assists medical providers with responding to additional radiologicfindings that are unexpected and potentially actionable. us Keysha Lou APRN IMG US ORDERABLES Final Re sult * US HEAD NECK SOFT TISSUE (09/06/2024 9:50 AM CDT) Anatomical Region Laterality Modality Head, Neck Ultrasound 09/06/2024 9:04 AM CDT Impressions 09/06/2024 10:16 AM CDT 1. Right inferior/supraclavicular adenopathy and multifocal adenopathy in the left supraclavicular and mid - inferior posterior neck. This corresponds adenopathy seen on PET/CT. 2. Ultrasound and fine-needle aspiration was performed of a 1.1 cm left mid posterior neck node. Preliminary cytology demonstrates metastatic carcinoma. Final cytology result is pending. ACTIONABLE ITEMS/RECOMMENDATIONS*: None. *An Actionable Finding is a finding that may be unrelated to the original reason for imaging but potentially actionable, meaning further investigation may be necessary. The Actionable Findings Vigilance Unit (AFVU) assists medical providers with responding to additional radiologic findings that are unexpected and potentially actionable. Narrative 09/06/2024 10:16 AM CDT FULL RESULT: Examination: US HEAD NECK SOFT TISSUE, US FINE NEEDLE ASPIRATION on 09/06/2024 9:50 AM. 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 TECHNIQUE: Grayscale and color Doppler ultrasound of the neck was performed. FINDINGS: Right Lateral Neck: Right supraclavicular adenopathy is seen measuring 1.9 x 1.1 x 0.9 cm and 1.1 x 1.3 0.8 cm corresponding to FDG avidity on PET/CT Left Lateral Neck: Multifocal left neck adenopathy is seen corresponding to FDG avid nodes seen on PET/CT. This includes: * Multifocal left supra clavicular adenopathy measuring 1.3 x 1 x 0.9 cm and 1 x 0.8 x 0.6 cm and 1 x 1 x 0.5 cm. * Left posterior mid neck adenopathy measuring 1.4 x 1.1 x 0.9 cm. This was chosen for biopsy. * Multifocal left inferior posterior neck adenopathy measuring 0.9 x 0.9 x 0.7 cm, 1 x 1.1 x 0.6 cm and 2.9 x 0.8 x 0.7 cm. Submental to Cricoid: No adenopathy. PROCEDURE: Site: Left posterior mid neck node measuring 1.4 x 1.1 x 0.9 cm Provider performing procedure: Irma Winston Procedure veterinary assistant: None Procedure details: The procedure(s) and associated risks, benefits, and alternatives were discussed with the patient, who agreed to proceed and signed an informed consent form. A safety timeout was done to verify the patient's identity, review any allergies, and confirm the side and site of the procedure. The skin site was prepped aseptically. Medication: local anesthesia with Lidocaine 1% Fine needle aspiration of the left posterior mid neck node was performed using a 20-gauge needle. Number passes made: 2 separate passes were Estimated blood loss: Minimal Specimens removed: Yes Immediate Complications: None Post-procedure Diagnosis: Unchanged Disposition: The post-biopsy instructions were reviewed with the patient. The patient was discharged from Neurointerventional Ultrasound in good condition. Procedure Note Irma Winston MD - 09/06/2024 FULL RESULT: Examination: US HEAD NECK SOFT TISSUE, US FINE NEEDLE ASPIRATION on09/06/2024 9:50 AM. CLINICAL HISTORY: Squamous cell carcinoma of bronchus in right upperlobe INDICATION: Abnormal Lymph Node COMPARISON: PET/CT 08/26/2024. TECHNIQUE: Grayscale and color Doppler ultrasound of the neck wasperformed. FINDINGS: Right Lateral Neck: Right supraclavicular adenopathy is seen measuring 1.9 x 1.1 x 0.9 cm and1.1 x 1.3 0.8 cm corresponding to FDG avidity on PET/CT Left Lateral Neck: Multifocal left neck adenopathy is seen corresponding to FDG avid nodesseen on PET/CT. This includes: * Multifocal left supra clavicular adenopathy measuring 1.3 x 1 x 0.9 cmand 1 x 0.8 x 0.6 cm and 1 x 1 x 0.5 cm. * Left posterior mid neck adenopathy measuring 1.4 x 1.1 x 0.9 cm. Thiswas chosen for biopsy. * Multifocal left inferior posterior neck adenopathy measuring 0.9 x 0.9x 0.7 cm, 1 x 1.1 x 0.6 cm and 2.9 x 0.8 x 0.7 cm. Submental to Cricoid: No adenopathy. PROCEDURE: Site: Left posterior mid neck node measuring 1.4 x 1.1 x 0.9 cm Provider performing procedure: Irma Winston Procedure veterinary assistant: None Procedure details: The procedure(s) and associated risks, benefits, and alternatives werediscussed with the patient, who agreed to proceed and signed an informedconsent form. A safety timeout was done to verify the patient's identity, review anyallergies, and confirm the side and site of the procedure. The skin site was prepped aseptically. Medication: local anesthesia withLidocaine 1% Fine needle aspiration of the left posterior mid neck node was performedusing a 20-gauge needle. Number passes made: 2 separate passes were Estimated blood loss: Minimal Specimens removed: Yes Immediate Complications: None Post-procedure Diagnosis: Unchanged Disposition: The post-biopsy instructions were reviewed with the patient.The patient was discharged from Neurointerventional Ultrasound in goodcondition. IMPRESSION: 1. Right inferior/supraclavicular adenopathy and multifocal adenopathy inthe left supraclavicular and mid - inferior posterior neck. Thiscorresponds adenopathy seen on PET/CT. 2. Ultrasound and fine-needle aspiration was performed of a 1.1 cm leftmid posterior neck node. Preliminary cytology demonstrates metastaticcarcinoma. Final cytology result is pending. ACTIONABLE ITEMS/RECOMMENDATIONS*: None. *An Actionable Finding is a finding that may be unrelated to the originalreason for imaging but potentially actionable, meaning furtherinvestigation may be necessary. The Actionable Findings Vigilance Unit(AFVU) assists medical providers with responding to additional radiologicfindings that are unexpected and potentially actionable. Keysha Lou APRN [facility] US ORDERABLES Final Re sult * Archived Material Retrieval (09/06/2024 9:11 AM CDT) Only the most recent of2 resultswithin the time period is included. Archived Material The test is to be performed on tissue from case [id number]. The case report, slides, and block(s) for the cited accession were retrieved from archives. The pathologist examined the candidate slides and selected case material appropriate to the specifications of the ordered molecular analysis. Unstained sections from the FFPE block, compliance representative H&E slide(s), and/or tumor-mapped smear(s) were prepared and forwarded to the Molecular Diagnostic Laboratory where the subject molecular test will be performed. Results will be reported separately. 09/08/2024 12:03 PM CDT [facility] Pathologist Signature 09/08/2024 12:03 PM CDT [facility] Fine Needle Asp 09/06/2024 9 :11 AM CDT 09/08/2024 11:07 AM CDT Keysha Lou APRN [facility] BIOMARKERS Final Result [facility] [address] [address], [place] * (ABNORMAL) Cytology Image-Guided FNA Interpretation (09/06/2024 9:11 AM CDT) Gross Description Specimens procured: 4 Diff Quik; 4 Pap Stain Slides 10 ml, slightly cloudy pink fluid in RPMI 1 Cytospin Size: 1.1 x 1.4 x 0.9 cm Immediate assessment for specimen adequacy was made x1 by Dr. Key Trujillo. 09/06/2024 12:59 PM CDT [facility] Immediate Assessment Adequate cellularity, favor malignant 09/06/2024 12:59 PM CDT [facility] Major Classification MALIGNANT(A) 09/06/2024 12:59 PM CDT [facility] at 1259 CDT Diagnosis Lymph node, left middle, neck, fine needle aspiration: METASTATIC SQUAMOUS CELL CARCINOMA 09/06/2024 12:59 PM CDT [facility] at 1259 CDT Comment Smears show a few clusters of metastatic squamous carcinoma in a background of pyknotic squamous cells and cellular debris. 09/06/2024 12:59 PM CDT [facility] Retained/Biomark er Testing SR: 9 S MIKE Cell Block: N/A MDNakia Pap: No MDL DQ: 1 S FISH DQ: 1 S 09/06/2024 12:59 PM CDT [facility] Informational Points Some tests reported here may have been developed and performance characteristics determined by [facility] Pathology and Laboratory Medicine. These tests have not been specifically cleared or approved by the [place].S. Food and Drug Administration. 09/06/2024 12:59 PM CDT [facility] Fine Needle Asp (Lymph Node(s), Left Middle, Neck) 09/06/2024 9:11 AM CDT 09/06/2024 9:41 AM CDT us Keysha Lou APRN LAB CYTOLOGY ORDERABLES Fi nal Result [facility] [address] [address], * Research Protocol [id number] (08/29/2024 8:35 AM CDT) Only the most recent of4 resultswithin the time period is included. Research Protocol Specimen Specimen Collected, Ready for Pickup. 08/29/2024 12:01 PM CDT [facility] Blood Venipuncture / Unknown 08/29/2024 8:35 AM CDT 08/29/2024 10:35 AM CDT us Keysha Lou [employer] [facility]EARCH LAB Z CODES Final Result [facility] Unless otherwise noted, all lab tests performed by: Division of Pathology and Laboratory Medicine [address] [place] [id number] * (ABNORMAL) Differential (08/29/2024 8:35 AM CDT) Only the most recent of4 resultswithin the time period is included. Total Cells 112 08/29/2024 9:57 AM CDT [facility] Manual Neutrophil % 46.0 43.2 - 72.7 % 08/29/2024 9:57 AM CDT [facility] Comment:The Neutrophil count includes Bands. Manual Lymphocyte % 24.0 16.8 - 46.2 % 08/29/2024 9:57 AM CDT [facility] Manual Monocyte % 11.0 5.1 - 12.5 % 08/29/2024 9:57 AM CDT [facility] Manual Eosinophil % 18.0(H) 0.4 - 6.3 % 08/29/2024 9:57 AM CDT [facility] Manual Basophil % 1.0 0.2 - 1.4 % 08/29/2024 9:57 AM CDT [facility] Metamyelocyte % 9:57 AM CDT [facility] Comment:The Metamyelocyte co unt includes Myelocytes. Manual Neutrophil Abs 2.58 1.95 - 7.25 K/uL 08/29/2024 9:57 AM CDT [facility] Manual Lymphocyte Abs 1.34 1.01 - 3.24 K/uL 08/29/2024 9:57 AM CDT [facility] Manual Monocyte Abs 0.62 0.24 - 0.85 K/uL 08/29/2024 9:57 AM CDT [facility] Manual Eosinophil Abs 1.01(H) 0.02 - 0.50 K/uL 08/29/2024 9:57 AM CDT [facility] Manual Basophil Abs 0.06 0.02 - 0.09 K/uL 08/29/2024 9:57 AM CDT [facility] RBC Morphology PRESENT 08/29/2024 9:57 AM CDT [facility] Anisocytosis Present(A) (none) 08/29/2024 9:57 AM CDT [facility] Microcyte Present(A) (none) 08/29/2024 9:57 AM CDT [facility] Slide Comment SEE NOTE 08/29/2024 9:57 AM CDT [facility] Comment:PLT: Platelet morpho logy normal Blood Peripheral blood specimen / Unknown Venipuncture / Unknown 08/29/2024 8:35 AM CDT 08/29/2024 8:44 AM CDT us Keysha Lou [employer] LAB BLOOD ORDERABLES Final Result Performing Organization Address City[facility] Co de Phone Number [facility] Unless otherwise noted, all lab tests performed by: Division of Pathology and Laboratory Medicine [address] [place] [address] * Free T4 (08/29/2024 8:35 AM CDT) Only the most recent of7 resultswithin the time period is included. T4 (Thyroxine) Free 1.10 0.92 - 1.68 ng/dL 08/29/2024 9:46 AM CDT [facility] Blood Peripheral blood specimen / Unknown Venipuncture / Unknown 08/29/2024 8:35 AM CDT 08/29/2024 8:44 AM CDT us Keysha Lou [employer] LAB BLOOD ORDERABLES Final Result Performing Organization Address [facility] Co de Phone Number [facility] Unless otherwise noted, all lab tests performed by: Division of Pathology and Laboratory Medicine [address] [place], [place] [id number] * CT Head with and without Contrast (08/26/2024 11:27 AM CDT) Only the most recent of2 resultswithin the time period is included. Anatomical Region Laterality Modality Head Computed Tomogra phy 08/26/2024 11:5 9 AM CDT Impressions 08/26/2024 12:20 PM CDT 1. Subtle 1.2 cm primarily hypodense focus in the left occipital lobe is concerning for a small metastatic lesion (Se 603, Im 80). 2. No concerning mass effect. ACTIONABLE ITEMS/RECOMMENDATIONS*: None. *An Actionable Finding is a finding that may be unrelated to the original reason for imaging but potentially actionable, meaning further investigation may be necessary. The Actionable Findings Vigilance Unit (AFVU) assists medical providers with responding to additional radiologic findings that are unexpected and potentially actionable. Narrative 08/26/2024 12:20 PM CDT FULL RESULT: Examination: CT HEAD W WO CONTRAST on 08/26/2024 11:27 AM. 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 TECHNIQUE: CT head without and with IV contrast was performed. FINDINGS: Reconstruction of the temporomandibular joints bilaterally with metal hardware in place results in significant streak artifact that obscures evaluation of the surrounding soft tissues, primarily involving the posterior fossa and inferior temporal lobes. Intracranial: There is no acute hemorrhage or large vascular territory infarct. There is no mass effect or midline shift. The ventricles and extra-axial spaces are appropriate for age. A subtle hypoechoic focus with a crescentic area of hyperdensity along the inferior margin in the left occipital lobe measures 1.2 x 1 cm and is best appreciated on series 603 image 80. This site is new relative to CT head dated 02/16/2024 and shows no significant surrounding edema. No additional definite intracranial lesions are identified. Bone: There are no suspicious lytic or sclerotic calvarial and skull base lesions. There is incomplete fusion of the anterior arch of C1. Extracranial: The orbits are unremarkable. The visualized paranasal sinuses are predominantly clear. Opacified mastoid air cells are noted bilaterally. Procedure Note Clarisa Valdez MD - 08/26/2024 FULL RESULT: Examination: CT HEAD W WO CONTRAST on 08/26/2024 11:27 AM. CLINICAL HISTORY: Squamous cell carcinoma of bronchus in right upperlobe INDICATION: Cancer staging or restaging, SCC of the lung COMPARISON: CT of the head dated 02/16/2024. TECHNIQUE: CT head without and with IV contrast was performed. FINDINGS: Reconstruction of the temporomandibular joints bilaterally with metalhardware in place results in significant streak artifact that obscuresevaluation of the surrounding soft tissues, primarily involving theposterior fossa and inferior temporal lobes. Intracranial: There is no acute hemorrhage or large vascular territory infarct. There is no mass effect or midline shift. The ventricles and extra-axial spaces are appropriate for age. A subtle hypoechoic focus with a crescentic area of hyperdensity along theinferior margin in the left occipital lobe measures 1.2 x 1 cm and is bestappreciated on series 603 image 80. This site is new relative to CT headdated 02/16/2024 and shows no significant surrounding edema. No additionaldefinite intracranial lesions are identified. Bone: There are no suspicious lytic or sclerotic calvarial and skull baselesions. There is incomplete fusion of the anterior arch of C1. Extracranial: The orbits are unremarkable. The visualized paranasal sinuses are predominantly clear. Opacified mastoid air cells are noted bilaterally. IMPRESSION: 1. Subtle 1.2 cm primarily hypodense focus in the left occipital lobe isconcerning for a small metastatic lesion (Se 603, Im 80). 2. No concerning mass effect. ACTIONABLE ITEMS/RECOMMENDATIONS*: None. *An Actionable Finding is a finding that may be unrelated to the originalreason for imaging but potentially actionable, meaning furtherinvestigation may be necessary. The Actionable Findings Vigilance Unit(AFVU) assists medical providers with responding to additional radiologicfindings that are unexpected and potentially actionable. Keysha Lou APRN IMG CT ORDERABLES Final Re sult * PETCT F18 FDG (Fluorodeoxyglucose) without contrast (08/26/2024 10:47 AM CDT) Only the most recent of2 resultswithin the time period is included. Anatomical Region Laterality Modality Whole Body Positron Emissio n Tomography (PET) 08/26/2024 11:1 6 AM CDT Impressions 08/26/2024 12:16 PM CDT There band opacities in the right upper and middle lobe some stable relative to the previous study and likely represent posttreatment scarring. New airspace opacities and band opacity in the middle lobe may be inflammatory, atelectasis or areas of pneumonia. Follow-up to exclude underlying tumor can be performed. Enlarging nodes showing increased metabolic activity in the lower neck bilaterally, mediastinal, hilar regions as well as upper abdomen raises concern for metastatic disease though may be inflammatory related to a sarcoid-like reaction. ACTIONABLE ITEMS/RECOMMENDATIONS*: None. *An Actionable Finding is a finding that may be unrelated to the original reason for imaging but potentially actionable, meaning further investigation may be necessary. The Actionable Findings Vigilance Unit (AFVU) assists medical providers with responding to additional radiologic findings that are unexpected and potentially actionable. Narrative 08/26/2024 12:16 PM CDT FULL RESULT: Examination: 18F-FDG-PET/CT without contrast, 08/26/2024 10:47 AM Clinical History: Squamous cell carcinoma of the right upper lobe bronchus. Treatment with pembrolizumab alone after 6 cycles of carboplatin/paclitaxel/pembrolizumab . Indication: Squamous cell carcinoma of the right upper lobe bronchus Comparison: 07/15/2024. Technique: F-18 fluorodeoxyglucose 8.6 mCi was administered intravenously via right antecubital fossa. To allow for distribution and uptake of radiotracer, the patient was asked to rest quietly for approximately 60-90 minutes. PET/CT imaging was performed from the vertex to thighs. CT scanning was done for attenuation correction, image registration, and diagnosis with scan parameters optimized to minimize radiation exposure to the patient. SUV measurements are reported as maximum SUV based on body weight unless otherwise specified. Findings: Head and Neck: No sign of brain metastasis at PET/CT scanning. Enlarging nodes in the left posterior neck showing increased metabolic activity, may be reactive or metastatic. Examples include image 127, 1.1 cm in diameter, previously measuring 5 mm in diameter, maximum SUV value 21.4 previously 9.2. There are other enlarging nodes in the left posterior neck, extending inferiorly to image 140. Additionally, there are new enlarged nodes in the right and left supra clavicular regions showing increased metabolic activity,, such as in the left image 150, maximum SUV value 14.9, 1.1 cm in diameter. Increasing size of nodes in the left supraclavicular region 1 cm in diameter noted on image 158. The thyroid gland appears unremarkable. Chest: Stable narrowing -of bronchi to the right upper lobectomy. Other central airways are patent. Mild emphysematous changes. No pleural effusions. No sign of a pneumothorax. Extensive opacities are noted in the right upper hemithorax. Persisting band opacities in the right upper lobe for the most part is similar relative to the previous study likely areas of scarring. Follow-up to exclude active underlying tumor can be performed. New airspace opacities in the posterior medial aspect of the right upper lobe image 204 may be related to atelectasis, hemorrhage and/or pneumonia. There is also an increased lobulated mass 3 cm in diameter in the middle lobe, image 229, 3 cm x 1.4 cm in diameter with metabolic activity similar to background and may be neoplastic though may be infectious or inflammatory. Other pulmonary nodules in the left lung annotated on series 6 up to 3 mm in diameter remain stable relative to the previous study and may be sequela of granulomatous disease. Enlarging bilateral mediastinal nodes show increasing metabolic activity. Some nodes are partially calcified. Examples include aorticopulmonary window lymph nodes 1.4 cm in diameter, previously 0.9 cm in diameter. Enlarged nodes in the right paratracheal station measure approximately 1.7 cm in diameter. There are enlarged nodes in the subcarinal station 1.9 cm in diameter, previously 1.3 cm in diameter. There is also increased metabolic activity bilaterally in the hilar regions that has increased relative to the previous study. Anatomically regions are difficult to evaluate in the absence of intravenous contrast. Cardiac chambers are not enlarged. Small pericardial effusion. Mild coronary artery calcification. Mitral annular calcification. Mild esophageal thickening throughout its length probably related to esophagitis. Abdomen and Pelvis: Enlarging nodes in the upper abdomen adjacent to the inferior vena cava show increasing metabolic activity and size, 1.8 cm in diameter image 308, previously 0.7 cm in diameter, maximum SUV value 20.1 previously 9.5 No focal liver lesions. The spleen is not enlarged. No focal pancreatic lesions. Stable mild thickening of the adrenal glands. Persisting hypodense regions in the kidneys bilaterally may be related to proteinaceous/hemorrhagic cyst. Follow-up can be performed up to 1 cm in diameter. Musculoskeletal: Cervical spinal fixation device. Lumbar spinal fixation device and vertebral body spacer. Bilateral knee replacement. Degenerative changes of the spine. No sign of bony metastatic disease. Procedure Note Bradley Guallpa MD - 08/26/2024 FULL RESULT: Examination: 18F-FDG-PET/CT without contrast, 08/26/2024 10:47 AM Clinical History: Squamous cell carcinoma of the right upper lobebronchus. Treatment with pembrolizumab alone after 6 cycles ofcarboplatin/paclitaxel/pembrolizumab . Indication: Squamous cell carcinoma of the right upper lobe bronchus Comparison: 07/15/2024. Technique: F-18 fluorodeoxyglucose 8.6 mCi was administered intravenously via rightantecubital fossa. To allow for distribution and uptake of radiotracer,the patient was asked to rest quietly for approximately 60-90 minutes.PET/CT imaging was performed from the vertex to thighs. CT scanning wasdone for attenuation correction, image registration, and diagnosis withscan parameters optimized to minimize radiation exposure to the patient.SUV measurements are reported as maximum SUV based on body weight unlessotherwise specified. Findings: Head and Neck: No sign of brain metastasis at PET/CT scanning. Enlarging nodes in theleft posterior neck showing increased metabolic activity, may be reactiveor metastatic. Examples include image 127, 1.1 cm in diameter, previouslymeasuring 5 mm in diameter, maximum SUV value 21.4 previously 9.2. Thereare other enlarging nodes in the left posterior neck, extending inferiorlyto image 140. Additionally, there are new enlarged nodes in the right andleft supra clavicular regions showing increased metabolic activity,, suchas in the left image 150, maximum SUV value 14.9, 1.1 cm in diameter.Increasing size of nodes in the left supraclavicular region 1 cm indiameter noted on image 158. The thyroid gland appears unremarkable. Chest: Stable narrowing -of bronchi to the right upper lobectomy. Other centralairways are patent. Mild emphysematous changes. No pleural effusions. Nosign of a pneumothorax. Extensive opacities are noted in the right upper hemithorax. Persistingband opacities in the right upper lobe for the most part is similarrelative to the previous study likely areas of scarring. Follow-up toexclude active underlying tumor can be performed. New airspace opacitiesin the posterior medial aspect of the right upper lobe image 204 may berelated to atelectasis, hemorrhage and/or pneumonia. There is also anincreased lobulated mass 3 cm in diameter in the middle lobe, image 229, 3cm x 1.4 cm in diameter with metabolic activity similar to background andmay be neoplastic though may be infectious or inflammatory. Other pulmonary nodules in the left lung annotated on series 6 up to 3 mmin diameter remain stable relative to the previous study and may besequela of granulomatous disease. Enlarging bilateral mediastinal nodes show increasing metabolic activity.Some nodes are partially calcified. Examples include aorticopulmonarywindow lymph nodes 1.4 cm in diameter, previously 0.9 cm in diameter.Enlarged nodes in the right paratracheal station measure approximately 1.7cm in diameter. There are enlarged nodes in the subcarinal station 1.9 cmin diameter, previously 1.3 cm in diameter. There is also increasedmetabolic activity bilaterally in the hilar regions that has increasedrelative to the previous study. Anatomically regions are difficult toevaluate in the absence of intravenous contrast. Cardiac chambers are notenlarged. Small pericardial effusion. Mild coronary artery calcification.Mitral annular calcification. Mild esophageal thickening throughout its length probably related toesophagitis. Abdomen and Pelvis: Enlarging nodes in the upper abdomen adjacent to the inferior vena cavashow increasing metabolic activity and size, 1.8 cm in diameter image 308,previously 0.7 cm in diameter, maximum SUV value 20.1 previously 9.5 No focal liver lesions. The spleen is not enlarged. No focal pancreaticlesions. Stable mild thickening of the adrenal glands. Persisting hypodense regions in the kidneys bilaterally may be related toproteinaceous/hemorrhagic cyst. Follow-up can be performed up to 1 cm indiameter. Musculoskeletal: Cervical spinal fixation device. Lumbar spinal fixation device andvertebral body spacer. Bilateral knee replacement. Degenerative changes ofthe spine. No sign of bony metastatic disease. IMPRESSION: There band opacities in the right upper and middle lobe some stablerelative to the previous study and likely represent posttreatmentscarring. New airspace opacities and band opacity in the middle lobe maybe inflammatory, atelectasis or areas of pneumonia. Follow-up to excludeunderlying tumor can be performed. Enlarging nodes showing increased metabolic activity in the lower neckbilaterally, mediastinal, hilar regions as well as upper abdomen raisesconcern for metastatic disease though may be inflammatory related to asarcoid-like reaction. ACTIONABLE ITEMS/RECOMMENDATIONS*: None. *An Actionable Finding is a finding that may be unrelated to the originalreason for imaging but potentially actionable, meaning furtherinvestigation may be necessary. The Actionable Findings Vigilance Unit(AFVU) assists medical providers with responding to additional radiologicfindings that are unexpected and potentially actionable. Keysha M Carmine NAIDU IMG PETCT ORDERABLES Final Result * POC Creatinine (08/26/2024 10:28 AM CDT) Only the most recent of2 resultswithin the time period is included. POC Creatinine 1.2 0.6 - 1.3 mg/dL 08/26/2024 10:30 AM CDT [facility] Comment:Medications, especia lly hydroxyurea or supplements, such as ascorbate, can interfere with test results causing a falsely and significantly higher result than expected. If a problem is suspected with a patient's result, a sample should be sent to the laboratory for confirmatory testing. POC eGFR 66 >=60 mL/min/1.7 3 sq. m 08/26/2024 10:30 AM CDT [facility] Comment: The eGFRcr is calculated with the 2020 CKD-EPI creatinine equation using creatinine, patient's age, and sex for adults 18 years of age and older. Other factors, especially muscle mass, may affect accuracy and need to be considered. According to the Kidney Disease: Improving Global Outcomes (KDIGO) CKD Work Group 2012 Clinical Practice Guideline, chronic kidney disease (CKD) is defined as the abnormalities of kidney structure or function, present for more than 3 months, with implications for health. CKD should be classified by cause, GFR category, and albuminuria category. KDIGO guidelines provide the following GFR categories. Stage / Description / GFR mL/min/1.73 m2: G1* / Normal or high / >= 90 G2* / Mildly decreased / 60-89 G3a / Mildly to moderately decreased / 45-59 G3b / Moderately to severely decreased / 30-44 G4 / Severely decreased / 15-29 G5 / Kidney failure / <15 *In the absence of evidence of kidney damage, neither G1 nor G2 fulfill criteria for CKD. Blood 08/26/2024 10:2 8 AM CDT 08/26/2024 10:30 AM CDT Narrative [facility] - 08/26/2024 10:30 AM CDT Method description: The i-STAT is an analyzer used for in vitro quantification of various analytes in whole blood. The device uses a single disposable cartridge which contains microfabricated sensors, a calibration solution, fluidics system, and a waste chamber. Each test cartridge contains chemically sensitive biosensors on a silicon chip that are configured to perform specific tests. The microfabricated sensors measure analyte concentration by an electrochemical assay. us Keysha Lou APRN POCT ORDERABLES - DEVICE F inal Result Performing Organization Address City/[facility]/ZIP Co de Phone Number [facility] Unless otherwise noted, all lab tests performed by: Division of Pathology and Laboratory Medicine [address] [place] [id number] * (ABNORMAL) NT-Pro BNP (In-House) (08/08/2024 9:09 AM CDT) Only the most recent of7 resultswithin the time period is included. NT-ProBNP 1,287(H) <=125 pg/mL 08/08/2024 11:44 AM CDT [facility] Blood Peripheral blood specimen / Unknown Venipuncture / Unknown 08/08/2024 9:09 AM CDT 08/08/2024 9:12 AM CDT us Keysha Lou APRN LAB BLOOD ORDERABLES Final Result [facility] Unless otherwise noted, all lab tests performed by: Division of Pathology and Laboratory Medicine [address] [place] [id number] * X-ray Chest 2 Views (07/15/2024 2:38 PM TECHNICAL STAFF ENGINEER) Anatomical Region Laterality Modality Chest Digital Radiogra phy 07/15/2024 2:43 PM TECHNICAL STAFF ENGINEER Impressions 07/15/2024 2:44 PM TECHNICAL STAFF ENGINEER No acute cardiac or pulmonary abnormality is detected to account for the patient's symptomatology. ACTIONABLE ITEMS/RECOMMENDATIONS*: None. *An Actionable Finding is a finding that may be unrelated to the original reason for imaging but potentially actionable, meaning further investigation may be necessary. The Actionable Findings Vigilance Unit (AFVU) assists medical providers with responding to additional radiologic findings that are unexpected and potentially actionable. Narrative 07/15/2024 2:44 PM TECHNICAL STAFF ENGINEER FULL RESULT: Examination: XR CHEST 2 VW on 07/15/2024 2:38 PM. Clinical History: Lung malignancy. Indication: Shortness of breath. Comparison: PET/CT 07/15/2014 Technique: Posteroanterior, lateral and dual-energy radiographs of the chest Findings: Support Apparatus: None. Lungs/Pleura/Mediastinum: Residua of a treated primary malignancy in the medial aspect of the right upper lobe is suboptimally visualized radiographically. There is linear scarring in the right lung. There are no pulmonary opacities suspicious for acute left. The cardiac silhouette is stable. There is no pulmonary edema. Procedure Note Nader James MD - 07/15/2024 FULL RESULT: Examination: XR CHEST 2 VW on 07/15/2024 2:38 PM. Clinical History: Lung malignancy. Indication: Shortness of breath. Comparison: PET/CT 07/15/2014 Technique: Posteroanterior, lateral and dual-energy radiographs of thechest Findings: Support Apparatus: None. Lungs/Pleura/Mediastinum: Residua of a treated primary malignancy in themedial aspect of the right upper lobe is suboptimally visualizedradiographically. There is linear scarring in the right lung. There are nopulmonary opacities suspicious for acute left. The cardiac silhouette isstable. There is no pulmonary edema. IMPRESSION: No acute cardiac or pulmonary abnormality is detected to account for thepatient's symptomatology. ACTIONABLE ITEMS/RECOMMENDATIONS*: None. *An Actionable Finding is a finding that may be unrelated to the originalreason for imaging but potentially actionable, meaning furtherinvestigation may be necessary. The Actionable Findings Vigilance Unit(AFVU) assists medical providers with responding to additional radiologicfindings that are unexpected and potentially actionable. Annabel Vyas SNUFF GRINDER AND SCREENER IMG DIAGNOSTIC IMAGING ORDJose [place] Final Result * Echocardiogram 2D Limited - Follow Up (07/05/2024 8:05 AM TECHNICAL STAFF ENGINEER) EF 58 ISCV 07/05/2024 7:45 AM TECHNICAL STAFF ENGINEER Narrative ISCV - 07/05/2024 10:02 AM TECHNICAL STAFF ENGINEER Echocardiographic Report Interpretation Summary A two-dimensional transthoracic echocardiogram was performed. Compared to prior study, there is no significant change. Normal left ventricular size and systolic function. LV ejection fraction calculated using the bi-plane method of disks is 58 %. The right ventricle is normal in size and function. Right ventricular systolic pressure is normal. There is no pericardial effusion. There is mild to moderate mitral regurgitation. Mild aortic valve calcification. Left Ventricle: Normal left ventricular size and systolic function. There is normal left ventricular wall thickness. LV ejection fraction calculated using the bi-plane method of disks is 58 %. I WMSI = 1.00 % Normal = 100 X - Cannot 1 - Normal 2 - 3 - Akinetic 4 - Dyskinetic Interpret Hypokinetic 5 - Aneurysmal 3D imaginD volumes were not performed in this study. Cardiac Mechanics/Speckle Tracking Imaging: Speckle tracking imaging was technically limited. Diastology: LV relaxation appears normal. Right Ventricle: The right ventricle is normal in size and function. Normal RV systolic function using TAPSE criteria. Atria: The left atrium is moderately dilated. Right atrial size is normal. Mitral Valve: Mild thickening changes are noted. Mitral annular calcification is present. There is mild to moderate mitral regurgitation. Tricuspid Valve: The tricuspid valve is not well visualized, but is grossly normal. There is mild tricuspid regurgitation. Estimated RVSP is 35-40mmHg. Right ventricular systolic pressure is normal. Aortic Valve: The aortic valve is trileaflet. Mild aortic valve thickening. Mild aortic valve calcification. Pulmonic Valve: The pulmonic valve is not well visualized. Mild pulmonic valvular regurgitation. Great Vessels: Ao root is dilated. The inferior vena cava demonstrates normal size and normal respiratory variation. Pericardium/Pleural: There is no pericardial effusion. Preliminary Reviewer Preliminary Interpretation: Shonna Musa MD. MMode/2D Measurements IVSd: 1.1 cm LVIDd: 5.7 cm LVIDs: 3.5 cm LVPWd: 1.1 cm FS: 38.6 % Ao root diam: 3.7 cm Ao root area: 10.8 cm2 LA dimension: 5.1 cm LVOT diam: 2.4 cm EDV(MOD-A4C): 186.8 ml ESV(MOD-A4C): 78.7 ml LVOT area: 4.6 cm2 EF(MOD-A4C): 57.9 % EDV(MOD-A2C): 145.9 ml ESV(MOD-A2C): 62.0 ml EDV(MOD-bp): 165.4 ml EF(MOD-A2C): 57.5 % ESV(MOD-bp): 69.9 ml EF(MOD-bp): 57.8 % LAV(MOD-A2C): 67.6 ml EDV (MOD-bp) Index: 78.2 ml/m2 LAV(MOD-A4C): 84.3 ml LAV(MOD-bp): 89.3 ml LAV(MOD-bp) Indexed: 42.2 ml/m2 ESV (MOD-bp) Index: 33.0 ml/m2 RWT: 0.38 cm TAPSE (>1.6): 1.7 cm Doppler Measurements MV E max aneesh: 103.0 cm/sec MV V2 max: 120.4 cm/sec MV A max aneesh: 48.4 cm/sec MV max P.8 mmHg MV E/A: 2.1 MV V2 mean: 51.5 cm/sec MV mean P.4 mmHg MV V2 VTI: 38.8 cm MVA(VTI): 2.3 cm2 Ao V2 max: 173.4 cm/sec LV V1 max P.7 mmHg Ao max P.0 mmHg LV V1 mean P.2 mmHg Ao V2 mean: 119.8 cm/sec LV V1 max: 82.4 cm/sec Ao mean P.4 mmHg LV V1 mean: 51.4 cm/sec Ao V2 VTI: 39.5 cm LV V1 VTI: 19.1 cm GRACY(I,D): 2.2 cm2 GRACY(V,D): 2.2 cm2 MR max aneesh: 498.3 cm/sec SV(LVOT): 88.4 ml PA V2 max: 90.6 cm/sec PI max aneesh: 238.1 cm/sec PA max P.3 mmHg PI max P.7 mmHg PA V2 mean: 57.4 cm/sec PI dec slope: 98.1 cm/sec2 PA mean P.5 mmHg PA V2 VTI: 21.7 cm Med Peak E' Aneesh: 7.9 cm/sec Lat Peak E' Aneesh: 11.4 cm/sec TR max aneesh: 298.2 cm/sec RAP systole: 3.0 mmHg TR max P.6 mmHg RVSP(TR): 38.6 mmHg AL P1/2t_phl: 580.8 msec GRACY Index (I,D): 1.1 GRACY Index (V,D): 1.0 Dimensionless Index: 0.48 E/e' (avg): 10.7 E/e' (lat): 9.1 E/e' (sept): 13.0 Procedure Note Morgan Hurtado MD - 07/05/2024 Echocardiographic Report Interpretation Summary A two-dimensional transthoracic echocardiogram was performed. Compared toprior study, there is no significant change. Normal left ventricular size and systolic function. LV ejection fraction calculated using the bi-plane method of disks is 58%. The right ventricle is normal in size and function. Right ventricular systolic pressure is normal. There is no pericardial effusion. There is mild to moderate mitral regurgitation. Mild aortic valve calcification. Left Ventricle: Normal left ventricular size and systolic function. There is normal leftventricular wall thickness. LV ejection fraction calculated using thebi-plane method of disks is 58 %. I WMSI = 1.00 % Normal = 100 X - Cannot 1 - Normal 2 - 3 - Akinetic 4 - Dyskinetic Interpret Hypokinetic 5 - Aneurysmal 3D imaginD volumes were not performed in this study. Cardiac Mechanics/Speckle Tracking Imaging: Speckle tracking imaging was technically limited. Diastology: LV relaxation appears normal. Right Ventricle: The right ventricle is normal in size and function. Normal RV systolicfunction using TAPSE criteria. Atria: The left atrium is moderately dilated. Right atrial size is normal. Mitral Valve: Mild thickening changes are noted. Mitral annular calcification ispresent. There is mild to moderate mitral regurgitation. Tricuspid Valve: The tricuspid valve is not well visualized, but is grossly normal. Thereis mild tricuspid regurgitation. Estimated RVSP is 35-40mmHg. Rightventricular systolic pressure is normal. Aortic Valve: The aortic valve is trileaflet. Mild aortic valve thickening. Mild aorticvalve calcification. Pulmonic Valve: The pulmonic valve is not well visualized. Mild pulmonic valvularregurgitation. Great Vessels: Ao root is dilated. The inferior vena cava demonstrates normal size andnormal respiratory variation. Pericardium/Pleural: There is no pericardial effusion. Preliminary Reviewer Preliminary Interpretation: Shonna Musa MD. MMode/2D Measurements IVSd: 1.1 cmLVIDd: 5.7 cm LVIDs: 3.5 cm LVPWd: 1.1 cm FS: 38.6 %Ao root diam: 3.7 cm Ao root area: 10.8 cm2 LA dimension: 5.1 cm LVOT diam: 2.4 cmEDV(MOD-A4C): 186.8 ml ESV(MOD-A4C): 78.7 ml LVOT area: 4.6 cm2EF(MOD-A4C): 57.9 % EDV(MOD-A2C): 145.9 ml ESV(MOD-A2C): 62.0 mlEDV(MOD-bp): 165.4 ml EF(MOD-A2C): 57.5 %ESV(MOD-bp): 69.9 ml EF(MOD-bp): 57.8 % LAV(MOD-A2C): 67.6 mlEDV (MOD-bp) Index: 78.2 ml/m2 LAV(MOD-A4C): 84.3 ml LAV(MOD-bp): 89.3 ml LAV(MOD-bp) Indexed: 42.2 ml/m2 ESV (MOD-bp) Index: 33.0 ml/m2RWT: 0.38 cm TAPSE (>1.6): 1.7 cm Doppler Measurements MV E max aneesh: 103.0 cm/secMV V2 max: 120.4 cm/sec MV A max aneesh: 48.4 cm/secMV max P.8 mmHg MV E/A: 2.1MV V2 mean: 51.5 cm/sec MV mean P.4 mmHg MV V2 VTI: 38.8 cm MVA(VTI): 2.3 cm2 Ao V2 max: 173.4 cm/secLV V1 max P.7 mmHg Ao max P.0 mmHgLV V1 mean P.2 mmHg Ao V2 mean: 119.8 cm/secLV V1 max: 82.4 cm/sec Ao mean P.4 mmHgLV V1 mean: 51.4 cm/sec Ao V2 VTI: 39.5 cmLV V1 VTI: 19.1 cm GRACY(I,D): 2.2 cm2 GRACY(V,D): 2.2 cm2 MR max aneesh: 498.3 cm/secSV(LVOT): 88.4 ml PA V2 max: 90.6 cm/secPI max aneesh: 238.1 cm/sec PA max P.3 mmHgPI max P.7 mmHg PA V2 mean: 57.4 cm/secPI dec slope: 98.1 cm/sec2 PA mean P.5 mmHg PA V2 VTI: 21.7 cm Med Peak E' Aneesh: 7.9 cm/secLat Peak E' Aneesh: 11.4 cm/sec TR max aneesh: 298.2 cm/secRAP systole: 3.0 mmHg TR max P.6 mmHg RVSP(TR): 38.6 mmHg AL P1/2t_phl: 580.8 msecAVA Index (I,D): 1.1 GRACY Index (V,D): 1.0Dimensionless Index: 0.48 E/e' (avg): 10.7E/e' (lat): 9.1 E/e' (sept): 13.0 us Edward Wick MD CV ECHO ORDERABLES Final Result ISCV * CT Chest Abdomen Pelvis with Contrast (06/07/2024 10:51 AM TECHNICAL STAFF ENGINEER) Only the most recent of2 resultswithin the time period is included. Anatomical Region Laterality Modality Abdomen, Pelvis, Chest Computed Tomography 06/07/2024 11:3 3 AM TECHNICAL STAFF ENGINEER Impressions 06/07/2024 12:17 PM TECHNICAL STAFF ENGINEER Interval decrease in soft tissue surrounding the right upper lobe bronchus which likely represents improvement in primary malignancy Increase in size of a right upper paratracheal lymph node. Other intrathoracic and upper abdominal lymph nodes are not significantly changed ACTIONABLE ITEMS/RECOMMENDATIONS*: None. *An Actionable Finding is a finding that may be unrelated to the original reason for imaging but potentially actionable, meaning further investigation may be necessary. The Actionable Findings Vigilance Unit (AFVU) assists medical providers with responding to additional radiologic findings that are unexpected and potentially actionable. Narrative 06/07/2024 12:17 PM TECHNICAL STAFF ENGINEER FULL RESULT: Examination: CT CHEST ABDOMEN PELVIS W CONTRAST on 06/07/2024 10:51 AM. 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 Indication: Cancer staging or restaging, SCLC. Comparison: 04/10/2024. Technique: CT CHEST ABDOMEN PELVIS W CONTRAST. Findings: Lungs/Airways/Pleura: Soft tissue surrounding the right upper lobe bronchus shows interval decrease in size. For example, posterior to the right upper lobe bronchus, the soft tissue now measures 4 mm in thickness, previously 1.3 cm. There is also improvement in adjacent right upper lobe pulmonary opacity. Moderate upper lobe predominant emphysema is again noted. Neck/Mediastinum/Nodes/Heart: 1.2 cm right paratracheal lymph node was 9 mm. 1.7 cm lower right paratracheal lymph node was 1.8 cm. 1.6 cm right hilar lymph node was 1.7 cm. 1.7 cm subcarinal lymph node was 1.8 cm. 1.1 cm left hilar lymph node is unchanged. Multiple additional mediastinal and hilar lymph nodes are not significantly changed. The heart is normal in size. Moderate coronary calcification is unchanged. Mitral annular calcification is unchanged. Small pericardial fluid is unchanged. Abdomen and Pelvis: 1 cm lymph node adjacent to the inferior vena cava (image 137) is unchanged. Other upper abdominal lymph nodes are also stable. Hypodense renal lesions are stable. Adrenal glands are unchanged. There is no evidence of hydronephrosis. There is colonic diverticulosis. Bones/Soft Tissues: Lumbar and cervicothoracic spine hardware remain in place. There are degenerative changes of osseous structures Procedure Note Sravanthi Vega MD - 06/07/2024 FULL RESULT: Examination: CT CHEST ABDOMEN PELVIS W CONTRAST on 06/07/2024 10:51 AM. Clinical History: Squamous cell carcinoma of bronchus in right upperlobe. Indication: Cancer staging or restaging, SCLC. Comparison: 04/10/2024. Technique: CT CHEST ABDOMEN PELVIS W CONTRAST. Findings: Lungs/Airways/Pleura: Soft tissue surrounding the right upper lobebronchus shows interval decrease in size. For example, posterior to theright upper lobe bronchus, the soft tissue now measures 4 mm in thickness,previously 1.3 cm. There is also improvement in adjacent right upper lobepulmonary opacity. Moderate upper lobe predominant emphysema is againnoted. Neck/Mediastinum/Nodes/Heart: 1.2 cm right paratracheal lymph node was 9mm. 1.7 cm lower right paratracheal lymph node was 1.8 cm. 1.6 cm righthilar lymph node was 1.7 cm. 1.7 cm subcarinal lymph node was 1.8 cm. 1.1cm left hilar lymph node is unchanged. Multiple additional mediastinal andhilar lymph nodes are not significantly changed. The heart is normal insize. Moderate coronary calcification is unchanged. Mitral annularcalcification is unchanged. Small pericardial fluid is unchanged. Abdomen and Pelvis: 1 cm lymph node adjacent to the inferior vena cava(image 137) is unchanged. Other upper abdominal lymph nodes are alsostable. Hypodense renal lesions are stable. Adrenal glands are unchanged.There is no evidence of hydronephrosis. There is colonic diverticulosis. Bones/Soft Tissues: Lumbar and cervicothoracic spine hardware remain inplace. There are degenerative changes of osseous structures IMPRESSION: Interval decrease in soft tissue surrounding the right upper lobe bronchuswhich likely represents improvement in primary malignancy Increase in size of a right upper paratracheal lymph node. Otherintrathoracic and upper abdominal lymph nodes are not significantlychanged ACTIONABLE ITEMS/RECOMMENDATIONS*: None. *An Actionable Finding is a finding that may be unrelated to the originalreason for imaging but potentially actionable, meaning furtherinvestigation may be necessary. The Actionable Findings Vigilance Unit(AFVU) assists medical providers with responding to additional radiologicfindings that are unexpected and potentially actionable. Keysha Lou SNUFF GRINDER AND SCREENER IMG CT ORDERABLES Final Re sult * EKG, 12-Lead (Scheduled) (05/02/2024) Only the most recent of2 resultswithin the time period is included. Edward Wick MD ECG ORDERABLES Final Result JANIA IECG * Echocardiogram 2D Complete (04/13/2024 2:25 PM TECHNICAL STAFF ENGINEER) 04/13/2024 1:22 PM TECHNICAL STAFF ENGINEER Narrative ISCV - 04/13/2024 3:08 PM TECHNICAL STAFF ENGINEER Echocardiographic Report Interpretation Summary A complete two-dimensional transthoracic echocardiogram was performed (2D, M- mode, Spectral and color Doppler). There is no comparison study available. The left ventricle is normal in size. Left ventricular systolic function is normal. LV ejection fraction (LVEF) is in the range of 58% (calculated by method of discs). The right ventricle is normal in size and function. Right ventricular systolic pressure is normal. There is no pericardial effusion. Left Ventricle: The left ventricle is normal in size. There is normal left ventricular wall thickness. Left ventricular systolic function is normal. LV ejection fraction (LVEF) is in the range of 58% (calculated by method of discs). No regional wall motion abnormalities noted. I WMSI = 1.00 % Normal = 100 Normal GLPS Segments Size X - Cannot 2 - 1-2 small Interpret 1 - Normal Hypokinetic 3 - Akinetic 4 - Dyskinetic3- 5 moderate 5 - Aneurysmal 6-14 large 15-16 diffuse 3D imaginD volumes were not performed in this study. Cardiac Mechanics/Speckle Tracking Imaging: Normal global longitudinal peak systolic value. Strain Imaging was performed; GLPS avg = -19.0%. Diastology: Impaired LV relaxation pattern of diastolic dysfunction, Doppler suggests normal LA pressures. Right Ventricle: The right ventricle is normal in size and function. Atria: The left atrial size is normal. Right atrial size is normal. Mitral Valve: Mild thickening changes are noted. There is mild mitral regurgitation. Tricuspid Valve: The tricuspid valve is not well visualized, but is grossly normal. There is trace tricuspid regurgitation. Right ventricular systolic pressure is normal. Estimated RVSP is 25-30mmHg. Aortic Valve: The aortic valve is trileaflet. The aortic valve opens well. Marked aortic valve thickening. Pulmonic Valve: The pulmonic valve is not well seen, but is grossly normal. Trace pulmonic valvular regurgitation. Great Vessels: The aortic root is normal size. The inferior vena cava demonstrates normal size and normal respiratory variation. Pericardium/Pleural: There is no pericardial effusion. MMode/2D Measurements IVSd: 1.0 cm LVIDd: 5.7 cm LVIDs: 3.8 cm LVPWd: 1.0 cm FS: 33.9 % Ao root diam: 3.9 cm Ao root area: 12.1 cm2 LA dimension: 3.4 cm LVOT diam: 2.7 cm EDV(MOD-A4C): 145.7 ml ESV(MOD-A4C): 62.7 ml LVOT area: 5.8 cm2 EF(MOD-A4C): 56.9 % EDV(MOD-A2C): 140.4 ml ESV(MOD-A2C): 57.6 ml EDV(MOD-bp): 147.6 ml EF(MOD-A2C): 59.0 % ESV(MOD-bp): 61.7 ml EF(MOD-bp): 58.2 % LAV(MOD-A2C): 48.2 ml LAV(MOD-A4C): 41.7 ml EDV (MOD-bp) Index: 70.8 ml/m2 LAV(MOD-bp): 49.7 ml LAV(MOD-bp) Indexed: 23.8 ml/m2 ESV (MOD-bp) Index: 29.6 ml/m2 RWT: 0.36 cm Doppler Measurements MV E max aneesh: 49.7 cm/sec MV V2 max: 79.3 cm/sec MV A max aneesh: 72.7 cm/sec MV max P.5 mmHg MV E/A: 0.68 MV V2 mean: 41.3 cm/sec MV mean P.81 mmHg MV V2 VTI: 18.8 cm MVA(VTI): 6.2 cm2 Ao V2 max: 214.2 cm/sec LV V1 max P.0 mmHg Ao max P.4 mmHg LV V1 mean P.3 mmHg Ao V2 mean: 146.2 cm/sec LV V1 max: 86.2 cm/sec Ao mean P.6 mmHg LV V1 mean: 52.5 cm/sec Ao V2 VTI: 44.7 cm LV V1 VTI: 20.2 cm GRACY(I,D): 2.6 cm2 GRACY(V,D): 2.3 cm2 MR max aneesh: 621.5 cm/sec SV(LVOT): 116.6 ml Med Peak E' Aneesh: 4.4 cm/sec Lat Peak E' Aneesh: 8.5 cm/sec TR max aneesh: 257.9 cm/sec RAP systole: 3.0 mmHg TR max P.6 mmHg RVSP(TR): 29.6 mmHg GRACY Index (I,D): 1.3 GRACY Index (V,D): 1.1 Dimensionless Index: 0.40 E/e' (avg): 7.7 E/e' (lat): 5.8 E/e' (sept): 11.3 Procedure Note Aly Juan MD - 04/13/2024 Echocardiographic Report Interpretation Summary A complete two-dimensional transthoracic echocardiogram was performed (2D,M- mode, Spectral and color Doppler). There is no comparison studyavailable. The left ventricle is normal in size. Left ventricular systolic function is normal. LV ejection fraction (LVEF)is in the range of 58% (calculated by method of discs). The right ventricle is normal in size and function. Right ventricular systolic pressure is normal. There is no pericardial effusion. Left Ventricle: The left ventricle is normal in size. There is normal left ventricularwall thickness. Left ventricular systolic function is normal. LV ejectionfraction (LVEF) is in the range of 58% (calculated by method of discs). Noregional wall motion abnormalities noted. I WMSI = 1.00 % Normal = 100 Normal GLPS Segments Size X - Cannot 2 - 1-2small Interpret 1 - Normal Hypokinetic 3 - Akinetic 4 - Dyskinetic3-5moderate 5 - Aneurysmal6-14 large 15-16 diffuse 3D imaginD volumes were not performed in this study. Cardiac Mechanics/Speckle Tracking Imaging: Normal global longitudinal peak systolic value. Strain Imaging wasperformed; GLPS avg = -19.0%. Diastology: Impaired LV relaxation pattern of diastolic dysfunction, Doppler suggestsnormal LA pressures. Right Ventricle: The right ventricle is normal in size and function. Atria: The left atrial size is normal. Right atrial size is normal. Mitral Valve: Mild thickening changes are noted. There is mild mitral regurgitation. Tricuspid Valve: The tricuspid valve is not well visualized, but is grossly normal. Thereis trace tricuspid regurgitation. Right ventricular systolic pressure isnormal. Estimated RVSP is 25-30mmHg. Aortic Valve: The aortic valve is trileaflet. The aortic valve opens well. Marked aorticvalve thickening. Pulmonic Valve: The pulmonic valve is not well seen, but is grossly normal. Trace pulmonicvalvular regurgitation. Great Vessels: The aortic root is normal size. The inferior vena cava demonstrates normalsize and normal respiratory variation. Pericardium/Pleural: There is no pericardial effusion. MMode/2D Measurements IVSd: 1.0 cmLVIDd: 5.7 cm LVIDs: 3.8 cm LVPWd: 1.0 cm FS: 33.9 %Ao root diam: 3.9 cm Ao root area: 12.1 cm2 LA dimension: 3.4 cm LVOT diam: 2.7 cmEDV(MOD-A4C): 145.7 ml ESV(MOD-A4C): 62.7 ml LVOT area: 5.8 cm2EF(MOD-A4C): 56.9 % EDV(MOD-A2C): 140.4 ml ESV(MOD-A2C): 57.6 mlEDV(MOD-bp): 147.6 ml EF(MOD-A2C): 59.0 %ESV(MOD-bp): 61.7 ml EF(MOD-bp): 58.2 % LAV(MOD-A2C): 48.2 ml LAV(MOD-A4C): 41.7 mlEDV (MOD-bp) Index: 70.8 ml/m2 LAV(MOD-bp): 49.7 ml LAV(MOD-bp) Indexed: 23.8 ml/m2 ESV (MOD-bp) Index: 29.6 ml/m2RWT: 0.36 cm Doppler Measurements MV E max aneesh: 49.7 cm/secMV V2 max: 79.3 cm/sec MV A max aneesh: 72.7 cm/secMV max P.5 mmHg MV E/A: 0.68MV V2 mean: 41.3 cm/sec MV mean P.81 mmHg MV V2 VTI: 18.8 cm MVA(VTI): 6.2 cm2 Ao V2 max: 214.2 cm/secLV V1 max P.0 mmHg Ao max P.4 mmHgLV V1 mean P.3 mmHg Ao V2 mean: 146.2 cm/secLV V1 max: 86.2 cm/sec Ao mean P.6 mmHgLV V1 mean: 52.5 cm/sec Ao V2 VTI: 44.7 cmLV V1 VTI: 20.2 cm GRACY(I,D): 2.6 cm2 GRACY(V,D): 2.3 cm2 MR max aneesh: 621.5 cm/secSV(LVOT): 116.6 ml Med Peak E' Aneesh: 4.4 cm/secLat Peak E' Aneesh: 8.5 cm/sec TR max aneesh: 257.9 cm/secRAP systole: 3.0 mmHg TR max P.6 mmHg RVSP(TR): 29.6 mmHg GRACY Index (I,D): 1.3AVA Index (V,D): 1.1 Dimensionless Index: 0.40E/e' (avg): 7.7 E/e' (lat): 5.8E/e' (sept): 11.3 us Chanelle Lundberg SNUFF GRINDER AND SCREENER CV ECHO ORDERABLES Fin al Result ISCV * (ABNORMAL) 6 minute walk test (04/05/2024 10:48 AM TECHNICAL STAFF ENGINEER) [facility] 6MWD_Test 368.00(L) 423.02 - 729.02 m 04/05/2024 10:27 AM TECHNICAL STAFF ENGINEER [facility] Dist. final_Test 8.00 m 04/05/2024 10:27 AM TECHNICAL STAFF ENGINEER [facility] Laps_Test 6.00 04/05/2024 10:27 AM TECHNICAL STAFF ENGINEER [facility] Pauses_Test 0.00 04/05/2024 10:27 AM TECHNICAL STAFF ENGINEER [facility] SpO2min_Test 90.00 % 04/05/2024 10:27 AM TECHNICAL STAFF ENGINEER [facility] Ro83_Hjer 0.00 min 04/05/2024 10:27 AM TECHNICAL STAFF ENGINEER [facility] HRmax_Test 95.00 BPM 04/05/2024 10:27 AM TECHNICAL STAFF ENGINEER [facility] Lap Dist_Test 60.00 m 04/05/2024 10:27 AM TECHNICAL STAFF ENGINEER [facility] Dyspnea_Baseli ne 4.00 04/05/2024 10:27 AM TECHNICAL STAFF ENGINEER [facility] Exertion_Basel ine 3.00 04/05/2024 10:27 AM TECHNICAL STAFF ENGINEER [facility] SpO2_Baseline 98.00 % 04/05/2024 10:27 AM TECHNICAL STAFF ENGINEER [facility] Dy37_Hmyszajc 0.00 min 04/05/2024 10:27 AM TECHNICAL STAFF ENGINEER [facility] HR_Baseline 73.00 1/min 04/05/2024 10:27 AM TECHNICAL STAFF ENGINEER [facility] HRmax_Baseline 73.00 BPM 04/05/2024 10:27 AM TECHNICAL STAFF ENGINEER [facility] BP Sys_Baseline 118.00 mmHg 04/05/2024 10:27 AM TECHNICAL STAFF ENGINEER [facility] BP Dia_Baseline 68.00 mmHg 04/05/2024 10:27 AM TECHNICAL STAFF ENGINEER [facility] Dyspnea_Recove ry 5.00 04/05/2024 10:27 AM TECHNICAL STAFF ENGINEER [facility] Exertion_Recov susie 4.00 04/05/2024 10:27 AM TECHNICAL STAFF ENGINEER [facility] SpO2_Recovery 97.00 % 04/05/2024 10:27 AM TECHNICAL STAFF ENGINEER [facility] Pr20_Jkfmyrgg 0.00 min 04/05/2024 10:27 AM TECHNICAL STAFF ENGINEER [facility] HR_Recovery 80.00 1/min 04/05/2024 10:27 AM TECHNICAL STAFF ENGINEER [facility] HRmax_Recovery 80.00 BPM 04/05/2024 10:27 AM TECHNICAL STAFF ENGINEER [facility] BP Sys_Recovery 117.00 mmHg 04/05/2024 10:27 AM TECHNICAL STAFF ENGINEER [facility] BP Dia_Recovery 80.00 mmHg 04/05/2024 10:27 AM TECHNICAL STAFF ENGINEER [facility] 04/05/2024 9:44 AM TECHNICAL STAFF ENGINEER us Annabel Vyas SNUFF GRINDER AND SCREENER PFT ORDERABLES Final Resul t [facility] * (ABNORMAL) SPIROMETRY W/O DILATORS, DLCO AND BODY PLETHSMOGRAPHIC LUNG VOLUMES (04/05/2024 10:11 [facility] FVC (L) pre 4.73 3.27 - 5.52 L 04/05/2024 10:16 AM TECHNICAL STAFF ENGINEER [facility] FEV1 (L) pre 3.13 2.43 - 4.14 L 04/05/2024 10:16 AM TECHNICAL STAFF ENGINEER [facility]ITE FEV1/FVC (%) pre 66.29 63.62 - 86.88 % 04/05/2024 10:16 AM TECHNICAL STAFF ENGINEER [facility] FEF 25-75 (L/s) pre 1.55 1.11 - 4.47 L/s 04/05/2024 10:16 AM TECHNICAL STAFF ENGINEER [facility] DLCO UNADJ. SB_PRE 14.68(L) 20.29 - 36.02 ml/(min*mm Hg) 04/05/2024 10:16 AM TECHNICAL STAFF ENGINEER [facility] DLCO PB adj. SB 14.65(L) 20.29 - 36.02 ml/(min*mm Hg) 04/05/2024 10:16 AM TECHNICAL STAFF ENGINEER [facility] DLCO PRED.ADJ. SB_PRE 14.65(L) 17.65 - 31.32 ml/(min*mm Hg) 04/05/2024 10:16 AM TECHNICAL STAFF ENGINEER [facility] TLC (L) 8.84 6.01 - 9.14 L 04/05/2024 10:16 AM TECHNICAL STAFF ENGINEER [facility] RV (L) 3.83 1.57 - 3.85 L 04/05/2024 10:16 AM TECHNICAL STAFF ENGINEER [facility] RV/TLC (%) 43.38 23.35 - 45.26 % 04/05/2024 10:16 AM TECHNICAL STAFF ENGINEER [facility] FVC (% pred) pre 108 % 04/05/2024 10:16 AM TECHNICAL STAFF ENGINEER [facility] FVC_PREZ-SCORE 0.50 04/05/2024 10:16 AM TECHNICAL STAFF ENGINEER [facility] FEV1 (%pred) pre 95 % 04/05/2024 10:16 AM TECHNICAL STAFF ENGINEER [facility] FEV1_PREZ-SCOR E -0.34 04/05/2024 10:16 AM TECHNICAL STAFF ENGINEER [facility] FEV1/FVC (% pred) pre 87 % 04/05/2024 10:16 AM TECHNICAL STAFF ENGINEER [facility] FEV1/FVC_PREZ- SCORE -1.34 04/05/2024 10:16 AM TECHNICAL STAFF ENGINEER [facility] FEF 25-75 (% pred) pre 62 % 04/05/2024 10:16 AM TECHNICAL STAFF ENGINEER [facility] OUF16-27%_PREZ -SCORE -1.05 04/05/2024 10:16 AM TECHNICAL STAFF ENGINEER [facility] TLC (% pred) 117 % 04/05/2024 10:16 AM TECHNICAL STAFF ENGINEER [facility] TLC_PREZ-SCORE 1.33 04/05/2024 10:16 AM TECHNICAL STAFF ENGINEER [facility] RV (% pred) 147 % 04/05/2024 10:16 AM TECHNICAL STAFF ENGINEER [facility] RV_PREZ-SCORE 1.63 04/05/2024 10:16 AM TECHNICAL STAFF ENGINEER [facility] RVTLC_PRED 34 04/05/2024 10:16 AM TECHNICAL STAFF ENGINEER [facility] RV%TLC_PREZ-SC ORE 1.37 04/05/2024 10:16 AM TECHNICAL STAFF ENGINEER [facility] DLCO unadj. SB PRE% PRED 53 % 04/05/2024 10:16 AM TECHNICAL STAFF ENGINEER [facility] DLCOUNADJUSTED SB_PREZ-SCORE -3.20 04/05/2024 10:16 AM TECHNICAL STAFF ENGINEER [facility] DLCO PB adj. SB (% pred) 53 % 04/05/2024 10:16 AM TECHNICAL STAFF ENGINEER [facility] DLCOPBADJUSTED SB_PREZ-SCORE -3.21 04/05/2024 10:16 AM TECHNICAL STAFF ENGINEER [facility] DLCOpredicteda djustedSB_Pre% Pred 61 % 04/05/2024 10:16 AM TECHNICAL STAFF ENGINEER [facility] DLCOPREDADJUST EDSB_PREZ-SCOR E -2.56 04/05/2024 10:16 AM TECHNICAL STAFF ENGINEER [facility] 04/05/2024 9:29 AM TECHNICAL STAFF ENGINEER us Annabel Vyas SNUFF GRINDER AND SCREENER PFT ORDERABLES Final Resul t [facility] * Solid Tumor Genomic Assay DNA 2018 Interpretation and Report (02/19/2024 11:00 AM CDT) Source Material [id number] 03/21/2024 3:25 PM CDT [facility] Tumor Block A2 03/21/2024 3:25 PM CDT [facility]NOST[facility] *Normal Control Material PB 03/21/2024 3:25 PM CDT [facility] DIAGNOST[facility] Outside 03/21/2024 3:25 PM CDT MOLECULAR DIAGNOSTICS Solid Tumor Genomic Assay DNA Result Maria Elena [facility] [id number] Solid Tumor Genomic Assay 2018 - DNA Cancer type: Metastatic lung squamous cell carcinoma A next generation sequencing (NGS)-based analysis for the detection of somatic mutations in the coding sequence of 134 genes and selected copy number variations (amplifications) in 47 genes (overlap: 146 genes total) was performed on the DNA extracted from the sample in our CLIA-certified molecular diagnostics laboratory. Interpretative findings are reported in the gene summary table(s) below followed by specific details of detected sequence and/or copy number variants. Interpretation Acevedo: Circled/Bold: Mutation and/or amplification detected Underlined: Testing requested (ordered gene) Asterisk: Additional confirmation studies in progress GENE summary: FINDINGS: Copy Number Variations None identified Somatic Mutations Gene Standardized Nomenclature (HGVS) Location DNA change Protein change COSMIC ID KDR [id number](KDR):c .2365G>T p.[id number] Exon 16 SNV Missense TP53 [id number](TP53): c.775G>T p.[id number] Exon 7 SNV Missense [id number] GUIDE TO STANDARDIZED NOMENCLATURE AND EXPLANATION OF CHANGES: Mutations identified are described using an implementation of a standardized nomenclature developed by the Human Genome Variation Society (HGVS, <http://www.hgvs.o rg/mutnomen/>). The normative Genbank gene reference sequence identifier and gene symbol in parentheses are provided, followed by the coding DNA sequence change (e.g., "c. 200A>G", which would mean that the position 200 adenine is changed to guanine), and then the inferred protein change (e.g., "p. V35C", which would mean that the amino acid at codon 35 is changed from valine to cysteine). Additional explanations for the DNA and protein changes seen in the current specimen are shown in the following tables: Explanation of DNA variant/mutation types seen in this specimen DNA Change SNV A single nucleotide difference (point mutation) has been identified in the patient sample relative to the reference wild-type gene sequence Explanation of protein variant/mutation types seen in this specimen Protein Change Missense A single amino acid residue change in the patient sample relative to the reference wild-type protein sequence Additional information on genes with findings identified on this assay KDR [email or web address]/gene- [email or web address]-[email or web address]_[email or web address] TP53 [email or web address]/data/gene- [email or web address]!/[email or web address] Methodology: Test Platform: PCR-based sequencing is performed using a next generation sequencing (NGS) platform on genomic DNA to screen for mutations and copy number amplifications in the coding sequences of genes listed below. NGS sequencing analysis of these genes was further confirmed by other platforms during validation in our CLIA-certified molecular diagnostics laboratory. The genomic reference sequence used is GRCh37/hg19. Detailed information about the signal-processing, base calling, alignment, variant calling, and copy number calling algorithms are available upon request. Analytical sensitivity and additional details: For this assay, sensitivity of detection is related in part to depth of coverage, tumor percentage, and allelic frequency for the mutation. Although the NGS platform is capable of achieving a much higher analytical sensitivity; for clinical purposes, we determined the effective lower limit of detection of this assay (analytical sensitivity) for single nucleotide variations to be in the range of 5% (one mutant allele in the background of nineteen wild type alleles) to 10% (one mutant allele in the background of nine wild type alleles) by taking into consideration the depth of coverage at a given base and the ability to confirm low level mutations using independent conventional platforms. Sensitivity for amplifications depends on both input tumor percentage and the amplitude of the gene amplification. We require a minimum of 20% tumor nuclei in the sample to reduce the potential for false-negative results. The analytic pipeline in this assay attempts to normalize for inter-amplicon performance differences and total sample loading, but does not attempt to correct for tumor percentage. A nominal threshold of 7 for the estimated copy number is used to restrict reporting to high-confidence amplification calls. Details and limitations of the test: - Matched non-tumor tissue from this patient has been tested and germline variants have been excluded. - The primary purpose of this panel is to detect somatic mutations in genes involved in oncogenesis of this patient's tumor. This panel is not designed to detect germline variants for familial tumors, and the test or results thereof should not be used to detect germline variants for hereditary cancer syndromes. - The assay is designed to detect point mutations, small insertion/deletion s, and copy number gains (amplifications). - Variants detected at very low allelic frequencies not deemed to be confirmable by independent, orthogonal methods and/or in significant discordance with the percentage of tumor in the tested sample may be excluded as the clinical significance and reliability of such low level variant calls is not clear. - Copy number assessment by next generation sequencing can be affected by tumor percentage, amplitude of gene amplification, enrichment of tumor during pre-analytical phase, library preparation methods and analysis algorithms. False negative results can be obtained in cases with low tumor percentage, low amplicon coverage and/or borderline copy number gains. Correlation with traditional methods of copy number assessment such as fluorescent in situ hybridization (FISH) is recommended as applicable Report annotation and generation software: A post-variant calling analysis and annotation tool, [employer] version 1.10.1.616, was used in the construction of this report. Sequencing coverage of the genes: The following table describes adequacy of coverage in this assay across the full set of covered genes, exons, and codons, for genes with exon-level sequencing on this assay. Adequately covered amplicons are defined as those having total coverage depth of greater than or equal to 250 reads, or for which an orthogonal mutation analysis testing has been performed. Presence of mutations outside the tested regions listed below cannot be ruled out. Coverage by gene and codon(s) tested for adequate amplicons Gene Exons (codons) tested AKT1 ([id number]) 3 (16-56), 4 (59-96), 6 (146-149), 6-7 (177-195), 9 (235-274), 11 (320-380), 12 (391-411), 13 (450-455), 14 (459-481) AKT2 ([id number]) 3 (16-55), 4 (76-96), 6 (148-153), 7 (192-210), 8 (221-236), 10 (278-279), 11 (322-381), 12 (395-421), 14 (456-482) AKT3 ([id number]) 2 (16-28), 2 (48-58), 3 (66-95), 4 (123-143), 6 (188-209), 8 (233-267), 10 (317-367), 11 (388-399) ALK (NM_[id number]) 20-28 (8732-0230) AR (NM_[id number]) 1 (1-45), 1 (135-178), 1 (245-285), 1 (342-388), 3 (905-629), 4 (404-725), 6-7 (547-831), 8 (870-910) ARAF (NM_[id number]) 7 (186-216) ARID1A (NM_[id number]) 1 (28-73), 1 (106-151), 1-8 (161-838), 8-20 (861-2062), 20 (0821-3082) RICKIE (NM_000051) 2-17 (1-865), 18-19 (880-974), 20-25 (1172-5979), 26 (6393-7041), 26-44 (3582-8555), 44-46 (4181-6424), 47-49 (6141-1707), 49-51 (6774-3581), 52-54 (7992-2421), 55 (2814-4730), 56-57 (7762-5386), 58-63 (0621-4901), 63 (3730-5757) ATR (NM_001184) 1-5 (1-450), 6-8 (875-582), 8 (584-629), 9-13 (146-882), 13-15 (896-1052), 16-19 (1214-0286), 20-27 (5128-5245), 28-29 (4450-6745), 29-34 (4160-8396), 35-38 (4668-8347), 39-47 (0019-1652) ATRX (NM_000489) 1-11 (1-1301), 12-16 (6145-6952), 17-18 (2985-3853), 19-21 (2753-6789), 21-28 (0906-2668), 29-35 (2049-7546) ANJALI (NM_001699) 1 (1-29), 3 (103-137), 6 (223-261), 7 (288-332), 8 (351-378), 9 (386-429), 11 (473-497), 12 (516-536), 15 (593-633), 17 (878-926), 19 (059-782) BAP1 (NM_004656) 1-17 (6-730) BRAF (NM_004333) 11-18 (439-722) BRCA1 (NM_007294) 2-7 (1-183), 8-23 (191-1864) BRCA2 (NM_000059) 2-27 (1-3419) BTK (NM_000061) 7 (174-196), 15 (457-498) CBL (NM_005188) 8-9 (366-435), 9 (446-477) CCND1 (NM_053056) 1 (1-10), 1-2 (14-81), 2 (91-138), 3 (142-192), 4-5 (199-291) CCND2 (NM_001759) 1-2 (1-80), 2-3 (116-191), 4-5 (195-282) CCND3 (NM_001760) 1-2 (53-122), 3 (139-180), 4 (192-237), 5 (250-293) CCNE1 (NM_001238) 4-5 (39-92), 6-9 (127-258), 11-12 (348-411) CDK12 (NM_016507) 1 (1-42), 1-14 (71-1491) CDK2 (NM_001798) 1-2 (1-45), 4 (106-153), 5-6 (163-228), 6-7 (252-297) CDK4 (NM_000075) 2-3 (17-116), 4 (119-163), 5-6 (175-228), 7-8 (268-304) CDK6 (NM_001259) 2 (7-75), 3 (78-86), 3 (104-123), 4 (136-179), 5 (183-216), 6 (221-233), 7-8 (236-287), 8 (315-327) CDKN1B (NM_004064) 1-2 (1-199) CDKN2A (NM_000077) 1-2 (1-90), 2 (98-140), 2-3 (143-157) CDKN2B (NM_004936) 1-2 (1-139) CHEK1 (NM_001274) 2-10 (1-334), 10-13 (363-477) CHEK2 (NM_007194) 11 (366-420), 15 (515-544) CREBBP (NM_004380) 1-5 (1-444), 6-31 (476-1933), 31 (2296-9579) CSF1R (NM_005211) 7 (297-319), 11 (517-542), 22 (963-973) CTNNB1 (NM_001904) 3 (5-67), 7 (327-361) DDR2 (NM_006182) 5 (97-139), 8 (228-279), 13-18 (540-856) EGFR (NM_005228) 3 (84-125), 7 (281-297), 12 (452-494), 15 (582-625), 18-20 (988-801), 20-24 (807-977) ERBB2 (NM_004448) 8 (301-327), 17 (649-680), 18-24 (696-990) ERBB3 (NM_001982) 2-3 (48-118), 6 (207-243), 7-8 (270-326), 9 (330-350), 23 (898-934) ERBB4 (NM_005235) 12 (437-478), 17 (649-671), 18 (694-726), 20 (781-823), 28 (2246-3317) ERCC2 (NM_000400) 3 (36-47), 5 (84-114), 8 (223-240), 15 (460-492), 21 (658-682) ESR1 (NM_000125) 1 (1-42), 1 (53-99), 2 (184-215), 3 (232-254), 4 (268-340), 5 (367-412), 7 (457-518), 8 (532-574) EZH2 (NM_004456) 16 (729-649), 18 (299-704) FANCA (NM_000135) 1-43 (1-1456) FANCD2 (NM_033084) 2-15 (1-409), 15-19 (423-589), 21-28 (432-904), 29 (909-927), 29-43 (948-7552) FANCI (NM_018193) 2-37 (1-1269) FBXW7 (NM_033632) 2-4 (1-242), 5-9 (192-473), 10 (47-509), 10-12 (732-708) FGF19 (NM_005117) 1 (1-33), 2-3 (78-217) FGF3 (NM_005247) 1-3 (1-217), 3 (229-240) FGFR1 (NM_015850) 4 (120-148), 6 (217-247), 8 (311-355), 9 (408-426), 12 (516-553), 14 (642-657), 16 (709-727), 18 (786-821) FGFR2 (NM_000141) 6 (209-235), 7 (250-273), 7-8 (277-350), 9 (362-399), 10 (453-480), 12 (521-558), 13 (589-621), 14-15 (631-686), 16 (699-730), 18 (768-804) FGFR3 (NM_000142) 2 (1-37), 4 (127-133), 8 (329-359), 9 (368-412), 10 (423-439), 14 (633-653), 15-16 (659-719) FGFR4 (NM_022963) 1 (1-31), 2 (72-116), 4 (163-199), 6 (243-283), 8 (359-392), 10-11 (467-535), 13 (609-632), 15 (683-713) FLT3 (NM_004119) 3 (93-123), 6 (205-213), 8 (302-346), 10 (402-435), 12 (502-533), 15 (613-648), 18 (632-764), 20-21 (807-885), 24 (957-994) FOXL2 (NM_023067) 1 (94-137) GATA2 (NM_032638) 4 (291-330), 5 (341-379), 6 (452-481) GNA11 (NM_002067) 4 (165-196), 5 (205-240) GNAQ (NM_002072) 2 (60-100), 4-5 (163-224) GNAS (NM_000516) 8 (196-218), 9 (220-240) H3-3A (NM_002107) 2 (1-36) H3C2 (NM_003537) 1 (6-37), 1 (61-102) HNF1A (NM_000545) 2 (109-116), 3 (196-238) HRAS (NM_005343) 2 (6-34), 3 (44-87), 4 (97-150) IDH1 (NM_005896) 4 (100-138) IDH2 (NM_002168) 4 (125-155), 4 (162-178) IGF1R (NM_000875) 1 (1-32), 2 (138-176), 4 (318-328), 6 (416-457), 8 (572-608), 10 (674-711), 12 (829-865), 14 (928-946), 17 (6190-6926), 20 (4943-6715) JAK1 (NM_002227) 14 (634-663), 15-16 (665-743) JAK2 (NM_004972) 14 (698-622) JAK3 (NM_000215) 11-12 (476-563), 15 (639-683) KDR (NM_002253) 11 (482-512), 16 (761-791), 23 (6255-1199), 24 (7592-7502) KIT (NM_000222) 8 (411-445), 9 (487-514), 10-20 (466-934) KNSTRN (NM_033286) 1 (1-28) KRAS (NM_004985) 2-3 (1-93), 4-5 (97-189) MAGOH (NM_002370) 5 (114-147) MAP2K1 (NM_002755) 2 (27-96), 3 (98-135), 6 (190-227), 11 (357-394) MAP2K2 (NM_030662) 3 (102-123) MAP2K4 (NM_003010) 4 (132-154), 5 (178-208) MAPK1 (NM_002745) 7 (300-322) MAX (NM_002382) 3 (22-56), 4 (58-83) MDM2 (NM_002392) 2 (22-33), 3 (51-58), 4 (79-103), 7 (160-175), 8 (198-228), 9 (236-267), 10 (289-306), 11 (340-373), 11 (406-439) MDM4 (NM_002393) 2 (1-17), 3 (27-50), 5-6 (96-137), 7 (158-171), 8 (212-224), 9 (229-269), 11 (302-334), 11 (348-386), 11 (428-459) MED12 (NM_005120) 2 (34-59), 26 (9053-3633) MET (NM_001127500) 2 (151-192), 2 (217-257), 2 (287-331), 2 (344-384), 14 (981-989), 14-21 (2299-7289) MLH1 (NM_000249) 1-19 (1-757) MRE11 (NM_005590) 2 (1-7), 3-19 (20-681) MSH2 (NM_000251) 1-4 (1-259), 5 (265-307), 6-16 (315-935) MSH6 (NM_000179) 1-10 (1-1361) MTOR (NM_004958) 29 (3126-9110), 30 (2115-0296), 31 (9545-3171), 39 (3227-1013), 40 (5097-2721), 43 (7611-8677), 43-44 (7423-9034), 47-48 (9602-5647), 53 (2926-1840), 56-57 (0096-4346) MYC (NM_002467) 1-2 (1-87), 2 (98-131), 2 (140-185), 2 (196-226), 3 (268-278), 3 (297-340), 3 (352-395), 3 (413-453) MYCL (NM_005376) 2 (60-96), 2 (163-237) MYCN (NM_005378) 2 (1-125), 2-3 (229-349), 3 (371-450) MYD88 (NM_002468) 3 (181-221), 5 (259-269) NBN (NM_002485) 1-5 (1-195), 6-16 (200-755) NF1 (NM_001042492) 1-16 (1-596), 17-23 (616-1038), 25-58 (0226-1035) NF2 (NM_000268) 1-10 (1-332), 11-16 (334-596) NFE2L2 (NM_006164) 2 (23-59), 2 (74-104) NOTCH1 (NM_017617) 2-25 (21-1443), 25-27 (8195-1977), 27 (8050-1613), 28-34 (0740-9816), 34 (8760-5701) NOTCH2 (NM_024408) 1 (1-25), 3 (68-131), 4 (139-191), 4-34 (193-2472) NOTCH3 (NM_000435) 1-2 (16-48), 3-18 (66-959), 18-24 (969-1292), 24 (6824-3539), 25-26 (5644-8342), 27-33 (4811-4699), 33 (4531-8560) NRAS (NM_002524) 2 (1-22), 3 (49-89), 4 (110-150) NTRK1 (NM_002529) 2 (71-92), 3 (106-120), 6 (192-227), 8 (321-393), 11 (418-446), 14 (553-599), 15 (658-682), 17 (747-790) NTRK2 (NM_006180) 4 (1-43), 6 (96-120), 9 (197-239), 11 (294-366), 14 (433-466), 16 (490-531), 17 (580-588), 18 (601-641), 19 (674-723), 20 (725-756) NTRK3 (NM_002530) 7 (155-161), 10 (303-318), 10 (377-402), 13 (432-456), 14 (472-518), 16 (576-630), 17 (662-711), 19 (808-826) PALB2 (NM_024675) 1-3 (1-71), 4-6 (79-862), 7-13 (888-1187) PDGFRA (NM_006206) 12-15 (552-719), 17-21 (775-960) PDGFRB (NM_002609) 2 (1-14), 3 (99-122), 5 (211-235), 7 (333-370), 9 (450-456), 11 (527-545), 12-13 (587-638), 16 (753-782), 19 (881-900), 22 (969-1009), 23 (8529-0688) PIK3CA (NM_006218) 2 (1-5), 2-3 (77-138), 5 (311-351), 8 (418-457), 10-11 (532-582), 14 (693-729), 21 (6395-1861) PIK3CB (NM_006219) 1 (31-57), 3 (138-174), 5 (268-294), 7 (400-434), 10 (518-527), 11 (545-586), 14 (679-683), 16 (784-809), 20 (933-954), 22 (2125-2502) PIK3R1 (NM_181523) 2-11 (1-437), 11-16 (440-725) PMS2 (NM_000535) 1-2 (1-30), 2-5 (35-165), 6-11 (180-657), 12 (669-680), 12-13 (716-726), 15 (855-863) POLE (NM_006231) 1-46 (1-7), 47-49 (4944-7472) PPARG (NM_015869) 1 (1-28), 2 (53-78), 3 (104-134), 3 (152-160), 4 (169-200), 5 (207-228), 5 (257-273), 6 (282-321), 6 (350-390), 7 (424-461) CAW0M0X (NM_014225) 5 (172-199), 6 (220-263) PTCH1 (NM_000264) 1-23 (6-1344), 23 (7582-5052) PTEN (NM_000314) 1-9 (1-382) PTPN11 (NM_002834) 3 (52-91), 13 (485-527) RAC1 (NM_006908) 2 (18-36) RAD50 (NM_005732) 1-5 (1-244), 6-9 (253-478), 10-16 (485-902), 17-19 (907-980), 19-23 (987-1206), 24-25 (1380-7038) RAD51 (NM_002875) 2-4 (1-115), 5-10 (121-340) RAD51B (NM_133509) 2-5 (1-113), 5-7 (142-245), 8-11 (253-374) RAD51C (NM_002876) 1-2 (1-136) RAD51D (NM_133629) 1-7 (1-217) RAF1 (NM_002880) 7 (235-276), 12 (407-442) RB1 (NM_000321) 1-2 (1-85), 3-4 (89-159), 5-6 (167-194), 6-15 (196-464), 16-18 (480-582), 18-21 (587-736), 22-27 (743-929) RET (NM_020975) 10-11 (609-654), 12-14 (713-869), 15-18 (875-1013) RHEB (NM_005614) 2 (18-42) RHOA (NM_001664) 2 (2-44) RICTOR (NM_152756) 7 (153-175), 10 (291-297), 16 (462-467), 21 (658-684), 26 (834-863), 30 (981-1019), 31 (3983-1795), 32 (5975-0915), 35 (6584-7113), 38 (3321-6522) RNF43 (NM_017763) 2-9 (1-442), 9-10 (800-784) ROS1 (NM_002944) 36-38 (2547-2072), 39-40 (3721-7068), 40-42 (7326-7028) SETD2 (NM_014159) 1-11 (1-1799), 12-21 (9959-2487) SF3B1 (NM_012433) 14 (935-640), 14 (631-409), 15 (361-406), 15-16 (73-327) SLX4 (NM_032444) 2-12 (1-1477), 12-15 (0288-5021) SMAD4 (NM_005359) 9 (335-375), 10 (380-401), 12 (519-553) SMARCA4 (NM_003072) 2-12 (1-644), 13-15 (643-156), 16-19 (714-936), 20-25 (954-1162), 26-35 (2675-5378) SMARCB1 (NM_003073) 1-2 (1-72), 3-5 (78-206), 6-9 (210-386) SMO (NM_005631) 3 (186-228), 4-5 (263-354), 6 (397-422), 9 (511-551), 11 (608-646) SPOP (NM_003563) 5 (88-118), 6 (125-160) SRC (NM_005417) 12 (374-418) STAT3 (NM_139276) 13 (398-411), 20 (583-620), 21 (630-667) STK11 (NM_000455) 1-8 (1-361), 9 (370-434) TERT (NM_198253) 1 (1-18), 2 (267-310), 2 (394-425), 3 (553-585), 4 (626-650), 6 (310-342), 9 (823-852), 11 (090-948), 14 (4965-6490), 16 (0983-7925) TOP1 (NM_003286) 20 (892-722) TP53 (NM_000546) 2-11 (1-394) TSC1 (NM_000368) 3-23 (1-1165) TSC2 (NM_000548) 2-35 (1-1523), 37-42 (9909-1365) U2AF1 (NM_006758) 2 (15-41), 6 (137-161) XPO1 (NM_003400) 15 (563-575) DISCLAIMER: This test was developed and its performance characteristics determined by the Molecular Diagnostic Laboratory ([facility]) at the [facility]. It has not been cleared by the U.S. Food and Drug Administration. However, such approval is not required for clinical implementation, and the test results on the ordered genes have been shown to be clinically useful. This laboratory is CAP accredited and CLIA certified to perform high complexity molecular testing for clinical purposes. 03/21/2024 3:25 PM CDT [facility] Pathologist Signature . Test performed on 03/21/2024 03/21/2024 3:25 PM CDT [facility] Outside Tumor Block A2 03/21/2024 3:25 PM CDT [facility] Tissue Non-blood Collection / Unknown 02/19/2024 11:00 AM CDT 02/19/2024 11:00 AM CDT us Keysha Lou APRN [facility] MO[facility]ULAR DIAGNOSTI CS ([facility] BAT[facility]) Final Result MOLECULAR DIAGNOSTICS [facility] [address] [facility] [address] * Antinuclear Antibody (DEEPALI) HEp-2 Substrate, IgG (02/16/2024 3:23 PM CDT) DEEPALI HEp-2 Substrate <1:80 (Negativ e) <1:80 (Negativ e) 02/17/2024 9:45 PM CDT [facility] Comment: ADDITIONAL INFORMATION Method: Immunofluorescence using HEp-2 cellular substrate. Test Performed by: [facility] [address] [place] [address] Pipeline Systems Operator: Vivien Contreras Ph.D.; CLIA# [id number] DEEPALI Titer DNR 02/17/2024 9:45 PM CDT [facility] DEEPALI Pattern DNR 02/17/2024 9:45 PM CDT [facility] DEEPALI Titer 2 DNR 02/17/2024 9:45 PM CDT [facility] DEEPALI Pattern 2 DNR 02/17/2024 9:45 PM CDT [facility] DEEPALI Cytoplasmic Pattern DNR 02/17/2024 9:45 PM CDT [facility] DEEPALI Lab Comment DNR 9:45 PM CDT [facility] Blood Peripheral blood specimen / Unknown Venipuncture / Unknown 02/16/2024 3:23 PM CDT 02/16/2024 3:25 PM CDT Abbie Doyle NAIDU LAB BLOOD ORDERABLES Final Resu lt [facility] * T-spot Tuberculosis (02/16/2024 3:23 PM CDT) Pathologist [facility] Tspot TB Negative SeeBelow 02/18/2024 2:23 PM CDT [facility] ([facility]) Comment: Normal Value: Negative A negative test result does not exclude the possibility of exposure to or infection with Mycobacterium tuberculosis (M. tuberculosis). Patients with recent exposure to TB infected individuals exhibiting a negative T-SPOT.TB result should be considered for retesting within 6 weeks or if other relevant clinical symptoms indicate. Results from T-SPOT.TB testing must be used in conjunction with each individual's epidemiological history, current medical status, and results of other diagnostic evaluations. The T-SPOT.TB test is qualitative and results are reported as positive, borderline or negative, given that the test controls perform as expected. In line with the Centers for Disease Control and Prevention's 2010 recommendation to report quantitative measurements alongside the qualitative result, the laboratory provides spot counts for informational purposes only. The T-SPOT.TB test should not be interpreted as a quantitative test. Tspot TB Panel A 0 02/18/20 24 2:23 PM CDT [facility] ([employer]) Tspot TB Panel B 2 02/18/20 24 2:23 PM CDT [facility] ([employer]) Tspot TB NIL Cont Passed 024 2:23 PM CDT [facility] ([employer]) Tspot TB Pos Cont Passed 024 2:23 PM CDT [facility] ([employer]) Blood Peripheral blood specimen / Unknown Venipuncture / Unknown 02/16/2024 3:23 PM CDT 02/16/2024 3:25 PM CDT Narrative [facility] ([facility]) - 02/18/2024 2:23 PM CDT Performing Organization Information: [facility], [facility], [address] [place] [id number] [facility] Abbie Doyel SNUFF GRINDER AND SCREENER LAB BLOOD ORDERABLES Final Resu lt [employer] ([employer]) * (ABNORMAL) Cyclic Citrullinated Peptide Ab (02/16/2024 3:23 PM CDT) [facility] CCP Ab-[place] >250.0(H) <20.0 (Negative ) U 02/17/2024 5:11 PM CDT [facility] Comment: Interpretation: Strongly positive for antibodies to CCP. In a patient with appropriate clinical symptoms, results may support a diagnosis of rheumatoid arthritis. In some individuals, the presence of anti-CCP antibodies may precede symptom development. For further evaluation, consider testing for Rheumatoid Factor, S (RHUT) and, if positive, Rheumatoid Factor Panel, S (RFPN), which includes differentiation of rheumatoid factor IgM and IgA isotypes, if clinically indicated. Test Performed by: [facility] [address] [place] [address] [employer]ipeline Systems Operator: Vivien Contreras Ph.D.; CLIA# [id number] Blood Peripheral blood specimen / Unknown Venipuncture / Unknown 02/16/2024 3:23 PM CDT 02/16/2024 3:25 PM CDT Abbie Kwon APRN LAB BLOOD ORDERABLES Final Resu lt [facility] * (ABNORMAL) Sed Rate (02/16/2024 3:23 PM CDT) Pathologist [facility] Sedimentation Rate 40(H) <=20 mm/hr 2023 3:56 PM CDT [facility] Blood Peripheral blood specimen / Unknown Venipuncture / Unknown 02/16/2024 3:23 PM CDT 02/16/2024 3:25 PM CDT Abbie Lejiaby SNU[employer] GRINDER [employer] SCREENER LAB BLOOD ORDERABLES Final Resu lt Performing Organization Address City/[facility]/ZIP Co de Phone Number [facility] Unless otherwise noted, all lab tests performed by: Division of Pathology and Laboratory Medicine [address] [place] [id number] * (ABNORMAL) Rheumatoid Factor Quant (02/16/2024 3:23 PM CDT) [facility] Rheumatoid Factor 529(H) <14 IU/mL 02/16/2024 4:32 PM CDT [facility] Blood Peripheral blood specimen / Unknown Venipuncture / Unknown 02/16/2024 3:23 PM CDT 02/16/2024 3:25 PM CDT Abbie Leijastephie NAIDU LAB BLOOD ORDERABLES Final Resu lt [facility] Unless otherwise noted, all lab tests performed by: Division of Pathology and Laboratory Medicine [address] [place] [id number] * CRP (02/16/2024 3:23 PM CDT) Pathologist [facility] CRP-HS 17.81 mg/L 02/16/2024 4:2 4 PM CDT [facility] Blood Peripheral blood specimen / Unknown Venipuncture / Unknown 02/16/2024 3:23 PM CDT 02/16/2024 3:25 PM CDT Narrative [facility] - 02/16/2024 4:24 PM CDT Adult Reference ranges for HS CRP assay are as follows: Reference ranges when used to assess cardiac risk: <1.00 mg/L Low cardiovascular risk 1.00-3.00 mg/L Average cardiovascular risk >3.00 mg/L High cardiovascular risk Reference ranges when used to assess inflammatory responses: Less than or equal to 10.00 mg/L. Abbie Kwon APRN LAB BLOOD ORDERABLES Final Resu lt [facility] Unless otherwise noted, all lab tests performed by: Division of Pathology and Laboratory Medicine [address] [place] [id number] * [facility] Liquid Biopsy Normal (02/16/2024 9:24 AM CDT) Blood Peripheral blood specimen / Unknown Venipuncture / Unknown 02/16/2024 9:24 AM CDT 02/16/2024 9:26 AM CDT Keysha Lou APRN [facility] [employer] F inal Result MOLECULAR DIAGNOSTICS [facility] Molecular [facility]ostics Laboratory [address] [place] [address] * MD LOVE ALEXANDER LB: Mutation Analysis Precision Panel Interpretation and Report (02/16/2024 9:24 AM CDT) MDA ALEXANDER Liquid Biopsy NGS Result Maria Elena [facility] [id number] SNVs/Indels CNVs Fusions More than 5 genes. See details FGFR1 PIK3CA None Somatic Mutations (SNVs/Indels) Gene DNA Protein Location VAF Type ADGRA2 c.2468C>A p.A823E Exon 16 6% SNV - Missense CD79A c.390del p.R131fs*61 Exon 3 10% Deletion - Frameshift EPHA3 c.257_258delinsTT p.W86F Exon 3 6% Complex - Missense EPHA3 c.208G>A p.V70M Exon 3 7% SNV - Missense ERCC2 c.750C>G p.N250K Exon 9 10% SNV - Missense GABRA6 c.226-1G>A p.? Splice? (Intron 3) 12% Splice? - Unknown INPP4B c.719G>C p.R240T Exon 12 3% SNV - Missense KDM6A c.3361C>A p.T6250U Exon 23 13% SNV - Missense KLHL6 c.965T>C p.M322T Exon 4 13% SNV - Missense KMT2C c.946_947delinsTA p.T316Y Exon 7 1% Complex - Missense KMT2D c.71998D>T p.K3537* Exon 38 25% SNV - Nonsense MAPK3 c.1108C>T p.R370C Exon 8 9% SNV - Missense PARP4 c.5033_5035del p.S3458iiy Exon 34 8% Deletion - Deletion PMS1 c.253G>C p.E85Q Exon 3 9% SNV - Missense PPM1D c.889dupA p.S297fs*6 Exon 4 7% Duplication - Frameshift CMNP2B6 c.-06704Y>G UTR5 17% SNV RYK c.289A>T p.S97C Exon 4 7% SNV - Missense SHPRH c.2273A>T p.Q758L Exon 10 10% SNV - Missense SLIT2 c.3861G>T p.F8528P Exon 35 10% SNV - Missense STAT4 c.1150G>A p.A384T Exon 13 8% SNV - Missense TP53 c.775G>T p.D259Y Exon 7 8% SNV - Missense Copy Number Variations (CNVs) Gene Finding Genomic Position Cytoband FGFR1 Gain chr8:[id number] 34 8p11.23-p11.22 PIK3CA Gain chr3:[id number] 2162 3q26.32 Gene Fusions None Identified Clinical test requisition for mutation studies on the following genes was received: BRAF, ERBB2, MET Clinical test requisition for fusion studies on the following genes was received: ALK, RET, ROS1 COMMENTS: Cancer type: Lung squamous cell carcinoma Comparison with tissue sequencing: Not available The selection and classification of variants for reporting incorporates review of available clinicopathologic information, correlation with current clinical presentation, any consultations with additional healthcare providers and exercise of medical judgement by the sign-out pathologist. GUIDE TO STANDARDIZED NOMENCLATURE AND EXPLANATION OF CHANGES: Variants identified are described using an implementation of a standardized nomenclature developed by the Human Genome Variation Society (HGVS, http://www.hgvs.org/ varnomen/). The normative Genbank gene reference sequence identifier and gene symbol in parentheses are provided, followed by the coding DNA sequence change (e.g., "c. 200A>G", which would mean that the position 200 adenine is changed to guanine), and then the inferred protein change (e.g., "p. V35C", which would mean that the amino acid at codon 35 is changed from valine to cysteine). Additional explanations for the DNA and protein changes seen in the current specimen are shown in the following tables: Explanation of DNA variant/mutation types seen in this specimen DNA Change SNV A single nucleotide difference (point mutation) has been identified in the patient sample relative to the reference wild-type gene sequence Deletion A sequence of DNA has been deleted in the patient sample relative to the reference wild-type gene sequence Complex A complex variant involving both deletion and insertion of new sequence in the patient sample relative to the reference wild-type gene sequence Duplication A sequence of contiguous DNA has been duplicated in the patient sample relative to the reference wild-type gene sequence Splice? An alteration of genomic DNA adjacent to the intron/exon splice border which could have an effect on RNA splicing has been identified Explanation of protein variant/mutation types seen in this specimen Protein Change Missense A single amino acid residue change in the patient sample relative to the reference wild-type protein sequence Nonsense A single nucleotide change resulting in a premature stop codon leading to a truncated protein product in the patient sample relative to the reference wild-type protein sequence Frameshift A mutation involving deletion or insertion of a non-triplet number of nucleotides in the patient sample relative to the reference wild-type sequence. Frameshift mutations generally result in a nonsense translation with early termination of translation. Deletion A set of amino acids has been deleted in the patient sample relative to the reference wild-type protein sequence Unknown A mutation/variant involving changes where the impact on protein translation cannot be predicted, e.g. possible impact on RNA splicing Additional information on genes/variants with findings identified on this assay: Gene Genomic Variant COSMIC dbSNP ClinVar ADGRA2 chr8:[id number] C>A c.2468C>A p.A823E CD79A chr19:36440146 GC>G c.390del p.R131fs*61 EPHA3 chr3:30942077 GG>TT c.257_258delinsTT p.W86F EPHA3 chr3:63687202 G>A c.208G>A p.V70M ERCC2 chr19:71975652 G>C c.750C>G p.N250K GABRA6 chr5:891363998 G>A c.226-1G>A p.? INPP4B chr4:648516852 C>G c.719G>C p.R240T KDM6A chrX:55743025 C>A c.3361C>A p.Z0847U KLHL6 chr3:975610351 A>G c.965T>C p.M322T KMT2C chr7:358947179 GT>TA c.946_947delinsTA p.T316Y KMT2D chr12:72550220 T>A c.56268E>T p.K3537* MAPK3 chr16:19666963 G>A c.1108C>T p.R370C PARP4 chr13:16376617 GTTC>G c.5033_5035del p.F9218nzv PMS1 chr2:771315857 G>C c.253G>C p.E85Q PPM1D chr17:64272482 C>CA c.889dupA p.S297fs*6 AQTS5O7 chr8:08281114 G>C c.-54854P>G RYK chr3:872175103 T>A c.289A>T p.S97C SHPRH chr6:682379831 T>A c.2273A>T p.Q758L SLIT2 chr4:59607733 G>T c.3861G>T p.D2355H STAT4 chr2:891503414 C>T c.1150G>A p.A384T TP53 chr17:6097990 C>A c.775G>T p.D259Y [id number] Link to COSMIC: [email or web address]://cancer.[email or web address] [facility].ac.uk/cosmic Link to dbSNP: https://www.ncbi.nlm .nih.gov/snp Link to ClinVar: https://www.ncbi.nlm .nih.gov/clinvar Methodology: Test Description: The [facility] Mutation Analysis Precision Panel Liquid Biopsy (MDA ALEXANDER LB) assay is a custom high-throughput next generation sequencing-based CLIA assay that uses targeted hybridization-based capture technology for detection of sequence variants/mutations in 701 genes (single nucleotide variants [SNVs] and insertion/deletion alterations [indels]), copy number variants (CNVs) in 19 genes and select gene rearrangements in 34 genes (Fusions) in cell-free DNA (cfDNA) isolated from plasma specimens (See Appendix Table 1 and 2). MDA A[facility] LB employs DNA extracted from both plasma and paired peripheral blood mononuclear cells (PBMC) specimens in our CLIA-certified molecular diagnostic laboratory. Routinely collected blood samples are the accepted specimen types. Thirty nanograms of cfDNA is recommended, with a minimum accepted 20ng of genomic DNA, which undergoes whole-genome library construction with adapters carrying Unique Molecular Indices (DARCIE) allowing tagging of original double-stranded DNA that facilitates statistical reconstruction of reads sequenced as duplicates from a single-amplified genome. A target area of 2.1 megabases (Mb) GRCh37/hg19 genome is enriched with custom hybrid-capture, 120nt dsDNA probes. [facility] assay uses the Citizen[employer] 6000 next generation sequencing platform and bidirectional paired-end sequencing to identify nucleic acid variants for all coding regions from most genes in the panel, the TERT promoter, 1 non-coding RNA gene (TERC), and clinically relevant rearrangements. Reported somatic mutations are identified by comparison to the human genome reference sequence GRCh37/hg19 and reviewed in [employer] against a process-matched normal control. Data analysis is performed in house by the [employer] Bioinformatics pipeline (BIP) which relies on the dual-duplex molecular barcoding for consensus analysis to reduce sequencing artifacts and achieve greater sensitivity and positive predictive value. [facility] is intended to provide tumor mutation profiling in accordance with institutional guidelines in oncology for patients with solid malignant neoplasms. Report annotation and software: A post-variant calling analysis and annotation tool, [employer] version 1.10.1.616, was used in the construction of this report. The following additional software tools were utilized in the experimental setup and bioinformatic analysis: [employer] Control Software 1.8, [employer] Real Time Analysis Software 3.4.4, [employer] v2.0. Detailed information about the signal-processing, base calling, alignment, and variant calling algorithms are available upon request. Test performance specifications: For this assay, sensitivity of detection is related in part to depth of coverage and the amount of input cfDNA. We determined the effective lower limit of detection of this assay (analytical sensitivity) for single nucleotide variations, insertions/deletions and gene fusions to be 0.5% variant allelic frequency (VAF) for 30ng cfDNA input and 1% VAF for 10ng cfDNA input by taking into consideration the depth of coverage at a given base. Sensitivity for amplifications depends on both input cfDNA and the amplitude of the gene amplification. The presence of amplification is determined by individual gene Z-score and copy number threshold derived from healthy normal cfDNA. A nominal threshold of 2.5 copies is used to restrict reporting to high-confidence calls. Limitations of the test: [facility] requires normal non-tumor DNA, typically isolated from the PBMCs from the same collection tube, for appropriate interpretation of somatic mutations. Silent mutations (mutations that do not result in an amino acid change) are not reported. The primary purpose of this panel is to detect somatic mutations in genes involved in oncogenesis of this patient s tumor. The test or the results thereof should not be used to detect germline variants for hereditary cancer syndromes. If a hereditary cancer syndrome is suspected, separate testing of a germline sample should be performed using an appropriate assay. Variants detected below Limits of Detection (LoD) not deemed to be confirmable by independent, orthogonal methods and/or in significant discordance with the tumor fraction in the tested sample may be excluded as the clinical significance and reliability of such low-level mutation calls is not clear. The assay is designed to detect point mutations, insertion/deletions, copy number gains (amplifications) and gene fusions. The assay does not detect copy number losses. Quality and quantity of cfDNA can influence variant detection. False negative results can be obtained at low cfDNA inputs. Copy number gains below 2.5 cut-off not confirmable by independent, orthogonal methods may be excluded as the clinical significance and reliability of such low-level calls are not clear. Correlation with traditional methods of copy number assessment such as fluorescent in situ hybridization (FISH) on tumor tissue is recommended if clinical action based on findings is being considered. Since hematopoietic cells can also contribute to cfDNA, the possibility that any mutation detected may represent clonal hematopoiesis of indeterminate potential (CHIP) or a clonal hematologic disorder cannot be ruled out. The results of [facility] genomic testing should be correlated with all available and applicable clinicopathologic information by the treating physician in clinical decision making. Sequencing coverage of the genes: The following table describes the extent and adequacy of coverage for ordered genes only. Covered genes/exons/codons are defined as those having total coverage depth of greater than or equal to 1000 NRK-oynhl-shgajhnyb collapsed reads (minimum 1000x coverage). Mutations in ordered genes outside the optimally covered regions listed below may be detected with diminished sensitivity and cannot be ruled out. Coverage information for non-ordered genes for this sample is complex and lengthy but may be requested from the laboratory if required for clinical care or correlative purposes. Coverage for ordered genes and codon(s) tested with a minimum of 1000x coverage Gene Exons (codons) tested BRAF ([id number]) 1 (1-46), 3-4 (81-203), 5 (207-229), 6-16 (238-659), 17 (665-709), 18 (721-767) ERBB2 ([id number]) 1-27 (1-1256) MET ([id number]) 2-8 (1-694), 9-11 (703-426), 12-14 (881-984), 15-21 (5428-5278) APPENDIX: Table 1: Genes of interest for SNVs, INDELs and CNVs ABL1 ABL2 ABRAXAS1 ACVR1 ACVR1B ACVR2A ADGRA2 AJUBA AKT1 AKT2 AKT3 AKTIP ALK KRLD11Y AMER1 ANKRD11 APC AR* ARAF ARFRP1 ARID1A ARID1B ARID2 ARID5B ASCC3 ASPM ASXL1 ASXL2 RICKIE ATR ATRIP ATRX AURKA AURKB AURKC AXIN1 AXIN2 ANJALI B2M BAP1 BARD1 BAZ2A BBC3 BCL10 BCL11A BCL2 BCL2L1 XBY6R22 BCL2L2 BCL6 BCL7A BCOR BCORL1 BCR BIRC2 BIRC3 BLM BLNK BMPR1A BRAF* BRCA1 BRCA2 BRCC3 BRD4 BRIP1 BTG1 BTG2 BTK BUB1 CALR CARD11 CASP8 CBFB CBL CCKAR CCN6 CCNA2 CCND1* CCND2* CCND3 CCNE1* CCNE2 CCR4 CCR7 CD274 CD276 CD28 CD58 CD74 CD79A CD79B CD8A CDC20 CDC27 CDC42 CDC6 CDC73 CDH1 CDK12 CDK2 CDK4* CDK6* CDK8 CDKN1A CDKN1B CDKN2A CDKN2B CDKN2C CEBPA CENPA CENPE CHAF1A CHD2 CHEK1 CHEK2 CHTF8 CIC CIITA CNOT3 COL2A1 COP1 CREBBP CRKL CRLF2 CSF1R CSF3R CTCF CTLA4 CTNNA1 CTNNB1 CUL3 CUL4A CUL4B CUX1 CXCR4 CYLD NNM6H36 DAXX IFCEU1E KLCS8M5 DDB1 DDR1 DDR2 DDX3X DICER1 DIS3 DIS3L2 DLL3 DNA2 DNAJB1 DNMT1 DNMT3A DNMT3B DOT1L DUSP2 E2F3 EED EGFL7 EGFR* EGR1 EGR2 EIF1AX EIF4A2 EIF4E ELF3 ELF4 ELOC EMSY ENO1 EP300 EPCAM EPHA2 EPHA3 EPHA5 EPHA7 EPHB1 EPHB4 ERBB2* ERBB3 ERBB4 ERCC1 ERCC2 ERCC3 ERCC4 ERCC5 ERCC6 ERG ERRFI1 ESR1 ETV1 ETV4 ETV5 ETV6 EWSR1 EXO1 EZH2 FADD FAM50A FANCA FANCC FANCD2 FANCE FANCF FANCG FANCI FANCL FANCM FAS FAT1 FBXW7 FGF10 FGF14 FGF19 FGF23 FGF3 FGF4 FGF5 FGF6 FGF9 FGFR1* FGFR2* FGFR3* FGFR4 FH FLCN FLT1 FLT3 FLT4 FOXA1 FOXL2 FOXO1 FOXP1 FRS2 FTO FUBP1 FYN FZR1 GABRA6 FNAX03Z GATA1 GATA2 GATA3 GATA4 GATA6 GEN1 GID4 GLI1 GNA11 GNA13 GNAQ GNAS AVS699 GPS2 GREM1 GRIN2A GRM3 GSK3B H1-2 H1-4 H2AX H2BC5 H3-3A H3-3B H3-4 H3-5 H3C1 H3C10 H3C11 H3C12 H3C13 H3C2 H3C3 H3C4 H3C6 H3C7 H3C8 HDAC2 HDAC9 HELQ HERC2 HFM1 HGF HLA-A HLA-B HLA-C HMGA2 HNF1A HOXB13 HRAS HSD3B1 RYR55ZO9 PLV92CJ7 HUWE1 HVCN1 ICOSLG ID3 IDH1 IDH2 IFNGR1 IGF1 IGF1R IGF2 IGLL5 IKBKE IKZF1 IKZF3 IL10 IL2RG IL7R INHA INHBA INO80 INPP4A INPP4B INSR IRAK1 IRF2 IRF4 IRF8 IRS1 IRS2 ITPKB JAK1 JAK2 JAK3 TRISHA KAT6A KDM3B KDM5A KDM5C KDM6A KDR KEAP1 DEON KIT* KLF2 KLF4 KLHL6 KMT2A KMT2B KMT2C KMT2D KNSTRN KRAS* LATS1 LATS2 LCK LIG4 LMO1 LRP1B LTB LTK TIMOTHY MAD2L2 MAGOH MALT1 MAP2K1 MAP2K2 MAP2K4 MAP2K7 MAP3K1 FAK5K16 JLE8Q89 MAP3K4 MAPK1 MAPK3 MAPK8 MAX MCL1 MDC1 MDM2 MDM4 MED12 MEF2B MEN1 MERTK MET* MFHAS1 MGA MGMT MITF MLH1 MLH3 MPL MRE11 MSH2 MSH3 MSH6 MST1 MST1R MTAP MTOR MUSK MUTYH MXD4 MYB MYBL1 MYC* MYCL MYCN MYD88 MYOD1 NBN NCOA3 NCOR1 NEGR1 NF1 NF2 NFE2L2 NFKB2 NFKBIA NFKBIE NGFR NHEJ1 NKX2-1 NKX3-1 NOTCH1 NOTCH2 NOTCH3 NOTCH4 NPM1 NRAS NSD1 NSD2 NSD3 NT5C2 NTHL1 NTRK1 NTRK2 NTRK3 NUP93 NUTM1 NXF1 P2RY8 PAK1 PAK3 PAK5 PALB2 PARP1 PARP2 PARP3 PARP4 PARPBP PAX5 PAXX PBRM1 PCBP1 PCNA PDCD1 CJKO6TA5 PDGFB PDGFRA* PDGFRB PDK1 PER1 PGD PGR PHF6 PHOX2B UXA3Y2J NJR8O3Q PIK3C3 PIK3CA* PIK3CB PIK3CD PIK3CG PIK3R1 PIK3R2 PIK3R3 PIM1 PLCG1 PLCG2 PLEKHG5 PLK2 PMAIP1 PML PMS1 PMS2 PNKP PNRC1 POLA1 POLD1 POLE POLQ POT1 PPARG PPM1D FDY0R2E JUA6Z4Y ZHZ1N9J PPP4R4 PPP6C PRAME PRC1 PRDM1 PREX2 PRG4 ZDQKT8I PRKCI PRKD1 PRKDC PRKN PTCH1 PTEN PTK2 PTPN1 PTPN11 PTPRB PTPRD PTPRS PTPRT QKI RAB35 RAC1 RAD17 RAD21 RAD50 RAD51 REQ63IO4 RAD51B RAD51C RAD51D RAD52 RAD54L RAF1* CHE RASA1 RASSF1 RB1 RBM10 RBMX RECQL4 REL RELN REST RET REV3L RFC1 RFC2 RFC3 RFC4 RFC5 RFTN1 RHEB RHOA RICTOR RIF1 RIPK1 RIT1 RMI1 RMI2 RNF43 ROR1 ROS1 RPA1 RPA2 RPA3 RPA4 RPS15 GKS3TL4 NDA2EX7 MAL8QB2 RPTOR RRAGC RRAS RSPO1 RSPO2 RUNX1 KCLS9P2 RYBP RYK S1PR1 S1PR2 SAMHD1 SDHA SDHAF2 SDHB SDHC SDHD SESN1 SETBP1 SETD2 SETDB1 SF3B1 SGK1 SH2B3 SH2D1A SHLD1 SHLD2 SHLD3 SHPRH SHQ1 HGA46W9 SLIT2 SLX4 SMAD2 SMAD3 SMAD4 SMARCA2 SMARCA4 SMARCAD1 SMARCB1 SMARCD1 SMC1A SMC3 SMC5 SMC6 SMO SNCAIP SOCS1 SOS1 SOX10 SOX11 SOX17 SOX2 SOX9 SP140 SPEN SPOP SRC SRSF2 SSBP1 STAG2 STAT3 STAT4 STAT5A STAT5B STAT6 STK11 STK19 STK40 SUFU SUZ12 SYK TBC1D4 PLZ3UX7 TBX3 TCF3 TCF7L2 MAYNOR TENT5C TERC TERT^ TET1 TET2 TFE3 TFEB TGFB1 TGFBR1 TGFBR2 DSKO834 XCFY56B TMPRSS2 TNF TNFAIP3 DNLKKC12 TOP1 TOP2A TOP3A TOPBP1 TP53 XP22RB2 TP53I3 TP63 TRAF2 TRAF3 TRAF6 TRAF7 DTKXHI02 TRIM28 TRIM37 TSC1 TSC2 TSHR TSPAN31 TTK TYRO3 U2AF1 UBR5 VAV1 VEGFA VHL VTCN1 WRN WT1 XIAP XPO1 XPO5 XRCC2 XRCC3 XRCC4 XRCC5 XRCC6 YAP1 YES1 ZFAT ZFHX3 ZMYM3 SJP462 WJU609 ZRSR2 *Gene included for CNV reporting ^ Includes promoter region ncRNA Gene Table 2. Genes with select intronic regions for the detection of DNA-based gene rearrangements ALK introns: 18-19 BRCA2 introns: 2 ETV4 introns: 5-6 EZR introns: 9-11 KIT introns: 16 MYB introns: 14 NTRK2 introns: 12 CHE introns: 2 SDC4 introns: 2 BCR introns: 7-10 CD74 introns: 6-8 ETV5 introns: 6-7 FGFR1 introns: 1,5,17 KMT2A introns: 6-11 MYC introns: 1 NUTM1 introns: 1 RET introns: 7-11 YTD98H4 introns: 4 BRAF introns: 7-10 EGFR introns: 7,15,24-27 ETV6 introns: 5-6 FGFR2 introns: 1,17 MET* introns 13,14 NOTCH2 introns: 26 PDGFRA introns: 7,9,11 ROS1 introns: 31-35 TMPRSS2 introns: 1-3 BRCA1 introns: 2,7-8,12,16,19-20 EML4 introns: 6,13 EWSR1 introns: 7-13 FGFR3 introns: 17 MSH2 introns: 5 NTRK1 introns: 8-10 RAF1 introns: 4-8 RSPO2 introns: 1 *Targeted for MET exon 14 skipping assessment DISCLAIMER: This test was developed and its performance characteristics determined by the Molecular Diagnostic Laboratory (MDL) at the [facility]. It has not been cleared by the U.S. Food and Drug Administration. However, such approval is not required for clinical implementation, and the test results on the ordered genes have been shown to be clinically useful. This laboratory is CAP accredited and CLIA certified to perform high complexity molecular testing for clinical purposes. 02/29/2024 12:34 PM CDT [facility] Pathologist Signature . Test performed on 02/29/2024 02/29/2024 12:34 PM CDT [facility] Blood Peripheral blood specimen / Unknown Venipuncture / Unknown 02/16/2024 9:24 AM CDT 02/16/2024 9:26 AM CDT Keysha DENISE MOLECULAR DIAGNOSTI CS (CAMELIA BATRES) Final Result MOLECULAR DIAGNOSTICS [facility] Molecular Diagnostics Laboratory [address] [place], [place] [id number] * NGS Blood Control (02/16/2024 9:24 AM CDT) Blood Peripheral blood specimen / Unknown 02/16/2024 9:24 AM CDT 02/22/2024 1:37 PM CDT Keysha Lou APRN, MDA IP HP MOLECULAR DIAG I F ORDERABLES Edited Result - Final MOLECULAR DIAGNOSTICS [facility] Molecular Diagnostics Laboratory [address] [place] [phone] * Research Protocol [id number] (02/15/2024 2:54 PM CDT) Research Protocol Specimen Specimen Collected, Ready for Pickup. 02/15/2024 4:00 PM CDT [facility] Blood Peripheral blood specimen / Unknown Venipuncture / Unknown 02/15/2024 2:54 PM CDT 02/15/2024 2:58 PM CDT Keysha Lou APRN RESEARCH LAB Z CODES Final Result [facility] Unless otherwise noted, all lab tests performed by: Division of Pathology and Laboratory Medicine [address] [place] [id number] * OSI PET CT Skull to Mid Thigh (01/28/2024 2:32 PM CDT) Narrative Systemgenerated, Documentation - 02/12/2024 2:32 PM CDT Study acquired at another institution. For comparison only. No [facility] originated interpretation requested or available. Amy Oliva MD IMG OUTSIDE IMAGE ORDERABLES Fin al Result * OSI CT CHEST (01/23/2024 2:32 PM CDT) Narrative Systemgenerated, Documentation - 02/12/2024 2:32 PM CDT Study acquired at another institution. For comparison only. No [facility] originated interpretation requested or available. Amy Oliva MD IMG OUTSIDE IMAGE ORDERABLES Fin al Result * Pathology Outside Interpretation (01/22/2024) Materials Received Accession#, Stained, Block, Unstained Collected Received A. [id number], 16 SS, 0 BLOCKS, 0 USS B. [id number], 4 SS, 0 BLOCKS, 0 USS C. [id number], 4 SS, 0 BLOCKS, 0 USS 01/22/2024 01/27/2024 01/27/2024 02/18/2024 02/18/2024 02/18/2024 09/09/2024 10:58 AM CDT [facility] Addendum 2 Additional material received on 09/07/2024, Outside 0 SS, 1 BLOCKS, 0 USS, collected on 01/27/2024. This addendum reports the results of clinically requested studies. RESULTS MTAP (Clone 2G4, [employer]): Retained (see comment) COMMENTS Immunoperoxidase staining was performed at [facility] on a cell block section with appropriate controls. MTAP expression appears weak and heterogenous, which is interpreted as retained expression. Correlation with pending NGS testing is recommended. Technical Charge Note: H&E x1; IHC x1 Assay Information: This is a laboratory-develope d assay which uses a monoclonal antibody clone 2G4 from [employer] and is validated to detect MTAP on formalin-fixed paraffin-embedded tissue, using a Leica Sherman III autostainer and polymer-based detection kit. Complete loss is defined as absent tumoral labeling with retained staining in normal cells. Tumoral staining of any intensity is considered retained. Indeterminate cases cannot be accurately interpreted due to pre-analytical or technical reasons. Performance characteristics on other non-approved tissue types cannot be guaranteed. 09/09/2024 10:58 AM CDT [facility] Addendum electronically signed by Polo Mcdonough MD on 09/09/2024 at 1058 CDT Addendum 1 This addendum reports the results of clinically requested studies. RESULTS PD-L1 (Clone 22c3, [employer]) Tumoral Proportion Score (TPS): 0% HER2, immunoperoxidase stain (clone 4B5, [place] [employer]) - negative (score 0) COMMENTS Immunoperoxidase stains were performed on cell block ([id number], A2) sections with appropriate controls. Note that the cellularity of the sample did not support all the requested IHC tests. The results of requested [facility] testing will be reported separately. Assay Information: The PD-L1 assay is manufactured by [employer] and uses a monoclonal anti-PD-L1, clone 22c3. It is performed on formalin-fixed paraffin-embedded tissue using an [employer] autostainer and polymer based detection kit, as specified by the noc analyst. It is approved for use as a office auditor diagnostic assay for specific therapies on certain tumor types. Interpretation guidelines vary. For tumoral percentage score (TPS), the percentage of tumoral membranous labeling of any intensity is assessed. Please refer to the intended therapy package insert for appropriate use of results. Performance characteristics on other tissue types such decalcified specimens and on non-approved tumor types and therapies cannot be guaranteed. Technical Charge Note (performed at [facility]): H&E x 2; IHC x 2 09/09/2024 10:58 AM CDT [facility] Addendum electronically signed by Polo Mcdonough MD on 03/08/2024 at 1542 CDT Diagnosis Outside ([id number], 16 SS, 0 BLOCKS, 0 USS, collected on 01/22/2024): A. Pericardial fluid (cytospin and cell block): METASTATIC SQUAMOUS CELL CARCINOMA (see comment) Outside ([id number], 4 SS, 0 BLOCKS, 0 USS, collected on 01/27/2024): B. Lymph node, subcarinal, station 7, EBUS FNA (cytospin and cell block): METASTATIC SQUAMOUS CELL CARCINOMA Outside ([id number], 4 SS, 0 BLOCKS, 0 USS, collected on 01/27/2024): C. Lymph node, lower paratracheal, right, station 4R, EBUS FNA (cytospin and cell block): METASTATIC SQUAMOUS CELL CARCINOMA 09/09/2024 10:58 AM CDT [facility] at 1014 CDT Comment Submitted immunostains, performed on cellblock with appropriate controls, shows that the tumor cells are positive for p40, p63, MOC-31(patchy), Ortiz-EP4 (rare, weak) and TTF-1 (patchy), while negative for CK7, CK20, WT1, creatinine and Napsin A. The overall immunophenotype, along with morphologic features, are in favor of squamous cell carcinoma. 09/09/2024 10:58 AM CDT [facility] Biomarker Block(s) Block for biomarker testing: A2 ([id number]), A2 ([id number]) Normal block: No 09/09/2024 10:58 AM T [facility] Disclaimer "Some tests reported here may have been developed and performance characteristics determined by [facility] Pathology and Laboratory Medicine. These tests have not been specifically cleared or approved by the U.S. Food and Drug Administration. If applicable, controls were reviewed and showed appropriate reactivity." 09/09/2024 10:58 AM CDT [facility] Tissue 01/22/2024 02/18/2024 6:4 6 AM CDT Tissue specimen (specimen) 01/27/2024 02/18/2024 6:46 AM CDT Tissue specimen (specimen) 01/27/2024 02/18/2024 6:46 AM CDT us Lazaro Juan LAB PATHOLOGY ORDERABLES Edited Result - Final [facility] [place] [address], [place] * OSI Chest (01/21/2024 2:32 PM CDT) Narrative Systemgenerated, Documentation - 02/12/2024 2:33 PM CDT Study acquired at another institution. For comparison only. No [place] originated interpretation requested or available. us Amy Oliva MD IMG OUTSIDE IMAGE ORDERABLES Fin al Result after 10/25/2023 Insurance MEDICARE PART A AND B Member Subscriber Plan / Payer (Ef fective 2021-Present) Name:Antonio Arredondo Member ID:[id number] Relation to Subscriber:Self Name:Antonio Arredondo Subscriber ID:[id number] Payer ID:[id number] Group ID:Not on file Type:Medicare Address: [employer] [address] [place] [phone] AARP-SECONDARY ONLY Member Subscriber Plan / Payer (Ef fective 2023-Present) Name:Antonio Arredondo Relation to Subscriber:Self Name:Antonio Arredondo Payer ID:[id number] Group ID:[id number] Type:[facility] Address: [address] [place] [id number] MEDICARE PART A AND B Member Subscriber Plan / Payer (Ef fective 2021-Present) Name:Antonio Arredondo Member ID:[id number] Relation to Subscriber:Self Name:Antonio Arredondo Subscriber ID:[id number] Payer ID:[id number] Group ID:Not on file Type:Medicare Address: [employer] [address] [place] [address] AAR-SECONDARY ONLY Advance Directives Documents on File Type Date Recorded 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 Advance Directives: Living Will 02/29/2024 Directive to Physici ans and Family or Surrogates-Living Will Advance Directives: Medical Power of Production Supervisor Off Shift 02/29/2024 Medical Power of Att orney * Full Code (Latest Code Status on File) Date Activated Date Inactivated Comments 10/20/2024 2:57 PM Update based o n Advanced Directive Documentation * DNR Date Activated Date Inactivated Comments 10/06/2024 12:39 PM 10/11/2024 1:31 PM Question Answer Comments DNR obtained from: Patient Patient Provided: Written Authorization (DNR Con sent) * Full Code Date Activated Date Inactivated Comments 10/06/2024 11:53 AM 10/06/2024 12:39 PM * DNR Date Activated Date Inactivated Comments 10/04/2024 3:34 AM 10/06/2024 11:53 AM Question Answer Comments DNR obtained from: Patient Patient Provided: Written Authorization (DNR Con sent) * Full Code Date Activated Date Inactivated Comments 10/03/2024 4:45 PM 10/04/2024 3:34 AM Care Teams Manager Of Selection And Assessment Relationship Specialty Start Date End Date Akash Lao MD [address] [place] [phone] [email or web address] PCP - External Referring Internal Medicine 02/04/24 Dustin Coronado Jr., MD [address] [place] [phone] [email or web address] PCP - General Head and Neck Medical Oncology 02/04/24 02/10/24 Amy Oliva MD [address] [place] [phone] [email or web address] PCP - General Thoracic Medicine 02/11/24 Clarisa Valle, RN [address] [place] [phone] [email or web address] Intake Nurse Navigator Nursing 02/04/24 02/15/24 Noreen Rubio, RN [address] [place] [phone] [email or web address] Treatment Nurse Navigator Nursing 02/16/24 Solo Souza MD [address] [place] [phone] [email or web address] Consulting Physician Rheumatology 02/16/24 Jordy Winston DO [address] [place] [phone] [email or web address] Consulting Physician Supportive Care 02/26/24 Abe Yost MD [address] [place] [phone] [email or web address] Consulting Physician Pulmonary Medicine 04/05/24 Edward Wick MD [address] [place] [phone] [email or web address] Consulting Physician Cardiology 04/26/24 Jose R Flores MD [address] [place] [phone] [email or web address] Consulting Physician Radiation Oncology 06/14/24 Richie Bedolla MD [address] [place] [phone] [email or web address] Consulting Physician Medical Oncology 08/31/24 Ary Koenig APRN [address] [place] [phone] [email or web address] Nurse Practitioner Neurosurgery 09/06/24
[2024-10-24] MEDS ORDERED: ALBUTEROL 2.5 MG/3 ML NEB SOL ONE (21:50)
[2024-10-24] MEDS ORDERED: dilTIAZem HCL 25 MG/5 ML VIAL IV ONE ×2 (21:51→21:55)
[2024-10-24] MEDS ORDERED: NA CHLORIDE 0.9% 500 ML ONE (21:51)
[2024-10-24] MEDS ORDERED: Magnesium Sulfate 2gm IVPB 2 G/50 ML BAG IV ONE (21:51)
[2024-10-24] MEDS ORDERED: ALBUMIN HUMAN 25% 100 ML IV ONE (21:52)
[2024-10-24] MEDS ORDERED: NA CHLORIDE 0.9% 100 ML ONE (21:55)
[2024-10-24 22:05] LABS: Absolute Eosinophils 0.4 K/uL (0-0.5); Absolute Lymphocytes (CBC) 0.8 K/uL (0.7-4.9); Absolute Monocytes 0.4 K/uL (0.1-1.3); Absolute Neutrophil 2.4 K/uL (1.8-8.0); Basophils % 0.7 % (0-1.3); Eosinophils % 9.4 % (0-4.4); Hemoglobin 11.3 g/dL (13.6-17.9); Lymphocytes % 19.4 % (15.3-44.8); MCH 26.7 pg (27.0-35.0); MCHC 33.3 g/dL (32.0-36.0); MCV 80.1 fL (80-100); MPV 8.4 fL (7.6-11.3); Monocytes % 10.4 % (3.3-12.3); Neutrophils % 60.1 % (41.7-73.7); Nucleated Red Blood Cells % 0.2 % (0-0); PT Prothrombin Time 12.9 SECONDS (10-13.0); Platelets 148 thou/uL (152-406); Protime INR 1.14; RBC Red Blood Cell Count 4.24 M/uL (4.33-5.43); Red Cell Distribution Width 17.3 % (12.1-15.2)
[2024-10-24] MEDS ORDERED: METHYLPREDNISOLONE 125 MG INJ ONE (22:13)
--- NOTE | 2024-10-24 22:30 | RAD REPORT ---
Procedure: Chest Single View HISTORY: Chest pain COMPARISON: 2023 FINDINGS: 17 cm right upper lobe opacity extends to the right hilum. Volume loss is present. Left lung appears clear of acute infiltrate. Heart is normal size. No significant pleural effusion noted. IMPRESSION: Large right upper lobe opacity with volume loss. This may represent a mass with postobstructive atele ctasis. Further evaluation with CT may be helpful
[2024-10-24 22:45] LABS: ALT/SGPT 20 U/L (16-61); AST/SGOT 21 U/L (15-37); Albumin 2.4 g/dL (3.4-5.0); Albumin/Globulin Ratio 0.6 (1.1-1.8); Alkaline Phosphatase 49 U/L (45-117); Anion Gap 10.4 mEq/L (5.0-15.0); BUN Blood Urea Nitrogen 19 mg/dL (7-18); Bicarbonate 23 mEq/L (21-32); Bilirubin Total 0.2 mg/dL (0.2-1.0); Glomerular Filtration Rate 71 ml/min (=/>90); Glucose Level 132 mg/dL (74-106); Magnesium 1.7 mg/dL (1.6-2.4); NT PRO-BNP 1468 pg/mL (<125); Potassium 3.4 mEq/L (3.5-5.1); Protein, Total 6.4 g/dL (6.4-8.2); Sodium Level 141 mEq/L (136-145); Troponin High Sensitivity 14.4 pg/mL (<58.9)
[2024-10-24 22:46] LABS: Bilirubin Direct < 0.2 mg/dL (0-0.2)
[2024-10-24] MEDS ORDERED: DILTIAZEM HCL 60 MG TAB ONE (22:46)
--- NOTE | 2024-10-25 01:54 | EDPHYS ---
Physician Documentation [facility] Name: Antonio Arredondo Age: 69 yrs Sex: Male : 1955 Arrival Date: 10/24/2024 Time: 21:04 Bed 13 Private MD: ED Physician Thony Pulido HPI: 10/24 21:14 This 69 yrs old Male presents to ER via Unassigned with complaints of Chest sp4 Pain. 10/25 07:04 69-year-old male with history of stage IV metastatic lung cancer presents with acute sp4 onset chest pain and palpitations. Historical: - Allergies: 10/24 21:26 No Known Drug Allergies; hb - PMHx: : Hyperlipidemia; Rheumatoid Arthritis; hb 21: Lung CA; hb - Immunization history:: Adult Immunizations up to date. - Infectious Disease History:: Denies. - Family history:: not pertinent. ROS: 10/25 07:04 Constitutional: Negative for fever, chills, and weight loss, positive for chest pain sp4 and palpitation All other systems are negative, Exam: 07:04 Constitutional: This is a well developed, well nourished patient who is awake, alert, sp4 pale ill-appearing male, nontoxic. Tachycardic on arrival. Head/Face: Normocephalic, atraumatic. Eyes: Pupils equal round and reactive to light, extra-ocular motions intact. Lids and lashes normal. Conjunctiva and sclera are not injected. Cornea within normal limits. Periorbital areas with no swelling, redness, or edema. ENT: Nares patent. No nasal discharge, no septal abnormalities noted. Tympanic membranes are normal and external auditory canals are clear. Oropharynx with no redness, swelling, or masses, exudates, or evidence of obstruction, uvula midline. Mucous membranes moist. Neck: Trachea midline, no thyromegaly or masses palpated, and no cervical lymphadenopathy. Supple, full range of motion without nuchal rigidity, or vertebral point tenderness. Chest/axilla: Normal chest wall appearance and motion. Nontender with no deformity. No lesions are appreciated. Cardiovascular: Irregularly irregular tachycardia. Atrial fibrillation on the monitor. No gallops, murmurs, or rubs. Normal PMI, no JVD. No pulse deficits. Respiratory: Lungs have equal breath sounds bilaterally, clear to auscultation and percussion. No rales, rhonchi or wheezes noted. No increased work of breathing, no retractions or nasal flaring. Abdomen/GI: Soft, with normal bowel sounds. No distension or tympany. No guarding or rebound. No evidence of tenderness throughout. Back: No spinal tenderness. No costovertebral tenderness. Skin: Warm, dry with normal turgor. Generalized pallor, no lesions, and no evidence of cellulitis. MS/ Extremity: Pulses equal, no cyanosis. Neurovascular intact. Full, normal range of motion. Neuro: Awake and alert, GCS 15, oriented to person, place, time, and situation. Cranial nerves II-XII grossly intact. Motor strength 5/5 in all extremities. Sensory grossly intact. Psych: Awake, alert, with orientation to person, place and time. Behavior, mood, and affect are within normal limits 07:04 ECG was reviewed by the Attending Physician. A-fib at 128 Vital Signs: 10/24 21:24 BP 114 / 82; Pulse 68; Resp 18; Temp 98.8; Pulse Ox 97% on R/A; Weight 86.18 kg; Height hb 6 ft. 1 in. ; Pain 7/10; 21:25 BP 114 / 82; Pulse 112; Resp 20; Temp 98.8(O); Pulse Ox 96% ; km10 22:45 BP 120 / 79; Pulse 70; Resp 18; Pulse Ox 96% ; km10 23:45 BP 102 / 80; Pulse 70; Resp 18; Pulse Ox 95% on R/A; km10 10/25 02:00 BP 113 / 81; Pulse 66; Resp 18; Temp 98.1(O); Pulse Ox 94% on R/A; km10 10/24 21:24 Body Mass Index 25.07 (86.18 kg, 185.42 cm) hb 10/24 21:24 Pain Scale: Adult hb [place] Coma Score: 02:00 Eye Response: spontaneous(4). Motor Response: obeys commands(6). Verbal Response: km10 oriented(5). Total: 15. 07:04 Eye Response: spontaneous(4). Motor Response: obeys commands(6). Verbal Response: sp4 oriented(5). Total: 15. MDM: 10/24 21:20 Differential diagnosis: acute pericarditis, anxiety, coronary artery disease chest wall sp4 pain, congestive heart failure esophagitis, gastritis. HEART Score: History: Moderately Suspicious (1), ECG: Non specific repolarization disturbance / LBTB / PM (1), Age: > or = 65 years (2), Risk Factors: 1 or 2 risk factors (1), Troponin: < or = 1 x Normal Limit (0), Total Score = 5. Data reviewed: vital signs, nurses notes, old medical records, lab test result(s), EKG, radiologic studies, plain films. 10/25 01:53 Medical Screening Exam initiated sp4 07:09 ED course: Procedure: Chest Single View HISTORY: Chest pain COMPARISON: 2023 FINDINGS: sp4 17 cm right upper lobe opacity extends to the right hilum. Volume loss is present. Left lung appears clear of acute infiltrate. Heart is normal size. No significant pleural effusion noted. IMPRESSION: Large right upper lobe opacity with volume loss. This may represent a mass with post obstructive atelectasis. Further evaluation with CT may be helpful . 07:10 ED course: Patient is on daily Lovenox twice a day.. Patient also on metoprolol twice a sp4 day. Patient was discussed with his research assistant member who states that since troponin is negative and patient spontaneously converted into sinus rhythm patient is stable for discharge home. We do agree patient is stable for discharge home.. 10/24 21:16 Order name: Basic Metabolic Panel; Complete [facility]: 00:07 [facility] 10/24 21:16 Order name: CBC with Diff; Complete Time: 00:07 [facility] 10/24 21:16 Order name: LFT's; Complete Time: 00:07 [facility] 10/24 21:16 Order name: Magnesium; Complete Time: 00:07 [facility] 10/24 21:16 Order name: NT PRO-BNP; Complete Time: 00:07 [facility] 10/24 21:16 Order name: PT-INR; Complete Time: 00:07 [facility] 10/24 21:16 Order name: Troponin HS; Complete Time: 00:07 [facility] 10/25 00:07 Order name: Troponin High Sensitivity; Complete Time: 01:49 [facility] 10/24 21:16 Order name: XRAY Chest (1 view); Complete Time: 00:07 [facility] 10/24 21:16 Order name: Cardiac monitoring; Complete Time: 21:24 sp4 10/24 21:16 Order name: EKG - Nurse/Tech; Complete Time: : sp4 10/24 21:16 Order name: IV Saline Lock; Complete Time: :36 sp4 10/24 21:16 Order name: Labs collected and sent; Complete Time: 21:36 sp4 10/24 21:16 Order name: O2 Per Protocol; Complete Time: :36 sp4 10/24 21:16 Order name: O2 Sat Monitoring; Complete Time: :4 EC/26 21:20 Rate is 128 beats/min. Rhythm is irregularly irregular, A fib with Rapid ventricular sp4 response. QRS [place] is Normal. QRS interval is normal. QT interval is normal. No Q waves. T waves are Normal. Clinical impression: Atrial Fibrillation. Interpreted by me. Reviewed by me. Administered Medications: 22:07 Drug: NS 0.9% IV 500 ml 500 ml IV at 1 bolus once; to be given as a bolus over 30 km10 minutes Volume: 500 ml; Route: IV; Rate: 1 bolus; Site: right wrist; 22:42 Follow up: Response: No adverse reaction; IV Status: Completed infusion 10 22:16 Drug: Albumin IVPB 25 grams 100 ml IVPB once; (Note: Albumin 25% concentration) Volume: km10 100 ml; Route: IVPB; Site: left antecubital; 22:30 Drug: Albumin IVPB 25 grams 100 ml IVPB once; (Note: Albumin 25% concentration) Volume: km10 100 ml; Route: IVPB; Site: left antecubital; 22:43 Follow up: Response: No adverse reaction; IV Status: Completed infusion 10 22:41 Not Given (pt condition changed. verified with EC provider to hold ): diltiazem 5 mg/hr km10 IV at calculated rate See Administration Instructions; (standard dilution 125 mg diltiazem mixed in 125 mL NS; final concentration 1mg/mL). Recommended max rate 15 mg/hr; Titrate 5 mg/hr as often as every 15 minutes to achieve goal (see titration policy); Goal parameter HR less than 100 bpm 22:42 Not Given (pt condition changed, verified with provider to trinity): [id number] mg IVP km10 once; Over 2 minutes 22:43 Drug: Magnesium Sulfate IVPB 2 grams IVPB once over 2 hrs Route: IVPB; Infused Over: 2 km10 hrs; Site: left antecubital; 10/25 02:19 Follow up: Response: No adverse reaction; IV Status: Completed infusion 10/24 22:43 Drug: MethylPrednisoLONE IVP 125 mg IVP once Route: IVP; Site: right wrist; km10 22:46 Follow up: Response: No adverse reaction 22:43 Drug: Albuterol Inhalation 2.5 mg Inhalation once Route: Inhalation; 23:00 Drug: Diltiazem PO 30 mg PO once Route: PO; 10/25 02:20 Follow up: Response: No adverse reaction Disposition: 07:03 Critical Care:. sp4 07:09 Chart complete. sp4 Disposition Summary: 10/25/24 01:53 Discharge Ordered Notes: Location: Home sp4 Problem: new sp4 Symptoms: have improved sp4 Condition: Stable sp4 Diagnosis - Unspecified atrial fibrillation sp4 - Acute chest pain, Intermittent atrial fibrillation sp4 Followup: sp4 - With: Akash Lao MD - When: Tomorrow - Reason: Recheck today's complaints Discharge Instructions: - Discharge Summary Sheet sp4 - Atrial Fibrillation sp4 Forms: - Patient Portal Instructions sp4 Critical care time excluding procedures: 07:03 Critical care time: Bedside Care: 36 minutes, Consultation: 12 minutes, Family sp4 Intervention: 12 minutes. Total time: 60 minutes Signatures: Dispatcher [employer] EDMari Singh RN RN Thony Pulido MD MD 4 Glory Saenz RN RN [facility] Corrections: (The following items were deleted from the chart) 10/24 21:17 21:17 BASIC METABOLIC PANEL+C.LAB.BRZ ordered. EDMS EDMS 21:17 21:17 CBC+H.LAB.BRZ ordered. EDMS EDMS 21:17 21:17 HEPATIC FUNCTION+C.LAB.BRZ ordered. EDMS EDMS 21:17 21:17 MAGNESIUM+C.LAB.BRZ ordered. EDMS EDMS 21:17 21:17 PROBNP+C.LAB.BRZ ordered. EDMS EDMS 21:17 21:17 PROTIME (+INR)+COAG.LAB.BRZ ordered. EDMS EDMS 21:17 21:17 Troponin High Sensitivity+C.LAB.BRZ ordered. EDMS EDMS : Chest Single View+RAD.RAD.BRZ ordered. EDMS EDMS : PMHx: Lung CA (Rheumatoid Arthritis); hb hb
--- NOTE | 2024-10-25 01:54 | ER ---
Nurse's Notes [facility] Name: Antonio Arredondo Age: 69 yrs Sex: Male : 1955 Arrival Date: 10/24/2024 Time: 21:04 Bed 13 Private MD: Diagnosis: Unspecified atrial fibrillation;Acute chest pain, Intermittent atrial fibrillation Presentation: 10/24 21:24 Chief complaint: Midsternal chest pressure and SOB since this morning. Being treated at [facility] for lung CA. Coronavirus screen: At this time, the client does not indicate any symptoms associated with coronavirus-19. Ebola Screen: No symptoms or risks identified at this time. Initial Sepsis Screen: Does the patient meet any 2 criteria? No. Patient's initial sepsis screen is negative. Does the patient have a suspected source of infection? No. Patient's initial sepsis screen is negative. Risk Assessment: Do you want to hurt yourself or someone else? Patient reports no desire to harm self or others. Onset of symptoms was October 24, 2024. 21:24 Method Of Arrival: Ambulatory 21:24 Acuity: EDGARDO 2 hb Historical: - Allergies: 21:26 No Known Drug Allergies; hb - PMHx: 21:26 Hyperlipidemia; Rheumatoid Arthritis; hb 21:26 Lung CA; hb - Immunization history:: Adult Immunizations up to date. - Infectious Disease History:: Denies. - Family history:: not pertinent. Screenin:39 [facility] ED Fall Risk Assessment (Adult) History of falling in the last 3 months, km10 including since admission No falls in past 3 months (0 pts) Confusion or Disorientation No (0 pts) Intoxicated or Sedated No (0 pts) Impaired Gait Yes (1 pt) Mobility Assist Device Used Yes (1 pt) Altered Elimination No (0 pt) Score/Fall Risk Level 0 - 2 = Low Risk Oriented to surroundings, Maintained a safe environment, Educated pt \T\ family on fall prevention, incl call for assistance when getting out of bed, Assessed \T\ reinforced patient's understanding of fall precautions, Hourly rounding (assess needs \T\ fall precautionary measures) done. Abuse screen: Denies threats or abuse. Denies injuries from another. Nutritional screening: No deficits noted. Tuberculosis screening: No symptoms or risk factors identified. Assessment: 21:30 Cardiovascular: Rhythm is atrial fibrillation. km10 21:30 General: Appears comfortable, ill, Behavior is calm, cooperative. km10 21:45 Neuro: Level of Consciousness is awake, alert, Oriented to person, place, time, km10 situation. Respiratory: Respiratory effort is even, labored, Breath sounds with crackles bilaterally. 22:00 Pain: Complains of pain in chest Pain began gradually, since this morning after km10 stretching. 10/25 02:00 Reassessment: Patient states symptoms have improved. Cardiovascular: Rhythm is regular. 10 Vital Signs: 10/24 21:24 BP 114 / 82; Pulse 68; Resp 18; Temp 98.8; Pulse Ox 97% on R/A; Weight 86.18 kg; Height hb 6 ft. 1 in. ; Pain 7/10; 21:25 BP 114 / 82; Pulse 112; Resp 20; Temp 98.8(O); Pulse Ox 96% ; km10 22:45 BP 120 / 79; Pulse 70; Resp 18; Pulse Ox 96% ; km10 23:45 BP 102 / 80; Pulse 70; Resp 18; Pulse Ox 95% on R/A; km10 10/25 02:00 BP 113 / 81; Pulse 66; Resp 18; Temp 98.1(O); Pulse Ox 94% on R/A; km10 10/24 21:24 Body Mass Index 25.07 (86.18 kg, 185.42 cm) hb 10/24 21:24 Pain Scale: Adult hb [place] Coma Score: 02:00 Eye Response: spontaneous(4). Motor Response: obeys commands(6). Verbal Response: km10 oriented(5). Total: 15. 07:04 Eye Response: spontaneous(4). Motor Response: obeys commands(6). Verbal Response: sp4 oriented(5). Total: 15. ED Course: 10/24 21:08 Patient arrived in ED. cj3 21:14 Thony Pulido MD is Attending Physician. sp4 21:19 EKG done, by ED staff, reviewed by Thony Pulido MD. hb 21:24 Glory Saenz, RN is Primary Nurse. km10 21:26 Triage completed. hb 21:26 Arm band placed on. hb 21:35 Inserted saline lock: 20 gauge in right wrist, using aseptic technique. km10 21:35 Patient maintains SpO2 saturation greater than 95% on room air. km10 21:36 Troponin HS Sent. km10 21:36 PT-INR Sent. km10 21:36 NT PRO-BNP Sent. km10 21:36 CBC with Diff Sent. km10 21:36 LFT's Sent. km10 21:36 Magnesium Sent. km10 21:36 Basic Metabolic Panel Sent. km10 21:40 Patient has correct armband on for positive identification. Bed in low position. Call km10 light in reach. Side rails up X2. Adult w/ patient. Provided Education on: plan of care. Client placed on continuous cardiac and pulse oximetry monitoring. NIBP monitoring applied. asbestos cement sheet supervisor on. Door closed. Noise minimized. Lights dimmed. Warm blanket given. Pillow given. 22:09 Inserted saline lock: 20 gauge in left antecubital area, using aseptic technique. Blood ha1 collected. Flushed with 10 mL NS. 22:25 XRAY Chest (1 view) In Process Unspecified. EDMS 10/25 01:52 Akash Lao MD is Referral Physician. sp4 02:17 IV discontinued, intact, bleeding controlled, No redness/swelling at site. Pressure km10 dressing applied, x 2. 02:18 No provider procedures requiring assistance completed. km10 Administered Medications: 10/24 22:07 Drug: NS 0.9% IV 500 ml 500 ml IV at 1 bolus once; to be given as a bolus over 30 km10 minutes Volume: 500 ml; Route: IV; Rate: 1 bolus; Site: right wrist; 22:42 Follow up: Response: No adverse reaction; IV Status: Completed infusion km10 22:16 Drug: Albumin IVPB 25 grams 100 ml IVPB once; (Note: Albumin 25% concentration) Volume: km10 100 ml; Route: IVPB; Site: left antecubital; 22:30 Drug: Albumin IVPB 25 grams 100 ml IVPB once; (Note: Albumin 25% concentration) Volume: km10 100 ml; Route: IVPB; Site: left antecubital; 22:43 Follow up: Response: No adverse reaction; IV Status: Completed infusion km10 22:41 Not Given (pt condition changed. verified with EC provider to hold ): diltiazem 5 mg/hr km10 IV at calculated rate See Administration Instructions; (standard dilution 125 mg diltiazem mixed in 125 mL NS; final concentration 1mg/mL). Recommended max rate 15 mg/hr; Titrate 5 mg/hr as often as every 15 minutes to achieve goal (see titration policy); Goal parameter HR less than 100 bpm 22:42 Not Given (pt condition changed, verified with provider to trinity): mg IVP 10 once; Over 2 minutes 22:43 Drug: Magnesium Sulfate IVPB 2 grams IVPB once over 2 hrs Route: IVPB; Infused Over: 2 km10 hrs; Site: left antecubital; 10/25 02:19 Follow up: Response: No adverse reaction; IV Status: Completed infusion 10/24 22:43 Drug: MethylPrednisoLONE IVP 125 mg IVP once Route: IVP; Site: right wrist; 22:46 Follow up: Response: No adverse reaction :43 Drug: Albuterol Inhalation 2.5 mg Inhalation once Route: Inhalation; 23:00 Drug: Diltiazem PO 30 mg PO once Route: PO; 10/25 02:20 Follow up: Response: No adverse reaction Outcome: 01:53 Discharge ordered by MD. quan 02:18 Discharged to home ambulatory, with family, 02:18 Condition: stable 02:18 Discharge instructions given to patient, family, Instructed on discharge instructions, follow up and referral plans. Demonstrated understanding of instructions, 02:18 Patient left the ED. Signatures: Dispatcher [employer] EDMS Mari Mariscal RN RN Leann Chatterjee RN RN ha1 Thony Pulido MD MD sp4 Nikki Frye 3 Glory Saenz RN RN 10 Corrections: (The following items were deleted from the chart) 10/24 21:26 21:26 PMHx: Lung CA (Rheumatoid Arthritis); hb hb 21:39 21:25 BP 114 / 82; Pulse 112bpm; Resp 20bpm; Pulse Ox 96%; km10 23:45 21:45 Neuro: Level of Consciousness is awake, alert, Oriented to person, place, time, situation, 23:45 23:44 General: Appears comfortable, ill, Behavior is calm, cooperative, 10 10/25 02:15 02:15 General: Appears uncomfortable, unkempt, [place] [id number] 02:15 02:15 Pain: Denies pain. [place] [id number] 02:15 02:15 General: Behavior is cooperative, [place] [id number]
[2024-10-25 03:16] VITALS: BP 113/81; TEMP 98.1; O2SAT 94
--- NOTE | 2024-10-25 12:18 | EKG ---
Test Date: 2024-10-24 Test Time: 21:20:05 Financial Sales Manager: HB MEASUREMENT RESULTS: Intervals: Rate: 128 [place]: QRSD: 102 QT: 306 QTc: 446 [place]: P: [place]: QRS: 57 T: 42 INTERPRETIVE STATEMENTS: Atrial fibrillation with rapid ventricular response Incomplete right bundle branch block Nonspecific ST abnormality Abnormal ECG Compared to ECG 01/20/2024 17:57:48 No significant changes Electronically Signed On 10-25-24 12:16:47 CDT by Jb Zavaleta
== END 2024-10-25 02:18 | disposition home or self-care (01) ==
LOC: ER 21:04
DX: I48.91 Unspecified atrial fibrillation (principal); E78.5 Hyperlipidemia, unspecified; Z85.118 Personal history of other malignant neoplasm of bronchus and lung
CPT/HCPCS: 96365; 96367; 93005; 85025; 80048; 36415; 83735; 85610; 80076; 84484 ×2; 83880; 71045; 96375; 99285; 96366; J3475; J7613; J2919; P9047; J7040

== ENCOUNTER 2024-12-04 15:42 | Observation (INO) | payer OTHER, MEDICARE ==
--- OUTSIDE RECORDS SUMMARY | 2024-12-04 15:54 | XMS REPORT | Clinical Summary ---
Author Name Unknown Organization [facility] Address [address] [place] [address] Care Team Providers Care Drafter (Cad) Electrical Name Role Phone Akash Lao MD Unavailable [phone] Clarisa Valle RN Unavailable [phone] Cliff Sullivan MD Dustin Primary Care Provid er Amy Oliva MD Primary Care Provider [phone] Noreen Rubio RN Unavailable [phone] Solo Souza MD Unavailable Jordy Winston DO Unavailable Abe Yost MD Unavailable [phone] Edward Wick MD Unavailable Jose R Flores MD Unavailable [phone] Richie Bedolla MD Unavailable [phone] Ary Koenig APRN Unavailable [phone] Allergies Active Allergy Reactions Criticality Noted Date [...] (10 mg) by mouth at bedtime. 01/20/20 24 Active traZODone (DESYREL) 150 mg tablet Take [...] for this patient because he/she meets the [place] [place] criteria for disabilities. The patient will need the disabled parking placard for this length of time: Permanent disability. 1 each 02/29/20 Active Advair HFA 115-21 mcg/actuation inhaler Inhale 2 puffs by mouth twice daily. 03/08/20 24 Active naloxone (Narcan) 4 mg/actuation nasal sprayIndicatio ns:Neoplasm related pain (acute) (chronic) Use 1 dose into one nostril as needed for opioid overdose. Do not prime or test the inhaler prior to adminstration. Give another dose into the other nostril after 2 to 3 minutes if the patient does not respond or responds and then relapses into respiratory depression. 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 30 g 09/13/19 25 Active losartan (COZAAR) 50 mg tabletIndicati [...] to 37.5mcg 10 patch 10/22/19 25 Active enoxaparin (LOVENOX) 100 mg/1 mL prefilled syringeIndicat ions:Paroxysma l atrial fibrillation,C erebral infarction due to thrombosis of right middle cerebral artery Inject 0.8 mL (80 mg) under the skin every 12 (twelve) hours. 10/30/19 25 Active amoxicillin-cl avulanate (AUGMENTIN) 875 mg-125 mg per tabletIndicati ons:Dyspnea Take 1 tablet (875 mg) by mouth every 12 (twelve) hours. 7 tablet 10/30/19 25 Active ipratropium-al buterol (Combivent Respimat) 20 mcg-100 mcg/puff inhalerIndicat ions:Dyspnea Inhale 1 puff by mouth every 6 (six) hours. 4 g 10/30/19 25 Active albuterol (ProAir HFA) 90 mcg/puff inhalerIndicat ions:Dyspnea Inhale 2 puffs by mouth every 6 (six) hours as needed for wheezing or shortness of breath. 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 Start on day 2 of each chemotherapy cycle. 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 30 tablet 2 5 2:52 PM CDT 11/05/19 25 Active HYDROmorphone (Dilaudid) 2 mg tabletIndicati ons:Cancer associated pain Take 1 tablet (2 mg) by mouth every 4 (four) hours as needed for moderate pain or severe pain. 120 tablet 11/08/19 25 Active apixaban (ELIQUIS) 5 mg tablet [...] moderate pain or severe pain. 48 tablet 03/17/20 24 2023 Discontinued diclofenac sodium (Voltaren Arthritis Pain) 1 % gelIndications :Generalized pain Apply 2 g topically to affected area(s) 3 (three) times a day as needed (pain). 100 g 03/24/20 24 2024 Discontinued fentaNYL (DURAGESIC) patch 25 mcg/hrIndicati ons:Neoplasm related pain (acute) (chronic) Place 1 patch (25 mcg) on the skin every 72 hours. Remove old patch(es) before replacing new patch(es). 10 patch 03/24/20 24 2023 Discontinued(R eorder) fentaNYL (DURAGESIC) 12 mcg/hr transdermal patchIndicatio ns:Neoplasm related pain (acute) (chronic) Place 1 patch (12 mcg) on the skin every 72 hours. Remove old patch(es) before replacing new patch(es). 03/24/20 24 2023 Discontinued HYDROmorphone (Dilaudid) 2 mg tabletIndicati ons:Neoplasm related pain (acute) (chronic) Take 1 tablet (2 mg) by mouth every 4 (four) hours as needed for moderate pain or severe pain. 90 tablet 03/24/20 24 2023 Discontinued(R eorder) fentaNYL (DURAGESIC) 12 mcg/hr transdermal patchIndicatio ns:Neoplasm related pain (acute) (chronic) Place 1 patch (12 mcg) on the skin every 72 hours. Remove old patch(es) before replacing new patch(es). Please use 12mcg and 25mcg patches together to make it up to 37.5mcg 5 patch 03/24/20 24 2023 Discontinued(R eorder) HYDROmorphone (Dilaudid) 2 [...] lower extremities. 30 tablet 2 06/16/19 25 01/27/ 2025 Discontinued(R eorder) furosemide (LASIX) 20 mg tabletIndicati [...] twice daily. 60 mL 5 10:12 AM CERTIFIED GENETIC COUNSELOR 06/27/19 25 2024 Discontinued furosemide (LASIX) 20 mg tabletIndicati ons:Edema of lower extremity Take 1 tablet by mouth daily and hold if the Blood Pressure is lower than 100/60 mmHg (for shortness of breath and swelling of lower extremities). 30 tablet 2 5 10:12 AM CERTIFIED GENETIC COUNSELOR 06/27/19 25 2024 Discontinued HYDROcodone-ac etaminophen (NORCO) [...] before breakfast. While on steroids 30 tablet 09/22/192024 Discontinued(S top Taking at Discharge) HYDROmorphone (Dilaudid) 2 mg tabletIndicati ons:Cancer associated pain Take 1 tablet (2 mg) by mouth every 4 (four) hours as needed for moderate pain or severe pain. 90 tablet 09/24/19 25 2024 Discontinued fentaNYL (DURAGESIC) patch 25 mcg/hrIndicati ons:Cancer associated [...] 37.5mcg 10 patch 09/24/19 25 2024 Discontinued enoxaparin (LOVENOX) 100 mg/1 mL prefilled syringeIndicat ions:Paroxysma l atrial fibrillation,C erebral infarction due to thrombosis of right middle cerebral artery Inject 0.9 mL (90 mg) under the skin every 12 (twelve) hours. 90 each 10:42 AM CDT 10/09/19 25 2024 Discontinued(R eorder) Active Problems Problem Noted Date Diagnosed Date Dyspnea 10/28/2024 Obstruction of bronchus 10/28/2024 Acute respiratory insufficiency 10/28/2024 Hypertension 10/11/2024 Malnutrition of moderate degree 10/06/2024 [...] organization. Date Type Department Care Team Description 11/27/2024 Nurse Triage [facility] [address] [place] [address] Cb Hood PA 11/26/2024 Nurse Triage [facility] [address] [place] [address] Bethany Vizcarra APRN 11/23/2024 Orders Only Radiation Treatment Center [address] [place] [address], 1st Floor near Elevator G [place], [place] [id number] Ritu Valdes APRN Secondary malignant neoplasm of brain (Primary Dx) 11/21/2024 Refill Internal Medicine Center 15[address] [facility] Main [facility], 9th Floor Elevator A [place], [place] [id number] Henry Cordero MD Dyspnea 11/16/2024 10:00 AM CDT Telemedicine Clinical Genetics [address] [place] [address] - Main [facility], 9th Floor, [place] [address] Keysha Lou, ARTIFICIAL PEARL MAKER Vijaya Cabral, MS, CGC 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 11/16/2024 Orders Only Gastrointestinal Center - Surgical Oncology [address] [place] [address] Main [facility], 7th [place] [address] Vijaya Cabral, MS, CGC 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) 11/09/2024 3:30 PM CDT Telemedicine [facility] - Neurosurgery [address] [place] [address] Main [facility], 7th [place] [address] Cristian Woods MD 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; Metastatic malignant neoplasm to brain 11/09/2024 Orders Only Neuroradiology [address] [place] [id number] Melba Mosher MD 11/09/2024 Orders Only Rad[facility] Treatment [facility] [address] [place] [address], 1st [place] [address] Ritu Valdes APRN Secondary malignant neoplasm of brain (Primary Dx) 11/08/2024 3:00 PM CDT - 11/08/2024 11:59 PM CDT Hospital Encounter [facility] [address] [place] [address], 1st [place] [address] Anil Mayes MD PhD Secondary malignant neoplasm of brain Discharge Disposition: Home 11/04/2024 2:30 PM CDT Infusion [facility] - [facility] [address] [facility], 8th [place] [address] Amy Oliva MD Constantino, Trav So, RN 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) 11/04/2024 10:30 AM CDT Follow-Up Thoracic Center - Medical Oncology [address] [place] [address], 9th [place] [address] Amy Oliva MD 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); Other fatigue 11/04/2024 9:06 AM CDT - 11/04/2024 11:59 PM CDT Hospital Encounter Diagnostic Laboratory Center [address] [place] [address] Amy Oliva MD 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 Discharge Disposition: Home 11/04/2024 Case Management Case Management [address] [place] [address] Sarah Flores RN 11/04/2024 Orders Only [facility] Center - Medical Oncology [address] [place] [address], 9th [place] [address] Alvarez Cage PharmD 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) 11/04/2024 Travel 11/01/2024 1:15 PM CDT Ancillary Procedure Radiology Outpatient Center [address] [place] [address] Kallie Ornelas, ARTIFICIAL PEARL MAKER Secondary malignant neoplasm of brain 10/29/2024 Orders Only [facility] Center - Medical Oncology [address] [place] [address], 9th [place] [address] Justin Lindsay MD 10/28/2024 Travel 10/27/2024 9:50 PM CDT - 10/29/2024 12:45 PM CDT Hospital Encounter MAIN P[address] [place] [address] Jermaine Lindsay MD Ali, Aliasger, MD Ali, Noman, MD Koom-Dadzie, Kwame, MD Dyspnea (Primary Dx); Obstruction of bronchus; Chronic obstructive pulmonary disease; 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; Antineoplastic immunotherapy; Paroxysmal atrial fibrillation; Cerebral infarction due to thrombosis of right middle cerebral artery; Hypertension Discharge Disposition: Home 10/27/[address] Imaging and Diagnostic Imaging [address] Main Bldg, 3rd [place] [address] Tommy Mcnair MD 10/27/2024 Travel 10/27/2024 Documentation [facility] Alka Melendrez 10/26/2024 Orders Only Thoracic Center - Medical Oncology [address], 9th [place] [address] Keysha Lou, ARTIFICIAL PEARL MAKER 10/21/2024 Orders Only [facility] - Medical Oncology [address] Main Bldg, 9th [place] [address] Glory Mayes, PharmD 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) 10/12/2024 Telephone [facility] - [facility] On[facility] Main [facility], 9th [place] [address] Noreen Rubio, RN Nurse Navigation 10/06/2024 Travel 10/05/2024 1:30 PM CDT Telemedicine Internal Medicine Center - Rheumatology 1220 [facility], 6th [place] [address] Solo Souza MD Seropositive rheumatoid arthritis; Other adverse effects, not elsewhere classified, subsequent encounter; Effects of immunotherapy 10/05/2024 Telephone Cardiopulmonary Center 1515 [facility] Main dg, 6th [place] [address] Sreekanth Cr, RN 10/05/2024 Telephone Internal Medicine Center - Rheumatology 1220 [facility], 6th [place] [address] Elpidio Adam RN 10/04/2024 Orders Only [facility] - Neuro Oncology [address] Main Bldg, 7th [place] [address] Adrian Worley MD 10/03/2024 1:00 PM CDT Follow-Up [facility] - Medical Oncology [address] [facility] Main Bldg, 9th Floor Elevator [address] [place] [phone] Amy Oliva MD 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) 10/03/2024 12:16 PM CDT - 10/11/2024 11:31 AM CDT Hospital Encounter MAIN [address] [facility] [place] [address] Janneth Elise MD Shie, Jessica, MD Balachandran Pillai, Ashwathy, MD Weakness of left upper limb (Primary Dx); Slurred speech; Paroxysmal atrial fibrillation; Cerebral infarction due to thrombosis of right middle cerebral artery; Hypertension Discharge Disposition: Rehab Facility 10/03/2024 11:35 AM CDT - 10/03/2024 12:15 PM CDT Hospital Encounter Diagnostic Laboratory [facility] [address] [place], [place] [id number] Amy lOiva MD 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 Discharge Disposition: Home 10/03/2024 Travel 10/03/2024 Orders Only [facility] - Medical Oncology [address] [place] [address] Main [facility], 9th Floor Elevator [address] [place] [phone] Glory Mayes, GalileaD 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) 10/03/2024 Orders Only [facility] - Medical Oncology [address] [place] [address] Main [facility], 9th Floor Elevator [address] [place] [phone] Keysha Lou APRN 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) 09/26/2024 Orders Only [facility] - Medical Oncology [address] [place] [address] Main dg, 9th Floor Elevator B [place] [phone] Keysha Lou APRN 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) 09/22/2024 9:30 AM CDT - 09/22/2024 11:59 PM CDT Hospital Encounter Radiation Treatment Center [address] [place] [address], 1st [place] [address] Bela Boss, Adalberto Valle, RN 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; Secondary malignant neoplasm of brain Discharge Disposition: Home 09/22/2024 Documentation [facility]PS Alka Melendrez 09/22/2024 Orders Only Rad[facility] Treatment Center [address] Main Bldg, 1st [place] [address] Kallie Ornelas, ARTIFICIAL PEARL MAKER Secondary malignant neoplasm of brain (Primary Dx) 09/21/2024 2:00 PM CDT Ancillary Procedure Radiation Treatment Center 1515 [facility] Radiation Oncology Center Take Elevator G to the [place] [address] Bela Boss, ARTIFICIAL PEARL MAKER Anil Mayes MD PhD Hernando Chaidez, Manuel Lux MD 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; Secondary malignant neoplasm of brain 09/21/2024 7:38 AM CDT - 09/21/2024 11:59 PM CDT Hospital Encounter Rad[facility] Treatment [facility] [address]ldg, 1st [place] [address] Amy Oliva MD 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; Secondary malignant neoplasm of brain Discharge Disposition: Home 09/21/2024 Documentation [facility] [address] Main [place] [address] Anli Mayes MD PhD 09/21/2024 Refill Rad[facility] [address] Bldg, 1st [place] [address] Kallie Ornelas, ARTIFICIAL PEARL MAKER Secondary malignant neoplasm of brain 09/21/2024 Orders Only Rad[facility] Treatment [facility] [address] Main Bldg, 1st [place] [address] Kallie Ornelas, ARTIFICIAL PEARL MAKER Secondary malignant neoplasm of brain (Primary Dx) 09/21/2024 Documentation [facility] [address] Main [place]ld[place] [address] Anil Mayes MD PhD 09/21/2024 Documentation [facility] [address] Main [place]ldg [place] [address] Anil Mayes MD PhD 09/21/2024 Documentation Rad[facility] Treatment [facility] [address] [place] [address] near [facility] [place] [address] Anil Mayes MD PhD 09/21/2024 Orders Only [facility] [address] [place] [address], 1st [place] [address] Bela Boss APRN 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); Secondary malignant neoplasm of brain 09/21/2024 Travel 09/20/2024 1:15 PM CDT Ancillary Procedure Radiology Outpatient Center [address] [place] [address] Bela Boss APRN 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; Metastatic malignant neoplasm to brain 09/20/2024 9:50 AM CDT - 09/20/2024 11:59 PM CDT Hospital Encounter Radiation Treatment Center [address] [place] [address], [address] [place] [address] [place] [address] Bela Boss APRN Aguihap, Paul W, RN 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; Secondary malignant neoplasm of brain Discharge Disposition: Home 09/20/2024 8:56 AM CDT - 09/20/2024 9:49 AM CDT Hospital Encounter Diagnostic [facility] Center [address] [place] [address] Bela Boss APRN 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; Secondary malignant neoplasm of brain Discharge Disposition: Home 09/20/2024 Telephone [facility] [address] [place] [address], 1st [place] [address] Bela Boss APRN 09/20/2024 Orders Only [facility] [address] [place] [address], [facility] [place] [address] Bela Boss APRN 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); Secondary malignant neoplasm of brain 09/19/2024 Telephone [facility] [address] Main Bldg, 1st [place] [address] Bela Boss, ARTIFICIAL PEARL MAKER 09/16/2024 Orders Only [facility] [address] Main Bldg, 1st [place] [address] Neeta Iglesias 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); Secondary malignant neoplasm of brain; Exam of participant in clinical trial 09/15/2024 Orders Only Neuroradiology [address] [place] [address] Maritza Bobby PA 09/15/2024 Orders Only [facility] [address] Main Bldg, 1st [place] [address] Neeta Iglesias 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) 09/13/2024 Telephone [facility] [address] Main Bldg, 1st [place] [address] Bela Boss, ARTIFICIAL PEARL MAKER 09/12/2024 1:15 PM CDT Office Visit [facility] Main [facility], 1st [place] [address] Keysha Lou, Anil Macias MD PhD 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; Metastatic malignant neoplasm to brain 09/12/2024 1:15 PM CDT Office Visit [facility], 1st [place] [address] Keysha Lou, Nini Gamble MD Secondary malignant neoplasm of brain (Primary Dx) 09/12/2024 1:15 PM CDT Office Visit [facility] [address] [place] [address], [facility] [place] [address] Keysha Lou, Cristian [place] MD 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); Metastatic malignant neoplasm to brain; Rash 09/12/2024 8:45 AM CDT Ancillary Procedure Radiology Outpatient Center [address] [place] [address] Ary Koenig APRN 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; Secondary malignant neoplasm of brain 09/12/2024 Orders Only Neuroradiology [address] [place] [address] Bhupinder Hewitt MD 09/12/2024 Travel 09/08/2024 Orders Only [facility] - Medical Oncology [address] [place] [address], 9th [place] [address] Keysha Lou APRN 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); Metastatic malignant neoplasm to brain 09/07/2024 Documentation [facility] [address] [place] [address], 1st [place] [address] Ary Koenig APRN 09/07/2024 Orders Only [facility] [address] [place] [address], 1st [place] [address] Ary Koenig APRN 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); Secondary malignant neoplasm of brain 09/06/2024 2:45 PM CDT Ancillary Procedure X-Ray Outpatient Center 1220 [facility], 7th [place] [address] Ary Koenig APRN 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; Metastatic malignant neoplasm to brain 09/06/2024 1:45 PM CDT Consult [facility], 1st [place] [address] Keysha Lou APRN Sanchez-Williams, Gisela, APRN 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); Metastatic malignant neoplasm to brain 09/06/2024 10:38 AM CDT - 09/06/2024 11:59 PM CDT Hospital Encounter Diagnostic [facility] Center [address] [place] [address] Keysha Lou APRN 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; Renal function tests outside reference range Discharge Disposition: Home 09/06/2024 10:30 AM CDT Ancillary Procedure General Ultrasound 1220 [facility], 5th [place] [address] Keysha Lou APRN 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; Renal function tests outside reference range 09/06/2024 8:30 AM CDT Ancillary Procedure Neuro-Interventio nal Ultrasound [facility], 6th [place] [address] Keysha Lou APRN 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 09/06/2024 8:00 AM CDT Ancillary Procedure X-Ray Outpatient Center [facility]0 [facility], 7th [place] [address] Ary Koenig APRN 09/06/2024 [facility] Only Thoracic Center - Medical Oncology [facility], 9th [place] [address] Carmine, Keysha M, ARTIFICIAL PEARL MAKER 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) 09/06/2024 Travel 08/31/2024 1:00 PM CDT Telemedicine [facility] for [facility]ed [facility] [address], 11th [place] [address] Richie Bedolla MD 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; Metastatic malignant neoplasm to brain 08/31/2024 Telephone [facility] [address], 1st [place] [address] Bela Boss, ARTIFICIAL PEARL MAKER 08/31/2024 Orders Only [facility] [address], 1st [place] [address] Bela Boss, ARTIFICIAL PEARL MAKER 08/31/2024 Telephone [facility] [facility] Main [facility], 11th [place] [address] Janneth Lew, ASHTYN 08/30/2024 Telephone Neuro-Interventio nal Ultrasound 1220 [facility], 6th [place] [address] Lachelle Delgado MA 08/30/2024 Orders Only Thoracic Center - Medical Oncology [address], 9th [place] [address] Keysha Lou, ARTIFICIAL PEARL MAKER 08/30/2024 Telephone [facility] [address], 1st [place] [address] Bela Boss, ARTIFICIAL PEARL MAKER 08/29/2024 11:00 AM CDT Infusion [facility] Located Within 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; Metastatic malignant neoplasm to brain 08/29/2024 8:21 AM CDT - 08/29/2024 11:59 PM CDT Hospital Encounter [facility] [address] [place] [address] Keysha Lou APRN 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 Discharge Disposition: Home 08/29/2024 Orders Only [facility] - Medical Oncology [address] [facility], 10th Floor, [place] [address] Catherine Arellano PharmD 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) 08/29/2024 Travel 08/26/2024 11:50 AM CDT Ancillary Procedure CT Imaging 12[address] [facility], 7th [place] [address] Keysha Lou APRN 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 08/26/2024 9:00 AM CDT Ancillary Procedure PET Imaging 12[address] [facility], 6th [place] [address] Keysha Lou APRN 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 Discharge Disposition: Home 08/08/2024 [facility] Only [facility] [address] [place] [address] Main Bldg, 9th [place] [address] Glory Mayes, PharmD 08/08/2024 Travel 07/20/2024 [facility] [address] [place] [address] Main Bldg, 9th [place] [address] Keysha Lou, ARTIFICIAL PEARL MAKER Edema of lower extremity 07/19/2024 9:48 AM CERTIFIED GENETIC COUNSELOR - 07/19/2024 11:59 PM CERTIFIED GENETIC COUNSELOR Hospital Encounter [facility] Treatment [facility] [address] [place] [address] Main Bldg, 1st [place] [address] Jose R Flores MD 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) Discharge Disposition: Home 07/18/2024 10:30 AM CERTIFIED GENETIC COUNSELOR Infusion [facility] [address] [facility], Floor 6 [place] [address] Amy Oliva MD Shaik, Anna Marie B RN 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 bronchus in right upper lobe XR CHEST 2 VW Routine 07/15/2024 2:38 PM CERTIFIED GENETIC COUNSELOR Shortness of breath PETCT F18 FDG (FLUORODEOXYGLUCOSE) WITHOUT CONTRAST Routine 07/15/2024 12:41 PM CERTIFIED GENETIC COUNSELOR 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 COMPREHENSIVE METABOLIC PANEL Routine 07/05/2024 8:23 AM CERTIFIED GENETIC COUNSELOR 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 Edema of lower extremity B-type natriuretic peptide above reference range NT PRO BNP Routine 07/05/2024 8:23 AM CERTIFIED GENETIC COUNSELOR 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 Edema of lower extremity B-type natriuretic peptide above reference range ECHOCARDIOGRAM 2D LIMITED - FOLLOW UP Routine 07/05/2024 8:05 AM CERTIFIED GENETIC COUNSELOR Pericardial effusion .CBC Routine 06/27/2024 6:23 AM CERTIFIED GENETIC COUNSELOR 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 NT PRO BNP Routine 06/27/2024 6:23 AM CERTIFIED GENETIC COUNSELOR 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 FREE THYROXINE Routine 06/27/2024 6:23 AM CERTIFIED GENETIC COUNSELOR 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 THYROID STIMULATING HORMONE Routine 06/27/2024 6:23 AM CERTIFIED GENETIC COUNSELOR 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 COMPREHENSIVE METABOLIC PANEL Routine 06/27/2024 6:23 AM CERTIFIED GENETIC COUNSELOR 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 COMPLETE BLOOD COUNT W/ DIFFERENTIAL Routine 06/27/2024 6:23 AM CERTIFIED GENETIC COUNSELOR 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 CT CHEST ABDOMEN PELVIS W CONTRAST Routine 06/07/2024 10:51 AM CERTIFIED GENETIC COUNSELOR 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 DIFFERENTIAL Routine 06/07/2024 8:20 AM CERTIFIED GENETIC COUNSELOR 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 .CBC Routine 06/07/2024 8:20 AM CERTIFIED GENETIC COUNSELOR 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 NT PRO BNP Routine 06/07/2024 8:20 AM CERTIFIED GENETIC COUNSELOR 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 B-type natriuretic peptide above reference range MAGNESIUM LEVEL Routine 06/07/2024 8:20 AM CERTIFIED GENETIC COUNSELOR 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 PHOSPHORUS LEVEL Routine 06/07/2024 8:20 AM CERTIFIED GENETIC COUNSELOR 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 COMPREHENSIVE METABOLIC PANEL Routine 06/07/2024 8:20 AM CERTIFIED GENETIC COUNSELOR 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 COMPLETE BLOOD COUNT W/ DIFFERENTIAL Routine 06/07/2024 8:20 AM CERTIFIED GENETIC COUNSELOR 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 NT PRO BNP Add-On 06/03/2024 6:23 AM CERTIFIED GENETIC COUNSELOR 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 B-type natriuretic peptide above reference range DIFFERENTIAL Routine 06/03/2024 6:23 AM CERTIFIED GENETIC COUNSELOR 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 .CBC Routine 06/03/2024 6:23 AM CERTIFIED GENETIC COUNSELOR 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 FREE THYROXINE Routine 06/03/2024 6:23 AM CERTIFIED GENETIC COUNSELOR 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 THYROID STIMULATING HORMONE Routine 06/03/2024 6:23 AM CERTIFIED GENETIC COUNSELOR 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 MAGNESIUM LEVEL Routine 06/03/2024 6:23 AM CERTIFIED GENETIC COUNSELOR 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 PHOSPHORUS LEVEL Routine 06/03/2024 6:23 AM CERTIFIED GENETIC COUNSELOR 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 COMPREHENSIVE METABOLIC PANEL Routine 06/03/2024 6:23 AM CERTIFIED GENETIC COUNSELOR 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 COMPLETE BLOOD COUNT W/ DIFFERENTIAL Routine 06/03/2024 6:23 AM CERTIFIED GENETIC COUNSELOR 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 .CBC Routine 05/02/2024 6:32 AM CERTIFIED GENETIC COUNSELOR 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 NT PRO BNP Routine 05/02/2024 6:32 AM CERTIFIED GENETIC COUNSELOR 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 MAGNESIUM LEVEL Routine 05/02/2024 6:32 AM CERTIFIED GENETIC COUNSELOR 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 PHOSPHORUS LEVEL Routine 05/02/2024 6:32 AM CERTIFIED GENETIC COUNSELOR 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 COMPREHENSIVE METABOLIC PANEL Routine 05/02/2024 6:32 AM CERTIFIED GENETIC COUNSELOR 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 COMPLETE BLOOD COUNT W/ DIFFERENTIAL Routine 05/02/2024 6:32 AM CERTIFIED GENETIC COUNSELOR 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 EKG, 12-LEAD (SCHEDULED) Routine 05/02/2024 Atrial fibrillation with rapid ventricular response EKG, 12-LEAD (SCHEDULED) Routine 04/26/2024 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 ECHOCARDIOGRAM 2D COMPLETE Routine 04/13/2024 2:25 PM CERTIFIED GENETIC COUNSELOR 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 .CBC Routine 04/11/2024 7:14 AM CERTIFIED GENETIC COUNSELOR 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 NT PRO BNP Routine 04/11/2024 7:14 AM CERTIFIED GENETIC COUNSELOR Shortness of breath FREE THYROXINE Routine 04/11/2024 7:14 AM CERTIFIED GENETIC COUNSELOR 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 THYROID STIMULATING HORMONE Routine 04/11/2024 7:14 AM CERTIFIED GENETIC COUNSELOR 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 MAGNESIUM LEVEL Routine 04/11/2024 7:14 AM CERTIFIED GENETIC COUNSELOR 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 PHOSPHORUS LEVEL Routine 04/11/2024 7:14 AM CERTIFIED GENETIC COUNSELOR 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 COMPREHENSIVE METABOLIC PANEL Routine 04/11/2024 7:14 AM CERTIFIED GENETIC COUNSELOR 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 COMPLETE BLOOD COUNT W/ DIFFERENTIAL Routine 04/11/2024 7:14 AM CERTIFIED GENETIC COUNSELOR 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 CT CHEST ABDOMEN PELVIS W CONTRAST Routine 04/10/2024 8:19 AM CERTIFIED GENETIC COUNSELOR 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 POC CREATININE Routine 04/10/2024 6:31 AM CERTIFIED GENETIC COUNSELOR 6 MINUTE WALK TEST Routine 04/05/2024 10 :48 AM CERTIFIED GENETIC COUNSELOR Shortness of breath SPIROMETRY W/O DILATORS, DLCO AND BODY PLETHSMOGRAPHIC LUNG VOLUMES Routine 04/05/2024 10:11 AM CERTIFIED GENETIC COUNSELOR Shortness of breath .CBC Routine 03/21/2024 8:09 AM CDT 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 RESEARCH PROTOCOL [id number] Routine 03/21/2024 8:09 AM CDT Squamous cell [...] bronchus in right upper lobe RESEARCH PROTOCOL [id number] Routine 02/29/2024 6:28 AM CDT Squamous cell [...] carcinoma of bronchus in right upper lobe NGS BLOOD CONTROL Routine 02/16/2024 9:24 AM CDT [...] bronchus in right upper lobe RESEARCH PROTOCOL [id number] Routine 02/15/2024 2:54 PM CDT 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 White Blood Cell 6.0 4.1 - 10.5 K/uL 11/04/2024 9:23 AM CDT [facility] Red Blood Cell 4.45 4.30 - 6.04 M/uL 11/04/2024 9:23 AM CDT [facility] Hemoglobin 11.7(L) 13.3 - 17.4 g/dL 11/04/2024 9:23 AM CDT [facility] Hematocrit 36.7(L) 39.5 - 51.8 % 11/04/2024 9:23 AM CDT [facility] Mean Cell Volume 83 82 - 99 fL 11/04/2024 9:23 AM CDT [facility] Mean Cell Hemoglobin 26.3(L) 26.6 - 33.2 pg 11/04/2024 9:23 AM CDT [facility] Mean Cell Hemoglobin Concentration 31.9 31.1 - 35.2 g/dL 11/04/2024 9:23 AM CDT [facility] RDW-SD 49.0 37.5 - 49.7 fL 11/04/2024 9:23 AM CDT [facility] Red Cell Diameter Width 16.3(H) 11.6 - 15.5 % 11/04/2024 9:23 AM CDT [facility] Platelet 209 160 - 397 K/uL 11/04/2024 9:23 AM CDT [facility] Mean Platelet Volume 10.7 9.1 - 12.6 fL 11/04/2024 9:23 AM CDT [facility] INRBC 0.0 0.0 - 0.1 /100 WBC 11/04/2024 9:23 AM [facility] Comment: The INRBC (instrument NRBC) value reflects the enumeration of nucleated red blood cells contained in a 200uL sample of whole blood analyzed by the instrument. This value may differ from the NRBC value reported in a manual differential, which is based on a 100 cell differential. Neutrophil % 63.5 43.2 - 72.7 % 11/04/2024 9:23 AM [facility] Lymphocyte % 18.2 16.8 - 46.2 % 11/04/2024 9:23 AM [facility] Monocyte % 11.8 5.1 - 12.5 % 11/04/2024 9:23 AM [facility] Eosinophil % 5.5 0.4 - 6.3 % 11/04/2024 9:23 AM [facility] Basophil % 0.7 0.2 - 1.4 % 11/04/2024 9:23 AM [facility] IGRE % 0.3 0.1 - 1.5 % 11/04/2024 9:23 AM [facility] Comment:The IGRE% includes M etamyelocytes, Myelocytes and Promyelocytes. Neutrophil Abs 3.83 1.95 - 7.25 K/uL 11/04/2024 9:23 AM [facility] Lymphocyte Abs 1.10 1.01 - 3.24 K/uL 11/04/2024 9:23 AM [facility] Monocyte Abs 0.71 0.24 - 0.85 K/uL 11/04/2024 9:23 AM [facility] Eosinophil Abs 0.33 0.02 - 0.50 K/uL 11/04/2024 9:23 AM [facility] Basophil Abs 0.04 0.02 - 0.09 K/uL 11/04/2024 9:23 AM [facility] IG Abs 0.02 0.01 - 0.12 K/uL 11/04/2024 9:23 AM [facility] Blood Peripheral blood specimen / Unknown Venipuncture / Unknown 11/04/2024 9:12 AM CDT 11/04/2024 9:15 AM CDT us Amy Oliva MD LAB BLOOD ORDERABLES Final Resul t [facility] Unless otherwise noted, all lab tests performed by: Division of Pathology and Laboratory Medicine [address] [place] [id number] * Fractionated Bilirubin (11/04/2024 9:12 AM CDT) Only the most recent of2 resultswithin the time period is included. Bilirubin Direct 11/05/19 10:00 AM CDT [facility] Comment: Direct and indirect bilirubin will not be reported when Total bilirubin result is <0.3 mg/dL Indocyanine Green (ICG) may cause falsely elevated bilirubin results. Total and direct bilirubin must not be measured from samples containing indocyanine green. Bilirubin Indirect 2024 10:00 AM CDT [facility] Comment:Direct and indirect bilirubin will not be reported when Total bilirubin result is <0.3 mg/dL Bilirubin Total <0.3 0.0 - 1.2 mg/dL 11/04/2024 10:00 AM CDT [facility] Comment: Direct and indirect bilirubin will not [...] blood specimen / Unknown Venipuncture / Unknown 11/04/2024 9:12 AM CDT 11/04/2024 9:15 AM CDT us Amy Oliva MD LAB BLOOD ORDERABLES Final Resul t [facility] Unless otherwise noted, all lab tests performed by: Division of Pathology and Laboratory Medicine [address] [place] [address] * (ABNORMAL) Comprehensive Metabolic Panel (11/04/2024 9:12 AM CDT) Only the most recent of18 resultswithin the time period is included. Bilirubin Total <0.3 0.0 - 1.2 mg/dL 11/04/2024 10:00 AM T [facility] Comment: Direct and indirect bilirubin will not be reported when Total bilirubin result is <0.3 mg/dL Indocyanine Green (ICG) may cause falsely elevated bilirubin results. Total and direct bilirubin must not be measured from samples containing indocyanine green. False elevation of total bilirubin can be seen in patients with IgG concentrations above 28 g/L. eGFR 59(L) >=60 mL/min/1. 73 sq. m 11/04/2024 10:00 AM [facility] Comment: The eGFRcr is calculated with the [...] G2 fulfill criteria for CKD. Tot Protein 6.8 6.4 - 8.3 gm/dL 11/04/2024 10:00 AM T [facility] Calcium Level Total 11.1(H) 8.2 - 10.2 mg/dL 11/04/2024 10:00 AM T [facility] Alkaline Phosphatase 55 40 - 129 U/L 11/04/2024 10:00 AM [facility] Albumin Level 3.4(L) 3.5 - 5.2 gm/dL 11/04/2024 10:00 AM [facility] AST 16 <=40 U/L 11/04/2024 10:00 AM [facility] ALT 12 <=41 U/L 11/04/2024 10:00 AM [facility] Sodium Level 136 136 - 145 mmol/L 11/04/2024 10:00 AM [facility] Potassium Level 4.6(H) 3.4 - 4.5 mmol/L 11/04/2024 10:00 AM [facility] Chloride 104 98 - 107 mmol/L 11/04/2024 10:00 AM [facility] CO2 25 22 - 29 mmol/L 11/04/2024 10:00 AM [facility] Anion Gap 7 4 - 14 mmol/L 11/04/2024 10:00 AM [facility] Creatinine 1.32(H) 0.67 - 1.17 mg/dL 11/04/2024 10:00 AM [facility] BUN 18 6 - 23 mg/dL 11/04/2024 10:00 AM [facility] Glucose Level 116(H) 70 - 99 mg/dL 11/04/2024 10:00 AM [facility] Comment: Effective 12/26/15, the glucose reference intervals have been updated based on [place] [employer] guidelines (Standards of Medical Care in Diabetes 2016. Diabetes Care 2016; 39: S13-S22). Fasting blood glucose: Normal: 70-99 mg/dL Impaired fasting glucose (increased risk for diabetes or pre-diabetes): 100-125 mg/dL Diabetes mellitus: >/=126 mg/dL Random blood glucose: Normal: 70-199 mg/dL Note: Random glucose >100 mg/dL is associated with increased risk for diabetes. Blood Peripheral blood specimen / Unknown Venipuncture / Unknown 11/04/2024 9:12 AM CDT 11/04/2024 9:15 AM CDT us Amy Oliva MD LAB BLOOD ORDERABLES Final Resul t [facility] Unless otherwise noted, all lab tests performed by: Division of Pathology and Laboratory Medicine [facility] [place] [address] * MRI Brain with and without Contrast (11/01/2024 2:19 PM CDT) Only the most recent of3 resultswithin the time period is included. Anatomical Region Laterality Modality Head Magnetic Resonan ce 11/02/2024 9:46 AM CDT Impressions 11/02/2024 11:01 AM CDT 1. No acute intracranial abnormality or new intracranial metastasis. 2. Evolving subacute infarct involving the right frontal operculum with new few foci of susceptibility artifact, likely secondary to petechial hemorrhage. No significant mass effect. 3. 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 ACTIONABLE ITEMS/RECOMMENDATIONS*: None. *An Actionable Finding is [...] and agree with the final report. Narrative 11/02/2024 11:01 AM CDT FULL RESULT: Examination: MRI BRAIN W WO CONTRAST on 11/01/2024 2:19 PM. 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 TECHNIQUE: MRI of the brain without and with IV contrast was performed. FINDINGS: Intracranial: Stable previously radiated peripheral enhancing left occipital lobe metastasis measuring 1.5 cm (series 25 image 72) without significant surrounding edema. No new parenchymal or leptomeningeal metastasis. 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 New foci of susceptibility artifact within the infarcted region is likely secondary to petechial hemorrhage. No significant mass effect. There is no mass effect or midline shift. The ventricles and extra-axial spaces are appropriate for age. Bone: There are no suspicious calvarial or skull base lesions. Extracranial: Lens replacement. Orbits are otherwise unremarkable. Nonspecific left greater the right mastoid effusions. The visualized paranasal sinuses are otherwise clear. Procedure Note Romero Onofre MD - 11/02/2024 FULL RESULT: Examination: MRI BRAIN W WO CONTRAST on 11/01/2024 2:19 PM. CLINICAL HISTORY: Secondary malignant neoplasm of brain; Squamous cellcarcinoma of bronchus in right upper lobe INDICATION: eval for disease COMPARISON: Multiple priors, most recently brain MRI on 10/04/2024. TECHNIQUE: MRI of the brain without and with IV contrast was performed. FINDINGS: Intracranial: Stable previously radiated peripheral enhancing left occipital lobemetastasis measuring 1.5 cm (series 25 image 72) without significantsurrounding edema. No new parenchymal or leptomeningeal metastasis. Evolving subacute infarct involving the right frontal operculum withinterval development of gyral enhancement and normalization of ADCcompared to prior exam. New foci of susceptibility artifact within theinfarcted region is likely secondary to petechial hemorrhage. Nosignificant mass effect. There is no mass effect or midline shift. The ventricles and extra-axial spaces are appropriate for age. Bone: There are no suspicious calvarial or skull base lesions. Extracranial: Lens replacement. Orbits are otherwise unremarkable. Nonspecific left greater the right mastoid effusions. The visualized paranasal sinuses are otherwise clear. IMPRESSION: 1. No acute intracranial abnormality or new intracranial metastasis. 2. Evolving subacute infarct involving the right frontal operculum withnew few foci of susceptibility artifact, likely secondary to petechialhemorrhage. No significant mass effect. 3. 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 ACTIONABLE ITEMS/RECOMMENDATIONS*: None. *An Actionable Finding is [...] present, and agree with the final report. Kallie Ornelas [employer] IMG MRI ORDERABLES Final Res ult * Magnesium Level (10/28/2024 9:10 AM CDT) Only the most recent of17 resultswithin the time period is included. Magnesium Level 1.8 1.6 - 2.6 mg/dL 10/28/2024 9:52 AM CDT [facility] Blood Peripheral blood specimen / Unknown Venipuncture / Unknown 10/28/2024 9:10 AM CDT 10/28/2024 9:20 AM CDT Henry Cordero MD LAB BLOOD ORDERABLES Final Result [facility] Unless otherwise noted, all lab tests performed by: Division of Pathology and Laboratory Medicine [address] [place] [id number] * X-ray Chest 1 View (10/28/2024 9:05 AM CDT) Anatomical Region Laterality Modality Chest Digital Radiogra phy 10/28/2024 9:07 AM CDT Impressions 10/28/2024 9:10 AM CDT Stable chest. No definite new acute process. ACTIONABLE ITEMS/RECOMMENDATIONS*: None. *An Actionable Finding is a finding that may be unrelated to the original reason for imaging but potentially actionable, meaning further investigation may be necessary. The Actionable Findings Vigilance Unit (AFVU) assists medical providers with responding to additional radiologic findings that are unexpected and potentially actionable. Narrative 10/28/2024 9:10 AM CDT FULL RESULT: Examination: XR CHEST 1 VW on 10/28/2024 9:05 AM. 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 Lungs/Pleura/Mediastinum: Persistent moderate partial apparently postobstructive collapse of the right upper and middle lobes. There is a right apical cap. Diffuse reticular opacities bilaterally, and peribronchial cuffing, likely due to the patient's underlying emphysema and chronic versus acute or chronic bronchitis. Right basilar atelectasis. No definite additional consolidation. No pneumothorax. Normal heart size. Unfolded descending thoracic aorta with atherosclerotic calcifications. Cervical fusion plate. Chronic fracture deformities of several lateral right upper ribs. Procedure Note Dorota Christianson MD - 10/28/2024 FULL RESULT: Examination: XR CHEST 1 VW on 10/28/2024 9:05 AM. Clinical History: Squamous cell carcinoma of bronchus in right upperlobe Indication: Shortness of Breath Comparison: 10/27/2024 Technique: Frontal radiograph of the chest Findings: Support Apparatus: None. Lungs/Pleura/Mediastinum: Persistent moderate partial apparently postobstructive collapse of theright upper and middle lobes. There is a right apical cap. Diffuse reticular opacities bilaterally, and peribronchial cuffing, likelydue to the patient's underlying emphysema and chronic versus acute orchronic bronchitis. Right basilar atelectasis. No definite additionalconsolidation. No pneumothorax. Normal heart size. Unfolded descending thoracic aorta with atheroscleroticcalcifications. Cervical fusion plate. Chronic fracture deformities of several lateralright upper ribs. IMPRESSION: Stable chest. No definite new acute process. ACTIONABLE ITEMS/RECOMMENDATIONS*: None. *An Actionable Finding is a finding that may be unrelated to the originalreason for imaging but potentially actionable, meaning furtherinvestigation may be necessary. The Actionable Findings Vigilance Unit(AFVU) assists medical providers with responding to additional radiologicfindings that are unexpected and potentially actionable. Henry Cordero MD [facility] [place] Final Result * (ABNORMAL) Cytokine Panel 3 (10/28/2024 4:57 AM CDT) Interferon Gamma Quantity 144.9(H) <=14.0 pg/mL 10/31/2024 8:02 AM CDT [facility] Interleukin-6 Quantity 29.9(H) <=5.0 pg/mL 10/31/2024 8:02 AM CDT [facility] Tumor necrosis factor-alpha Quantity 44.1(H) <=23.8 pg/mL 10/31/2024 8:02 AM CDT [facility] Comment The presence of interfering substances were not determined. 10/31/2024 8:02 AM CDT [facility] Cytokine Testing Note Test results are used to understand the pathophysiology of Immune, infectious, or inflammatory disorders. Given significant variation between laboratories and/or lots with all reagents, current methodology used in this test may not be suitable for repeated determinations over a long-term study or comparison between different laboratories. 10/31/2024 8:02 AM CDT [facility] Cytokine Testing Methodology Multiplex Luminex Assay 10/31/2024 8:02 AM CDT [facility] Cytokine Testing Signature These results were reviewed and interpreted by Carl Mills M.D.[[id number]], Ph.D. 10/31/2024 8:02 AM CDT [facility] Cytokine Testing Disclaimer Tests were developed and characteristics determined by [facility] laboratory. The validation study has been reviewed, and the performance of the method is considered acceptable for patient testing. The tests have not cleared by U.S. Food and Drug Administration. The laboratory is certified under CLIA-88 as qualified to perform high- complexity clincal laboratory testing. BRISEIDA: 34-5-[id number]-25-1 CAP: [id number] 10/31/2024 8:02 AM CDT [facility] Blood Peripheral blood specimen / Unknown Venipuncture / Unknown 10/28/2024 4:57 AM CDT 10/28/2024 5:04 AM CDT us Jermaine Lindsay MD LAB BLOOD ORDERABLES Final Res ult Performing Organization Address City/[facility]/ZIP Co de Phone Number [facility] [address] [place] [address] * EKG, 12-Lead (Portable) (10/28/2024) Only the most recent of2 resultswithin the time period is included. us Gavin Candelario MD ECG ORDERABLES Final Res ult JANIA IECG * CT Chest Pulmonary Embolism with Contrast (10/27/2024 9:40 PM CDT) Anatomical Region Laterality Modality Chest Computed Tomogra phy 10/27/2024 9:57 PM CDT Impressions 10/27/2024 10:05 PM CDT No evidence of pulmonary embolism. Interval increase of intrathoracic and upper abdominal adenopathy likely representing christian metastatic disease. Narrowing/obstruction of the right upper lobe bronchus with almost complete right upper lobe atelectasis concerning for tumor involvement. Groundglass and interstitial lower lobe opacities may represent infection/inflammation or lymphatic spread of tumor. ACTIONABLE ITEMS/RECOMMENDATIONS*: See impression *An Actionable Finding is a finding that may be unrelated to the original reason for imaging but potentially actionable, meaning further investigation may be necessary. The Actionable Findings Vigilance Unit (AFVU) assists medical providers with responding to additional radiologic findings that are unexpected and potentially actionable. Narrative 10/27/2024 10:05 PM CDT FULL RESULT: Examination: CT CHEST PULMONARY EMBOLISM W CONTRAST on 10/27/2024 9:40 PM. 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 Findings: Lungs/Airways/Pleura: New almost complete right upper lobe atelectasis with narrowing/obstruction of right upper lobe bronchus patchy groundglass opacities and interlobular septal thickening in the lower lobes, right greater than left. Neck/Mediastinum/Nodes/Heart: No evidence of endoluminal filling defects in main, lobar or segmental pulmonary artery branches. Thoracic aorta and pulmonary artery with normal caliber. Atherosclerosis of the coronary arteries. Cardiac chambers are normal in size. Aortic valve and mitral calcifications. Small pericardial effusion. Diffuse esophageal wall thickening. Subcarinal adenopathy measuring 2.4 cm compared to 1.5 cm. Interval increase of right paratracheal adenopathy measuring 3.2 cm compared to 2.3 cm. Right upper paratracheal adenopathy measuring 2.9 cm compared to 2.1 cm. AP window adenopathy measuring 1.8 cm compared to 1.4 cm. Left prevascular nodes measuring up to 1.4 cm. Left hilar adenopathy measuring up to 1.9 cm. Right hilar/infrahilar adenopathy measuring up to 1.9 cm. Periesophageal node measuring 1.1 cm Upper abdomen: Bilateral adrenal gland thickening. Hyperdense kidney lesions may represent cysts with hemorrhagic/proteinaceous material. Peripancreatic adenopathy measuring 2.6 cm compared to 1.8 cm. Bones/Soft Tissues: No evidence of bony destructive lesions. Degenerative changes of the spine. Procedure Note Gavin Doe MD - 10/27/2024 FULL RESULT: Examination: CT CHEST PULMONARY EMBOLISM W CONTRAST on 10/27/2024 9:40PM. 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 Findings: Lungs/Airways/Pleura: New almost complete right upper lobe atelectasiswith narrowing/obstruction of right upper lobe bronchus patchy groundglassopacities and interlobular septal thickening in the lower lobes, rightgreater than left. Neck/Mediastinum/Nodes/Heart: No evidence of endoluminal filling defectsin main, lobar or segmental pulmonary artery branches. Thoracic aorta andpulmonary artery with normal caliber. Atherosclerosis of the coronaryarteries. Cardiac chambers are normal in size. Aortic valve and mitralcalcifications. Small pericardial effusion. Diffuse esophageal wallthickening. Subcarinal adenopathy measuring 2.4 cm compared to 1.5 cm.Interval increase of right paratracheal adenopathy measuring 3.2 cmcompared to 2.3 cm. Right upper paratracheal adenopathy measuring 2.9 cmcompared to 2.1 cm. AP window adenopathy measuring 1.8 cm compared to 1.4cm. Left prevascular nodes measuring up to 1.4 cm. Left hilar adenopathymeasuring up to 1.9 cm. Right hilar/infrahilar adenopathy measuring up to1.9 cm. Periesophageal node measuring 1.1 cm Upper abdomen: Bilateral adrenal gland thickening. Hyperdense kidneylesions may represent cysts with hemorrhagic/proteinaceous material.Peripancreatic adenopathy measuring 2.6 cm compared to 1.8 cm. Bones/Soft Tissues: No evidence of bony destructive lesions. Degenerativechanges of the spine. IMPRESSION: No evidence of pulmonary embolism. Interval increase of intrathoracic and upper abdominal adenopathy likelyrepresenting christian metastatic disease. Narrowing/obstruction of the right upper lobe bronchus with almostcomplete right upper lobe atelectasis concerning for tumor involvement. Groundglass and interstitial lower lobe opacities may representinfection/inflammation or lymphatic spread of tumor. ACTIONABLE ITEMS/RECOMMENDATIONS*: See impression *An Actionable Finding is a finding that may be unrelated to the originalreason for imaging but potentially actionable, meaning furtherinvestigation may be necessary. The Actionable Findings Vigilance Unit(AFVU) assists medical providers with responding to additional radiologicfindings that are unexpected and potentially actionable. us Gavin Candelario MD IMG CT ORDERABLES Final R esult * POC Troponin I (EC Only) (10/27/2024 8:06 PM CDT) [facility] POC CTNI <0.04 0.00 - 0.08 ng/mL 10/27/2024 8:08 PM CDT [facility] Comment: Result is outside of instrument's reportable range. For results not consistent with patient's clinical condition, it is recommended to confirm the test result by sending a new specimen to the core laboratory where a different methodology will be employed. Blood 10/27/2024 8:06 PM CDT 10/27/2024 8:08 PM CDT Narrative [facility] - 10/27/2024 8:08 PM CDT This cTnI test is performed by the [id number] analyzer method, and the result may be different from the Clinical Laboratory Method. Abnormal test results are recommended for confirmatory test by Clinical laboratory method. Patients with normal test results but clinically suspicious for acute myocardial infarction should be tested by Clinical Laboratory method. Method description: The Troponin I (cTnI) uses a two-site enzyme-linked immunosorbent assay (YEN) method. Antibodies specific for human cardiac troponin I (cTnI) are located on an electrochemical sensor fabricated on a silicon chip. The whole blood is brought into contact with the sensors allowing the enzyme conjugate to dissolve into the sample. The enzyme bound to the antibody/antigen/antibody sandwich cleaves the substrate releasing an electrochemically detectable product. The electrochemical (amperometric) sensor measures this enzyme product which is proportional to the concentration of cTnI within the sample. us Poct Unknown Provider POCT ORDERABLES - DEVICE F inal Result Performing Organization Address [facility] Co de Phone Number [facility] Unless otherwise noted, all lab tests performed by: Division of Pathology and Laboratory Medicine [address] [place] [id number] * Procalcitonin (10/27/2024 7:50 PM CDT) Pathologist [facility] Procalcitonin 0.08 <=0.08 ng/mL 10/27/2024 9:46 PM CDT [facility] Blood Peripheral blood specimen / Unknown Venipuncture / Unknown 10/27/2024 7:50 PM CDT 10/27/2024 8:09 PM CDT Narrative [facility] - 10/27/2024 9:46 PM CDT Procalcitonin > 2.00 ng/mL: Procalcitonin levels above 2.00 ng/mL are highly suggestive of a high risk for systematic bacterial infection/ severe sepsis and/or septic shock. Procalcitonin < 0.50 ng/mL: Procalcitonin levels below 0.50 ng/mL are at low risk for progression to severe sepsis and/ or septic shock. Procalcitonin (ProCT) between 0.15 and 2.0 ng/mL do not exclude infection, because localized infections (without systemic signs) may be associated with such low levels. Results greater than 400 ng/mL may not be reliable due to the matrix effect with extended dilution as it exceeds the product manager financial services's recommended limit. Caution should be exercised when interpreting such values and done in conjunction with clinical context. us Jermaine Lindsay MD LAB BLOOD ORDERABLES Final Res ult Performing Organization Address [facility]/ZIP Co de Phone Number [facility] Unless otherwise noted, all lab tests performed by: Division of Pathology and Laboratory Medicine [address] [place] [id number] * (ABNORMAL) Cardiac Panel (10/27/2024 7:50 PM CDT) Creatine Kinase 40 39 - 308 U/L 10/27/2024 8:34 PM CDT [facility] CKMB <2.0 <=10.4 ng/mL 10/27/2024 8:34 PM CDT [facility] Troponin T 22(H) <=19 ng/L 10/27/2024 8:34 PM CDT [facility] Comment: Reference range established for age 21 - 89 years <= 19 ng/L, suggest retest at 3 to 6 hours later to rule out myocardial infarction > 19 to <=52 ng/L, possible myocardial injury; suggest retest at 3 hours - a change of < 20 ng/L, retest at 6 hours - a change of >= 20 ng/L, suggestive of myocardial infarction > 52 ng/L, suggestive of myocardial infarction Critical value will be reported when cTnT isf > 52 ng/L and only reported for the first in a series. Hemolyzed specimens with Hemolysis Index >100 (100 mg/dl or moderate hemolysis) may cause interferences and falsely low results. Blood Peripheral blood specimen / Unknown Venipuncture / Unknown 10/27/2024 7:50 PM CDT 10/27/2024 8:09 PM CDT us Gavin Candelario MD LAB BLOOD ORDERABLES Yael l Result [facility] Unless otherwise noted, all lab tests performed by: Division of Pathology and Laboratory Medicine [address] [place] [id number] * aPTT (10/27/2024 7:50 PM CDT) Activated PTT 28.6 24.8 - 35.6 second(s) 10/27/2024 8:38 PM CDT [facility] Blood Peripheral blood specimen / Unknown Venipuncture / Unknown 10/27/2024 7:50 PM CDT 10/27/2024 8:09 PM CDT Gavin Candelario MD LAB BLOOD ORDERABLES Yael l Result [facility] Unless otherwise noted, all lab tests performed by: Division of Pathology and Laboratory Medicine [address] [place] [id number] * (ABNORMAL) NT-Pro BNP (In-House) (10/27/2024 7:50 PM CDT) Only the most recent of8 resultswithin the time period is included. NT-ProBNP 1,698(H) <=125 pg/mL 10/27/2024 8:32 PM CDT [facility] Blood Peripheral blood specimen / Unknown Venipuncture / Unknown 10/27/2024 7:50 PM CDT 10/27/2024 8:09 PM CDT us Gavin Candelario MD LAB BLOOD ORDERABLES Yael l Result [facility] Unless otherwise noted, all lab tests performed by: Division of Pathology and Laboratory Medicine [address] [place] [id number] * (ABNORMAL) ESR (10/27/2024 7:50 PM CDT) Only the most recent of2 resultswithin the time period is included. Sedimentation Rate 63(H) <=20 mm/hr 2024 9:41 PM CDT [facility] Blood Peripheral blood specimen / Unknown Venipuncture / Unknown 10/27/2024 7:50 PM CDT 10/27/2024 8:09 PM CDT us Jermaine Lindsay MD LAB BLOOD ORDERABLES Final Res ult [facility] Unless otherwise noted, all lab tests performed by: Division of Pathology and Laboratory Medicine [address] [place] [id number] * Prothrombin Time with INR (10/27/2024 7:50 PM CDT) Prothrombin Time 13.6 12.2 - 14.4 second(s) 10/27/2024 8:38 PM CDT [facility] International Normalization Ratio 1.06 0.91 - 1.10 10/27/2024 8:38 PM CDT [facility] Blood Peripheral blood specimen / Unknown Venipuncture / Unknown 10/27/2024 7:50 PM CDT 10/27/2024 8:09 PM CDT Gavin Candelario MD LAB BLOOD ORDERABLES Yael l Result Performing Organization Address [facility] de Phone Number [facility] Unless otherwise noted, all lab tests performed by: Division of Pathology and Laboratory Medicine [address] [place] [id number] * (ABNORMAL) D-dimer (10/27/2024 7:50 PM CDT) [facility] D-Dimer 1.95(H) 0.10 - 0.50 mcg/ml FEU 10/27/2024 8:38 PM CDT [facility] Blood Peripheral blood specimen / Unknown Venipuncture / Unknown 10/27/2024 7:50 PM CDT 10/27/2024 8:09 PM CDT Narrative [facility] - 10/27/2024 8:38 PM CDT The cut off value for exclusion of venous thromboembolism is <0.51 mcg/mL FEUs (fibrinogen equivalent units). Gavin Candelario MD LAB BLOOD ORDERABLES Yael l Result Performing Organization Address [facility] de Phone Number [facility] Unless otherwise noted, all lab tests performed by: Division of Pathology and Laboratory Medicine [address] [place] [id number] * CRP-HS (High Sensitivity C-Reactive Protein) (10/27/2024 7:50 PM CDT) Only the most recent of2 resultswithin the time period is included. [facility] CRP-HS 13.36 mg/L 10/27/2024 9:4 6 PM CDT [facility] Blood Peripheral blood specimen / Unknown Venipuncture / Unknown 10/27/2024 7:50 PM CDT 10/27/2024 8:09 PM CDT Narrative [facility] - 10/27/2024 9:46 PM CDT Adult Reference ranges for HS CRP assay are as follows: Reference ranges when used to assess cardiac risk: <1.00 mg/L Low cardiovascular risk 1.00-3.00 mg/L Average cardiovascular risk >3.00 mg/L High cardiovascular risk Reference ranges when used to assess inflammatory responses: > 10.00 mg/L us Jermaine Lindsay MD LAB BLOOD ORDERABLES Final Res ult Performing Organization Address City/[facility] Co de Phone Number [facility] Unless otherwise noted, all lab tests performed by: Division of Pathology and Laboratory Medicine [address] [place] [id number] * Phosphorus Level (10/27/2024 7:50 PM CDT) Only the most recent of16 resultswithin the time period is included. Phosphorus Level 3.2 2.5 - 4.5 mg/dL 10/27/2024 8:32 PM CDT [facility] Blood Peripheral blood specimen / Unknown Venipuncture / Unknown 10/27/2024 7:50 PM CDT 10/27/2024 8:09 PM CDT us Gavin Candelario MD LAB BLOOD ORDERABLES Yael l Result Performing Organization Address [facility] de Phone Number [facility] Unless otherwise noted, all lab tests performed by: Division of Pathology and Laboratory Medicine [address] [place] [id number] * Calcium Ionized, Venous (10/08/2024 4:57 AM CDT) Only the most recent of5 resultswithin the time period is included. Venous Ionized Calcium 1.24 1.15 - 1.29 mmol/L 10/08/2024 5:05 AM CDT [facility] Oxygen FLOW Rate/ FiO2 0 % 10/08/2024 5:05 AM CDT [facility] O2 Therapy Room air 10/08/2024 5:05 AM CDT [facility] Blood Peripheral blood specimen / Unknown Venipuncture / Unknown 10/08/2024 4:57 AM CDT 10/08/2024 5:03 AM CDT us Kandy Coffey MD LAB BLOOD ORDERABLES Final Resul t [facility] Unless otherwise noted, all lab tests performed by: Division of Pathology and Laboratory Medicine [facility] [place] [address] * (ABNORMAL) Basic Metabolic Panel- Calcium Ionized (10/08/2024 12:31 AM CDT) Only the most recent of5 resultswithin the time period is included. eGFR 94 >=60 mL/min/1.7 3 sq. m 10/08/2024 1:37 AM CDT [facility] Comment: The eGFRcr is calculated with the [...] 136 - 145 mmol/L 10/08/2024 1:37 AM CDT [facility] Potassium Level 4.3 3.4 - 4.5 mmol/L 10/08/2024 1:37 AM CDT [facility] Chloride 107 98 - 107 mmol/L 10/08/2024 1:37 AM CDT [facility] CO2 18(L) 22 - 29 mmol/L 10/08/2024 1:37 AM CDT [facility] Anion Gap 13 4 - 14 mmol/L 10/08/2024 1:37 AM CDT [facility] Creatinine 0.86 0.67 - 1.17 mg/dL 10/08/2024 1:37 AM CDT [facility] BUN 30(H) 6 - 23 mg/dL 10/08/2024 1:37 AM CDT [facility] Glucose Level 111(H) 70 - 99 mg/dL 10/08/2024 1:37 AM CDT [facility] Comment: Effective 12/26/15, the glucose reference intervals have been updated based on [place] [employer] guidelines (Standards of Medical Care [...] MD LAB BLOOD ORDERABLES Final Resul t [facility] [facility] Unless otherwise noted, all lab tests performed by: Division of Pathology and Laboratory Medicine [address] [place] [id number] * Transesophageal Echocardiogram (VINOD) (10/06/2024 12:36 PM CDT) 10/06/2024 11:1 1 AM CDT Narrative ISCV - 10/06/2024 5:19 PM CDT Transesophageal Echo Report Interpretation Summary A 2D transesophageal echocardiogram with Doppler and color flow Doppler was performed. 3D imaging was performed. Post processing was done on an independent workstation using Add[employer] and were used to determine the conclusions [...] was performed. Post processing was done on an[employer] workstation using [employer] and were used to determine theconclusions below. [...] present, and agree with the final report. Farzaneh Greenfield MD IMG FLUOROSCOPY ORDERABLES Final Result * Echocardiogram 2D Complete [...] artery is normal. Bilateral posterior cerebral arteries (CLIENT REPRESENTATIVE) are small or absent. Brain: The visualized [...] on the right, see for example coronal [id number] of series 609, but there is no meaningful stenosis or occlusion of thevessel. Posterior circulation: The intradural portions (V4 segment) of the vertebral arteries areunremarkable. The basilar artery is normal. Bilateral posterior cerebral arteries (CLIENT REPRESENTATIVE) are small or absent. Brain: The visualized [...] Screen - Fingerstick (10/03/2024 12:05 PM CDT) Glucose Screen 112(H) 70 - 99 mg/dL 10/03/2024 12:07 PM CDT [facility] POC Sample Type Capillary 10/03/2024 12:07 PM CDT [facility] Blood 10/03/2024 12:0 5 PM CDT 10/03/2024 12:07 PM CDT Narrative [facility] - 10/03/2024 12:07 PM CDT Capillary blood [...] DEVICE F inal Result Performing Organization Address City/[facility] Co de Phone Number [facility] Unless otherwise noted, all lab tests performed by: Division of Pathology and Laboratory Medicine [address] [place] [id number] * TSH (10/03/2024 11:39 AM CDT) Only the most recent of8 resultswithin the time period is included. Thyroid Stimulating Hormone 0.81 0.27 - 4.20 mcIU/mL 10/03/2024 7:27 PM CDT [facility] Blood Peripheral blood specimen / Unknown Venipuncture / Unknown 10/03/2024 11:39 AM CDT 10/03/2024 11:43 AM CDT Kandy Coffey MD LAB BLOOD ORDERABLES Final Resul t Performing Organization Address City/[facility] Co de Phone Number [facility] Unless otherwise noted, all lab tests performed by: Division of Pathology and Laboratory Medicine [address] [place] [id number] * (ABNORMAL) Hemoglobin A1c (10/03/2024 11:39 AM CDT) Pathologist [facility] Hemoglobin A1c 6.1(H) 4.3 - 5.6 % 10/03/2024 5:04 PM CDT [facility] Blood Peripheral blood specimen / Unknown Venipuncture / Unknown 10/03/2024 11:39 AM CDT 10/03/2024 11:43 AM CDT Narrative [facility] - 10/03/2024 5:04 PM CDT HbA1c values >=6.5% are diagnostic of diabetes mellitus. Diagnosis should be confirmed by repeat testing. Therapeutic Action suggested: >8.0% HbA1c; Goal of therapy: <7.0% HbA1c Adrian Ferrara MD LAB BLOOD ORDERABLES F inal Result [facility] Unless otherwise noted, all lab tests performed by: Division of Pathology and Laboratory Medicine [address] [place] [id number] * (ABNORMAL) Lipid Panel (10/03/2024 11:39 AM CDT) Pathologist [facility] Cholesterol Total 144 <200 mg/dL 10/03/2024 4:27 PM CDT [facility] Comment: ATP III Classification of Total Cholesterol - Primary Target of Therapy (in mg/dL): <200 Desirable 200-239 Borderline high >=240 High Triglyceride 179(H) <150 mg/dL 10/03/2024 4:27 PM CDT [facility] Comment: ATP III Classification of Serum Triglycerides Primary Target of Therapy (in mg/dL): <150 Normal 150-199 Borderline high 200-499 High >=500 Very high Non-fasting triglycerides >200 mg/dL may be followed up with a fasting Lipid Panel. Calculated LDL-C may be falsely decreased when non-fasting triglycerides >200 mg/dL. HDL Cholesterol 44 >=40 mg/dL 10/03/2024 4:27 PM CDT [facility] LDL Cholesterol 64 <=100 mg/dL 10/03/2024 4:27 PM CDT [facility] Comment: ATP III Classification of LDL Cholesterol Primary Target of Therapy (in mg/dL): <100 Optimal 100-129 Near optimal/above optimal 130-159 Borderline high 160-189 High >=190 Very high LDL-C is calculated using the Friedewald equation. Very Low Density Lipoprotein 36 mg/dL 10/03/2024 4:27 PM CDT [facility] Is patient fasting? 10/03 4:27 PM CDT [facility] Blood Peripheral blood specimen / Unknown Venipuncture / Unknown 10/03/2024 11:39 AM CDT 10/03/2024 11:43 AM CDT us Adrian Ferrara MD LAB BLOOD ORDERABLES F inal Result [facility] Unless otherwise noted, all lab tests performed by: Division of Pathology and Laboratory Medicine [address] [place] [id number] * MRI BRAIN W CONTRAST - FRAMELESS [...] anteriorly positioned C3 posterior element relative to [id number] dorsal thecal sac may be related to [...] are unexpected and potentially actionable. Bela Boss [facility] [facility] [place] ORDERABLES Final Result * X-ray Spine [...] are unexpected and potentially actionable. Ary Koenig [employer] IMG DIAGNOSTIC IMAG ING ORDERABLES Final Result [...] Panel-Tissue) (09/06/2024 12:21 PM CDT) Source Material [id number] 4:40 PM CDT [facility] Tumor Block A1 09/16/2024 4:40 PM CDT [facility] *Normal Control Material PB 09/16/2024 4:40 PM CDT MOLECULAR DIAGNOSTICS Interpretation Maria Elena [facility] [id number] KATE ALEXANDER - Tissue (Mutation Analysis Precision Panel) Report A. SPECIMEN INFORMATION Estimated tumor %: 40% Source material: [id number] Collected: 09/06/2024 Tumor block: A1 Received: 09/08/2024 [...] p.A823E c.2468C>A Missense Exon 16 13% ARID1B p.A2075U c.6860G>C Missense Exon 20 26% BCL6 Amplification CNV 3q27.3 n/a CD79A p.R131fs*61 c.390del Frameshift Exon 3 38% EPHA3 p.V70M c.208G>A Missense Exon 3 23% EPHA3 p.W86F c.257_258delinsTT Missense Exon 3 23% ERCC2 p.N250K c.750C>G Missense Exon 9 34% GABRA6 p.? c.226-1G>A Splice? Splice? (Intron 3) 37% INPP4B p.R240T c.719G>C Missense Exon 12 38% KDM6A p.M9375N c.3361C>A Missense Exon 23 70% KDR p.V789F c.2365G>T Missense Exon 16 36% KLHL6 p.M322T c.965T>C Missense Exon 4 26% KLHL6 Amplification CNV 3q27.1 n/a KMT2C p.T316Y c.946_947delinsTA Missense Exon 7 8% KMT2D p.K3537* c.52969Y>T Nonsense Exon 38 71% MAPK3 p.R370C c.1108C>T Missense Exon 8 37% NUP93 p.R530W c.1588C>T Missense Exon 14 33% PMS1 p.E85Q c.253G>C Missense Exon 3 33% PPM1D p.S297fs*6 c.889dupA Frameshift Exon 4 25% PRKDC Amplification CNV 8q11.21 n/a SHPRH p.Q758L c.2273A>T Missense Exon 10 24% SLIT2 p.D2530T c.3861G>T Missense Exon 35 35% STAT4 p.A384T [...] Biomarker Action Drug(s) Details Citation Tumor Mutation Furlong Therapeutic Pembrolizumab FDA label: Pembrolizumab is indicated [...] types Action Drug(s) Details Citation Tumor Mutation Furlong Bone; Soft Tissue Sarcoma; Biliary Tract Carcinoma; [...] and 8.5 months in the bTMB-H cohort ([AACR_Schenker_#CT [id number]]). 2 3. 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 Functional annotation: This alteration was characterized to be functionally inactivating. Yeast-based assays report loss of 91% transcriptional activities and non-functional of this alteration ([PMID:52368855]; IARC TP53 Database). D259Y has been reported as somatic variant in IARC and ClinVar with clinical significance of Uncertain significance ([id number]) (Oct, 2023, [id number]). This alteration is located within the DNA binding domain (amino acids 102-292, UniProt) of the p53 protein ([PMID:20907598]), which is critical for f68-nzbndnml cell cycle arrest in response to DNA damage (22). Missense mutation at the same code (D259V) has been also described as inactivating ([PMID:19508751]; [PMID:78136221]; IARC TP53 Database). Tumor Mutation Furlong Functional significance: See details Biomarker summary: Tumor mutational burden (TMB), defined as the number of somatic mutations per megabase of interrogated genomic sequence, is a biomarker that may predict sensitivity to immune checkpoint inhibitors ([PMID:24145636]). Tumors with higher TMB are often associated with higher amounts of immunogenic neoantigens. Immune checkpoint inhibitors augment the anti-tumor immune response and that the extent of augmentation may be associated with the magnitude of TMB ([PMID:57647193]; [PMID:61577112];92) . Functional annotation: Tumor mutation burden (TMB) is defined as the number of somatic mutations per megabase of interrogated genomic sequence. - Interpretation of clinical actionability was based on the biomarker and cancer type, and used the precision oncology decision support system at [facility] (PMID: 26982135). These interpretations do not take into account treatment history of staging, are applicable as of this report's date, and may change in the future. The clinical significance categories (tiers) for somatic variants were reported using the 2017 AMP/ASCO/CAP guidelines (PMID: 4380983). - For variants therapeutic annotations beyond Tier 1 or Tier 2, providers may explore clinical trial matching options and request additional annotation at [email or web address]. Clinical test requisition for mutation studies on the following genes was received: EGFR, KRAS E. METHODOLOGY Test Description: The [facility] Mutation Analysis Precision Panel (MDA ALEXANDER) assay [...] specimens (See Appendix Table 1 and 2). [employer] employs DNA extracted from both tumor tissue [...] enriched with custom hybrid-capture, 120nt dsDNA probes. [employer] assay uses the Kairos4 next generation sequencing platform and bidirectional paired-end sequencing to identify nucleic acid variants for all coding regions from most genes in the panel, the TERT promoter, 1 non-coding RNA gene, and clinically relevant rearrangements. Reported somatic mutations are identified by comparison to the human genome reference sequence GRCh37/hg19 and reviewed in [employer] against a process-matched normal control. Data analysis is performed in house by the [employer] Bioinformatics pipeline (BIP) which relies on the dual-duplex molecular barcoding for consensus analysis to reduce sequencing artifacts and achieve greater sensitivity and positive predictive value. [employer] is intended to provide tumor mutation profiling in accordance with institutional guidelines in oncology for patients with solid malignant neoplasms. Report annotation and software: A post-variant calling analysis and annotation tool, [employer] 2.1.0.9, was used in the construction of this report. The following additional software tools were utilized in the experimental setup and bioinformatic analysis: V[employer]our[employer]io Software 1.7, FinalCAD Real Time Analysis Software 3.4.4, [employer] eSoft.2 and [employer] BIP v1.0. Detailed information about the signal-processing, basecalling, alignment, and variant calling algorithms are available upon request. Variants identified are described using an implementation of a standardized nomenclature developed by the Human Genome Variation Society (HGVS, http://www.hgvs.org /varnomen/). A decision-support/[employer] application programming interface (EquityZen 7.1.2) was used in the annotation of [...] 100%. Notable limitations of the test: · MDA ALEXANDER requires a normal non-tumor sample for appropriate [...] of greater than or equal to 100 ZHN-ihzkw-rpdglnicp , collapsed reads (minimum 100x coverage). Mutations [...] ABL1 (NM_005157) 1-11 (1-1131) ABL2 (NM_005158) 1-12 (11168) ABRAXAS1 (NM_139076) 1-9 (1-410) ACVR1 (NM_001111067) 3-6 (1-215), 8-11 (264-510) ACVR1B (NM_004302) 1-9 (1-506) ACVR2A (NM_001616) 1-2 (1-88), 8 (321-359), 9 (363-398) ADGRA2 (NM_032777) 1-19 (1-1339) AJUBA (NM_032876) 1-8 (1-539) AKT1 (NM_005163) 2-14 (1-481) AKT2 (NM_001626) 2-14 (1-482) AKT3 (NM_005465) 2 (1-16), 4-5 (58-143), 8 (210-232), 10-14 (281-480) AKTIP (NM_022476) 2-10 (1-293) ALK (NM_004304) 1-16 (1-922), 17-29 (939-1621) LLXT38Z (NM_001139) 1-15 (1-702) AMER1 (NM_152424) 2 (1-1136) ANKRD11 (NM_013275) 3-8 (1-298), 9 (6445-8628), 9 (298-2350), 9 (9496-6133), 10-13 (1245-1836) APC (NM_000038) 3-7 (46-243), 9-16 (279-1850), 16 (1160-7006), 16 (7079-0086), 16 (1491-4036) AR (NM_000044) 1 (1-456), 1-2 (461-579), 3-8 (590-921) ARAF (NM_001654) 2-16 (1-607) ARFRP1 (NM_001267547) 2-8 (1-202) ARID1A (NM_006015) 1-20 (1-2286) ARID1B (NM_001346813) 1 (1-207), 1-20 (243-2290) ARID2 (NM_152641) 1-11 (1-500), 14-18 (572-1716), 21 (8715-1448) ARID5B (NM_032199) 1-2 (1-92), 3 (123), 3 (137-140), 4-5 (168-282), 8-10 (368-1189) ASCC3 (NM_006828) 2 (1-23), 3-4 (31-267), 6 (326-362), 8-10 (424-579), 12 (635-693), 14 (719-757), 18-19 (942-1025), 21-22 (5058-8291), 25-27 (5878-1983), 28 (1472), 31 (6876-3057), 40-42 (7128-1925) ASPM (NM_018136) 1 (1-99), 4-12 (641-1056), 26-27 (8464-2483) ASXL1 (NM_015338) 1-13 (11542) ASXL2 (NM_018263) 1-13 (1-1436) RICKIE (NM_000051) 2-11 (1-598), 13-22 (633-1095), 23 (4050-9059), 24-34 (7925-0387), 37-45 (2579-7948), 46 (6493-0441), 47-58 (5276-2190), 60-63 (0524-5216) ATR (NM_001184) 1-17 (1-1150), 18 (7119-0633), 18 (9263-2194), 19-42 (5546-9732), 43 (3176-5981), 44 (2459-8242), 45-47 (5978-7728) ATRX (NM_000489) 1-3 (1-63), 6-7 (124-198), 10-12 (7504-3070), 15-17 (7560-0742), 18 (5393-4540), 19-20 (2381-6268), 20 (3628-7976), 22 (2923-3069), 23 (3908-2092), 26-27 (1354-1675), 29 (2506-9906), 30 (2168-7356), 35 (5641-4067) AURKA (NM_003600) 2-9 (1-404) AURKB (NM_004217) 2-9 (1-345) AURKC (NM_003160) 2-7 (1-276) AXIN1 (NM_003502) 2-11 (1-863) AXIN2 (NM_004655) 2-11 (1-844) ANJALI (NM_001699) 1-19 (1-886) B2M (NM_004048) 1-2 (1-116) BAP1 (NM_004656) 1-17 (1-730) BARD1 (NM_000465) 1 (1-53), 2 (56), 2 (58-69), 5 (439-465), 7-11 (523-778) BBC3 (NM_014417) 2 (63-92), 2 (1-49), 2 (51-52), 3-4 (92-194) BCL10 (NM_003921) 1-3 (1-234) BCL11A (NM_022893) 1-4 (1-836) BCL2 (NM_000633) 2-3 (1-240) BCL2L1 (NM_138578) 2-3 (1-234) AQC9S05 (NM_138621) 2-4 (1-199) BCL2L2 (NM_004050) 3-4 (1-194) [...] 18 (728-767) BRCA1 (NM_007294) 2-9 (1-224), 10 (0683-5914), 10 (4008-2128), 10 (1047), 10 (7085-0656), 10 (902-939), 10 (885-897), 10 (815-819), 10 (224-726), 10 (734-810), 11-23 (4393-2274) BRCA2 (NM_000059) 2-10 (1-587), 10 (612-617), 11 (637-1016), 11 (9810-6923), 11 (6711-9235), 14-17 (8271-8058), 18 (2538-6990), 19-21 (1066-4768), 22 (2052-0283), 23-26 (3383-6955), 27 (9436-5310) BRD4 (NM_058243) 2-13 (1-774), 13-14 (783-919), 14-20 (6652-6663) BRIP1 (NM_032043) 2-8 (1-380), 10 (459-481), 11 (495-541), 12-20 (543-1250) BTG1 (NM_001731) 1-2 (1-172) BTG2 (NM_006763) 1-2 (1-159) BTK (NM_000061) 2-4 (1-103), 6-19 (131-660) BUB1 (NM_004336) 1-13 (1-499), 16 (576-618), 17-18 (626-735), 19 (745-775), 20-24 (783-1021), 25 (6351-6268) CALR (NM_004343) 1-9 (1-418) CARD11 (NM_032415) 2-25 [...] 1-2 (1-50), 3 (52-80), 9-12 (232-361), 14-15 (415-855), 17-20 (503-491), 25 (1061), 25 (1417-4771), 25 (5008-5069), 26-29 (6064-1917), 30-35 (6295-5581), 36 (1010-6352), 36 (1883), 36 (1874), 36 (6260-0438), 40 (0479-9726), 41 (2027-6719), 42 (2017-5456), 43 (9596-3738), 44-46 (2087-7492) CHAF1A (NM_005483) 1-15 (1-957) CHEK1 (NM_001274) 2-7 (1-240), 8 (253-257), 8 (259-260), 9-13 (272-477) CHEK2 (NM_007194) 2-6 (1-259), 7-15 (265-544) CIC (NM_015125) 1-20 (1-1600) COL2A1 (NM_033150) 1-53 (1-1419) COP1 (NM_022457) 1 (1-136), 2 (143-153), 3 (156-189), 6 (255-277), 9-10 (323-381), 13-20 (474-732) CREBBP (NM_004380) 1-31 (1-1941), 31 (9899-4846) CRKL (NM_005207) 1-3 (1-304) CRLF2 (NM_022148) 1-8 (1-263) CSF1R (NM_005211) 2-22 (1-973) CSF3R (NM_156039) 3-17 (1-864) CTCF (NM_006565) 3-12 (1-728) CTLA4 (NM_005214) 1-4 (1-224) CTNNA1 (NM_001903) 2-7 (1-354), 9-18 (382-907) CTNNB1 (NM_001904) 4-6 (93-312), 8-10 (361-561), 14-15 (693-782) CUL3 (NM_003590) 1 (1-22), 2-13 (24-614), 15 (710-717), 16 (727-769) CUL4A (NM_001008895) 1-20 (1-760) CUL4B (NM_001079872) 1-3 (1-259), 9-11 (419-632), 14 (622-640), 15-20 (908-896) CUX1 (NM_181552) 1-24 (1-1506) CXCR4 (NM_003467) 1-2 (1-353) CYLD (NM_015247) 4 (1-168), 5 (173-261), 6-7 (270-308), 10-15 (380-013), 17 (392-342), 18-20 (360-957) CBM3E59 (NM_000769) 1 (1-54), 2-4 (57-214), 6-7 (274-383), 9 (431-491) DAXX (NM_001350) 2-8 (1-741) NXGXA6G (NM_001033855) 1-14 (1-693) QKYU3N8 (NM_020640) 1-7 (1-260) DDB1 (NM_001923) 1-27 (1-1141) DDR1 (NM_013993) 3-19 (1-914) DDR2 (NM_006182) 3 (1-25), 4-18 (28-856) DDX3X (NM_001356) 1-2 (1-35), 3-4 (37-95), 5-6 (97-179), 6 (181), 7-17 (188-663) DICER1 (NM_030621) 4-11 (1-503), 12 (516-566), 13-26 (587-1788), 27 (6689-0879), 28 (1855) DIS3 (NM_014953) 1-4 (1-218), 7-10 (330-501), 11 (519-522), 14 (586628), 16-17 (394-499), 18 (382-951) DLL3 (NM_203486) 1-9 (1-588) DNA2 (NM_001080449) 1-21 (1-1061) DNAJB1 (NM_006145) 1-3 (1-341) DNMT1 (NM_001130823) 1-4 (1-149), 6-41 (165-1633) DNMT3A (NM_022552) 2-23 (1-913) DNMT3B (NM_006892) 2-23 (1-854) DOT1L (NM_032482) 1-28 (1-1538) E2F3 (NM_001949) 1-7 (1-466) EED (NM_003797) 1-2 (1-88), 3-7 (90-242), 8 (250-278), 9 (287-322), 10 (347-349), 10 (354-356), 12 (411-440) EGFL7 (NM_016215) 4-11 (1-274) EGFR (NM_005228) 1-28 (1-1211) EIF1AX (NM_001412) 1-6 (1-143) EIF4A2 (NM_001967) 1-7 (1-257), 8-9 (264-331), 10 (336-353), 11 (360-408) EIF4E (NM_001968) 1-6 (1-180), 7 (195-203) ELF3 (NM_004433) 2-9 (1-372) ELOC (NM_005648) 2-4 (1-113) EMSY (NM_001300943) 2-3 (1-57), 6-9 (141-456), 10 (470-496), 12-13 (563-666), 14 (253-718), 16-20 (298-1259) ENO1 (NM_001428) 2-12 (1-435) EP300 (NM_001429) 1-31 [...] ERBB4 (NM_005235) 1-3 (1-141), 6-7 (208-295), 10-13 (370-541), 16 (624-649), 18 (694-734), 20 (768-829), 21 (844-873), 22 (882-907), 26-28 (6698-3467) ERCC1 (NM_202001) 1-8 (1-324) ERCC2 (NM_000400) 1-23 [...] 4-6 (53-168), 8 (195-214), 9-19 (224-630), 20 (296-656), 21-24 (665-875), 25 (883-903), 26 (907), 26-37 (909-1269) FANCL [...] FGF6 (NM_020996) 1-3 (1-209) FGF9 (NM_002010) 1-3 (1209) FGFR1 (NM_015850) 2-18 (1-821) FGFR2 (NM_000141) 2-18 (1-822) FGFR3 (NM_000142) 2-18 (1-807) FGFR4 (NM_022963) 1-16 (1-763) FH (NM_000143) 1-2 (1-89), 3 (102-103), 4 (159-176), 5-7 (186-370), 10 (464-511) FLCN (NM_144997) 4-14 (1-580) FLT1 (NM_002019) 1-6 (1-271), 10 (442-469), 11-16 (479-785), 17-18 (787-863), 18-30 (865-1339) FLT3 (NM_004119) 1-6 (1-248), 7 (269-284), 7 [...] (NM_000811) 1-3 (1-75), 6 (187-220), 7-9 (225-451) KSGF04K (NM_001924) 1-4 (1-166) GATA1 (NM_002049) 2-6 (1-414) [...] 9-12 (346-637), 14-18 (682-822), 22 (935-979), 24 (5036-5026) HELQ (NM_133636) 1-18 (1-1102) HERC2 (NM_004667) 2 (1-19), 3-27 (25-1383), 27 (8917-1219), 28-29 (0307-6195), 30-31 (5920-3911), 32-36 (2145-0363), 37-44 (7602-2216), 45 (6021-7217), 46-51 (1244-3602), 53-93 (1599-3445) HFM1 (NM_001017975) 2-3 (1-62), 5-9 (165-381), 18 (702-721), 19-30 (736-1131), 32 (6781-5076), 33 (4010-2953), 34 (0116-2685), 36 (1979-0313) HGF (NM_000601) 1-3 (1-123), 7-10 (249-424), 12-13 (469-514) HLA-A (NM_002116) 1-8 (1-366) HNF1A (NM_000545) 1-10 (1-632) HOXB13 (NM_006361) 1-2 (1-285) HRAS (NM_005343) 2-5 (1-190) HSD3B1 (NM_000862) 2-4 (1-374) HFG87WS5 (NM_001017963) 1-12 (1-855) IEF98PJ2 (NM_007355) 2-12 (1-725) ICOSLG (NM_015259) 1-7 (1-303) [...] 6 (46-85), 8-11 (125-230), 13-14 (279-358), 19-20 (574-963), 22-24 (192-829), 25 (833-877) INSR (NM_000208) 1-22 (10-1383) IRF2 (NM_002199) 2-9 (1-350) IRF4 (NM_002460) 2-9 (1-452) IRS1 (NM_005544) 1 (1-1243) IRS2 (NM_003749) 1 (1-369), 1-2 (411-1339) JAK1 (NM_002227) 2-24 (1-1123) JAK2 (NM_004972) 3 (1-76), 6 (157-205), 9-10 (353-440), 11 (443-505), 17-20 (711-921), 21 (923-962), 22 (965-1004) JAK3 (NM_000215) 2-24 (1-1125) CARL (NM_002228) 1 (1-332) KAT6A (NM_006766) 2-7 (1-452), 8-17 (455-2005) KDM5A (NM_001042603) 1-15 (1-717), 16-27 (728-1622) KDM5C (NM_004187) 1-26 (1-1561) KDM6A (NM_021140) 1-2 (10-75), 4-5 (112-148), 7-10 (189-292), 14-17 (444-901), 20-22 (980-1095), 23 (4235-0310), 24 (8596-6661), 25 (1032-1055), 26 (2477-4163) KDR (NM_002253) 1 (1-23), 2 (32-34), 3 (54-120), 4 (141-156), 5-14 (164-706), 16-27 (756-1221), 29 (4316-1146), 30 (2917-0838) KEAP1 (NM_012289) 2-6 (1-625) DEON (NM_000420) 1-19 (1-733) KIT (NM_000222) 1-4 (1-252), 5 (270-297), 6-13 (309-664), 18-21 (829-977) KLF4 (NM_004235) 1-5 (1-480) KLHL6 (NM_130446) 1-7 (1-622) KMT2A (NM_005933) 1 (1-46), 1 (48-49), 1 (51-144), 2-36 (146-3970) KMT2B (NM_014727) 1-3 (26-419), 3 (436-620), 3-28 (637-2224), 28-37 (2603-8690) KMT2C (NM_170606) 1 (1-54), 2-6 (59-283), 7-11 (292-541), 12 (554-566), 13 (579-605), 14-23 (607-1238), 25-26 (6451-5021), 27 (6224-8522), 29-32 (7469-9736), 33 (1499-4741), 34-37 (2918-5957), 38-41 (8400-4824), 42-59 (6949-3763) KMT2D (NM_003482) 1-41 (1-4613), 42-54 (1581-7624) KNSTRN (NM_033286) 1-9 (1-317) KRAS (NM_004985) 2-3 (1-89), 5 (152-183) LATS1 (NM_004690) 2-8 (1-1125) LATS2 (NM_014572) 2-8 (1-1089) LCK (NM_005356) 2-13 (1-510) LIG4 (NM_002312) 2 (847-874), 2 (812-813), 2 (829-839) LMO1 (NM_002315) 1-4 (1-157) LRP1B (NM_018557) 1 (1-28), 5 (155-198), 13 (680-716), 17 (882-924), 19-20 (963-1046), 24 (8933-7609), 24 (9518-3024), 24 (1284), 28 (2584-0722), 29 (1255-9357), 31 (4362-7136), 32 (4954-6428), 43 (5669-4868), 46 (0182-3121), 47 (5792-7917), 50 (8035-7224), 52-53 (2764-2410), 56 (5555-2309), 57 (3243-1737), 59 (2184-6765), 63-69 (3026-3049), 76-77 (2743-1627), 80 (3980-2890), 82-83 (6837-4492) TIMOTHY (NM_002350) 2-13 (1-513) MAD2L2 (NM_006341) 2-9 (1-212) MAGOH (NM_002370) 1-5 (1-147) MALT1 (NM_173844) 1-2 (1-126), 4-5 (167-276), 6 (281-298), 8-16 (318-814) MAP2K1 (NM_002755) 1-11 (1-394) MAP2K2 (NM_030662) 1-11 (1-401) MAP2K4 (NM_003010) 1 (5-39), 3 (73-131), 6-9 (212-347) MAP2K7 (NM_145185) 1-11 (1-420) MAP3K1 (NM_005921) 1 (1-161), 3-6 (212-434), 10 (563-655), 13-19 (727-1463) TFZ7P12 (NM_004721) 2-14 (1-967) KJG2I65 (NM_003954) 2-17 (1-947) MAP3K4 (NM_005922) 1 (1-51), 3 (143-187), 3 (195-206), 4-17 (570-1188), 17-27 (2982-6936) MAPK1 (NM_002745) 1-8 (1-361) MAPK3 (NM_002746) 1-8 [...] MET (NM_001127500) 2 (1-400), 4-10 (465-806), 15 (9159-7912), 17 (9753-2588), 18-21 (4146-5249) MGA (NM_001164273) 2-18 (1-2380), 20-24 (0301-3874) MGMT (NM_002412) 2-5 (1-208) MITF (NM_000248) 1-3 (1-115), 5-9 (153-420) MLH1 (NM_000249) 1-19 (1-757) MLH3 (NM_001040108) 2 (570-1094), 2 (567), 2 (434-541), 2 (1-344), 2 (356-384), 3-13 (4149-6445) MPL (NM_005373) 1-12 (1-636) MRE11 (NM_005590) 2 (1-7), 3-5 (15-134), 6-7 (138-220), 11-12 (367-442), 14-19 (501-681) MSH2 (NM_000251) 1-16 (1-935) MSH3 (NM_002439) 1-2 (1-120), 3 (135-181), 4-13 (194-632), 14 (634-692), 15 (732-650), 16-18 (752-848), 20-24 (886-1138) MSH6 (NM_000179) 1-3 (1-209), 4 (220-512), 4 (514-599), 4 (604-605), 4-9 (608-1334) MST1 (NM_020998) 1-18 (1-726) MST1R (NM_002447) 1-20 (11401) MTAP (NM_002451) 1 (1-11), 3-8 (41-284) MTOR [...] 6 (207-244), 10 (304-361), 12-23 (392-1059), 25 (9537-5826), 26-27 (7079-9593), 28 (6518-1089), 29-46 (9280-2892) NEGR1 (NM_173808) 1-3 (1-179), 5 (223-263) NF1 (NM_001042492) 1-4 (1-160), 6 (208-210), 6 (212), 8-11 (244-420), 13-14 (465-547), 17-21 (616-950), 22 (980), 26-31 (1686-0350), 32 (9969-4857), 33-42 (2136-3240), 43 (0125-2882), 47-48 (2990-5658), 49 (4317-8944), 49 (2414), 50 (6727-8592), 51-58 (2769-0510) NF2 (NM_000268) 1-16 (1-596) NFE2L2 (NM_006164) 1-2 (1-104), 3 (108-130), 5 (259-606) NFKBIA (NM_020529) 1-6 (1-318) NHEJ1 (NM_024782) 2-8 (1-300) NKX2-1 (NM_003317) 1-2 (1-372) NKX3-1 (NM_006167) 1-2 (1-235) NOTCH1 (NM_017617) 1-34 (1-2556) NOTCH2 (NM_024408) 1 (1-25), 3-4 (52-251), 6-34 (292-2472) NOTCH3 (NM_000435) 1-33 (1-2) NOTCH4 (NM_004557) 1-30 (1-2004) NPM1 (NM_002520) 1 (1-20), 2-11 (23-295) NRAS (NM_002524) 2-5 (1-190) NSD1 (NM_022455) 2-23 (1-2697) NSD3 (NM_023034) 2-24 (1-1438) NT5C2 (NM_001351169) 3-19 (1-562) NTRK1 (NM_002529) 1-17 (1-797) NTRK2 (NM_006180) 4 (1-71), 5-8 (85-195), 9 (198-228), 10 (258-276), 11-15 (285-482), 16 (497-539), 17-21 (545-839) NTRK3 (NM_002530) 3-19 (1-826) NUP93 (NM_014669) 2-22 (1-820) NUTM1 (NM_001284292) 1-8 (1-1161) PAK1 (NM_002576) 2-4 (1-147), 6-7 (160-258), 8-9 (262-295), 11-15 (333-546) PAK3 (NM_002578) 5 (1-59), 7 (93-144), 12-14 (277-370), 16 (404-468), 17-18 (470-545) PAK5 (NM_177990) 3-5 (1-494), 7-10 (539-304) PALB2 (NM_024675) 1-13 (1-1187) PARP1 (NM_001618) 1-23 (1-1015) PARP2 (NM_001042618) 1-11 (1-367), 12 (372-402) PARP3 (NM_001370240) 2-11 (1-534) PARP4 (NM_006437) 2-33 (1-1660) PARPBP (NM_017915) 4 (130-165), 5 (201), 5 (203-222), 7 (274-335), 8 (339-386), 9 (395-421) PAX5 (NM_016734) 1-10 (1-392) PAXX (NM_183241) 1-7 (1-205) PBRM1 (NM_018313) 2-16 (1-642), 17 (841-842), 17 (837-838), 17 (642-823), 17 (830-832), 18-20 (856-1016), 21-30 (9218-4281) PCNA (NM_182649) 1-6 (1-262) PDCD1 (NM_005018) 1-5 (1-289) WRPV9RD3 (NM_025239) 2-5 (1-256), 7 (273-274) PDGFB (NM_002608) 1-6 (1-242) PDGFRA (NM_006206) 2-4 (1-205), 5-23 (210-1090) PDGFRB (NM_002609) 2-23 (1-1107) PDK1 (NM_002610) 1-11 (1-437) PER1 (NM_002616) 2-19 (1-880), 19-23 (900-1291) PGD (NM_002631) 1-13 (1-484) PGR (NM_000926) 1-3 (1-636), 4 (650-732) PHF6 (NM_032458) 2-5 (1-140), 6 (144-189), 7 (203-229), 8-9 (244-323) PHOX2B (NM_003924) 1-3 (1-315) DPF7K5R (NM_002646) 3-34 (1-1635) SRL4E8J (NM_001288772) 3-4 (227-307), 5 (317-335), 7-9 (380-465), 11 (477-542), 14 (627-665), 15 (679-681), 15 (683-695), 16 (709-772), 20 (896-931), 24 (1066), 24 (2999-2659), 27-28 (7008-2955), 32 (8352-9652) PIK3C3 (NM_002647) 1 (1-23), 2 (27-75), 3 (89-134), 6 (207-238), 10 (335-387), 11-12 (391-472), 14-15 (495-569), 17-21 (194-755), 22 (768-799), 24 (842-883) PIK3CA (NM_006218) 2-9 [...] 1-4 (1-209), 5 (214-238), 6-8 (242-384), 9-13 (573-622), 14 (625-684) PMAIP1 (NM_021127) 1-2 (1-55) PML (NM_033238) 1 (1-38), 2-9 (44-883) PMS1 (NM_000534) 2-4 (1-140), 6-10 (195-781), 11 (798-811), 12-13 (825-933) PMS2 (NM_000535) 1-14 (1-815) PNKP (NM_007254) 2-17 (1-522) PNRC1 (NM_006813) 1-2 (1-328) POLA1 (NM_001330360) 1-2 (1-56), 3 (60), 3 (62-81), 5-13 (116-464), 16-19 (563-680), 20 (702), 20 (704-711), 24-26 (856-983), 27-29 (989-1099), 32 (1955-4028), 35-37 (7248-6968) POLD1 (NM_002691) 2-27 (1-1108) POLE (NM_006231) 1-49 (1-2286) POLQ (NM_199420) 1-19 (1-2070), 20 (5206-4999), 21-30 (7390-7340) PPARG (NM_015869) 2-3 (28-160), 5-7 (207-506) PPM1D (NM_003620) 1-6 (1-606) VJS2M9H (NM_014225) 1-15 (1-590) KEG5G7X (NM_002717) 1 (1-3), 2 (11-17), 4 (61-116), 6-7 (154-268), 8 (280-317), 10 (355-448) PPP4R4 (NM_058237) 1-2 (1-64), 4 (119-123), 4 (125-126), 4 (129-130), 5-8 (148-285), 13-14 (316-537), 16-22 (573-793), 24-25 (817-867), 25 (869-874) PPP6C (NM_002721) 1-7 (1-306) PRC1 (NM_003981) 1-15 (1-621) PRDM1 (NM_001198) 1-7 (1-826) PREX2 (NM_024870) 1-3 (1-112), 6-7 (182-280), 9-11 (315-447), 14-29 (498-1199), 30 (9190-9481), 31-34 (1725-7438), 35 (9679-7810), 36-40 (0305-1638) PRG4 (NM_005807) 2-5 (1-146), 6-7 (157-477), 7 (480-617), 7-10 (653-1265), 11 (3742-4046), 12 (1905-9495), 13 (0458-5692) PTRZI5A (NM_212472) 2-7 (1-236), 9-11 (257-382) PRKCI (NM_002740) 1-18 (1-597) PRKDC (NM_006904) 1-87 (1-4128) PRKN (NM_004562) 1-12 (1-466) PTCH1 (NM_000264) 1-23 (1-1448) PTEN (NM_000314) 1 (1-27), 5-7 (85-267), 8-9 (285-404) PTK2 (NM_001352701) 3-5 (1-150), 6-7 (153-188), 8-36 (198-1097) PTPN11 (NM_002834) 1-15 (1-594) PTPRB (NM_001109754) 1-34 (1-2216) PTPRD (NM_002839) 12 (1-22), 21 (321-515), 22 (529-547), 23 (560-608), 24 (627-703), 25-28 (710-1019), 29-30 (1086-0321), 34 (1315), 36 (9929-7865), 44 (7810-1327) PTPRS (NM_002850) 2-38 (1-1949) PTPRT (NM_133170) 1-8 (1-484), 10-12 (521-713), 14-32 (726-1461) QKI (NM_006775) 1 (1-48), 3-8 (96-342) RAB35 (NM_006861) 1-6 (1-202) RAC1 (NM_006908) 1-6 (1-193) RAD21 (NM_006265) 2 (13-35), 5-6 (125-230), 7 (233-272), 8-12 (280-539), 13-14 (541-632) RAD50 (NM_005732) 1-5 (1-252), 6 (258-295), 7 (299-351), 8-10 (354-545), 11 (556-595), 12 (599), 12-19 (601-1012), 20 (0416-0072), 21-25 (1740-4657) RAD51 (NM_002875) 2-10 (1-340) XKE13CK9 (NM_006479) 1-6 (1-186), 7 (193-227), 9 (311), [...] 10-14 (314-463), 16 (474-500), 19-20 (605-702), 22-23 (463-830), 25 (846-884), 26 (890-903), 27 (905-929) RBM10 (NM_005676) 2-24 (1-931) RECQL4 (NM_004260) 1-22 (1-1209) REL (NM_002908) 1-8 (1-308), 10-11 (340-620) RET (NM_020975) 1-20 (1-1115) REV3L (NM_001372078) 1 (1-47), 4 (167-169), 4 (157), 4 (159-163), 5-12 (189-533), 13 (8969-9241), 13 (1327), 13 (1322), 13 (4098-9204), 13 (2454-0155), 13 (7448-0009), 13 (9557-1175), 13 (1042), 13 (1038), 13 (533-970), 13 (1190-3847), 14 (5559-1700), 16-32 (9201-4113) RFC1 (NM_002913) 1-25 (1-1148) RFC2 (NM_181471) 1-11 (1-355) RFC3 (NM_002915) 1 (1-29), 5-7 (131-270) RFC4 (NM_181573) 2-11 (1-364) RFC5 (NM_007370) 1-11 (1-341) RHEB (NM_005614) 1-8 (1-185) RHOA (NM_001664) 2-5 (1-194) RICTOR (NM_152756) 1-4 (1-87), 6 (131-152), 8-15 (195-433), 21-25 (628-833), 34 (4843-1179), 35-38 (6559-4705) RIF1 (NM_018151) 2-22 (1-867), 23-30 (870-1504), 30 (3190-2906), 30 (2200-0969), 30 (1888), 30-33 (8791-1766), 35-36 (9392-0324) RIT1 (NM_006912) 2-6 (1-220) RMI2 (NM_152308) 1-2 (1-148) RNF43 (NM_017763) 2-10 (1-784) ROS1 (NM_002944) 1-3 (1-76), 4 (86-89), 4 (81-83), 5-8 (97-286), 12-16 (421-832), 17-19 (836-991), 20 (995-1040), 22 (6703-2513), 23-27 (1411-5045), 32-33 (2441-0558), 35-36 (2679-6984), 42-43 (8355-0606) RPA1 (NM_002945) 1-17 (1-617) RPA2 (NM_002946) 1-9 (1-271) RPA3 (NM_002947) 5-8 (1-122) RPA4 (NM_013347) 1 (1-262) IPH4LM7 (NM_003942) 1-17 (1-773) FJF1ZN3 (NM_003161) 1-15 (1-526) BAZ2BK5 (NM_003952) 1-15 (1-483) RPTOR (NM_020761) 1-34 (1-1336) RSPO1 (NM_001242908) 3-7 (1-264) RSPO2 (NM_178565) 2-3 (1-95), 4 (113-132), 5-6 (143-244) RUNX1 (NM_001754) 2-4 (1-117), 6-9 (170-481) FVCR6S4 (NM_175635) 2-9 (1-405), 10-11 (413-568) RYBP (NM_012234) 1-4 (1-219) SDHA (NM_004168) 1-15 (1-665) SDHAF2 (NM_017841) 1-4 (1-167) SDHB (NM_003000) 1-8 (1-281) SDHC (NM_003001) 1-6 (1-170) SDHD (NM_003002) 1-4 (1-160) SESN1 (NM_014454) 1 (1-93), 2 (95-114), 6-10 (325-552) SETBP1 (NM_015559) 2-6 (1-1597) SETD2 (NM_014159) 1-2 (1-29), 3 (1463), 3 (1461), 3 (2767-5587), 3 (7913-8941), 3 (708-709), 3 (667-706), 3 (663), 3 (653), 3 (650), 3 (30-571), 3 (573-574), 4-21 (5146-0093) SF3B1 (NM_012433) 1-13 (1-602), 14 (604-648), 14 (650-653), 21-25 (1474-4964) SGK1 (NM_005627) 1-12 (1-432) SH2B3 (NM_005475) 2-8 (1-576) SH2D1A (NM_002351) 1-2 (1-67) SHLD1 (NM_152504) 2-3 (1-206) SHLD2 (NM_001330112) 3 (1-291), 3-4 (346-542), 5 (545-610), 7-10 (655-905) SHPRH (NM_001042683) 9-14 (854-1038), 22 (7897-0842), 23-25 (6028-1057), 28 (0875-9925), 28 (2103-5078), 29-30 (1372-3769) SHQ1 (NM_018130) 1-5 (1-200), 6 (204-230), 8 (300), 8 (302-307), 9-11 (313-578) YUD47T5 (NM_006424) 2-13 (1-691) SLIT2 (NM_004787) 1 (1-60), 2 (65-84), 8 (204-259), 10-17 (305-561), 18-20 (563-715), 25-26 (830-909), 30-33 (3752-8684), 35-37 (9231-5003) SLX4 (NM_032444) 2-15 (1-1835) SMAD2 (NM_005901) 2-3 (1-109), 6-8 (219-333), 11 (427-468) SMAD3 (NM_005902) 1-9 (1-426) SMAD4 (NM_005359) 2-4 (1-152), 5-12 (158-553) SMARCA2 (NM_003070) 2-4 (1-264), 5 (290-349), 7-18 (392-923), 20-23 (962-1094), 24-27 (6678-1864), 29-34 (4866-1390) SMARCA4 (NM_003072) 2-35 (1-1648) SMARCAD1 (NM_020159) 2-4 (1-179), 6 (202-235), 8-9 (270-427), 11-23 (494-1007) SMARCB1 (NM_003073) 1-9 (1-386) SMARCD1 (NM_003076) 1-13 (1-516) SMC1A (NM_006306) 1-25 (1-1234) SMC3 (NM_005445) 1-21 (1-809), 22 (820-836), 23 (859-860), 23 (863-866), 24 (920-934), 25 (982-1031), 26-29 (3177-6493) SMC5 (NM_015110) 1-3 (1-127), 4 (132-175), 5-7 (182-327), 8 (329-351), 9 (353-429), 11-12 (489-558), 13 (569-594), 14-16 (603-758), 17-25 (762-1102) SMC6 (NM_001142286) 3-16 (1-577), 18-19 (616-698), 20-24 (715-931), 25-28 (935-1092) SMO (NM_005631) 1-12 (1-788) SNCAIP (NM_005460) 2-5 (1-394), 7-11 (433-920) SOCS1 (NM_003745) 2 (1-212) SOS1 (NM_005633) 1-2 (1-71), 3 (97), 4-5 (116-240), 6-9 (249-401), 14-17 (723-926), 18-20 (931-1116), 22-23 (1858-2497) SOX10 (NM_006941) 2-4 (1-467) SOX17 (NM_022454) 1-2 (1-415) SOX2 (NM_003106) 1 (1-318) SOX9 (NM_000346) 1-3 (1-510) SPEN (NM_015001) 1-15 (1-3665) SPOP (NM_003563) 3-11 (1-375) SRC (NM_005417) 4-14 (1-537) SRSF2 (NM_003016) 1-2 (1-222) SSBP1 (NM_003143) 2-7 (1-149) STAG2 (NM_006603) 2-6 (1-154), 8-10 (223-339), 11-15 (343-512), 16 (363-545), 17-20 (547-699), 21-23 (716-786), 24 (806-830), 25-29 (845-1093), 30-32 (1854-3559) STAT3 (NM_139276) 2-24 (1-771) STAT4 (NM_003151) 4-5 (92-155), 7-21 (182-682), 24 (741-749) STAT5A (NM_003152) 3-20 (1-795) STAT5B (NM_012448) 2-19 (1-788) STK11 (NM_000455) 1-9 (1-434) STK19 (NM_004197) 1-7 (1-350) STK40 (NM_001282547) 2-11 (1-436) SUFU (NM_016169) 1 (1-9), 1-12 (18-485) SUZ12 (NM_015355) 1-16 (1-740) SYK (NM_003177) 2-14 (1636) TBC1D4 (NM_014832) 1-3 (1-390), 6-10 (470-678), 11 (692-695), 11 (699-711), 12-13 (733-795), 15-17 (865-1052), 19 (4790-9590), 21 (2447-0464) TBX3 (NM_005996) 1-7 (1-724) TCF3 (NM_003200) 2-19 (1655) TCF7L2 (NM_030756) 1-14 (1-597) MAYNOR (NM_000459) 1-5 (1-250), 6 (254-301), 8-9 (344-443), 11-12 (171-367), 14-15 (343-999), 17-21 (226-1067) TENT5C (NM_017709) 2 (1-392) TERC (NR_001566) 1 (1-151) TERT (NM_198253) 1-16 (11133) TET1 (NM_030625) 2-12 (1-2137) TET2 (NM_001127208) 3-6 (1-1268), 8-9 (8617-2873), 11 (6152-7091) TFE3 (NM_006521) 1-10 (1-576) TGFB1 (NM_000660) 1-7 (1-391) TGFBR1 (NM_004612) 1 (1-26), 2-9 (33-504) TGFBR2 (NM_003242) 1-2 (1-88), 3-7 (91-568) JZFN266 (NM_017849) 2-4 (1-239) TMPRSS2 (NM_005656) 2-14 (1-493) TNF (NM_000594) 1-4 (1-234) TNFAIP3 (NM_006290) 2-9 (1-791) FBUTLX32 (NM_003820) 1-8 (1-284) TOP1 (NM_003286) 1-2 (1-20), 4-5 (52-112), 8-10 (172-284), 11-21 (291-766) TOP2A (NM_001067) 1-35 (1-1532) TOP3A (NM_004618) 1-19 (1-1002) TOPBP1 (NM_007027) 2-25 (1-1391), 27 (2452-4793), 28 (8930-0140) TP53 (NM_000546) 2-11 (1-394) DK23YJ2 (NM_001141980) 1-10 (1-394), 11 (400-454), 12 (464-906), 15-16 (4851-2254), 18-24 (4400-0108), 25-28 (4682-0302) TP53I3 (NM_004881) 1-5 (1-333) TP63 (NM_003722) 1-14 (1-681) TRAF2 (NM_021138) 2-11 (1-502) TRAF7 (NM_032271) 2-21 (1671) NPXFSD80 (NM_024941) 1-4 (1-100), 5 (109-132), 6-7 (143-182), 9-10 (189-299), 12-13 (333-418) TSC1 (NM_000368) 3-5 (1-121), 6 (131-157), 7-23 (170-1165) TSC2 (NM_000548) 2-42 (1-1808) TSHR (NM_000369) 1 (1-57), 4-10 (106-765) TTK (NM_003318) 2 (1-47), 11 (370-419), 13-14 (465-538), 18 (334-710), 19 (735-741) TYRO3 (NM_006293) 1-19 (1-891) U2AF1 (NM_006758) 1-8 (1-241) VEGFA (NM_003376) 1-8 (1-396) VHL (NM_000551) 1-3 (1-214) VTCN1 (NM_024626) 1-5 (1-283) WRN (NM_000553) 2-6 (1-218), 8-11 (242-477), 12 (488-513), 17-19 (643-758), 20 (764-811), 24-33 (942-1328), 35 (6838-2802) WT1 (NM_024426) 1-10 (1-523) XIAP (NM_001167) 2-6 (1-434), 7 (455-460), 7 (462-483) XPO1 (NM_003400) 2-12 (1-415), 13 (424-445), 14-25 (462-1072) XRCC2 (NM_005431) 1-3 (1-281) XRCC3 (NM_005432) 4-10 (1-347) XRCC4 (NM_022406) 2 (1-47), 4 (115-154), 5 (166-207) XRCC5 (NM_021141) 1-2 (1-45), 3 (48-107), 5 (138-147), 6-9 (164-350), 11-12 (372-444), 13-21 (893-423) XRCC6 (NM_001469) 2-13 (1-610) YAP1 (NM_001130145) 1-3 (1-230), 5-9 (268-505) YES1 (NM_005433) 2-12 (1-544) ZFHX3 (NM_006885) 2-10 (1-3704) IJC348 (NM_006526) 1-4 (1-1049) HVR731 (NM_025069) 1-2 (1-591) ZRSR2 (NM_005089) 1-4 (1-104), 6-11 (134-659) E. APPENDIX References: 1.https://www.acces sdata.fda.gov/drugs atfda_docs/label//767514u789srk.pd f, 2.https://aacrjourn als.org/cancerres/a rticle/82/12_Supple ment/CT022/802769, 3.https://pubmed.nc bi.nlm.nih.gov/3183 5844, 4.https://pubmed.nc bi.nlm.nih.gov/2001 9240, 5.https://pubmed.nc bi.nlm.nih.gov/9707 426, 6.https://pubmed.nc bi.nlm.nih.gov/9114 050, 7.https://pubmed.nc bi.nlm.nih.gov/1250 9279, 8.https://pubmed.nc bi.nlm.nih.gov/8080 050, 9.https://pubmed.nc bi.nlm.nih.gov/1518 6775, 10.https://pubmed.n cbi.nlm.nih.gov/185 17384, 11.https://pubmed.n cbi.nlm.nih.gov/296 32680, 12.https://pubmed.n cbi.nlm.nih.gov/164 39048, 13.https://pubmed.n [employer].nlm.nih.gov/125 14695, 14.https://pubmed.n cbi.nlm.nih.gov/127 82871, 15.https://pubmed.n i.[facility].nih.gov/306 28073, 16.https://pubmed.n i.[facility].nih.gov/335 06598, 17.https://pubmed.n i.[facility].nih.gov/310 37222, 18.https://pubmed.n i.[facility].nih.gov/155 61082, 19.https://pubmed.n i.[facility].nih.gov/171 45587, 20.https://pubmed.n [employer].[facility].nih.gov/155 38264, 21.https://pubmed.[facility].nih.gov/257 21033, 22.https://pubmed.[facility].nih.gov/177 78722, 23.https://pubmed.[facility].nih.gov/163 93190, 24.https://pubmed.[facility].nih.gov/255 49761, 25.https://pubmed.n i.[facility].nih.gov/117 10717, 26.https://pubmed.[facility].nih.gov/285 29387, 27.https://pubmed.n [employer].[facility].nih.gov/114 62553, 28.https://pubmed.n [employer].[facility].nih.gov/273 11443, 29.https://pubmed.n [employer].[facility].nih.gov/257 46202, 30.https://pubmed.n i.[facility].nih.gov/292 25286, 31.https://pubmed.n [employer].[facility].nih.gov/158 30864, 32.https://pubmed.n [employer].[facility].nih.gov/160 11996, 33.https://pubmed.n [employer].[facility].nih.gov/226 13440, 34.https://pubmed.n [employer].[facility].nih.gov/320 05790, 35.https://pubmed.n [employer].[facility].nih.gov/119 36365, 36.https://pubmed.n [employer].[facility].nih.gov/222 96555, 37.https://pubmed.n [employer].[facility].nih.gov/171 02284, 38.https://pubmed. [employer].[facility].nih.gov/301 96535, 39.https://pubmed. [employer].[facility].nih.gov/225 45663, 40.https://pubmed. [employer].[facility].nih.gov/309 14099, 41.https://pubmed. [employer].[facility].nih.gov/168 97892, 42.https://pubmed. [employer].[facility].nih.gov/780 9597, 43.https://pubmed. [employer].[facility].nih.gov/278 49899, 44.https://pubmed. [employer].[facility].nih.gov/174 67477, 45.https://pubmed. [employer].[facility].nih.gov/318 78503, 46.https://pubmed. [employer].[facility].nih.gov/113 12751, 47.https://pubmed. [employer].[facility].nih.gov/291 16232, 48.https://pubmed.[employer].nih.gov/215 75639, 49.https://pubmed. [employer].[facility].nih.gov/249 08787, 50.https://pubmed.n [employer].[facility].nih.gov/147 36626, 51.https://pubmed. [employer].[facility].nih.gov/238 93612, 52.https://pubmed.n [employer].[facility].nih.gov/268 62320, 53.https://pubmed.n [employer].[facility].nih.gov/270 25346, 54.https://pubmed.n [employer].[facility].nih.gov/244 27016, 55.https://pubmed.n [employer].[facility].nih.gov/100 71929, 56.https://pubmed.n [employer].[facility].nih.gov/272 48223, 57.https://pubmed.n [employer].[facility].nih.gov/209 54283, 58.https://pubmed.n [employer].[facility].nih.gov/240 21993, 59.https://pubmed.n [employer].[facility].nih.gov/194 89476, 60.https://pubmed.n [employer].[facility].nih.gov/976 6574, 61.https://pubmed.n [employer].[facility].nih.gov/173 95148, 62.https://pubmed. [employer].[facility].nih.gov/191 84527, 63.https://pubmed. [employer].nih.gov/169 21436, 64.https://pubmed.n [employer].nih.gov/110 65767, 65.https://pubmed. [employer].nih.gov/887 5926, 66.https://pubmed. [employer].nih.gov/235 06169, 67.https://pubmed. [employer].nih.gov/147 54749, 68.https://pubmed. [employer].nih.gov/306 00141, 69.https://pubmed. [employer].nih.gov/827 6238, 70.https://pubmed. [employer].nih.gov/195 38838, 71.https://pubmed. [employer].nih.gov/106 64714, 72.https://pubmed.n [employer].nih.gov/205 75526, 73.https://pubmed.[employer].nih.gov/158 47023, 74.https://pubmed.n [employer].nih.gov/151 78019, 75.https://pubmed.n [employer].nih.gov/119 04765, 76.https://pubmed.n [employer].nih.gov/158 60518, 77.https://pubmed.n [employer].nih.gov/295 88682, 78.https://pubmed.n [employer].nih.gov/110 22153, 79.https://pubmed.n [employer].nih.gov/300 83052, 80.https://pubmed.n [employer].nih.gov/173 81252, 81.https://pubmed.n [employer].nih.gov/225 61312, 82.https://pubmed.n cbi.nlm.nih.gov/115 21560, 83.https://pubmed.n cbi.nlm.nih.gov/221 65963, 84.https://pubmed.n cbi.nlm.nih.gov/236 92505, 85.https://pubmed.n [employer].nlm.nih.gov/255 45588, 86.https://pubmed.n [employer].nlm.nih.gov/327 02168, 87.https://pubmed.n [employer].nlm.nih.gov/303 47109, 88.https://pubmed.n [employer].nlm.nih.gov/279 15290, 89.https://pubmed.n [employer].nlm.nih.gov/296 45422, 90.https://pubmed.n [employer].nlm.nih.gov/252 26871, 91.http://[employer]/index.php /[id number]/Anti bodies/Opdivo-Alone -av-Ynjyuykv-oorx-Y fbavh-Jorez-Qwajyiw lmix-Wmseucfe-xzj-S riyleht-Ipkgj-ge-Re hyahnfo-Kgzyw-Mejj- Pegm-Ergzru-Sjanrzp q-jvgv-Ngfi-Tumor-M idihdeq-Qiyyln-ja-E xploratory.html, 92.http://ascopubs. org/doi/abs/10.1200 /JCO.2017.35.15_sup pl.p75838, 93.https://aacrjour nals.org/cancerres/ article/82/12_Suppl ement/CT022/846824/ Whfkstws-VM422-Rjwc qXrcq-087-T-randomi zed-open Table 1: Covered genes of interest for SNVs, INDELs and CNVs ABL1 BRCA1 CTNNA1 ETV4 GNA13 IRF2 MGMT PAXX PTPN11 SDHC MAYNOR ABL2 BRCA2 CTNNB1 ETV5 GNAQ IRF4 MITF PBRM1 PTPRB SDHD TENT5C ABRAXAS1 BRD4 CUL3 ETV6 GNAS IRS1 MLH1 PCNA PTPRD SESN1 TERC* ACVR1 BRIP1 CUL4A EWSR1 GPS2 IRS2 MLH3 PDCD1 PTPRS SETBP1 TERT^ ACVR1B BTG1* CUL4B EXO1 GRIN2A JAK1 MPL OOAI0NO3 PTPRT SETD2 TET1 ACVR2A BTG2* CUX1 EZH2 GRM3 JAK2 MRE11 PDGFB QKI SF3B1 TET2 ADGRA2 BTK CXCR4 FADD GSK3B JAK3 MSH2 PDGFRA RAB35 SGK1 TFE3 AJUBA BUB1 CYLD FANCA H1-2* CARL MSH3 PDGFRB RAC1 SH2B3 TGFB1 AKT1 CALR EKS4M55 FANCC H2AX* KAT6A MSH6 PDK1 RAD21 SH2D1A TGFBR1 AKT2 CARD11 DAXX FANCD2 H2BC5* KDM5A MST1 PER1 RAD50 SHLD1 TGFBR2 AKT3 CASP8 OORRF8P FANCE H3-3A* KDM5C MST1R PGD RAD51 SHLD2 DIEP309 AKTIP CBFB RQKX5F4 FANCF H3-3B* KDM6A MTAP PGR TSA00HE8 SHPRH TMPRSS2 ALK CBL DDB1 FANCG H3-4* KDR MTOR PHF6 RAD51B SHQ1 TNF ASUJ63X CCN6 DDR1 FANCI H3-5* KEAP1 MUTYH PHOX2B RAD51C VHC39W2 TNFAIP3 AMER1 CCNA2 DDR2 FANCL H3C1* DEON MXD4 OYD4Y7W RAD51D SLIT2 RANJSA07 ANKRD11 CCND1 DDX3X FANCM H3C10* KIT MYB CYS1I7I RAD52 SLX4 TOP1 APC CCND2 DICER1 FAS H3C11* KLF4 MYC PIK3C3 RAD54L SMAD2 TOP2A AR CCND3 DIS3 FAT1 H3C12* KLHL6 MYCL PIK3CA RAF1 SMAD3 TOP3A ARAF CCNE1 DLL3 FBXW7 H3C13* KMT2A MYCN PIK3CB CHE SMAD4 TOPBP1 ARFRP1 CD274 DNA2 FGF10 H3C2* KMT2B MYD88 PIK3CD RASA1 SMARCA2 TP53 ARID1A CD276 DNAJB1 FGF14 H3C3* KMT2C MYOD1 PIK3CG RB1 SMARCA4 FJ24HJ7 ARID1B CD74 DNMT1 FGF19 H3C4* KMT2D NBN PIK3R1 RBM10 SMARCAD1 TP53I3 ARID2 CD79A DNMT3A FGF23 H3C6* KNSTRN NCOA3 PIK3R2 RECQL4 SMARCB1 TP63 ARID5B CD79B DNMT3B FGF3 H3C7* KRAS NCOR1 PIK3R3 REL SMARCD1 TRAF2 ASCC3 CD8A DOT1L FGF4 H3C8* LATS1 NEGR1 PIM1 RET SMC1A TRAF7 ASPM CDC20 E2F3 FGF5 HDAC2 LATS2 NF1 PLCG1 REV3L SMC3 WNCTMH46 ASXL1 CDC27 EED FGF6 HDAC9 LCK NF2 [...] RIT1 SOX9 WRN ANJALI CDKN1B EP300 FLT4 NPT73DC3 MAP2K4 NPM1 POLE RMI1 SPEN WT1 B2M CDKN2A EPCAM FOXA1 [id number] MAP2K7 NRAS POLQ RMI2* SPOP XIAP BAP1 CDKN2B EPHA2 FOXL2 ICOSLG MAP3K1 NSD1 PPARG RNF43 SRC XPO1 BARD1 CDKN2C* EPHA3 FOXO1 ID3* BEN2B72 NSD3 PPM1D ROS1 SRSF2 XRCC2 BBC3 CEBPA EPHA5 FOXP1 IDH1 JOP1L57 NT5C2 JZE0C9M RPA1 SSBP1 XRCC3 BCL10 CENPA EPHA7 FRS2 IDH2 MAP3K4 NTRK1 LXJ1E0Q RPA2 STAG2 XRCC4 BCL11A CENPE EPHB1 FTO IFNGR1 MAPK1 NTRK2 AEC4G3M RPA3* STAT3 XRCC5 BCL2 CHAF1A ERBB2 FUBP1 IGF1 MAPK3 NTRK3 PPP4R4 RPA4 STAT4 XRCC6 BCL2L1 CHEK1 ERBB3 FYN IGF1R MAPK8 NUP93 PPP6C UUB7JC8 STAT5A YAP1 FED1R29 CHEK2 ERBB4 GABRA6 IGF2 MAX NUTM1 PRC1 WFB9PL8 STAT5B YES1 BCL2L2* CIC ERCC1 IWII44Y IKBKE MCL1 PAK1 PRDM1 ONN2AN8 STK11 ZFHX3 BCL6 COL2A1 ERCC2 GATA1 IKZF1 MDC1 PAK3 PREX2 RPTOR STK19 PTF616 BCOR COP1 ERCC3 GATA2 IL10 MDM2 PAK5 PRG4 RSPO1 STK40 LPR418 BCORL1 CREBBP ERCC4 GATA3 IL7R MDM4 PALB2 PKNYK1L RSPO2 SUFU ZRSR2 BCR CRKL ERCC5 GATA4 INHA MED12 PARP1 PRKCI RUNX1 SUZ12 BIRC2 CRLF2 ERCC6 GATA6 INHBA MEF2B PARP2 PRKDC VUOK5F0 SYK BIRC3 CSF1R ERG GEN1 INO80 MEN1 [...] 1 NUTM1 introns: 1 RET introns: 7-11 [id number] introns: 4 BRAF introns: 7-10 EGFR introns: [...] Molecular Diagnostic Laboratory (MDL) at the [facility]. It has not been cleared by the U.S. Food and Drug Administration. However, such approval is not required for clinical implementation, and the test results on the ordered genes have been shown to be clinically useful. This laboratory is CAP accredited and CLIA certified to perform high complexity molecular testing for clinical purposes. 09/16/2024 4:40 PM CDT [facility] Pathologist Signature . Test performed on 09/16/2024 09/16/2024 4:40 PM CDT MOLECULAR DIAGNOSTICS Microsatellite Instability (MSI) by NGS MSI-Stable 09/16/2024 4:40 PM CDT [facility] Tumor Mutational Furlong (TMB) 13 mut/Mb 09/16/2024 4:40 PM CDT [facility] Tissue Non-blood Collection / Unknown 09/06/2024 12:21 PM CDT 09/06/2024 12:21 PM CDT Narrative This result has genomic variants that were not included in this document. us Keysha Lou APRN [facility] MOLECULAR BIOMARKER S Final Result [facility] [id number] [place] [address], MOLECULAR DIAGNOSTICS [facility] [address] [place] [address] * Solid Tumor Genomic Assay Fusions 2018 Interpretation and Report (09/06/2024 12:21 PM CDT) Source Material [id number] 2:41 PM CDT [facility] Tumor Block A1 09/23/2024 2:41 PM CDT [facility] Interpretation The Tumor RNA obtained [...] CDT 09/06/2024 12:21 PM CDT us Keysha Mukesh Lou [employer] [facility] MOLECULAR BIOMARK[facility] S Final Result MOLECULAR DIAGNOSTICS [facility] [address] [place] [address] [facility] [address] [facility] [address] [place] [address], [place] * Urinalysis with Microscopic (09/06/2024 11:00 AM CDT) Urine Appearance Clear Clear 09/07/19 11:27 AM CDT [facility] Comment:This result was prev iously suppressed from the chart. Urine Color Straw Colorless, Straw, Yellow, Dark Yellow, Straw-Yellow 09/06/2024 11:27 AM CDT [facility] Comment:This result was prev iously suppressed from the chart. Urine Specific [place] 1.023 1.003 - 1.035 09/06/2024 11:27 AM CDT [facility] Comment:This result was prev iously suppressed from the chart. Urine pH 6.0 5.0 - 8.0 09/06/2024 11:27 AM CDT [facility] Comment:This result was prev iously suppressed from the chart. Urine Glucose Negative Negative mg/dL 09/06/2024 11:27 AM CDT [facility] Comment:This result was prev iously suppressed from the chart. Urine Ketones Negative Negative mg/dL 09/06/2024 11:27 AM CDT [facility] Comment:This result was prev iously suppressed from the chart. Urine Blood Negative Negative 09/06/2024 11:27 AM CDT [facility] Comment:This result was prev iously suppressed from the chart. Urine Protein Negative Negative mg/dL 09/06/2024 11:27 AM CDT [facility] Comment:This result was prev iously suppressed from the chart. Urine Bilirubin Negative Negative 11:27 AM CDT [facility] Urine Urobilinogen Negative Negative 09/06/2024 11:27 AM CDT [facility] Urine Nitrite Negative Negative 09/06/2024 11:27 AM CDT [facility] Comment:This result was prev iously suppressed from the chart. Urine Leukocyte Esterase Negative Negative 09/06/2024 11:27 AM CDT [facility] Comment:This result was prev iously suppressed from the chart. Urine WBC 1 <=2 /HPF 09/06/2024 11:27 AM CDT [facility] Urine RBC 1 <=2 /HPF 09/06/2024 11:27 AM CDT [facility] Urine Mucous Trace Not Seen, Trace /HPF 09/06/2024 11:27 AM CDT [facility] Comment:This result was prev iously suppressed from the chart. Urine Bacteria Not Seen Not Seen /HPF 09/06/2024 11:27 AM CDT [facility] Comment:This result was prev iously suppressed from the chart. Urine Squamous Epithelial Cells Not Seen Not Seen, OCC, Rare /HPF 09/06/2024 11:27 AM CDT [facility] Comment:This result was prev iously suppressed from the chart. Urine Hyaline Casts 1 <=2 /LPF 09/06/2024 11:27 AM CDT [facility] Urine Voided urine specimen / Unknown Non-blood Collection / Unknown 09/06/2024 11:00 AM CDT 09/06/2024 11:07 AM CDT Narrative [facility] - 09/06/2024 11:27 AM CDT Some reporting parameters within the Urinalysis test have changed due to the implementation of new instrumentation in the Main [place], allowing greater sensitivity of measurement. Urinalysis results reported by the [facility] using existing instrumentation, as well as Urinalysis testing performed manually or by back-up methodology at the main [place], will remain relatively unchanged. New reporting parameters and units will now be reported for all campuses. us Keysha Lou ARTIFICIAL PEARL MAKER URINE ORDERABLES Final Res ult [facility] Unless otherwise noted, all lab tests performed by: Division of Pathology and Laboratory Medicine [address] [place] [address] [place] [address] * Urine Culture (09/06/2024 11:00 AM CDT) Urine Culture Normal site jaxon present. Generally of low significance. Correlate with clinical data and culture history. 09/08/2024 7:54 AM CDT [facility] Urine Voided urine specimen / Unknown Non-blood Collection / Unknown 09/06/2024 11:00 AM CDT 09/06/2024 11:07 AM CDT us Keysha Lou ARTIFICIAL PEARL MAKER MICROBIOLOGY - GENERAL ORD ERABLES Final Result [facility] Unless otherwise noted, all lab tests performed by: Division of Pathology and Laboratory Medicine [address] [place] [address] * US Renal (09/06/2024 10:27 AM CDT) [...] cm Provider performing procedure: Irma Winston Procedure first assistant: None Procedure details: The procedure(s) and [...] cm Provider performing procedure: Irma Winston Procedure first assistant: None Procedure details: The procedure(s) and [...] unexpected and potentially actionable. us Keysha Lou ARTIFICIAL PEARL MAKER IMG US ORDERABLES Final Re sult * [...] cm Provider performing procedure: Irma Winston Procedure first assistant: None Procedure details: The procedure(s) and [...] cm Provider performing procedure: Irma Winston Procedure first assistant: None Procedure details: The procedure(s) and [...] and potentially actionable. Keysha Lou APRN IMG US ORDERABLES Final Re christoph Alvarado MD Archived Material Retrieval (09/06/2024 9:11 AM CDT) Only the most recent of2 resultswithin the time period is included. Archived Material The test is to be performed on tissue from case [id number]. The case report, slides, and block(s) for the cited accession were retrieved from archives. The pathologist examined the candidate slides and selected case material appropriate to the specifications of the ordered molecular analysis. Unstained sections from the FFPE block, publications sales representative H&E slide(s), and/or tumor-mapped smear(s) were prepared and forwarded to the Molecular Diagnostic Laboratory where the subject molecular test will be performed. Results will be reported separately. 09/08/2024 12:03 PM CDT [facility] Pathologist Signature 09/08/2024 12:03 PM CDT [facility] Fine Needle Asp 09/06/2024 9 :11 AM CDT 09/08/2024 11:07 AM CDT Keysha Lou APRN [facility] IP AP BIOMARKERS Final Result [facility] Cancer [address] [address], [place] * (ABNORMAL) Cytology Image-Guided FNA Interpretation (09/06/2024 9:11 AM CDT) Gross Description Specimens procured: 4 Diff Quik; 4 Pap Stain Slides 10 ml, slightly cloudy pink fluid in RPMI 1 Cytospin Size: 1.1 x 1.4 x 0.9 cm Immediate assessment for specimen adequacy was made x1 by Dr. Key Trujillo. 09/06/2024 12:59 PM CDT [facility] Immediate Assessment Adequate cellularity, favor malignant 09/06/2024 12:59 PM CDT [facility] Major Classification MALIGNANT(A) 09/06/2024 12:59 PM CDT [facility] at 1259 CDT Diagnosis Lymph node, left middle, neck, fine needle aspiration: METASTATIC SQUAMOUS CELL CARCINOMA 09/06/2024 12:59 PM CDT [facility] at 1259 CDT Comment Smears show a few clusters of metastatic squamous carcinoma in a background of pyknotic squamous cells and cellular debris. 09/06/2024 12:59 PM CDT [facility] Retained/Biomark er Testing SR: 9 S MIKE Cell Block: N/A MIKE Pap: No MIKE DQ: 1 S FISH DQ: 1 S 09/06/2024 12:59 PM CDT [facility] Informational Points Some tests reported here may have been developed and performance characteristics determined by [facility] Pathology and Laboratory Medicine. These tests have not been specifically cleared or approved by the U.S. Food and Drug Administration. 09/06/2024 12:59 PM CDT [facility] Fine Needle Asp (Lymph Node(s), Left Middle, Neck) 09/06/2024 9:11 AM CDT 09/06/2024 9:41 AM CDT us Keysha Lou APRN LAB CYTOLOGY ORDERABLES Fi nal Result [facility] [address] [address], * Research Protocol [id number] (08/29/2024 8:35 AM CDT) Only the most recent of4 resultswithin the time period is included. Research Protocol Specimen Specimen Collected, Ready for Pickup. 08/29/2024 12:01 PM CDT [facility] Blood Venipuncture / Unknown 08/29/2024 8:35 AM CDT 08/29/2024 10:35 AM CDT us Keysha Lou APRN [facility] Z CODES Final Result [facility] Unless otherwise noted, all lab tests performed by: Division of Pathology and Laboratory Medicine [address] [place] [address] * (ABNORMAL) Differential (08/29/2024 8:35 AM CDT) Only the most recent of4 resultswithin the time period is included. Total Cells 112 08/29/2024 9:57 AM CDT [facility] Manual Neutrophil % 46.0 43.2 - 72.7 % 08/29/2024 9:57 AM CDT [facility] Comment:The Neutrophil count includes Bands. Manual Lymphocyte % 24.0 16.8 - 46.2 % 08/29/2024 9:57 AM CDT [facility] Manual Monocyte % 11.0 5.1 - 12.5 % 08/29/2024 9:57 AM CDT [facility] Manual Eosinophil % 18.0(H) 0.4 - 6.3 % 08/29/2024 9:57 AM CDT [facility] Manual Basophil % 1.0 0.2 - 1.4 % 08/29/2024 9:57 AM CDT [facility] Metamyelocyte % 9:57 AM CDT [facility] Comment:The Metamyelocyte co unt includes Myelocytes. Manual Neutrophil Abs 2.58 1.95 - 7.25 K/uL 08/29/2024 9:57 AM CDT [facility] Manual Lymphocyte Abs 1.34 1.01 - 3.24 K/uL 08/29/2024 9:57 AM CDT [facility] Manual Monocyte Abs 0.62 0.24 - 0.85 K/uL 08/29/2024 9:57 AM CDT [facility] Manual Eosinophil Abs 1.01(H) 0.02 - 0.50 K/uL 08/29/2024 9:57 AM CDT [facility] Manual Basophil Abs 0.06 0.02 - 0.09 K/uL 08/29/2024 9:57 AM CDT [facility] RBC Morphology PRESENT 08/29/2024 9:57 AM CDT [facility] Anisocytosis Present(A) (none) 08/29/2024 9:57 AM CDT [facility] Microcyte Present(A) (none) 08/29/2024 9:57 AM CDT [facility] Slide Comment SEE NOTE 08/29/2024 9:57 AM CDT [facility] Comment:PLT: Platelet morpho logy normal Blood Peripheral blood specimen / Unknown Venipuncture / Unknown 08/29/2024 8:35 AM CDT 08/29/2024 8:44 AM CDT Keysha Lou APRN LAB BLOOD ORDERABLES Final Result Performing Organization Address City/[facility] Co de Phone Number [facility] Unless otherwise noted, all lab tests performed by: Division of Pathology and Laboratory Medicine [address] [place] [address] * Free T4 (08/29/2024 8:35 AM CDT) Only the most recent of7 resultswithin the time period is included. T4 (Thyroxine) Free 1.10 0.92 - 1.68 ng/dL 08/29/2024 9:46 AM CDT [facility] Blood Peripheral blood specimen / Unknown Venipuncture / Unknown 08/29/2024 8:35 AM CDT 08/29/2024 8:44 AM CDT us Keysha Lou APRN LAB BLOOD ORDERABLES Final Result Performing Organization Address [facility] Co de Phone Number [facility] Unless otherwise noted, all lab tests performed by: Division of Pathology and Laboratory Medicine [address] [place] [id number] * CT Head with and without Contrast [...] are unexpected and potentially actionable. Keysha Lou ARTIFICIAL PEARL MAKER IMG CT ORDERABLES Final Re sult * [...] of bony metastatic disease. Procedure Note Bradley uGallpa MD - 08/26/2024 FULL RESULT: Examination: 18F-FDG-PET/CT [...] unexpected and potentially actionable. us Keysha Lou EVANGELISTA IMG PETCT ORDERABLES Final Result * POC Creatinine (08/26/2024 10:28 AM CDT) Only the most recent of2 resultswithin the time period is included. POC Creatinine 1.2 0.6 - 1.3 mg/dL 08/26/2024 10:30 AM CDT [facility] Comment:Medications, especia lly hydroxyurea or supplements, such as ascorbate, can interfere with test results causing a falsely and significantly higher result than expected. If a problem is suspected with a patient's result, a sample should be sent to the laboratory for confirmatory testing. POC eGFR 66 >=60 mL/min/1.7 3 sq. m 08/26/2024 10:30 AM CDT [facility] Comment: The eGFRcr is calculated with the [...] AM CDT 08/26/2024 10:30 AM CDT Narrative [facility] - 08/26/2024 10:30 AM CDT Method description: [...] concentration by an electrochemical assay. us Keysha M Carmine ARTIFICIAL PEAR[employer] MAKER POCT ORDERABLES - DEVICE F inal Result [facility] Unless otherwise noted, all lab tests performed by: Division of Pathology and Laboratory Medicine [facility] [place] [address] * X-ray Chest 2 Views (07/15/2024 2:38 PM CERTIFIED GENETIC COUNSELOR) Anatomical Region Laterality Modality Chest Digital Radiogra phy 07/15/2024 2:43 PM CERTIFIED GENETIC COUNSELOR Impressions 07/15/2024 2:44 PM CERTIFIED GENETIC COUNSELOR No acute cardiac or pulmonary abnormality is [...] and potentially actionable. Narrative 07/15/2024 2:44 PM CERTIFIED GENETIC COUNSELOR FULL RESULT: Examination: XR CHEST 2 VW [...] is no pulmonary edema. Procedure Note Nader Jaems MD - 07/15/2024 FULL RESULT: Examination: XR [...] are unexpected and potentially actionable. Annabel Vyas ARTIFICIAL PEARL MAKER IM DIAGNOSTIC IMAGING [facility] Final Result * Echocardiogram 2D Limited - Follow Up (07/05/2024 8:05 AM CERTIFIED GENETIC COUNSELOR) [facility] 07/05/2024 7:45 AM CERTIFIED GENETIC COUNSELOR Narrative [facility] - 07/05/2024 10:02 AM CERTIFIED GENETIC COUNSELOR Echocardiographic Report Interpretation Summary A two-dimensional transthoracic [...] TR max P.6 mmHg RVSP(TR): 38.6 mmHg ND P1/2t_phl: 580.8 msec GRACY Index (I,D): 1.1 [...] TR max P.6 mmHg RVSP(TR): 38.6 mmHg ND P1/2t_phl: 580.8 msecAVA Index (I,D): 1.1 GRACY Index (V,D): 1.0Dimensionless Index: 0.48 E/e' (avg): 10.7E/e' (lat): 9.1 E/e' (sept): 13.0 Edward Wick MD CV ECHO ORDERABLES Final Result [facility] * CT Chest Abdomen Pelvis with Contrast (06/07/2024 10:51 AM CERTIFIED GENETIC COUNSELOR) Only the most recent of2 resultswithin the time period is included. Anatomical Region Laterality Modality Abdomen, Pelvis, Chest Computed Tomography 06/07/2024 11:3 3 AM CERTIFIED GENETIC COUNSELOR Impressions 06/07/2024 12:17 PM CERTIFIED GENETIC COUNSELOR Interval decrease in soft tissue surrounding the [...] and potentially actionable. Narrative 06/07/2024 12:17 PM CERTIFIED GENETIC COUNSELOR FULL RESULT: Examination: CT CHEST ABDOMEN PELVIS [...] are unexpected and potentially actionable. Keysha Lou ARTIFICIAL PEARL MAKER IMG CT ORDERABLES Final Re sult * EKG, 12-Lead (Scheduled) (05/02/2024) Only the most recent of2 resultswithin the time period is included. Edward Wick MD ECG ORDERABLES Final Result [facility] * Echocardiogram 2D Complete (04/13/2024 2:25 PM CERTIFIED GENETIC COUNSELOR) 04/13/2024 1:22 PM CERTIFIED GENETIC COUNSELOR Narrative [facility] - 04/13/2024 3:08 PM CERTIFIED GENETIC COUNSELOR Echocardiographic Report Interpretation Summary A complete two-dimensional [...] (lat): 5.8E/e' (sept): 11.3 us Chanelle Lundberg ARTIFICIAL PEARL MAKER CV ECHO ORDERABLES Fin al Result [facility] * (ABNORMAL) 6 minute walk test (04/05/2024 10:48 AM CERTIFIED GENETIC COUNSELOR) 6MWD_Test 368.00(L) 423.02 - 729.02 m 04/05/2024 10:27 AM CERTIFIED GENETIC COUNSELOR [place] Dist. final_Test 8.00 m 04/05/2024 10:27 AM CERTIFIED GENETIC COUNSELOR [place] Laps_Test 6.00 04/05/2024 10:27 AM CERTIFIED GENETIC COUNSELOR [place] Pauses_Test 0.00 04/05/2024 10:27 AM CERTIFIED GENETIC COUNSELOR [place] SpO2min_Test 90.00 % 04/05/2024 10:27 AM CERTIFIED GENETIC COUNSELOR [place] Xm34_Krxr 0.00 min 04/05/2024 10:27 AM CERTIFIED GENETIC COUNSELOR [place] HRmax_Test 95.00 BPM 04/05/2024 10:27 AM CERTIFIED GENETIC COUNSELOR [place] Lap Dist_Test 60.00 m 04/05/2024 10:27 AM CERTIFIED GENETIC COUNSELOR [place] Dyspnea_Baseli ne 4.00 04/05/2024 10:27 AM CERTIFIED GENETIC COUNSELOR [place] Exertion_Basel ine 3.00 04/05/2024 10:27 AM CERTIFIED GENETIC COUNSELOR [place] SpO2_Baseline 98.00 % 04/05/2024 10:27 AM CERTIFIED GENETIC COUNSELOR [place] Zk73_Vmgtzjph 0.00 min 04/05/2024 10:27 AM CERTIFIED GENETIC COUNSELOR [place] HR_Baseline 73.00 1/min 04/05/2024 10:27 AM CERTIFIED GENETIC COUNSELOR [place] HRmax_Baseline 73.00 BPM 04/05/2024 10:27 AM CERTIFIED GENETIC COUNSELOR [place] BP Sys_Baseline 118.00 mmHg 04/05/2024 10:27 AM CERTIFIED GENETIC COUNSELOR [place] BP Dia_Baseline 68.00 mmHg 04/05/2024 10:27 AM CERTIFIED GENETIC COUNSELOR [place] Dyspnea_Recove ry 5.00 04/05/2024 10:27 AM CERTIFIED GENETIC COUNSELOR [place] Exertion_Recov susie 4.00 04/05/2024 10:27 AM CERTIFIED GENETIC COUNSELOR [place] SpO2_Recovery 97.00 % 04/05/2024 10:27 AM CERTIFIED GENETIC COUNSELOR [place] Rs76_Lntocovi 0.00 min 04/05/2024 10:27 AM CERTIFIED GENETIC COUNSELOR [place] HR_Recovery 80.00 1/min 04/05/2024 10:27 AM CERTIFIED GENETIC COUNSELOR [place] HRmax_Recovery 80.00 BPM 04/05/2024 10:27 AM CERTIFIED GENETIC COUNSELOR [place] BP Sys_Recovery 117.00 mmHg 04/05/2024 10:27 AM CERTIFIED GENETIC COUNSELOR [place] BP Dia_Recovery 80.00 mmHg 04/05/2024 10:27 AM CERTIFIED GENETIC COUNSELOR [place] 04/05/2024 9:44 AM CERTIFIED GENETIC COUNSELOR us Annabel Vyas ARTIFICIAL PEARL MAKER PFT ORDERABLES Final Resul t [place] * (ABNORMAL) SPIROMETRY W/O DILATORS, DLCO AND BODY PLETHSMOGRAPHIC LUNG VOLUMES (04/05/2024 10:11 AMCST) FVC (L) pre 4.73 3.27 - 5.52 L 04/05/2024 10:16 AM CERTIFIED GENETIC COUNSELOR [place] FEV1 (L) pre 3.13 2.43 - 4.14 L 04/05/2024 10:16 AM CERTIFIED GENETIC COUNSELOR [place] FEV1/FVC (%) pre 66.29 63.62 - 86.88 % 04/05/2024 10:16 AM CERTIFIED GENETIC COUNSELOR [place] FEF 25-75 (L/s) pre 1.55 1.11 - 4.47 L/s 04/05/2024 10:16 AM CERTIFIED GENETIC COUNSELOR [place] DLCO UNADJ. SB_PRE 14.68(L) 20.29 - 36.02 ml/(min*mm Hg) 04/05/2024 10:16 AM CERTIFIED GENETIC COUNSELOR [place] DLCO PB adj. SB 14.65(L) 20.29 - 36.02 ml/(min*mm Hg) 04/05/2024 10:16 AM CERTIFIED GENETIC COUNSELOR [place] DLCO PRED.ADJ. SB_PRE 14.65(L) 17.65 - 31.32 ml/(min*mm Hg) 04/05/2024 10:16 AM CERTIFIED GENETIC COUNSELOR [place] TLC (L) 8.84 6.01 - 9.14 L 04/05/2024 10:16 AM CERTIFIED GENETIC COUNSELOR [place] RV (L) 3.83 1.57 - 3.85 L 04/05/2024 10:16 AM CERTIFIED GENETIC COUNSELOR [place] RV/TLC (%) 43.38 23.35 - 45.26 % 04/05/2024 10:16 AM CERTIFIED GENETIC COUNSELOR [place] FVC (% pred) pre 108 % 04/05/2024 10:16 AM CERTIFIED GENETIC COUNSELOR [place] FVC_PREZ-SCORE 0.50 04/05/2024 10:16 AM CERTIFIED GENETIC COUNSELOR [place] FEV1 (%pred) pre 95 % 04/05/2024 10:16 AM CERTIFIED GENETIC COUNSELOR [place] FEV1_PREZ-SCOR E -0.34 04/05/2024 10:16 AM CERTIFIED GENETIC COUNSELOR [place] FEV1/FVC (% pred) pre 87 % 04/05/2024 10:16 AM CERTIFIED GENETIC COUNSELOR [place] FEV1/FVC_PREZ- SCORE -1.34 04/05/2024 10:16 AM CERTIFIED GENETIC COUNSELOR [place] FEF 25-75 (% pred) pre 62 % 04/05/2024 10:16 AM CERTIFIED GENETIC COUNSELOR [place] FYI88-14%_PREZ -SCORE -1.05 04/05/2024 10:16 AM CERTIFIED GENETIC COUNSELOR [place] TLC (% pred) 117 % 04/05/2024 10:16 AM CERTIFIED GENETIC COUNSELOR [place] TLC_PREZ-SCORE 1.33 04/05/2024 10:16 AM CERTIFIED GENETIC COUNSELOR [place] RV (% pred) 147 % 04/05/2024 10:16 AM CERTIFIED GENETIC COUNSELOR [place] RV_PREZ-SCORE 1.63 04/05/2024 10:16 AM CERTIFIED GENETIC COUNSELOR [place] RVTLC_PRED 34 04/05/2024 10:16 AM CERTIFIED GENETIC COUNSELOR [place] RV%TLC_PREZ-SC ORE 1.37 04/05/2024 10:16 AM CERTIFIED GENETIC COUNSELOR [place] DLCO unadj. SB PRE% PRED 53 % 04/05/2024 10:16 AM CERTIFIED GENETIC COUNSELOR [place] DLCOUNADJUSTED SB_PREZ-SCORE -3.20 04/05/2024 10:16 AM CERTIFIED GENETIC COUNSELOR [place] DLCO PB adj. SB (% pred) 53 % 04/05/2024 10:16 AM CERTIFIED GENETIC COUNSELOR [place] DLCOPBADJUSTED SB_PREZ-SCORE -3.21 04/05/2024 10:16 AM CERTIFIED GENETIC COUNSELOR [place] DLCOpredicteda djustedSB_Pre% Pred 61 % 04/05/2024 10:16 AM CERTIFIED GENETIC COUNSELOR [place] DLCOPREDADJUST EDSB_PREZ-SCOR E -2.56 04/05/2024 10:16 AM CERTIFIED GENETIC COUNSELOR [place] 04/05/2024 9:29 AM CERTIFIED GENETIC COUNSELOR Annabel Vyas ARTIFICIAL PEARL MAKER PFT ORDERABLES Final Resul t [facility] * Solid Tumor Genomic Assay DNA 2018 Interpretation and Report (02/19/2024 11:00 AM CDT) Source Material [id number] 03/21/2024 3:25 PM CDT [facility] Tumor Block A2 03/21/2024 3:25 PM CDT [facility] *Normal Control Material PB 03/21/2024 3:25 PM CDT [facility] Outside 03/21/2024 3:25 PM CDT [facility] Solid Tumor Genomic Assay DNA Result Maria Elena [facility] [id number] Solid Tumor Genomic Assay 2018 - DNA [...] NM_[id number](TP53): c.775G>T p.D259Y Exon 7 SNV Missense [id number] GUIDE TO STANDARDIZED NOMENCLATURE AND EXPLANATION OF [...] with findings identified on this assay KDR [email or web address]://[email or web address]/data/gene- [email or web address]!/[email or web address] gnc_[email or web address]:[email or web address] TP53 [email or web address]/data/gene- [email or web address]/#!/[email or web address] gnc_id/[email or web address] Methodology: Test Platform: PCR-based sequencing is performed [...] A post-variant calling analysis and annotation tool, CodaMation version 1.10.1.616, was used in the construction [...] 10 (317-367), 11 (388-399) ALK (NM_004304) 20-28 (8791-4546) AR (NM_000044) 1 (1-45), 1 (135-178), 1 (245-285), 1 (342-388), 3 (615-629), 4 (707-725), 6-7 (797-831), 8 (870-910) ARAF (NM_001654) 7 (186-216) ARID1A (NM_006015) 1 (28-73), 1 (106-151), 1-8 (161-838), 8-20 (861-2062), 20 (3720-2645) RICKIE (NM_000051) 2-17 (1-865), 18-19 (880-974), 20-25 (2984-4427), 26 (7940-8078), 26-44 (3792-9723), 44-46 (7361-6773), 47-49 (0247-0460), 49-51 (1438-2571), 52-54 (1303-8567), 55 (6423-9554), 56-57 (3762-3560), 58-63 (1007-1701), 63 (3680-5001) ATR (NM_001184) 1-5 (1-450), 6-8 (458-582), 8 (584-629), 9-13 (356-882), 13-15 (896-1052), 16-19 (3659-3129), 20-27 (3571-2189), 28-29 (9377-5012), 29-34 (3865-7803), 35-38 (8040-1384), 39-47 (1565-8338) ATRX (NM_000489) 1-11 (1-1301), 12-16 (5828-1991), 17-18 (3073-2369), 19-21 (5899-7899), 21-28 (8970-3597), 29-35 (2165-9336) ANJALI (NM_001699) 1 (1-29), 3 (103-137), 6 (223-261), 7 (288-332), 8 (351-378), 9 (386-429), 11 (473-497), 12 (516-536), 15 (593-633), 17 (670-686), 19 (769-782) BAP1 (NM_004656) 1-17 (6-730) BRAF (NM_004333) 11-18 [...] 10-13 (363-477) CHEK2 (NM_007194) 11 (366-420), 15 (200-544) CREBBP (NM_004380) 1-5 (1-444), 6-31 (688-1933), 31 (2579-2262) CSF1R (NM_005211) 7 (297-319), 11 (517-542), 22 (963-973) CTNNB1 (NM_001904) 3 (5-67), 7 (327-361) DDR2 (NM_006182) 5 (97-139), 8 (228-279), 13-18 (540-856) EGFR (NM_005228) 3 (84-125), 7 (281-297), 12 (452-494), 15 (582-625), 18-20 (688-801), 20-24 (807-977) ERBB2 (NM_004448) 8 (301-327), 17 (649-680), 18-24 (696-990) ERBB3 (NM_001982) 2-3 (48-118), 6 (207-243), 7-8 (270-326), 9 (330-350), 23 (898-934) ERBB4 (NM_005235) 12 (437-478), 17 (649-671), 18 (694-726), 20 (781-823), 28 (2564-4476) ERCC2 (NM_000400) 3 (36-47), 5 (84-114), 8 (223-240), 15 (460-492), 21 (658-682) ESR1 (NM_000125) 1 (1-42), 1 (53-99), 2 (184-215), 3 (232-254), 4 (268-340), 5 (367-412), 7 (457-518), 8 (532-574) EZH2 (NM_004456) 16 (639-649), 18 (775-704) FANCA (NM_000135) 1-43 (1-1456) FANCD2 (NM_033084) 2-15 (1-409), 15-19 (423-589), 21-28 (447-904), 29 (908-927), 29-43 (732-5172) FANCI (NM_018193) 2-37 (1-1269) FBXW7 (NM_033632) 2-4 (1-242), 5-9 (255-473), 10 (478-509), 10-12 (522-708) FGF19 (NM_005117) 1 (1-33), 2-3 (78-217) FGF3 (NM_005247) 1-3 (1-217), 3 (229-240) FGFR1 (NM_015850) 4 (120-148), 6 (217-247), 8 (311-355), 9 (408-426), 12 (516-553), 14 (642-657), 16 (708-727), 18 (080-821) FGFR2 (NM_000141) 6 (209-235), 7 (250-273), 7-8 (277-350), 9 (362-399), 10 (453-480), 12 (521-558), 13 (809-621), 14-15 (631-686), 16 (69-730), 18 (768-804) FGFR3 (NM_000142) 2 (1-37), 4 (127-133), 8 (329-359), 9 (368-412), 10 (423-439), 14 (871-653), 15-16 (659-719) FGFR4 (NM_022963) 1 (1-31), 2 (72-116), 4 (163-199), 6 (243-283), 8 (359-392), 10-11 (467-535), 13 (605-632), 15 (683-713) FLT3 (NM_004119) 3 (93-123), 6 (205-213), 8 (302-346), 10 (402-435), 12 (502-533), 15 (613-648), 18 (742-474), 20-21 (801-885), 24 (957-994) FOXL2 (NM_023067) 1 (94-137) GATA2 [...] 10 (674-711), 12 (829-865), 14 (928-946), 17 (1680-6278), 20 (4279-1936) JAK1 (NM_002227) 14 (634-663), 15-16 (668-743) JAK2 (NM_004972) 14 (600-622) JAK3 (NM_000215) 11-12 (502-563), 15 (639-683) KDR (NM_002253) 11 (482-512), 16 (766-791), 23 (4269-5319), 24 (5271-8466) KIT (NM_000222) 8 (411-445), 9 (487-514), 10-20 (516-934) KNSTRN (NM_033286) 1 (1-28) KRAS (NM_004985) 2-3 [...] 11 (428-459) MED12 (NM_005120) 2 (34-59), 26 (1737-2972) MET (NM_001127500) 2 (151-192), 2 (217-257), 2 (287-331), 2 (344-384), 14 (981-989), 14-21 (9662-6244) MLH1 (NM_000249) 1-19 (1-757) MRE11 (NM_005590) 2 (1-7), 3-19 (20-681) MSH2 (NM_000251) 1-4 (1-259), 5 (265-307), 6-16 (315-935) MSH6 (NM_000179) 1-10 (1-1361) MTOR (NM_004958) 29 (8253-6120), 30 (8940-7877), 31 (3847-3289), 39 (3159-2049), 40 (7448-0965), 43 (3030-9674), 43-44 (2971-2125), 47-48 (0908-0689), 53 (2698-5664), 56-57 (0046-9348) MYC (NM_002467) 1-2 (1-87), 2 (98-131), 2 (140-185), 2 (196-226), 3 (268-278), 3 (297-340), 3 (352-395), 3 (413-453) MYCL (NM_005376) 2 (60-96), 2 (163-237) MYCN (NM_005378) 2 (1-125), 2-3 (229-349), 3 (371-450) MYD88 (NM_002468) 3 (181-221), 5 (259-269) NBN (NM_002485) 1-5 (1-195), 6-16 (200-755) NF1 (NM_001042492) 1-16 (1-596), 17-23 (616-1038), 25-58 (4966-8069) NF2 (NM_000268) 1-10 (1-332), 11-16 (334-596) NFE2L2 (NM_006164) 2 (23-59), 2 (74-104) NOTCH1 (NM_017617) 2-25 (21-1443), 25-27 (5680-2370), 27 (2634-9683), 28-34 (4241-0462), 34 (0293-2329) NOTCH2 (NM_024408) 1 (1-25), 3 (68-131), 4 (139-191), 4-34 (193-2472) NOTCH3 (NM_000435) 1-2 (16-48), 3-18 (66-959), 18-24 (969-1292), 24 (0760-7116), 25-26 (9609-7402), 27-33 (9781-6806), 33 (1432-7373) NRAS (NM_002524) 2 (1-22), 3 (49-89), 4 [...] 19 (808-826) PALB2 (NM_024675) 1-3 (1-71), 4-6 (38-862), 7-13 (888-1187) PDGFRA (NM_006206) 12-15 (552-719), 17-21 (775-960) PDGFRB (NM_002609) 2 (1-14), 3 (99-122), 5 (211-235), 7 (333-370), 9 (450-456), 11 (527-545), 12-13 (587-638), 16 (753-782), 19 (881-900), 22 (969-1009), 23 (9091-7585) PIK3CA (NM_006218) 2 (1-5), 2-3 (77-138), 5 (311-351), 8 (418-457), 10-11 (532-582), 14 (693-729), 21 (0279-0860) PIK3CB (NM_006219) 1 (31-57), 3 (138-174), 5 (268-294), 7 (400-434), 10 (518-527), 11 (545-586), 14 (679-683), 16 (784-809), 20 (933-954), 22 (6407-8320) PIK3R1 (NM_181523) 2-11 (1-437), 11-16 (440-725) PMS2 (NM_000535) 1-2 (1-30), 2-5 (35-165), 6-11 (180-657), 12 (669-680), 12-13 (716-726), 15 (855-863) POLE (NM_006231) 1-46 (1-2177), 47-49 (6230-6672) PPARG (NM_015869) 1 (1-28), 2 (53-78), 3 (104-134), 3 (152-160), 4 (169-200), 5 (207-228), 5 (257-273), 6 (282-321), 6 (350-390), 7 (424-461) RDQ5G9N (NM_014225) 5 (172-199), 6 (220-263) PTCH1 (NM_000264) 1-23 (6-1344), 23 (5882-9427) PTEN (NM_000314) 1-9 (1-382) PTPN11 (NM_002834) 3 (52-91), 13 (485-527) RAC1 (NM_006908) 2 (18-36) RAD50 (NM_005732) 1-5 (1-244), 6-9 (253-478), 10-16 (485-902), 17-19 (907-980), 19-23 (987-1206), 24-25 (2529-6657) RAD51 (NM_002875) 2-4 (1-115), 5-10 (121-340) RAD51B [...] 7 (153-175), 10 (291-297), 16 (462-467), 21 (658684), 26 (834863), 30 (981-1019), 31 (8482-6283), 32 (2634-9327), 35 (8751-5676), 38 (2052-5975) RNF43 (NM_017763) 2-9 (1-442), 9-10 (218-454) ROS1 (NM_002944) 36-38 (3932-7429), 39-40 (4281-8690), 40-42 (0342-3698) SETD2 (NM_014159) 1-11 (1-1799), 12-21 (5737-6668) SF3B1 (NM_012433) 14 (603-640), 14 (655-679), 15 (693-716), 15-16 (738-747) SLX4 (NM_032444) 2-12 (1-1477), 12-15 (9567-8929) SMAD4 (NM_005359) 9 (335-375), 10 (380-401), 12 (672-553) SMARCA4 (NM_003072) 2-12 (1-644), 13-15 (644-046), 16-19 (669-436), 20-25 (954-1162), 26-35 (4631-9895) SMARCB1 (NM_003073) 1-2 (1-72), 3-5 (78-206), 6-9 (210-386) SMO (NM_005631) 3 (186-228), 4-5 (263-354), 6 (397-422), 9 (511-551), 11 (608-646) SPOP (NM_003563) 5 (88-118), 6 (125-160) SRC (NM_005417) 12 (374-418) STAT3 (NM_139276) 13 (398-411), 20 (583-620), 21 (630-667) STK11 (NM_000455) 1-8 (1-361), 9 (370-434) TERT (NM_198253) 1 (1-18), 2 (267-310), 2 (394-425), 3 (553-585), 4 (626-650), 6 (718-762), 9 (823-852), 11 (920-948), 14 (1985-5509), 16 (3810-9006) TOP1 (NM_003286) 20 (682-722) TP53 (NM_000546) 2-11 (1-394) TSC1 (NM_000368) 3-23 (1-1165) TSC2 (NM_000548) 2-35 (1-1523), 37-42 (8018-8268) U2AF1 (NM_006758) 2 (15-41), 6 (137-161) XPO1 (NM_003400) 15 (563-575) DISCLAIMER: This test was developed and its performance characteristics determined by the Molecular Diagnostic Laboratory (MDL) at the [facility]. It has not been cleared by the [...] 11:00 AM CDT 02/19/2024 11:00 AM CDT Keysha Lou ARTIFICIAL PEAR[employer] [facility] HP MOLECULAR DIAGNOSTI CS (CAMELIA BATRES) Final Result MOLECULAR DIAGNOSTICS [facility]ostics [facility] [address] [place] [address] * Antinuclear Antibody (DEEPALI) HEp-2 Substrate, IgG (02/16/2024 3:23 PM CDT) DEEPALI HEp-2 Substrate <1:80 (Negativ e) <1:80 (Negativ e) 02/17/2024 9:45 PM CDT BLACK [employer] Comment: ADDITIONAL INFORMATION Method: Immunofluorescence using HEp-2 cellular substrate. Test Performed by: [facility] [address] [place] [address] Patient Safety Manager: Vivien Contreras Ph.D.; CLIA# [id number] DEEPALI Titer DNR 02/17/2024 9:45 PM CDT [facility] DEEPALI Pattern DNR 02/17/2024 9:45 PM CDT [facility] DEEPALI Titer 2 DNR 02/17/2024 9:45 PM CDT [facility] DEEPALI Pattern 2 DNR 02/17/2024 9:45 PM CDT [facility] DEEPALI Cytoplasmic Pattern DNR 02/17/2024 9:45 PM CDT [facility] DEEPALI Lab Comment DNR 9:45 PM CDT BLACK Cardio control BECheckiO Blood Peripheral blood specimen / Unknown Venipuncture / Unknown 02/16/2024 3:23 PM CDT 02/16/2024 3:25 PM CDT us Abbie Kwon APRN LAB BLOOD ORDERABLES Final Resu lt [facility] * T-spot Tuberculosis (02/16/2024 3:23 PM CDT) Tspot TB Negative SeeBelow 02/18/2024 2:23 PM CDT [facility] ([facility]) Comment: Normal Value: Negative A negative test [...] 0 02/18/20 24 2:23 PM CDT [facility] ([facility]) Tspot TB Panel B 2 02/18/20 24 2:23 PM CDT [facility] ([facility]) Tspot TB NIL Cont Passed 024 2:23 PM CDT [facility] ([facility]) Tspot TB Pos Cont Passed 024 2:23 PM CDT [facility] ([facility]) Blood Peripheral blood specimen / Unknown Venipuncture / Unknown 02/16/2024 3:23 PM CDT 02/16/2024 3:25 PM CDT Narrative [facility] ([facility]) - 02/18/2024 2:23 PM CDT Performing Organization Information: O [facility], [facility], [address] [place] [address] Trivirajinder Dasu us Abbiemarcos Kwon APRN LAB BLOOD ORDERABLES Final Resu lt [facility] ([place]) * (ABNORMAL) Cyclic Citrullinated Peptide Ab (02/16/2024 3:23 PM CDT) Pathologist [facility] CCP Ab-[place] >250.0(H) <20.0 (Negative ) U 02/17/2024 5:11 PM CDT [facility] Comment: Interpretation: Strongly positive for antibodies to [...] isotypes, if clinically indicated. Test Performed by: [place] [address] Patient Safety Manager: Vivien Contreras Ph.D.; CLIA# [id number] Blood Peripheral blood specimen / Unknown Venipuncture / Unknown 02/16/2024 3:23 PM CDT 02/16/2024 3:25 PM CDT Abbie Kwon APRN LAB BLOOD ORDERABLES Final Resu lt [facility] * (ABNORMAL) Rheumatoid Factor Quant (02/16/2024 3:23 PM CDT) Pathologist [facility] Rheumatoid Factor 529(H) <14 IU/mL 02/16/2024 4:32 PM CDT [facility] Blood Peripheral blood specimen / Unknown Venipuncture / Unknown 02/16/2024 3:23 PM CDT 02/16/2024 3:25 PM CDT Abbiemarcos Kwon APRN LAB BLOOD ORDERABLES Final Resu lt [facility] Unless otherwise noted, all lab tests performed by: Division of Pathology and Laboratory Medicine [address] [place] [address] [place] [address] * [facility] ALEXANDER Liquid Biopsy Normal (02/16/2024 9:24 AM CDT) Blood Peripheral blood specimen / Unknown Venipuncture / Unknown 02/16/2024 9:24 AM CDT 02/16/2024 9:26 AM CDT us Keysha Mayorga Carmine ART[employer]IAL [employer] [facility] CP BIOMARKER WORKUPS F inal Result MOLECULAR DIAGNOSTICS [facility] Molecular Diagnostics Laboratory [address] [place] [address] * MD KATE MUNOZ LB: Mutation Analysis Precision Panel Interpretation and Report (02/16/2024 9:24 AM CDT) [facility] Liquid Biopsy NGS Result Maria Elena [facility] [id number] SNVs/Indels CNVs Fusions More than 5 genes. [...] 12 3% SNV - Missense KDM6A c.3361C>A p.D6423O Exon 23 13% SNV - Missense KLHL6 c.965T>C p.M322T Exon 4 13% SNV - Missense KMT2C c.946_947delinsTA p.T316Y Exon 7 1% Complex - Missense KMT2D c.00632T>T p.K3537* Exon 38 25% SNV - Nonsense MAPK3 c.1108C>T p.R370C Exon 8 9% SNV - Missense PARP4 c.5033_5035del p.L2091uns Exon 34 8% Deletion - Deletion PMS1 c.253G>C p.E85Q Exon 3 9% SNV - Missense PPM1D c.889dupA p.S297fs*6 Exon 4 7% Duplication - Frameshift KUIX6R8 c.-11127J>G UTR5 17% SNV RYK c.289A>T p.S97C Exon 4 7% SNV - Missense SHPRH c.2273A>T p.Q758L Exon 10 10% SNV - Missense SLIT2 c.3861G>T p.I7498C Exon 35 10% SNV - Missense STAT4 c.1150G>A p.A384T Exon 13 8% SNV - Missense TP53 c.775G>T p.D259Y Exon 7 8% SNV - Missense Copy Number Variations (CNVs) Gene Finding Genomic Position Cytoband FGFR1 Gain chr8:45039982-136332 34 8p11.23-p11.22 PIK3CA Gain chr3:376961372-20542 2162 3q26.32 Gene Fusions None Identified Clinical [...] Gene Genomic Variant COSMIC dbSNP ClinVar ADGRA2 chr8:46461137 C>A c.2468C>A p.A823E CD79A chr19:87703533 GC>G c.390del p.R131fs*61 EPHA3 chr3:90983062 GG>TT c.257_258delinsTT p.W86F EPHA3 chr3:09097614 G>A c.208G>A p.V70M ERCC2 chr19:56485484 G>C c.750C>G p.N250K GABRA6 chr5:057055842 G>A c.226-1G>A p.? INPP4B chr4:371444431 C>G c.719G>C p.R240T KDM6A chrX:31288373 C>A c.3361C>A p.K1427B KLHL6 chr3:560338922 A>G c.965T>C p.M322T KMT2C chr7:316679359 GT>TA c.946_947delinsTA p.T316Y KMT2D chr12:56741816 T>A c.19168W>T p.K3537* MAPK3 chr16:55883809 G>A c.1108C>T p.R370C PARP4 chr13:59993799 GTTC>G c.5033_5035del p.V9545bzp PMS1 chr2:128981272 G>C c.253G>C p.E85Q PPM1D chr17:60610502 C>CA c.889dupA p.S297fs*6 VZTM8T9 chr8:32182021 G>C c.-74686L>G RYK chr3:084270149 T>A c.289A>T p.S97C SHPRH chr6:684190180 T>A c.2273A>T p.Q758L SLIT2 chr4:74832865 G>T c.3861G>T p.W6566Z STAT4 chr2:017623371 C>T c.1150G>A p.A384T TP53 chr17:2581764 C>A c.775G>T p.D259Y QQRC99401 Link to COSMIC: https://cancer.sange r.ac.uk/cosmic Link to dbSNP: https://www.ncbi.nlm .nih.gov/snp Link to ClinVar: https://www.ncbi.nlm .nih.gov/clinvar Methodology: Test Description: [facility] Mutation Analysis Precision Panel Liquid Biopsy (MDA [...] enriched with custom hybrid-capture, 120nt dsDNA probes. [employer] LB assay uses the Kairos4 next generation sequencing platform and bidirectional paired-end sequencing to identify nucleic acid variants for all coding regions from most genes in the panel, the TERT promoter, 1 non-coding RNA gene (TERC), and clinically relevant rearrangements. Reported somatic mutations are identified by comparison to the human genome reference sequence GRCh37/hg19 and reviewed in Coda[employer]ation against a process-matched normal control. Data analysis is performed in house by the [employer]ebbit Bioinformatics pipeline (BIP) which relies on the dual-duplex molecular barcoding for consensus analysis to reduce sequencing artifacts and achieve greater sensitivity and positive predictive value. [employer] is intended to provide tumor mutation profiling in accordance with institutional guidelines in oncology for patients with solid malignant neoplasms. Report annotation and software: A post-variant calling analysis and annotation tool, CodaMation version 1.10.1.616, was used in the construction of this report. The following additional software tools were utilized in the experimental setup and bioinformatic analysis: [employer] Control Software 1.8, FinalCAD Real Time Analysis Software 3.4.4, [employer] Application Center 10.2 and Jebbit BIP v2.0. Detailed information about the signal-processing, base [...] cannot be ruled out. The results of MDA ALEXANDER LB genomic testing should be correlated with all available and applicable clinicopathologic information by the treating physician in clinical decision making. Sequencing coverage of the genes: The following table describes the extent and adequacy of coverage for ordered genes only. Covered genes/exons/codons are defined as those having total coverage depth of greater than or equal to 1000 DNK-ynfac-fjusskkcb collapsed reads (minimum 1000x coverage). Mutations in [...] 1000x coverage Gene Exons (codons) tested BRAF (NM_004033) 1 (1-46), 3-4 (81-203), 5 (207-229), 6-16 (238-249), 17 (857-559), 18 (062-948) ERBB2 (NM_004448) 1-27 (1-1256) MET (NM_001127500) 2-8 (1-694), 9-11 (875-204), 12-14 (002-548), 15-21 (1516-8506) APPENDIX: Table 1: Genes of interest for SNVs, INDELs and CNVs ABL1 ABL2 ABRAXAS1 ACVR1 ACVR1B ACVR2A ADGRA2 AJUBA AKT1 AKT2 AKT3 AKTIP ALK SSAW95I AMER1 ANKRD11 APC AR* ARAF ARFRP1 ARID1A ARID1B ARID2 ARID5B ASCC3 ASPM ASXL1 ASXL2 RICKIE ATR ATRIP ATRX AURKA AURKB AURKC AXIN1 AXIN2 ANJALI B2M BAP1 BARD1 BAZ2A BBC3 BCL10 BCL11A BCL2 BCL2L1 SNT5O26 BCL2L2 BCL6 BCL7A BCOR BCORL1 BCR BIRC2 [...] CTNNB1 CUL3 CUL4A CUL4B CUX1 CXCR4 CYLD KJG1J39 DAXX CXPRM1U CVYL5K3 DDB1 DDR1 DDR2 DDX3X DICER1 DIS3 DIS3L2 [...] FOXP1 FRS2 FTO FUBP1 FYN FZR1 GABRA6 UTVI18K GATA1 GATA2 GATA3 GATA4 GATA6 GEN1 GID4 GLI1 GNA11 GNA13 GNAQ GNAS WJK999 GPS2 GREM1 GRIN2A GRM3 GSK3B H1-2 H1-4 H2AX H2BC5 H3-3A H3-3B H3-4 H3-5 H3C1 H3C10 H3C11 H3C12 H3C13 H3C2 H3C3 H3C4 H3C6 H3C7 H3C8 HDAC2 HDAC9 HELQ HERC2 HFM1 HGF HLA-A HLA-B HLA-C HMGA2 HNF1A HOXB13 HRAS HSD3B1 LNQ84MV7 XQP94HL5 HUWE1 HVCN1 ICOSLG ID3 IDH1 IDH2 IFNGR1 IGF1 IGF1R IGF2 IGLL5 IKBKE IKZF1 IKZF3 IL10 IL2RG IL7R INHA INHBA INO80 INPP4A INPP4B INSR IRAK1 IRF2 IRF4 IRF8 IRS1 IRS2 ITPKB JAK1 JAK2 JAK3 CARL KAT6A KDM3B KDM5A KDM5C KDM6A KDR KEAP1 DEON KIT* KLF2 KLF4 KLHL6 KMT2A KMT2B KMT2C KMT2D KNSTRN KRAS* LATS1 LATS2 LCK LIG4 LMO1 LRP1B LTB LTK TIMOTHY MAD2L2 MAGOH MALT1 MAP2K1 MAP2K2 MAP2K4 MAP2K7 MAP3K1 XLD2C84 XSO2Y89 MAP3K4 MAPK1 MAPK3 MAPK8 MAX MCL1 MDC1 [...] PARPBP PAX5 PAXX PBRM1 PCBP1 PCNA PDCD1 XDWM7SG8 PDGFB PDGFRA* PDGFRB PDK1 PER1 PGD PGR PHF6 PHOX2B MZR6E8B JYE2H0D PIK3C3 PIK3CA* PIK3CB PIK3CD PIK3CG PIK3R1 PIK3R2 PIK3R3 PIM1 PLCG1 PLCG2 PLEKHG5 PLK2 PMAIP1 PML PMS1 PMS2 PNKP PNRC1 POLA1 POLD1 POLE POLQ POT1 PPARG PPM1D NWH2X6K QRB7Y3A YZQ9A9A PPP4R4 PPP6C PRAME PRC1 PRDM1 PREX2 PRG4 LZFKU9W PRKCI PRKD1 PRKDC PRKN PTCH1 PTEN PTK2 PTPN1 PTPN11 PTPRB PTPRD PTPRS PTPRT QKI RAB35 RAC1 RAD17 RAD21 RAD50 RAD51 KJB39IT6 RAD51B RAD51C RAD51D RAD52 RAD54L RAF1* CHE RASA1 RASSF1 RB1 RBM10 RBMX RECQL4 REL RELN REST RET REV3L RFC1 RFC2 RFC3 RFC4 RFC5 RFTN1 RHEB RHOA RICTOR RIF1 RIPK1 RIT1 RMI1 RMI2 RNF43 ROR1 ROS1 RPA1 RPA2 RPA3 RPA4 RPS15 XHZ2HB4 CJS0LK4 VPH1PM6 RPTOR RRAGC RRAS RSPO1 RSPO2 RUNX1 EXUU0G3 RYBP RYK S1PR1 S1PR2 SAMHD1 SDHA SDHAF2 SDHB SDHC SDHD SESN1 SETBP1 SETD2 SETDB1 SF3B1 SGK1 SH2B3 SH2D1A SHLD1 SHLD2 SHLD3 SHPRH SHQ1 HOY00H8 SLIT2 SLX4 SMAD2 SMAD3 SMAD4 SMARCA2 SMARCA4 SMARCAD1 SMARCB1 SMARCD1 SMC1A SMC3 SMC5 SMC6 SMO SNCAIP SOCS1 SOS1 SOX10 SOX11 SOX17 SOX2 SOX9 SP140 SPEN SPOP SRC SRSF2 SSBP1 STAG2 STAT3 STAT4 STAT5A STAT5B STAT6 STK11 STK19 STK40 SUFU SUZ12 SYK TBC1D4 CFW4MV4 TBX3 TCF3 TCF7L2 MAYNOR TENT5C TERC TERT^ TET1 TET2 TFE3 TFEB TGFB1 TGFBR1 TGFBR2 WNQF172 PNBH31D TMPRSS2 TNF TNFAIP3 WFZBFJ15 TOP1 TOP2A TOP3A TOPBP1 TP53 CY91KE1 TP53I3 TP63 TRAF2 TRAF3 TRAF6 TRAF7 LOZZWX13 TRIM28 TRIM37 TSC1 TSC2 TSHR TSPAN31 TTK TYRO3 U2AF1 UBR5 VAV1 VEGFA VHL VTCN1 WRN WT1 XIAP XPO1 XPO5 XRCC2 XRCC3 XRCC4 XRCC5 XRCC6 YAP1 YES1 ZFAT ZFHX3 ZMYM3 LWY212 VFU901 ZRSR2 *Gene included for CNV reporting ^ [...] 1 NUTM1 introns: 1 RET introns: 7-11 EVU23J8 introns: 4 BRAF introns: 7-10 EGFR introns: [...] Molecular Diagnostic Laboratory (MDL) at the [facility]. It has not been cleared by the [...] 02/16/2024 9:26 AM CDT Keysha Lou APRN MDA HP MOLECULAR DIAGNOSTI CS (CAMELIA BATRES) Final Result MOLECULAR DIAGNOSTICS [facility] Molecular Diagnostics Laboratory [address] [place] [address] * MD GRULLON Blood Control (02/16/2024 9:24 AM CDT) Blood Peripheral blood specimen / Unknown 02/16/2024 9:24 AM CDT 02/22/2024 1:37 PM CDT Keysha Lou APRN, MDA IP HP MOLECULAR DIAG I F ORDERABLES Edited Result - Final Performing Organization Address City/[facility]/ZIP Co de Phone Number MOLECULAR DIAGNOSTICS [facility] Molecular Diagnostics Laboratory [address] [place] [address] * Research Protocol [id number] (02/15/2024 2:54 PM CDT) Research Protocol Specimen Specimen Collected, Ready for Pickup. 02/15/2024 4:00 PM CDT [facility] Blood Peripheral blood specimen / Unknown Venipuncture / Unknown 02/15/2024 2:54 PM CDT 02/15/2024 2:58 PM CDT Result [facility] Keysha Lou APRN RESEARCH LAB Z CODES Final Result [facility] Unless otherwise noted, all lab tests performed by: Division of Pathology and Laboratory Medicine [address] [place] [address] * OSI PET CT Skull to Mid Thigh (01/28/2024 2:32 PM CDT) Narrative Systemgenerated, Documentation - 02/12/2024 2:32 PM CDT Study acquired at another institution. For comparison only. No [facility] originated interpretation requested or available. Amy Oliva MD IMG OUTSIDE IMAGE ORDERABLES Fin al Result * OSI CT CHEST (01/23/2024 2:32 PM CDT) Narrative Systemgenerated, Documentation - 02/12/2024 2:32 PM CDT Study acquired at another institution. For comparison only. No [facility] originated interpretation requested or available. Amy Oliva MD IMG OUTSIDE IMAGE ORDERABLES Fin al Result * Pathology Outside Interpretation (01/22/2024) Materials Received Accession#, Stained, Block, Unstained Collected Received A. [id number], 16 SS, 0 BLOCKS, 0 USS B. [id number], 4 SS, 0 BLOCKS, 0 USS C. [id number], 4 SS, 0 BLOCKS, 0 USS 01/22/2024 01/27/2024 01/27/2024 02/18/2024 02/18/2024 02/18/2024 09/09/2024 10:58 AM CDT [facility] Addendum 2 Additional material received on 09/07/2024, Outside 0 SS, 1 BLOCKS, 0 USS, collected on 01/27/2024. This addendum reports the results of clinically requested studies. RESULTS MTAP (Clone 2G4, [employer]): Retained (see comment) COMMENTS Immunoperoxidase staining was performed at [facility] on a cell block section with appropriate controls. MTAP expression appears weak and heterogenous, which is interpreted as retained expression. Correlation with pending NGS testing is recommended. Technical Charge Note: H&E x1; IHC x1 Assay Information: This is a laboratory-develope d assay which uses a monoclonal antibody clone 2G4 from [employer] and is validated to detect MTAP on [...] cannot be guaranteed. 09/09/2024 10:58 AM CDT [facility] Addendum electronically signed by Polo Mcdonough MD on 09/09/2024 at 1058 CDT Addendum 1 This addendum reports the results of clinically requested studies. RESULTS PD-L1 (Clone 22c3, [employer] PharmDx) Tumoral Proportion Score (TPS): 0% HER2, immunoperoxidase stain (clone 4B5, [place] [employer]) - negative (score 0) COMMENTS Immunoperoxidase stains were performed on cell block ([id number], A2) sections with appropriate controls. Note that the cellularity of the sample did not support all the requested IHC tests. The results of requested MDL testing will be reported separately. Assay Information: The PD-L1 assay is manufactured by [employer] and uses a monoclonal anti-PD-L1, clone 22c3. It is performed on formalin-fixed paraffin-embedded tissue using an [employer] Dako autostainer and polymer based detection kit, as specified by the product manager financial services. It is approved for use as a mushroom laborer diagnostic assay for specific therapies on certain [...] be guaranteed. Technical Charge Note (performed at [facility]): H&E x 2; IHC x 2 09/09/2024 10:58 AM CDT [facility] Addendum electronically signed by Polo Mcdonough MD on 03/08/2024 at 1542 CDT Diagnosis Outside ([id number], 16 SS, 0 BLOCKS, 0 USS, collected on 01/22/2024): A. Pericardial fluid (cytospin and cell block): METASTATIC SQUAMOUS CELL CARCINOMA (see comment) Outside ([id number], 4 SS, 0 BLOCKS, 0 USS, collected on 01/27/2024): B. Lymph node, subcarinal, station 7, EBUS FNA (cytospin and cell block): METASTATIC SQUAMOUS CELL CARCINOMA Outside ([id number], 4 SS, 0 BLOCKS, 0 USS, collected on 01/27/2024): C. Lymph node, lower paratracheal, right, station 4R, EBUS FNA (cytospin and cell block): METASTATIC SQUAMOUS CELL CARCINOMA 09/09/2024 10:58 AM CDT [facility] at 1014 CDT Comment Submitted immunostains, performed on cellblock with appropriate controls, shows that the tumor cells are positive for p40, p63, MOC-31(patchy), Ortiz-EP4 (rare, weak) and TTF-1 (patchy), while negative for CK7, CK20, WT1, creatinine and Napsin A. The overall immunophenotype, along with morphologic features, are in favor of squamous cell carcinoma. 09/09/2024 10:58 AM CDT [facility] Biomarker Block(s) Block for biomarker testing: A2 ([id number]), A2 ([id number]) Normal block: No 09/09/2024 10:58 AM CDT [facility] Disclaimer "Some tests reported here may have been developed and performance characteristics determined by [facility]. These tests have not been specifically cleared or approved by the U.S. Food and Drug Administration. If applicable, controls were reviewed and showed appropriate reactivity." 09/09/2024 10:58 AM CDT [facility] Tissue 01/22/2024 02/18/2024 6:4 6 AM CDT Tissue specimen (specimen) 01/27/2024 02/18/2024 6:46 AM CDT Tissue specimen (specimen) 01/27/2024 02/18/2024 6:46 AM CDT [facility] PATHOLOGY ORDERABLES Edited Result - Final [facility] [address] [place] [phone], [place] * OSI Chest (01/21/2024 2:32 PM CDT) Narrative Systemgenerated, Documentation - 02/12/2024 2:33 PM CDT Study acquired at another institution. For comparison only. No [facility] originated interpretation requested or available. 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 Advance Directives: Living Will 02/29/2024 Directive to Physici ans and Family or Surrogates-Living Will Advance Directives: Medical Power of Port Traffic Manager 02/29/2024 Medical Power of Att orney * Full Code (Latest Code Status on File) Date Activated Date Inactivated Comments 10/27/2024 7:15 PM Update based o n Advanced Directive Documentation * Full Code Date Activated Date Inactivated Comments 10/20/2024 2:57 PM 10/27/2024 7:15 PM Update based on Advanced Directive Documentation * DNR Date Activated [...] Patient Provided: Written Authorization (DNR Con sent) Care Teams Drafter (Cad) Electrical Relationship Specialty Start Date End Date Akash Lao MD [address] [place] [phone] [email or web address] PCP - External Referring Internal Medicine 02/04/24 Dustin Coronado Jr., MD [address] [place] [id number] [email or web address] PCP - General Head and Neck Medical Oncology 02/04/24 02/10/24 Amy Oliva MD [facility] [place], [place] [id number] [email or web address] [facility] .[facility] PCP - General Thoracic Medicine 02/11/24 Clarisa Valle, RN [address] [place] [phone] [email or web address] Intake Nurse Navigator Nursing 02/04/24 02/15/24 Noreen Rubio, RN [address] [place] [id number] [email or web address] Nurse Navigator Nursing 02/16/24 Solo Souza MD [address] [place] [id number] [email or web address] Consulting Physician Rheumatology 02/16/24 Jordy Winston DO [address] [place] [id number] [email or web address] Consulting Physician Supportive Care 02/26/24 Abe Yost MD [address] [place] [id number] [email or web address] Consulting Physician Pulmonary Medicine 04/05/24 Edward Wick MD [address] [place] [phone] [email or web address] Consulting Physician Cardiology 04/26/24 Jose R Flores MD [address] [place] [phone] [email or web address] Consulting Physician Radiation Oncology 06/14/24 Richie Bedolla MD [address] [place] [phone] [email or web address] Consulting Physician Medical Oncology 08/31/24 Ary Koenig APRN [address] [place] [id number] [email or web address] Nurse Practitioner Neurosurgery 09/06/24
[2024-12-04] MEDS ORDERED: NA CHLORIDE 0.9% 2,000 ML ONE (16:10)
[2024-12-04] MEDS ORDERED: NA CHLORIDE 0.9% 500 ML ONE (16:10)
[2024-12-04 16:48] LABS: Absolute Lymphocytes (CBC) 0.7 K/uL (0.7-4.9); Hematocrit 28.8 % (39.6-49.0); Hemoglobin 9.6 g/dL (13.6-17.9); MCH 27.2 pg (27.0-35.0); MCHC 33.3 g/dL (32.0-36.0); MCV 81.6 fL (80-100); MPV 9.4 fL (7.6-11.3); Nucleated RBC Absolute Count 0.0 (0-0); Nucleated Red Blood Cells % 0.3 % (0-0); RBC Red Blood Cell Count 3.52 M/uL (4.33-5.43); White Blood Count 6.10 thou/uL (4.3-10.9)
[2024-12-04 17:03] LABS: PT Prothrombin Time 13.6 SECONDS (10-13.0); PTT, Activated Partial Thromb 27.7 SECONDS (27.2-37.4); Protime INR 1.21
[2024-12-04 17:06] LABS: AST/SGOT 17 U/L (15-37); Albumin 2.4 g/dL (3.4-5.0); Albumin/Globulin Ratio 0.7 (1.1-1.8); Alkaline Phosphatase 51 U/L (45-117); Anion Gap 9.7 mEq/L (5.0-15.0); BUN Blood Urea Nitrogen 20 mg/dL (7-18); Globulin 3.3 g/dL (2.3-3.5); Glucose Level 103 mg/dL (74-106); Magnesium 1.6 mg/dL (1.6-2.4); Potassium 3.7 mEq/L (3.5-5.1); Troponin High Sensitivity 15.4 pg/mL (<58.9)
[2024-12-04 17:09] LABS: ALT/SGPT < 14 U/L (16-61); Bilirubin Indirect, Calculated 0.1 mg/dL (0.2-0.8)
--- NOTE | 2024-12-04 17:25 | RAD REPORT ---
EXAMINATION: Abdomen Pelvis W Contrast CLINICAL INDICATION: Male, 69 years old.ABD PAIN TECHNIQUE: CT abdomen and pelvis was performed, after the administration of IV contrast, as per [facility]. Axial, sagittal and coronal reconstructions were obtained. One or more of the following dose reduction techniques were used: Automated exposure control, adjustment of the mA and/o r kV according to patient size, and/or iterative reconstruction. Unless otherwise specified, incidental findings do not require dedicated imaging follow-up. [id number]. COMPARISON: None FINDINGS: LOWER CHEST: Right lower lobe lesion measuring 3 cm.Small bilateral effusions. Aortic valve prosthesi s.Moderate circumferential thickening of the distal esophagus which could reflect esophagitis. Endoscopy could better evaluate. Enlarged lower paraesophageal lymph nodes. Small pericardial effusio n. UPPER GI: No significant abnormality. LIVER: 3.1 cm lesion in the posterior right hepatic lobe consistent with metastatic disease. GALLBLADDER/BILE DUCTS: No biliary ductal dilatation.? PANCREAS: No mass, ductal dilation, or shira-pancreatic fluid. SPLEEN: Unremarkable. ADRENALS: Adrenal thickening without discrete mass. KIDNEYS AND URETERS: No hydronephrosis.Low density and/or too small to characterize renal lesions whi ch are statistically benign.Nonobstructing renal calculi. ABDOMINAL AORTA AND OTHER VESSELS: Severe atherosclerotic changes. No aortic aneurysm. PERITONEUM: No abnormal free fluid. No free air. LYMPH NODES: Upper abdominal lymphadenopathy including a portacaval lymph node measuring 3.1 cm. ABDOMINAL WALL: Unremarkable SMALL BOWEL/COLON: Small bowel has normal course and caliber. No colonic wall thickening or pericolon ic inflammatory changes. URINARY BLADDER: Underdistended but grossly unremarkable. REPRODUCTIVE ORGANS: No pathologic process. MUSCULOSKELETAL: L4-5 fusion. No acute fractures. ADDITIONAL FINDINGS: None. IMPRESSION: No acute findings within the abdomen or pelvis. Partially imaged right lower lobe lung lesion with enlarged lower paraesophageal lymph nodes, hepatic metastatic disease, and upper abdominal lymphadenopathy.
[2024-12-04] MEDS ORDERED: BISACODYL 10 MG RECTAL SUPP ONE (17:49)
--- NOTE | 2024-12-04 17:49 | EDPHYS ---
Physician Documentation [facility] Name: Antonio Arredondo Age: 69 yrs Sex: Male : 1955 Arrival Date: 12/04/2024 Time: 15:42 Bed 24 Private MD: ED Physician Giovanni Roland HPI: 12/04 16:16 This 69 yrs old Male presents to ER via Wheelchair with complaints of Abdominal Pain, kb Constipation, Blood Pressure Problem. 16:16 Pt is a 69 year old male who presents for constipation and abd pain that started 10 kb days ago. States he came in for the constipation last week and was admitted for a.fib. States they got his a.fib under control and discharged him but he still hasn't had a bowel movement and now he has developed abd pain. Also reports low blood pressure. States he checked his blood pressure today because his told him to and it was 94/54. Denies any lightheadedness, chest pain.. Historical: - Allergies: 15:52 No Known Drug Allergies; jb4 - PMHx: 15:52 Hyperlipidemia; Lung CA; Rheumatoid Arthritis; jb4 16:05 Atrial fibrillation; aa5 - PSHx: 15:52 CHAPINCITO knee; jb4 - Immunization history:: Adult Immunizations up to date. - Infectious Disease History:: Denies. - Social history:: Smoking status: Patient/guardian denies using tobacco, the patient reports quitting approximately 1 years ago. ROS: 16:15 Constitutional: As per HPI kb Exam: 16:15 Constitutional: This is a well developed, well nourished patient who is awake, alert, kb and in no acute distress. Head/Face: Normocephalic, atraumatic. ENT: Moist Mucous membranes Cardiovascular: Tachycardic rate Respiratory: Respirations even and unlabored. No increased work of breathing. Talking in full sentences Abdomen/GI: Soft, non-tender. No distention Skin: Warm, dry with normal turgor. Normal color. MS/ Extremity: Pulses equal, no cyanosis. Neurovascular intact. Full, normal range of motion. Neuro: Awake and alert, GCS 15, oriented to person, place, time, and situation. 16:47 ECG was reviewed by the Attending Physician. kb 17:46 Abdomen/GI: Rectal exam: is unremarkable, fecal impaction, is not appreciated, kb Vital Signs: 15:49 BP 80 / 65; Pulse 105; Resp 16; Temp 98(O); Pulse Ox 100% on R/A; Weight 83.91 kg (R); jb4 Height 6 ft. 2 in. (R); 16:05 BP 104 / 75; Pulse 105; Resp 20 S; Pulse Ox 95% on R/A; aa5 16:40 BP 94 / 69; Pulse 102; Resp 16 S; Pulse Ox 93% on R/A; aa5 16:55 Pulse Ox 86% on R/A; aa5 16:56 Pulse Ox 95% on 2 lpm NC; aa5 17:35 BP 108 / 53; Pulse 104; Resp 16 S; Pulse Ox 94% on 2 lpm NC; aa5 18:51 BP 116 / 64; Pulse 99; Resp 17 S; Pulse Ox 94% on 2 lpm NC; aa5 19:14 BP 107 / 65; Pulse 109; Resp 20; Temp 98; Pulse Ox 93% ; Pain 7/10; bm8 15:49 Body Mass Index 23.75 (83.91 kg, 187.96 cm) jb4 19:14 Pain Scale: Adult bm8 Bam Coma Score: 19:14 Eye Response: spontaneous(4). Motor Response: obeys commands(6). Verbal Response: bm8 oriented(5). Total: 15. MDM: 15:46 Medical Screening Exam initiated kb 16:16 Data reviewed: vital signs, nurses notes. kb 17:45 Differential diagnosis:. kb 17:46 Consideration of Admission/Observation Patient was admitted/placed on observation. kb Escalation of care including admission/observation considered. Management of patient was discussed with the following: Primary Care Provider: Dr Lao accepts pt for inpatient admission. Wants dulcolax suppository now, NS at 100ml/hr and continue home lovenox. . Historians other than the Patient: Spouse/Significant Other: . Counseling: I had a detailed discussion with the patient and/or guardian regarding the historical points, exam findings, and any diagnostic results supporting the discharge/admit diagnosis, lab results, radiology results, the need for further work-up and treatment in the hospital. 12/04 15:53 Order name: Basic Metabolic Panel; Complete Time: 17:11 kb 12/04 15:53 Order name: CBC with Diff; Complete Time: 16:51 kb 12/04 15:53 Order name: LFT's; Complete Time: 17:11 kb 12/04 15:53 Order name: Magnesium; Complete Time: 17:11 kb 12/04 15:53 Order name: Troponin HS; Complete Time: 17:11 kb 12/04 16:01 Order name: BNP; Complete Time: 17:18 kb 12/04 16:01 Order name: Blood Culture Adult (2) kb 12/04 16:01 Order name: Lactate w/ 2H reflex if indic.; Complete Time: 17:12 kb 12/04 16:01 Order name: Protime (+inr); Complete Time: 17:07 kb 12/04 16:01 Order name: Ptt, Activated; Complete Time: 17:07 kb 12/05 05:08 Order name: CBC with Automated Diff EDMS 12/05 05:24 Order name: Basic Metabolic Panel EDMS 07 15:53 Order name: CT Abd/Pelvis - IV Contrast Only; Complete Time: 17:28 kb 12/04 15:53 Order name: Cardiac monitoring; Complete Time: 16:41 kb 12/04 15:53 Order name: EKG - Nurse/Tech; Complete Time: 16:41 kb 12/04 15:53 Order name: IV Saline Lock; Complete Time: 16:41 kb 12/04 15:53 Order name: Labs collected and sent; Complete Time: 16:41 kb 12/04 15:53 Order name: O2 Per Protocol; Complete Time: 16:41 kb 12/04 15:53 Order name: O2 Sat Monitoring; Complete Time: 16:41 kb 12/04 16:01 Order name: IV Saline Lock - Large Bore; Complete Time: 16:41 kb 12/04 16:01 Order name: Vital Signs; Complete Time: 16:41 kb 12/04 17:46 Order name: Misc. Order: stop 30ml/kg bolus. Start NS at 100cc/hr; Complete Time: 17:48 kb EC:47 Rate is 106 beats/min. Rhythm is irregularly irregular. QRS [place] is Normal. QRS kb interval is normal at 117 msec. QT interval is normal at 410 msec. Administered Medications: 16:01 CANCELLED (Physician Discretion): ns 0.9% 500 ml 500 ml IV at 1 bolus once; to be given kb as a bolus over 30 minutes 16:43 Drug: NS 0.9% IV (30 ml/kg) 30 ml/kg IV at bolus once; Sepsis Protocol; to be given as aa5 a bolus over 90 minutes Route: IV; Rate: bolus; Site: right forearm; 17:46 Follow up: IV Status: Order to discontinue infusion; IV Intake: 700ml aa5 17:54 Drug: NS 0.9% IV 1000 ml IV at 100 ml/hr Per protocol Route: IV; Rate: 100 ml/hr; Site: aa5 right forearm; 19:15 Follow up: Response: No adverse reaction; IV Status: Infusion continued upon admission bm8 18:02 Drug: Dulcolax OR Suppository 10 mg OR once Route: OR; aa5 18:51 Follow up: Response: No adverse reaction; Marked relief of symptoms aa5 Disposition: 19:03 Co-signature as Attending Physician, Giovanni Roland MD I reviewed the patient's care rt provided by the Advanced Practice Provider and agree with the diagnosis and treatment plan. Disposition Summary: 12/04/24 17:48 Hospitalization Ordered Notes: Hospitalization Status: Inpatient Admission kb Provider: Clarisa Lao Condition: Stable kb Problem: new kb Symptoms: are unchanged kb Bed/Room Type: Standard kb Location: [facility] ER HOLD(12/04/24 18:53) Room Assignment: ERHOLD-(12/04/24 18:53) cg Diagnosis - Unspecified atrial fibrillation - with RVR kb - Hypotension, unspecified kb - Constipation kb - Abdominal pain, Generalized kb Forms: - Medication Reconciliation Form kb - SBAR form kb - Leadership Thank You Letter kb Signatures: Dispatcher [employer] EDMaddison Montenegro, JAMES-C SIZE STAMPER-Chelita Avilez, RN RN aa5 Ana Cristina Obando, ASHTYN RN Gerson Ward RN RN jb4 Giovanni Roland MD MD rt Jerry Kessler RN bm8 Corrections: (The following items were deleted from the chart) 15:54 15:54 BASIC METABOLIC PANEL+C.LAB.BRZ ordered. EDMS EDMS 15:54 15:54 CBC+H.LAB.BRZ ordered. EDMS EDMS 15:54 15:54 HEPATIC FUNCTION+C.LAB.BRZ ordered. EDMS EDMS 15:54 15:54 MAGNESIUM+C.LAB.BRZ ordered. EDMS EDMS 15:54 15:54 Troponin High Sensitivity+C.LAB.BRZ ordered. EDMS EDMS 15:54 15:54 Abdomen Pelvis W Con+CT.RAD.BRZ ordered. EDMS EDMS 16:01 15:53 NS 0.9% IV 500 ml 500 ml IV at 1 bolus once; to be given as a bolus over 30 kb minutes ordered. kb 16:16 16:15 Constitutional: This is a well developed, well nourished patient who is awake, kb alert, and in no acute distress. Head/Face: Normocephalic, atraumatic. ENT: Moist Mucous membranes Cardiovascular: Regular rate Respiratory: Respirations even and unlabored. No increased work of breathing. Talking in full sentences Abdomen/GI: Soft, non-tender. No distention Skin: Warm, dry with normal turgor. Normal color. MS/ Extremity: Pulses equal, no cyanosis. Neurovascular intact. Full, normal range of motion. Neuro: Awake and alert, GCS 15, oriented to person, place, time, and situation. kb 18:53 17:48 Telemetry/MedSurg (Inpatient) kb cg 18:53 17:48 kb
--- NOTE | 2024-12-04 17:49 | ER ---
Nurse's Notes [facility] Name: Antonio Arredondo Age: 69 yrs Sex: Male : 1955 Arrival Date: 12/04/2024 Time: 15:42 Bed 24 Private MD: Diagnosis: Unspecified atrial fibrillation-with RVR;Hypotension, unspecified;Constipation;Abdominal pain, Generalized Presentation: 12/04 15:49 Chief complaint: Patient states: His blood pressure was low at home 94/54 and I have jb4 not had a bowel movement for about 10 days. Coronavirus screen: At this time, the client does not indicate any symptoms associated with coronavirus-19. Ebola Screen: No symptoms or risks identified at this time. Initial Sepsis Screen: Does the patient meet any 2 criteria? HR > 90 bpm. Yes Does the patient have a suspected source of infection? No. Patient's initial sepsis screen is negative. Risk Assessment: Do you want to hurt yourself or someone else? Patient reports no desire to harm self or others. Onset of symptoms was November 25, 2024. Transition of care: patient was not received from another setting of care. 15:49 Method Of Arrival: Wheelchair jb4 15:49 Acuity: EDGARDO 3 jb4 Triage Assessment: 15:52 General: Appears in no apparent distress. comfortable, Behavior is calm, cooperative. jb4 Pain: Denies pain. Neuro: Level of Consciousness is awake, alert, obeys commands, Oriented to person, place, time, situation. Cardiovascular: Patient's skin is warm and dry. Respiratory: Airway is patent Respiratory effort is even, unlabored, Respiratory pattern is regular, symmetrical. GI: Reports constipation. Derm: Skin is intact, Skin is dry, Skin is pale, Skin temperature is warm. Musculoskeletal: Circulation, motion, and sensation intact. Range of motion: intact in all extremities. Historical: - Allergies: 15:52 No Known Drug Allergies; jb4 - PMHx: 15:52 Hyperlipidemia; Lung CA; Rheumatoid Arthritis; jb4 16:05 Atrial fibrillation; aa5 - PSHx: 15:52 CHAPINCITO knee; jb4 - Immunization history:: Adult Immunizations up to date. - Infectious Disease History:: Denies. - Social history:: Smoking status: Patient/guardian denies using tobacco, the patient reports quitting approximately 1 years ago. Screenin:05 Abuse screen: Denies threats or abuse. Nutritional screening: No deficits noted. aa5 Tuberculosis screening: No symptoms or risk factors identified. 19:14 [facility] ED Fall Risk Assessment (Adult) History of falling in the last 3 months, bm8 including since admission Yes- physiologic fall (2 pts) Confusion or Disorientation No (0 pts) Intoxicated or Sedated No (0 pts) Impaired Gait Yes (1 pt) Mobility Assist Device Used Yes (1 pt) Altered Elimination Yes (1 pt) Score/Fall Risk Level 3 or more points = High Risk Oriented to surroundings, Maintained a safe environment, Educated pt \T\ family on fall prevention, incl call for assistance when getting out of bed, Assessed \T\ reinforced patient's understanding of fall precautions, Hourly rounding (assess needs \T\ fall precautionary measures) done, Used ambulatory aids as needed (educated on \T\ assisted with), Used gait belt as appropriate. Assessment: 16:02 General: Appears comfortable, Behavior is calm, cooperative. Pain: Denies pain. Neuro: aa5 Level of Consciousness is awake, alert, obeys commands, Oriented to person, place, time, situation. Cardiovascular: Heart tones S1 S2 present Rhythm is atrial fibrillation with rapid ventricular response. Respiratory: Airway is patent Respiratory effort is even, unlabored, Respiratory pattern is regular, symmetrical. GI: Abdomen is round non-distended, Bowel sounds present X 4 quads. Abd is soft and non tender X 4 quads. Reports constipation. : No signs and/or symptoms were reported regarding the genitourinary system. EENT: No signs and/or symptoms were reported regarding the EENT system. Derm: Skin is pink, warm \T\ dry. Musculoskeletal: No signs and/or symptoms reported regarding the musculoskeletal system. 16:56 Reassessment: Pt to CT scan . aa5 18:45 Reassessment: Patient is alert, oriented x 3, equal unlabored respirations, skin aa5 warm/dry/pink. Pt reports he just had a BM. . 19:14 Reassessment: Patient appears in no apparent distress at this time. Patient and/or bm8 family updated on plan of care and expected duration. Pain level reassessed. Patient is alert, oriented x 3, equal unlabored respirations, skin warm/dry/pink. Pain: Complains of pain in all over Pain currently is 7 out of 10 on a pain scale. Quality of pain is described as aching, crampy. Vital Signs: 15:49 BP 80 / 65; Pulse 105; Resp 16; Temp 98(O); Pulse Ox 100% on R/A; Weight 83.91 kg (R); jb4 Height 6 ft. 2 in. (R); 16:05 BP 104 / 75; Pulse 105; Resp 20 S; Pulse Ox 95% on R/A; aa5 16:40 BP 94 / 69; Pulse 102; Resp 16 S; Pulse Ox 93% on R/A; aa5 16:55 Pulse Ox 86% on R/A; aa5 16:56 Pulse Ox 95% on 2 lpm NC; aa5 17:35 BP 108 / 53; Pulse 104; Resp 16 S; Pulse Ox 94% on 2 lpm NC; aa5 18:51 BP 116 / 64; Pulse 99; Resp 17 S; Pulse Ox 94% on 2 lpm NC; aa5 19:14 BP 107 / 65; Pulse 109; Resp 20; Temp 98; Pulse Ox 93% ; Pain 7/10; bm8 15:49 Body Mass Index 23.75 (83.91 kg, 187.96 cm) jb4 19:14 Pain Scale: Adult bm8 [place] Coma Score: 19:14 Eye Response: spontaneous(4). Motor Response: obeys commands(6). Verbal Response: bm8 oriented(5). Total: 15. ED Course: 15:45 Patient arrived in ED. mr 15:46 Madd[facility]C [facility] kb 15:46 Giovanni Roland MD is Attending Physician. kb 15:52 Triage completed. jb4 15:52 Arm band placed on right wrist. jb4 15:57 Chelita Gilliam, RN is Primary Nurse. aa5 16:02 Patient has correct armband on for positive identification. Bed in low position. Call aa5 light in reach. Side rails up X2. Adult w/ patient. Client placed on continuous cardiac and pulse oximetry monitoring. NIBP monitoring applied. compliance monitor on. Pulse ox on. NIBP on. 16:35 Inserted saline lock: 20 gauge in right forearm, using aseptic technique. Flushed with aa5 10 mL NS. 16:36 Initial lab(s) drawn, by me, sent to lab. First set of blood cultures drawn by me. aa5 17:09 CT Abd/Pelvis - IV Contrast Only In Process Unspecified. EDMS 17:47 Clarisa Lao MD is Hospitalizing Provider. kb 18:57 Report given to ASHTYN Edwards. aa5 19:14 Provided Education on: need for admission. bm8 19:14 No provider procedures requiring assistance completed. Patient admitted, IV remains in bm8 place. Administered Medications: 16:01 CANCELLED (Physician Discretion): ns 0.9% 500 ml 500 ml IV at 1 bolus once; to be given kb as a bolus over 30 minutes 16:43 Drug: NS 0.9% IV (30 ml/kg) 30 ml/kg IV at bolus once; Sepsis Protocol; to be given as aa5 a bolus over 90 minutes Route: IV; Rate: bolus; Site: right forearm; 17:46 Follow up: IV Status: Order to discontinue infusion; IV Intake: 700ml aa5 17:54 Drug: NS 0.9% IV 1000 ml IV at 100 ml/hr Per protocol Route: IV; Rate: 100 ml/hr; Site: aa5 right forearm; 19:15 Follow up: Response: No adverse reaction; IV Status: Infusion continued upon admission bm8 18:02 Drug: Dulcolax OK Suppository 10 mg OK once Route: OK; aa5 18:51 Follow up: Response: No adverse reaction; Marked relief of symptoms aa5 Medication: 17:03 VIS not applicable for this client. aa5 Intake: 17:46 IV: 700ml; Total: 700ml. aa5 Outcome: 17:48 Decision to Hospitalize by Provider. kb 19:14 Admitted to ER Hold. Please see [facility] for further documentation. bm8 19:14 Condition: stable 19:14 Instructed on the need for admit, Demonstrated understanding of follow-up care, medications, 12/05 07:20 Patient left the ED. ld1 Signatures: Dispatcher [employer] EDMS Maddison Roche, INTERVENTIONAL SALE CONSULTANT-Charles INTERVENTIONAL SALE CONSULTANT-Sarah Miguel, Reg Reg mr Gilliam, Chelita, RN RN aa5 Gerson Freitas, RN RN jb4 Aileen Kingsley, ASHTYN RN ld1 Jerry Kessler, RN RN bm8 Corrections: (The following items were deleted from the chart) 12/04 17:55 17:46 IV Status: Order to discontinue infusion; IV Intake: 600ml aa5 aa5 17:55 17:55 IV Status: Order to discontinue infusion; IV Intake: 700ml aa5 aa5
[2024-12-04] MEDS: NA CHLORIDE 0.9% 1,000 ML IV SCH (19:22)
[2024-12-04] MEDS ORDERED: ENOXAPARIN 80 MG/0.8 ML SQ ONE (20:36)
[2024-12-04] MEDS: ENOXAPARIN 80 MG/0.8 ML SQ SCH (20:40)
[2024-12-04] MEDS ORDERED: ONDANSETRON 4 MG/2 ML VIAL IV PRN (21:09)
[2024-12-04 21:27] VITALS: BMI 23.7
[2024-12-04 21:52] VITALS: O2SAT 97
[2024-12-04] MEDS ORDERED: HYDROCODONE/APAP 5/325 MG TAB ONE (22:22)
[2024-12-04] MEDS: HYDROCODONE/APAP 5/325 MG TAB PO PRN (22:24)
[2024-12-05 00:56] VITALS: TEMP 98.2
[2024-12-05] MEDS ORDERED: HYDROCODONE/APAP 5/325 MG TAB ONE (03:30)
[2024-12-05 04:01] VITALS: BP 118/84
[2024-12-05 05:04] LABS: Absolute Lymphocytes (CBC) 0.7 K/uL (0.7-4.9); Hematocrit 34.1 % (39.6-49.0); Hemoglobin 11.1 g/dL (13.6-17.9); MCH 26.9 pg (27.0-35.0); MCHC 32.7 g/dL (32.0-36.0); MCV 82.3 fL (80-100); MPV 10.4 fL (7.6-11.3); Nucleated RBC Absolute Count 0.0 (0-0); Nucleated Red Blood Cells % 0.0 % (0-0); RBC Red Blood Cell Count 4.14 M/uL (4.33-5.43); White Blood Count 5.70 thou/uL (4.3-10.9)
[2024-12-05 05:24] LABS: Anion Gap 7.5 mEq/L (5.0-15.0); BUN Blood Urea Nitrogen 20.0 mg/dL (7-18); Glucose Level 95.0 mg/dL (74-106); Potassium 3.5 mEq/L (3.5-5.1)
--- NOTE | 2025-01-22 19:04 | SS ---
Date of Discharge: 12/05/2024 Chief Complaint: Abdominal pain and low blood pressure and constipation. History Of Present Illness: This is a 69-year-old male patient who was recently in the hospital and the patient was discharged to go home on 12/01/2024. The patient was in the hospital last time with acute kidney injury and volume depletion. The patient reports that he has been having constipation p roblem, and since he went home, he has not had a bowel movement and having some lower abdominal disco mfort with constipation problem, and his blood pressure is also running low. He reported that at beltran e his blood pressure was 94/54. With all these complaints, he came into emergency room. After he wa s evaluated, he was admitted to the hospital. Physical Examination: Vital Signs: Upon admission, yesterday, temperature 98, pulse 105, respiratory rate 16, blood pressu re 80/65, oxygen saturation 100%, and the last blood pressure today was 118/84, pulse rate 105. General: Awake, alert, oriented, not in distress. HEENT: Head atraumatic, normocephalic. Conjunctivae nonerythematous. Sclerae white. Mouth, no thr ush or edema noted. Ears/Nose, no mass, lesion, discharge noted. Neck: Supple. No JVD, lymph nodes, bruit, thyromegaly noted. Lungs: Bilateral good equal air entry. Clear to auscultation. No rhonchi. No rales. Heart: Normal heart sounds, no murmur or gallop. Abdomen: Soft, bowel sounds normal. No guarding, rigidity, tenderness, mass, hepatosplenomegaly, dis tention, or bruit noted. Extremities: No leg edema. No calf tenderness. Skin: No rash, ulcer, cellulitis. Lymphatics: No lymph node enlargement in neck, supraclavicular, infraclavicular region. Neuro: No focal neurological deficit. Chest: Unremarkable. External Genitalia: Deferred. Rectal: Deferred. Laboratory Data: Yesterday, WBC 6.1, hemoglobin 9.6, platelets 198. Today, WBC 5.7, hemoglobin 11.1 , platelets 171. For chemistry yesterday, sodium 140, potassium 3.7, chloride 109, bicarb 25, BUN 20 , creatinine 1.10, glucose 103, calcium 11.5. Liver function tests unremarkable. Troponin 15.4. Pr oBNP 1144. Today, sodium 143, potassium 3.5, chloride 113, bicarb 26, BUN 20, creatinine 0.96, gluco se 95, calcium 10.8. His CAT scan of the abdomen and pelvis done yesterday in the emergency room luz marina ws no acute finding in the abdomen or pelvis, which shows enlarged lower paraesophageal lymph nodes, hepatic metastatic disease, and upper abdominal lymphadenopathy noted on the CAT scan. Hospital Course: After the patient was evaluated and admitted to the hospital from emergency room, h is home medications were continued. Anticoagulation therapy and other chronic medications were genevieve nued. His constipation problem got resolved. Abdominal pain got resolved along with that and the sky matthew was discharged to go home in stable condition. His overall prognosis is poor because of his un derlying malignancy. Discharge Medications And Instructions: 1. Continue all prior home medications except stop olmesartan. 2. Follow up with my office next week. 3. Follow up with your oncologist and veneer stock grader at [facility], this week or next week. 4. Eat 4-5 prunes daily. 5. Take faae-maw-xfwyxvm Senokot S two tablets by mouth daily for constipation. Final Diagnoses: 1. Constipation. 2. Abdominal pain, lower. 3. Anemia, unspecified. 4. Chronic atrial fibrillation. 5. Chronic anticoagulation therapy. 6. Chronic obstructive pulmonary disease. 7. Type 2 diabetes mellitus. 8. Hypertension. 9. Hyperlipidemia. 10. Gastroesophageal reflux disease. 11. Diverticulosis. 12. Benign prostatic hypertrophy. 13. Rheumatoid arthritis. 14. Stroke with left-sided hemiparesis. 15. 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 CANDIE/MODL Voice ID: [id number] Report ID: [id number]
== END 2024-12-05 07:20 | disposition home or self-care (01) ==
LOC: ER 15:42 → ERHOLD 17:49 → INTOOBSV 17:49
PROVIDERS: ADMIT Internal Medicine; ATTEND Internal Medicine
DX: K59.00 Constipation, unspecified (principal); I48.91 Unspecified atrial fibrillation; I48.20 Chronic atrial fibrillation, unspecified; I95.9 Hypotension, unspecified; E78.5 Hyperlipidemia, unspecified; M06.9 Rheumatoid arthritis, unspecified; R10.30 Lower abdominal pain, unspecified; D64.9 Anemia, unspecified; I48.11 Longstanding persistent atrial fibrillation; Z79.01 Long term (current) use of anticoagulants; J44.9 Chronic obstructive pulmonary disease, unspecified; E11.9 Type 2 diabetes mellitus without complications; I10 Essential (primary) hypertension; K21.9 Gastro-esophageal reflux disease without esophagitis; K57.90 Diverticulosis of intestine, part unspecified, without perforation or abscess without bleeding; N40.0 Benign prostatic hyperplasia without lower urinary tract symptoms; I69.354 Hemiplegia and hemiparesis following cerebral infarction affecting left non-dominant side; C34.11 Malignant neoplasm of upper lobe, right bronchus or lung
CPT/HCPCS: 96365; 96361; 93005; 87040 ×2; 85025 ×2; 80048 ×2; 36415; 83735; 85610; 80076; 83605; 85730; 84484; 83880; 74177; 99285; Q9967; J1650; J7040; J7030; G0378 ×3